=== PATIENT | male | born 1965 | race Caucasian/White ===

== ENCOUNTER 2016-04-12 14:59 | Inpatient (IN) ==
[2016-04-12 15:58] LABS: Basophils % 0.6 %; Eosinophils % 0.6 %; Hematocrit 24.3 % (37.5-50.1); Hemoglobin 7.8 g/dL (12.9-16.9); Immature Granulocytes % 0.4 % (0-4); Lymphocytes # 0.7 K/mcL (0.6-4.6); Mean Corpuscular HGB Conc 32.1 g/dL (31.6-35.5); Mean Corpuscular Hemoglobin 28.7 pg (28.0-33.3); Mean Corpuscular Volume 89.3 fL (83.0-100.0); Mean Platelet Volume 10.4 fL (9.4-12.4); Monocytes # 0.3 K/mcL (0.0-1.3); Monocytes % 4.9 %; Neutrophils # 5.7 K/mcL (1.6-8.9); Platelet Count 205 K/mcL (140-400); Red Blood Count 2.72 M/mcL (4.19-5.50); Red Cell Distribution Width 14.6 % (11.5-14.5); Segmented Neutrophils % 83.5 %
[2016-04-12 16:06] LABS: INR 1.1; Prothrombin Time 12.1 Seconds (9.4-12.1)
[2016-04-12 16:09] LABS: Activated Partial Thrombo Time 31.1 Seconds (26.0-36.0)
[2016-04-12 16:13] LABS: Albumin 3.3 g/dL (3.5-5.0); Bilirubin,Total 0.5 mg/dL (0.2-1.2); Calcium 8.2 mg/dL (8.6-10.8); Globulin 3.2 g/dL (2.4-3.5); Potassium 4.2 mEq/L (3.5-4.5); Total Protein 6.5 g/dL (6.0-8.3)
--- NOTE | 2016-04-12 16:21 | Emergency Department Note ---
Disposition Clinical Impression: Renal failure, Elevated troponin Disposition: Admitted As Inpatient Condition: Fair General Adult HPI - General Chief complaint: ED Recheck/Abnormal Lab/Rx Stated complaint: "kidney trouble" Time Seen by Provider: 04/12/16 15:26 Source: patient Limitations: no limitations Nursing Notes Reviewed: Yes Vital Signs Reviewed: Yes - History of Present Illness HPI Narrative: Patient presents with complaint of shortness of breath for 1 month. Per report patient stated he said increased swelling to the past month he is unable to take Lasix for his congestive heart failure due to his kidney function. Patient recently moved from [facility] and saw his primary care physician for the first time yesterday. Blood work was performed and the patient was contacted with advice to present for evaluation. Note that the patient's kidney function had significantly decreased. Patient state he thought his baseline treadmill was about 3. Patient denies chest pain denies fevers and chills. Patient is complains of shortness of breath the past month. Patient denies nausea or vomiting. Pain Scale: 0 - Related Data Home Medications Medication Instructions Recorded Confirmed Amlodipine Besylate 10 mg PO DAILY 04/12/16 04/12/16 Carvedilol 12.5 mg PO BID 04/12/16 04/12/16 CloNIDine HCl [Clonidine HCl] 0.2 mg PO TID 04/12/16 04/12/16 Furosemide [Lasix] 40 mg PO DAILY PRN 04/12/16 04/12/16 HydrALAZINE 25 mg PO TID 04/12/16 04/12/16 Allergies Allergy/AdvReac Type Severity Reaction Status Date / Time No Known Allergies Allergy Verified 04/12/16 15:10 All systems ED: reviewed and negative except as stated. Past Medical History - Past Medical History Source: patient Medical history: Reports: CHF, hypertension, myocardial infarction - Social History Smoking Status: Current every day smoker Smokeless Tobacco Status: No Alcohol use: Reports: none Drug use: Reports: none Physical Exam - General Limitations: no limitations General appearance: alert, in no apparent distress - Head Head exam: atraumatic, normocephalic, normal inspection - Eye Eye exam: Present: normal appearance, PERRL, EOMI - ENT ENT exam: normal exam, normal oropharynx, mucous membranes moist - Neck Neck exam: Present: normal inspection, full ROM, trachea midline - Chest Chest inspection: Present: normal inspection, symmetric chest wall rise - Respiratory Respiratory exam: Present: wheezes (Diffuse wheezing) - Cardiovascular Cardiovascular exam: Present: regular rate, normal rhythm, normal heart sounds - Abdominal Exam Abdominal exam: Present: soft, Non-Tender. Absent: tenderness, distention, guarding, rebound, rigidity - Extremities Exam Extremities exam: Present: normal inspection, full ROM, pedal edema (3+). Absent: tenderness Course Vital Signs Temperature 97.3 F L 04/12/16 15:10 Pulse Rate 82 04/12/16 15:10 Respiratory Rate 18 04/12/16 15:10 Blood Pressure 187/91 04/12/16 15:10 O2 Sat by Pulse Oximetry 96 04/12/16 15:10 Temperature 97.3 F L 04/12/16 15:10 Pulse Rate 81 04/12/16 16:28 Respiratory Rate 20 04/12/16 16:28 Blood Pressure 196/110 04/12/16 16:28 O2 Sat by Pulse Oximetry 99 04/12/16 16:28 Oxygen Delivery Oxygen Delivery Nasal Cannula Medical Decision Making - Differential Diagnosis Kidney failure, anemia, pneumonia, congestive heart failure, pulmonary embo - Lab Data Lab results reviewed: Yes I reviewed the patient's lab results. Result diagrams: 04/12/16 15:40 04/12/16 15:40 Lab Results 04/12/16 04/12/16 04/12/16 Range/Units 15:40 15:40 15:40 WBC 6.9 (4.3-11.1) K/mcL RBC 2.72 L (4.19-5.50) M/mcL Hgb 7.8 L (12.9-16.9) g/dL Hct 24.3 L (37.5-50.1) % MCV 89.3 (83.0-100.0) fL MCH 28.7 (28.0-33.3) pg MCHC 32.1 (31.6-35.5) g/dL RDW 14.6 H (11.5-14.5) % Plt Count 205 (140-400) K/mcL MPV 10.4 (9.4-12.4) fL Immature Gran % 0.4 (0-4) % Seg Neutrophils % 83.5 % Lymphocytes % 10.0 % Monocytes % 4.9 % Eosinophils % 0.6 % Basophils % 0.6 % Neutrophils # 5.7 (1.6-8.9) K/mcL Lymphocytes # 0.7 (0.6-4.6) K/mcL Monocytes # 0.3 (0.0-1.3) K/mcL Eosinophils # 0.0 (0.0-0.6) K/mcL Basophils # 0.0 (0.0-0.2) K/mcL PT 12.1 (9.4-12.1) Seconds INR 1.1 APTT 31.1 (26.0-36.0) Seconds Sodium 139 (136-145) mEq/L Potassium 4.2 (3.5-4.5) mEq/L Chloride 111 H (98-109) mEq/L Carbon Dioxide 17 L (19-29) mEq/L BUN 55 H (8-26) mg/dL Creatinine 8.43 H (0.72-1.25) mg/dL Est GFR ( Amer) 8 L (> 60) Est GFR (Non-Af Amer) 7 L (> 60) BUN/Creatinine Ratio 7 (6-26) Glucose 100 H (70-99) mg/dL Calculated Osmolality 303 H (280-300) Lactic Acid (0.5-2.2) mmol/L Calcium 8.2 L (8.6-10.8) mg/dL Total Bilirubin 0.5 (0.2-1.2) mg/dL AST 12 (5-34) Units/L ALT 17 (0-55) Units/L Alkaline Phosphatase 93 (38-126) Units/L Troponin I (0-0.03) ng/mL B-Natriuretic Peptide (0-100) pg/mL Serum Total Protein 6.5 (6.0-8.3) g/dL Albumin 3.3 L (3.5-5.0) g/dL Globulin 3.2 (2.4-3.5) g/dL Albumin/Globulin Ratio 1.0 L (1.1-2.2) 04/12/16 04/12/16 04/12/16 Range/Units 15:40 15:40 16:05 WBC (4.3-11.1) K/mcL RBC (4.19-5.50) M/mcL Hgb (12.9-16.9) g/dL Hct (37.5-50.1) % MCV (83.0-100.0) fL MCH (28.0-33.3) pg MCHC (31.6-35.5) g/dL RDW (11.5-14.5) % Plt Count (140-400) K/mcL MPV (9.4-12.4) fL Immature Gran % (0-4) % Seg Neutrophils % % Lymphocytes % % Monocytes % % Eosinophils % % Basophils % % Neutrophils # (1.6-8.9) K/mcL Lymphocytes # (0.6-4.6) K/mcL Monocytes # (0.0-1.3) K/mcL Eosinophils # (0.0-0.6) K/mcL Basophils # (0.0-0.2) K/mcL PT (9.4-12.1) Seconds INR APTT (26.0-36.0) Seconds Sodium (136-145) mEq/L Potassium (3.5-4.5) mEq/L Chloride (98-109) mEq/L Carbon Dioxide (19-29) mEq/L BUN (8-26) mg/dL Creatinine (0.72-1.25) mg/dL Est GFR ( Amer) (> 60) Est GFR (Non-Af Amer) (> 60) BUN/Creatinine Ratio (6-26) Glucose (70-99) mg/dL Calculated Osmolality (280-300) Lactic Acid 0.6 (0.5-2.2) mmol/L Calcium (8.6-10.8) mg/dL Total Bilirubin (0.2-1.2) mg/dL AST (5-34) Units/L ALT (0-55) Units/L Alkaline Phosphatase (38-126) Units/L Troponin I 0.07 H* (0-0.03) ng/mL B-Natriuretic Peptide 1890 H (0-100) pg/mL Serum Total Protein (6.0-8.3) g/dL Albumin (3.5-5.0) g/dL Globulin (2.4-3.5) g/dL Albumin/Globulin Ratio (1.1-2.2) - Radiology Data Radiology results reviewed: Yes I reviewed the patient's radiology results. Chest X-Ray 04/12/16 15:36 IMPRESSION: Enlarged cardiopericardial silhouette compatible with cardiomegaly and/or pericardial effusion. Comparison with prior studies would be helpful. Pulmonary vascular congestion suspected. D/ / Carmen Brown Cha, MD / Carmen Brown Cha, MD Interpreting Provider: Carmen Brown Cha, MD - EKG Data EKG #1 EKG attestation: Yes I reviewed and interpreted this EKG. EKG shows normal: sinus rhythm Rate: normal Rhythm: NSR Critical Care Time Total Critical Care Time: 45 Attestation: Critical care performed: Time is exclusive of separately billable procedures. Time includes: direct patient care, patient reassessment, coordination of patient care, interpretation of data (laboratory data, radiology data, and respiratory data), review of patient's medical records, medical consultation and documentation of patient care. Procedures included in critical care time: Procedures excluded from critical care time:
[2016-04-12 16:44] LABS: Bilirubin,Urine Negative (Negative); Blood,Urine Trace (Negative); Clarity,Urine Clear (Clear); Color,Urine Yellow (Yellow); Glucose,Urine (UA) Normal (Normal); Ketones,Urine Negative (Negative); Leukocyte Esterase,Urine Negative (Negative); Nitrite,Urine Negative (Negative); Protein,Urine >=300 mg/dL (Neg-Trace); Specific Gravity,Urine 1.012 (1.010-1.025); Urobilinogen,Urine Normal (Normal)
[2016-04-12 16:45] LABS: Bacteria,Urine None Seen per hpf (None-Few); Hyaline Casts,Urine None Seen per lpf (None-Few); RBC,Urine 0-3 per hpf (0-3); Squamous Epithelial Cell,Urine Many per lpf (None-Few); WBC,Urine 0-3 per hpf (0-3)
[2016-04-12] MEDS ORDERED: Naloxone 0.4 MG/ML INJ IVP PRN (17:45)
[2016-04-12] MEDS ORDERED: Acetaminophen 325 MG TABLET PO PRN (17:45)
[2016-04-12] MEDS ORDERED: Ondansetron 4 MG/2 ML VIAL IVP PRN (17:45)
[2016-04-12] MEDS ORDERED: *HR* HYDROcodone/Acet 5/325 mg TABLET PO PRN (17:45)
--- NOTE | 2016-04-12 17:54 | Internal Med History&Physical ---
Date of Encounter: 04/12/16 Time of Encounter: 18:00 Assessment and Plan (1) Acute respiratory failure with hypoxia Current visit: Yes Status: Acute Secondary to acute heart failure exacerbation and fluid overload from progression of CKD. Patient could also have a component of COPD since he is a smoker. CXR showed cardiomegaly and pulmonary edema. continue 3L of oxygen via nasal cannula. Start IV Lasix drip. Trinidad catheter. Strict in and out's. Nephrology has been consulted. Fluid restriction. Albuterol Atrovent nebulizations every 4 hours. (2) Fluid overload Current visit: Yes Status: Acute secondary to CKd and heart failure. plan as above Qualifiers: Hypervolemia type: other Qualified Code(s): E87.79 - Other fluid overload (3) Acute decompensated heart failure Current visit: Yes Status: Acute unknown type of HF. EKG showed SR, HR 83, LVH. Echocardiogram ordered. fluid restriction. IV lasix drip. coreg low dose. (4) Acute kidney injury superimposed on CKD Current visit: Yes Status: Acute baseline creatinine 3 about 4 months ago. I spoke with Dr Ramirez, he agrees with lasix drip and no need for emergent dialysis at this time. Check renal us. Cr/pr ratio. (5) HTN (hypertension) Current visit: Yes Status: Acute uncontrolled HTNn secondary to fluid overload. lasix drip. IV hydralazine. Qualifiers: Hypertension type: essential hypertension Qualified Code(s): I10 - Essential (primary) hypertension (6) Elevated troponin Current visit: Yes Status: Acute troponin elevated at 0.7. could be from CKD, acute HF. serial troponins. EKG showed no acute changes. echocardiogram ordered. (7) Tobacco use Current visit: Yes Status: Acute counseled to quit. nicotine patch. Internal Medicine - H&P: HPI Chief complaint: Progressive shortness of breath for the past month Admitted From: Home Plans for Post Hospital Care: Home History of present illness: Mr. Vargas is a 50 year old male with past medical history of CKD IV ( creatinine of 3 about 4 months ago), HTN, and heart failure who had all his care in [place], [place] until he moved here 4 months ago. He just saw his PCP last week and had blood test yesterday, the office contacted the patient to come to the ED due to abnormal labs. Patient reports progressive shortness of breath for the few past months as well as progressive lower extremity edema. Positive orthopnea. He reports no change in amount of urine for the past few months. No chest pain. Headache. No syncope. No abdominal pain. No diarrhea. No urinary complaints. No bleeding. No palpitations. Patient denies any recent use of NSAIDs or other OTC medication. He was taken off diuretics almost 5 months ago by his kidney specialist in [place]. Past Med Surg Social Fam HX - Past Medical History Medical history: CHF, hypertension, myocardial infarction - Social History Smoking Status: Current every day smoker Smokeless Tobacco Status: No Alcohol use: none Drug use: none - Family History Mother Hx Family Cardiac Disorders: Yes (HTN) Internal Medicine - H&P: Meds Amlodipine Besylate 10 mg PO DAILY 04/12/16 [History] Carvedilol 12.5 mg PO BID 04/12/16 [History] CloNIDine HCl [Clonidine HCl] 0.2 mg PO TID 04/12/16 [History] Furosemide [Lasix] 40 mg PO DAILY PRN 04/12/16 [History] HydrALAZINE 25 mg PO TID 04/12/16 [History] Allergies No Known Allergies Allergy (Verified 04/12/16 15:10) All Systems PM: A 10-system review of systems was performed and is negative for pertinent findings except as documented above in the HPI. - Constitutional Vitals: Temp Pulse Resp BP Pulse Ox 97.3 F L 81 22 189/106 99 04/12/16 15:10 04/12/16 16:28 04/12/16 17:26 04/12/16 17:26 04/12/16 16:28 General appearance: Present: cooperative, mild distress (Respiratory distress.) , A&O X 3, pleasant, answers questions appropriately - Eye Eye exam: Present: PERRL, sclera anicteric - Neck Neck exam general surgery: Present: supple, trachea midline. Absent: lymphadenopathy - Respiratory Respiratory exam: Present: decreased breath sounds, wheezes - Cardiovascular Cardiovascular exam: Present: RRR - GI/Abdominal GI/Abdominal exam: Present: normal bowel sounds, soft. Absent: distended, tenderness - Extremities Exam Extremities exam: Present: pedal edema (Last lower extremity edema up to the thighs) - Back Exam Back exam: Absent: CVA tenderness (L), CVA tenderness (R) - Neurological Exam Neurological exam: Present: alert, oriented X3, no focal deficits, strengths equal and symetr throughout. Absent: facial droop, speech deficit - Skin Skin exam: Present: dry, pallor. Absent: rash Internal Med - H&P Results - Labs CBC & Chem 7: 04/12/16 15:40 04/12/16 15:40
[2016-04-12] MEDS: Ipratropium/Albuterol Neb 3 ML IH SCH ×3 (19:56→23:00)
[2016-04-12] MEDS: Furosemide 240 MG in D5% in Water 96 ML IVC SCH (21:05)
[2016-04-13] MEDS ORDERED: *HR* Morphine 2 MG/ML SYRINGE IVP PRN (00:37)
[2016-04-13] MEDS: Nitroglycerin 1 INCH/GM PACKET TP SCH ×3 (01:02→11:05)
[2016-04-13] MEDS: Ipratropium/Albuterol Neb 3 ML IH SCH ×5 (03:53→20:07)
[2016-04-13 06:33] LABS: Basophils % 0.5 %; Eosinophils % 0.3 %; Hemoglobin 7.3 g/dL (12.9-16.9); Immature Granulocytes % 0.5 % (0-4); Lymphocytes # 0.7 K/mcL (0.6-4.6); Lymphocytes % 12.3 %; Mean Corpuscular HGB Conc 31.7 g/dL (31.6-35.5); Mean Corpuscular Hemoglobin 28.3 pg (28.0-33.3); Mean Corpuscular Volume 89.1 fL (83.0-100.0); Mean Platelet Volume 10.4 fL (9.4-12.4); Monocytes # 0.3 K/mcL (0.0-1.3); Monocytes % 4.8 %; Neutrophils # 4.8 K/mcL (1.6-8.9); Platelet Count 191 K/mcL (140-400); Red Blood Count 2.58 M/mcL (4.19-5.50); Red Cell Distribution Width 14.6 % (11.5-14.5); Segmented Neutrophils % 81.6 %
[2016-04-13 06:38] LABS: INR 1.2; Prothrombin Time 12.5 Seconds (9.4-12.1)
[2016-04-13 06:50] LABS: Albumin 3.2 g/dL (3.5-5.0); Bilirubin,Total 0.6 mg/dL (0.2-1.2); Calcium 7.9 mg/dL (8.6-10.8); Globulin 3.1 g/dL (2.4-3.5); Magnesium 1.8 mg/dL (1.6-2.6); Phosphorous 4.4 mg/dL (2.3-4.7); Potassium 3.8 mEq/L (3.5-4.5); Total Protein 6.3 g/dL (6.0-8.3)
[2016-04-13 07:10] LABS: Thyroid Stimulating Hormone 2.065 mcIU/mL (0.350-4.840)
[2016-04-13 07:25] LABS: Folate 5.3 ng/mL (7.0-31.4)
[2016-04-13] MEDS: Nicotine 7 MG PATCH.TD24 TD SCH ×2 (09:49→22:06)
[2016-04-13 10:31] LABS: Protein/Creatinine Ratio,Urine 2.24 mg/mg (0-0.20)
[2016-04-13 10:51] LABS: Hepatitis B Surface Antigen Nonreactive (Nonreactive)
--- NOTE | 2016-04-13 10:53 | Internal Med Progress Note ---
Date of Encounter: 04/13/16 Time of Encounter: 10:50 - Assessment and plan (1) Acute respiratory failure with hypoxia Current Visit: Yes Status: Acute Assessment and plan: Acute hypoxic respiratory failure secondary to acute pulmonary edema from acute CHF systolic versus diastolic/volume overload related to renal failure Continue Lasix drip Fluid restriction, Lasix drip, strict I's and nose and daily weight Echocardiogram ordered (2) Acute decompensated heart failure Current Visit: Yes Status: Acute (3) Acute kidney injury superimposed on CKD Current Visit: Yes Status: Acute Assessment and plan: Acute on chronic renal failure stage 5, unclear etiology Follow-up with Dr. Ramirez. consider renal biopsy, may require hemodialyses (4) Elevated troponin Current Visit: Yes Status: Acute Assessment and plan: Likely secondary to demand ischemia and renal disease (5) Fluid overload Current Visit: Yes Status: Acute Qualifiers: Hypervolemia type: other Qualified Code(s): E87.79 - Other fluid overload (6) HTN (hypertension) Current Visit: Yes Status: Acute Assessment and plan: Stable, order hydralazine as needed Qualifiers: Hypertension type: essential hypertension Qualified Code(s): I10 - Essential (primary) hypertension (7) Tobacco use Current Visit: Yes Status: Acute Assessment and plan: smoking cessation counseling given for 5 min . nicotine patch - Time Spent With Patient Greater than 35 minutes - Subjective Interval history: Feeling less short of breath, denies any chest pain, no palpitations, no abdominal pain, no cough or fevers, no dysuria or diarrhea. - Constitutional Vitals: Temp Pulse Resp BP Pulse Ox 98.8 F 91 16 190/101 98 04/13/16 07:46 04/13/16 07:46 04/13/16 08:03 04/13/16 07:46 04/13/16 08:03 General appearance: Present: cooperative, mild distress (Respiratory distress.) , A&O X 3, pleasant, answers questions appropriately - Head Head exam: Present: atraumatic, normocephalic - Eye Eye exam: Present: PERRL, conjuntiva pink, sclera anicteric Pupils: Present: PERRL - Neck Neck exam general surgery: Present: supple, trachea midline. Absent: lymphadenopathy - Respiratory Respiratory exam: Present: decreased breath sounds (Diffuse fine crackles), CTAB. Absent: accessory muscle use, rales, rhonchi, wheezes - Cardiovascular Cardiovascular exam: Present: RRR, +S1, +S2. Absent: diastolic murmur, gallop, rubs, systolic murmur - GI/Abdominal GI/Abdominal exam: Present: normal bowel sounds, soft, no peritoneal signs. Absent: distended, tenderness - Extremities Exam Extremities exam: Present: pedal edema (+2 pitting edema in both lower extremities), warm, radial pulses palpable and symetrical. Absent: calf tenderness, cyanotic - Neurological Exam Neurological exam: Present: CN II-XII intact, oriented X3, no focal deficits. Absent: pronater drift, facial droop, speech deficit - Skin Skin exam: Present: dry, intact Internal Medicine: Result - Labs CBC & Chem 7: 04/13/16 06:20 04/13/16 06:20 Labs: Short CBC 04/13/16 Range/Units 06:20 WBC 5.9 (4.3-11.1) K/mcL Hgb 7.3 L (12.9-16.9) g/dL Hct 23.0 L (37.5-50.1) % Plt Count 191 (140-400) K/mcL Neutrophils # 4.8 (1.6-8.9) K/mcL BMP 04/13/16 06:20 Sodium 137 Potassium 3.8 Chloride 111 H Carbon Dioxide 14 L BUN 56 H Creatinine 8.51 H Glucose 103 H Calcium 7.9 L Cardiac Enzymes 04/12/16 04/13/16 04/13/16 Range/Units 21:29 06:20 09:59 Troponin I 0.08 H* 0.09 H* 0.08 H* (0-0.03) ng/mL Liver Function 04/13/16 Range/Units 06:20 Total Bilirubin 0.6 (0.2-1.2) mg/dL AST 13 (5-34) Units/L ALT 16 (0-55) Units/L Alkaline Phosphatase 86 (38-126) Units/L Albumin 3.2 L (3.5-5.0) g/dL - ABG Interpretation ABG results: PT/INR, D-dimer PT 12.5 Seconds (9.4-12.1) H 04/13/16 06:20 - Impressions Impressions Retroperitoneum Ultrasound 02/03/17 18:52 IMPRESSION: 1. No obstructive uropathy. 2. Increased bilateral renal echogenicity compatible with medical renal disease. 3. Bilateral pleural effusions. D/ / Westley Rudolph MD / Westley Rudolph MD Interpreting Provider: Westley Rudolph MD - VTE Documentation of Mechanical Device: Venous foot pump, device Consult Discharge Plan - Plan Referrals: Callie Abreu DO [Primary Care Provider] -
--- NOTE | 2016-04-13 11:43 | ECHO - Doppler Report ---
Echocardiogram Name: Corey Vargas Date of Study: 04/13/2016 Date: 1965 Ht: 71.0 in Medical Record#: [id number] Age: 50 Wt: 224.0 lb Gender: Male BSA: 2.21 Order #: [id number] Location: [facility] Room #: [id number] Reading Physician: Westley Alvarenga DO, FACC, NARAYAN, BHAVNA Auto Garage Mechanic: Deya Bernard, RVT, RD Ordering Physician: Verito Peace MD Primary Physician: None Indications: Cardiomegaly, Shortness of breath Impressions: LVEF 55-60%. Severely dilated left ventricle. Moderate concentric left ventricular hypertrophy. Indeterminate diastolic function. Grossly, normal appearing right ventricular function. Severely dilated left atrium. Moderate to severely dilated right atrium. Mildly calcified aortic valve leaflets. The number of leaflets cannot be determined. Mild-moderate aortic stenosis. Mean gradient 20 mmHg. Peak velocity 3.02 m/s. Mild aortic regurgitation. Severe pulmonary hypertension. Estimated RVSP is 59 mmHg. Left Ventricular Wall Motion: Rest Echo Findings All wall segments showed normal motion. Findings: Study Quality * Technically adequate exam. ECG Findings * Normal sinus rhythm. Left Ventricle * LVEF 55-60%. * Severely dilated left ventricle. * Moderate concentric left ventricular hypertrophy. * Indeterminate diastolic function. Right Ventricle * Right ventricle was not well evaluated. Grossly, it demonstrates normal function. Left Atrium * Severely dilated left atrium. Right Atrium * Moderate to severely dilated right atrium. Interatrial Septum * Interatrial septum not well evaluated. Aortic Valve * Aortic valve not well visualized. * Mildly calcified aortic valve leaflets. The number of leaflets cannot be determined. * Mild aortic regurgitation. * Mild-moderate aortic stenosis. Mean gradient 20 mmHg. Peak velocity 3.02 m/s. Mitral Valve * Mildly thickened mitral valve leaflets. * Trace mitral regurgitation. * No mitral stenosis. Tricuspid Valve * Normal tricuspid valve structure and function. * Trace tricuspid regurgitation. * Severe pulmonary hypertension. * Estimated RVSP is 59 mmHg. * Estimated RA pressure is 5 mmHg. Pulmonic Valve * Pulmonic valve is not well visualized. Aorta * Normally sized aortic root. Pericardium * The pericardium appears normal. IVC * Normal IVC dimensions and inspiratory collapse. Pulmonary Artery * Normal visualized portions of the main pulmonary artery. History Hypertension Hypercholesteremia History of Smoking Years 14 Packs 0.5 Family History of CAD History of CAD/PTCA Myocardial Infarction Measurements: BP: 186/ 93 2D Normal Values IVSd: 1.50 cm 0.6 - 1.0 cm LVIDd: 7.10 cm 3.7 - 5.6 cm LVPWd: 1.50 cm 0.6 - 1.1 cm LVIDs: 5.00 cm 1.5 - 3.6 cm AO: 4.10 cm < 4.0 cm LA: 5.00 cm 2.0 - 4.0cm %FS: 29.60 cm >25 % LVOT Diam: 2.60 cm LA volume: 175 Mitral Valve Peak E:1.17 m/sec Peak A:.93 m/sec E/A Ratio:1.3 LVOT Peak Randall:1.10 m/sec Mean Randall:.74 m/sec Peak Grad:5.00 mmHg Mean Grad:3.00 mmHg Aortic Valve Peak Randall:3.02 m/sec Mean Randall:2.13 m/sec Peak Grad:36.00 mmHg Mean Grad:20.00 mmHg Valve Area:2.22 cm2 AI pressure Half-time: 692.00 msec Tricuspid Valve TV Regurg Peak Grad: 54.00mmHg TV Regurg Peak Randall: 3.68m/sec Updated by Westley Alvarenga DO, FACLatisha, BHAVNA BUSCH on 04/13/2016 11:35:56 AM electronically signed on 04/13/2016 11:38:35 AM with status of Final Wall Motion Ang: 1=Normal, 2=Hypokinesis, 3=Akinesis, 4=Dyskinesis, 5=Aneurysmal, 6=Hyperkinetic, X=Not Visualized (Blank)=Missing
[2016-04-13] MEDS: hydrALAZINE 25 MG TABLET PO SCH ×2 (12:27→18:04)
--- NOTE | 2016-04-13 13:51 | Nephrology Consult Note ---
Date of Encounter: 04/13/16 Time of Encounter: 09:00 Assessment and Plan (1) Acute kidney injury superimposed on CKD Current Visit: Yes Status: Acute Elevated Creatinine. I suspect he has progression of CKD to renal failure, but this could also be ADAM on CKD stage III. To help determine, I recommend obtaining medical records and labs from his prior wool hat finisher Dr. Mckee from [place]. He has proteinuria: check serologies and 24hr urine to screen for a GN, and since his renal function has rapidly worsened, this could be an RPGN. I had a long conversation with the pt and his family that he may need a renal biopsy. He denied taking ASA or other blood thinners. I also discussed with the pt that he may need dialysis in the coming days. Fortunately he is not hyperkalemic today, and does not have uremic confusion. So I will hold on starting HD. Given his hx of CHF (pending echo), I recommend continuing the lasix gtt, which would help correct his volume status and if this is Cardiorenal syndrome, then his SCr may even improve. Renal US: algometric kidneys Rt 9.8 and Lt 11.7. Will check a renal doppler to screen for TANYA. Renal cysts were noted but were described as "simple" which tend to be less likely to be RCC. CKD-BMD: check iPTH, 25-OH vit D. His Phos was WNL, which is reassuring. Will screen uric acid and CK. Ca corrects for hypoalbuminemia Anemia, checking iron studies but he may have anemia of CKD. Will screen SPEP and K/L FLC and LDH. Transfusion parameters as per primary. May need IV iron and NYASIA, but will trend his H/H. Before a renal biopsy, he would need a Hgb of greater than/equal to 9. HTN/edema: very elevated. No DULCE or ARBD d/t his elevated SCr. Okay for prn Hydralazine 10mg IV prn q6hr. This would have to be corrected before a renal biopsy. As his volume status improves, so should his BP. Low sodium diet. Metabolic acidosis: likely from his advanced CKD. Now that he is on a lasix gtt , I would expect his serum CO2 to rise, but if this trends worse, check a lactic acid. Follow a renal protective strategy: dose renally cleared Rx by GFR, avoid nephrotoxins such as NSAIDs, Bactrim, Contrast and etc. Renal dietary restrictions. Strict I/Os, and daily weights. Thank you for consulting the [facility]. Will follow with you. (2) Fluid overload Current Visit: Yes Status: Acute Lasix gtt Qualifiers: Hypervolemia type: other Qualified Code(s): E87.79 - Other fluid overload (3) Proteinuria Current Visit: Yes Status: Acute See above Qualifiers: Proteinuria type: persistent Qualified Code(s): R80.1 - Persistent proteinuria, unspecified (4) Acquired asymmetrical kidneys Current Visit: Yes Status: Acute (5) Renal cyst Current Visit: Yes Status: Acute (6) Anemia Current Visit: Yes Status: Acute Qualifiers: Anemia type: unspecified type Qualified Code(s): D64.9 - Anemia, unspecified (7) Metabolic acidosis Current Visit: Yes Status: Acute (8) Hypoalbuminemia Current Visit: Yes Status: Acute (9) Acute decompensated heart failure Current Visit: Yes Status: Acute Lasix gtt. As per primary (10) HTN (hypertension) Current Visit: Yes Status: Acute Qualifiers: Hypertension type: essential hypertension Qualified Code(s): I10 - Essential (primary) hypertension History of Present Illness - Reason for Consult Consult date: 04/12/16 Acute Kidney Injury, Chronic Kidney Disease Requesting physician: Charli Rhoades - Chief Complaint Worsening renal function - History of Present Illness Corey Vargas is a very pleasant 50 y/o gentleman with a pmh of CAD, CHF, CKD and et al who presented yesterday. He had just moved to the area and established care this week with his new PCP, who noted that renal labs were severe; the pt was sent to the ER. He said that his prior wool hat finisher in [place] is Dr. Mckee. The pt said he's never had a renal biopsy and that his last SCr to his knowledge was near "3" that was check about either 3 or 6 months ago, his said. His knew most of his medical details, as the pt could not recall much. He affirmed having a diminished appetite that has slowly been worsening over weeks. He denied taking OTC NSAIDs, hx of diabetes or recent LHC or CTs with contrast. He did not affirm diarrhea, vomiting or chest pain. FHx: he said that no relatives required HD. Past Med Surg Social Fam HX - Past Medical History Medical history: CHF, hypertension, myocardial infarction - Past Surgical History Surgical History: appendectomy - Social History Smoking Status: Current every day smoker Smokeless Tobacco Status: No Alcohol use: none Drug use: none - Family History Mother Hx Family Cardiac Disorders: Yes (HTN) Medications and Allergies Amlodipine Besylate 10 mg PO DAILY 04/12/16 [History] Carvedilol 12.5 mg PO BID 04/12/16 [History] CloNIDine HCl [Clonidine HCl] 0.2 mg PO TID 04/12/16 [History] Furosemide [Lasix] 40 mg PO DAILY PRN 04/12/16 [History] HydrALAZINE 25 mg PO TID 04/12/16 [History] Allergies No Known Allergies Allergy (Verified 04/12/16 15:10) Review of Systems All Systems: reviewed and no additional remarkable complaints except as stated Exam - Vital Signs Vital signs: Initial Vital Signs Temp Pulse Resp BP Pulse Ox 97.3 F L 82 18 187/91 96 04/12/16 15:10 04/12/16 15:10 04/12/16 15:10 04/12/16 15:10 04/12/16 15:10 Vital Signs - Last 8 Hours Temp Pulse Resp BP Pulse Ox 04/13/16 12:13 98.4 F 80 16 192/99 96 04/13/16 08:03 16 98 04/13/16 07:46 98.8 F 91 18 190/101 92 L Intake and Output 04/12/16 04/13/16 04/13/16 23:59 07:59 15:59 Intake Total 240 / 240 0 / 0 Output Total 825 / 825 600 / 600 Balance -585 / -585 -600 / -600 Intake: Oral 240 / 240 0 / 0 Output: Urine 825 / 825 600 / 600 Other: Meal Lunch Percent of Meal Consumed 25% Weight 101.695 kg Patient Weight 04/13/16 23:59 Weight 101.695 kg - General Appearance General appearance: well-developed, well-nourished EENT: ATNC Neck: supple Respiratory: clear Cardiology: edema (trace to 1+ lower extremity edema b/l), regular rate, regular rhythm, normal S1, normal S2 Gastrointestinal: normoactive bowel sounds, no tenderness, no guarding Integumentary: no rash, warm and dry Neurologic: no focal deficit, no asterixis Musculoskeletal: no deformities, no erythema, no clubbing Psychiatric: mood/affect appropriate, cooperative Results - Lab Results 04/13/16 06:20 04/13/16 06:20 Most recent lab results Calcium 7.9 mg/dL (8.6-10.8) L 04/13/16 06:20 Phosphorus 4.4 mg/dL (2.3-4.7) 04/13/16 06:20 Magnesium 1.8 mg/dL (1.6-2.6) 04/13/16 06:20 Urine Creatinine 75 mg/dL 04/12/16 16:30 Urine Total Protein 168 mg/dL (1-14) H 04/12/16 16:30 I reviewed all the above auto-generated data, including labs, meds, vitals, other progress notes (but pending outside med records frm his PCP), and imaging. Consult Discharge Plan - Plan Referrals: Callie Abreu DO [Primary Care Provider] -
[2016-04-13] MEDS: cloNIDine HCl 0.1 MG TABLET PO SCH ×2 (15:20→22:08)
[2016-04-13] MEDS: amLODIPine 5 MG TABLET PO SCH (18:04)
[2016-04-14] MEDS: hydrALAZINE 25 MG TABLET PO SCH ×5 (01:06→23:32)
[2016-04-14] MEDS: Ipratropium/Albuterol Neb 3 ML IH SCH ×7 (01:21→23:53)
[2016-04-14] MEDS: D5% in Water 500 ML IVC SCH ×2 (01:40→23:28)
[2016-04-14] MEDS: Nitroglycerin 1 INCH/GM PACKET TP SCH ×2 (05:52→14:00)
[2016-04-14 06:35] LABS: Hematocrit 22.5 % (37.5-50.1); Hemoglobin 7.3 g/dL (12.9-16.9); Mean Corpuscular HGB Conc 32.4 g/dL (31.6-35.5); Mean Corpuscular Volume 89.3 fL (83.0-100.0); Mean Platelet Volume 10.4 fL (9.4-12.4); Platelet Count 187 K/mcL (140-400); Red Blood Count 2.52 M/mcL (4.19-5.50); Red Cell Distribution Width 14.6 % (11.5-14.5)
[2016-04-14 06:51] LABS: Potassium 3.8 mEq/L (3.5-4.5)
[2016-04-14 06:53] LABS: Magnesium 1.7 mg/dL (1.6-2.6); Phosphorous 5.3 mg/dL (2.3-4.7); Uric Acid 6.6 mg/dL (3.5-7.2)
[2016-04-14] MEDS: amLODIPine 5 MG TABLET PO SCH (10:18)
[2016-04-14] MEDS: cloNIDine HCl 0.1 MG TABLET PO SCH ×3 (10:19→20:50)
--- NOTE | 2016-04-14 12:30 | Nephrology Progress Note ---
Date of Encounter: 04/14/16 Time of Encounter: 09:45 - Assessment and Plan (1) Acute kidney injury superimposed on CKD Current Visit: Yes Status: Acute Progressively worsening renal failure. Hgb is too low for renal biopsy today. I reviewed the Echo (no pericardial effusion but LVH and ), plus he is not hyperkalemia nor overtly uremic, so I will plan to initiate HD tomorrow (Friday) . Since I suspect he may be on dialysis nursing home, I will request a Permacath: NPO at AL and I will place a consult order to IR. Proteinuria: I suspect an RPGN vs FSGS vs other GN until proven otherwise, so I do recommend a renal biopsy, when stable, perhaps on or Friday: Hgb must be >9 and BPs <160 systolic. Hold anticoagulants such as ASA and Plavix for at least 5 days. I counseled him and his on a renal diet HTN/edema: improving and recommend continuing the lasix gtt. He is nonoliguric. Consider adding Imdur at some point, since he cannot receive an DULCE or ARB at this time (d/t the renal dysfunction). (2) Fluid overload Current Visit: Yes Status: Acute Qualifiers: Hypervolemia type: other Qualified Code(s): E87.79 - Other fluid overload (3) Proteinuria Current Visit: Yes Status: Acute Qualifiers: Proteinuria type: persistent Qualified Code(s): R80.1 - Persistent proteinuria, unspecified (4) Acquired asymmetrical kidneys Current Visit: Yes Status: Acute Pending renal doppler. (5) Renal cyst Current Visit: Yes Status: Acute Will monitor. (6) Anemia Current Visit: Yes Status: Acute Discussed with the hospitalist who said he is preparing to give PRBCs. Qualifiers: Anemia type: unspecified type Qualified Code(s): D64.9 - Anemia, unspecified (7) Metabolic acidosis Current Visit: Yes Status: Acute Improving while on lasix gtt (8) Hypoalbuminemia Current Visit: Yes Status: Acute (9) Acute decompensated heart failure Current Visit: Yes Status: Acute He is diuresising (10) HTN (hypertension) Current Visit: Yes Status: Acute Improving. See above. Qualifiers: Hypertension type: essential hypertension Qualified Code(s): I10 - Essential (primary) hypertension Subjective Principal diagnosis: Renal Failure, HTN, Proteinuria Interval history: Pt was seen/examined. His was at bedside. The putty mixer and applier was present as well. He did not affirm N/V/D but did report having a diminished renal appetite. Objective - Vital Signs Vital signs: Vital Signs Temp Pulse Resp BP Pulse Ox 04/14/16 11:49 16 92 L 04/14/16 11:00 97.3 F L 94 18 183/80 91 L 04/14/16 07:33 97.3 F L 84 16 165/81 100 04/14/16 07:32 16 95 04/14/16 04:22 98.4 F 90 17 168/82 94 L 04/14/16 03:54 18 90 L 04/14/16 01:36 97.5 F L 90 17 181/99 90 L 04/13/16 20:23 98.3 F 84 22 175/94 94 L 04/13/16 20:07 20 91 L 04/13/16 18:09 97.8 F 82 18 159/87 92 L 04/13/16 16:37 16 88 L 04/13/16 15:42 97.9 F 91 16 181/96 93 L Intake and Output 04/13/16 04/14/16 04/14/16 23:59 07:59 15:59 Intake Total 720 / 720 360 / 360 Output Total 900 / 900 0 / 0 Balance 720 / 720 -900 / -900 360 / 360 Intake: Oral 720 / 720 360 / 360 Output: Urine 900 / 900 0 / 0 Other: Meal Dinner Breakfast Percent of Meal Consumed 90% 100% Weight 99.79 kg Patient Weight 04/14/16 23:59 Weight 99.79 kg - General Appearance Exam: General appearance: well-developed, well-nourished EENT: ATNC Neck: supple Respiratory: clear Cardiology: edema (trace to 1+ lower extremity edema b/l), regular rate, regular rhythm, normal S1, normal S2 Gastrointestinal: normoactive bowel sounds, no tenderness, no guarding Integumentary: no rash, warm and dry Neurologic: no focal deficit, no asterixis Musculoskeletal: no deformities, no erythema, no clubbing Psychiatric: mood/affect appropriate, cooperative - Lab 04/14/16 05:48 04/14/16 05:48 Most recent lab results Calcium 8.0 mg/dL (8.6-10.8) L 04/14/16 05:48 Phosphorus 5.3 mg/dL (2.3-4.7) H 04/14/16 05:48 Magnesium 1.7 mg/dL (1.6-2.6) 04/14/16 05:48 Urine Creatinine 75 mg/dL 04/12/16 16:30 Urine Total Protein 168 mg/dL (1-14) H 04/12/16 16:30 - VTE Documentation of Mechanical Device: Intermittent pneumatic compression device Consult Discharge Plan - Plan Referrals: Callie Abreu DO [Primary Care Provider] -
--- NOTE | 2016-04-14 12:59 | Arterial Study Report ---
Renal Duplex Patient Name:Corey Vargas Order Number:[id number] Procedure Date:04/14/2016 Date:1965Age:50 yrs Gender:Male Location:[facility] Room #: 2A36 Box Toe Maker:Deya Bernard RVT, RDCS Referring MD:Roosevelt Ramirez DO account installation specialist:None Reading MD:Nick Andrade MD Primary Indications:ASYMMETRICAL KIDNEYS Secondary Indications: ADAM, HYPERTENSION Risk Factors Yes/No Hypertension Yes Smoking Current Yes Hypercholesterolemia Yes Hx of CAD/PTCA Yes Impressions: Findings: bilateral renal artery is hemodynamically well maintained. Proximal right renal poorly visualized Findings Renal Anatomy: The right kidney size measures 8.5 x 4.3 x 4.6 cm. Very difficult imaging right kidney and right renal fossa/right renal artery. The left kidney size measures 11.3 x 5.6 x 4.4 cm. Renal Duplex: Right: The right proximal renal artery, right mid renal artery and right distal renal artery were not well visualized. Prior Study: No prior study available for comparison. Renal Duplex Right RAR:.3 Left RAR:1.0 Side Vessel PSV EDV RI PI Accel Aorta 153.00 28.00 0.82 Left Mid Renal Artery 149.00 48.00 0.68 Left Distal Renal Artery 116.00 33.00 0.72 Left Proximal Renal Artery 130.00 46.00 0.65 Right Distal Renal Artery 43.00 16.00 0.63 Updated by Nick Andrade MD on 04/14/2016 12:54:09 PM electronically signed on 04/14/2016 12:54:34 PM with status of Final
--- NOTE | 2016-04-14 13:19 | Internal Med Progress Note ---
Date of Encounter: 04/14/16 Time of Encounter: 13:17 - Assessment and plan (1) Acute respiratory failure with hypoxia Current Visit: Yes Status: Acute Assessment and plan: Acute hypoxic respiratory failure secondary to acute pulmonary edema from acute CHF systolic versus diastolic/volume overload related to renal failure Continue Lasix drip Fluid restriction 1500 mL, Lasix drip, strict I's and nose and daily weight Echocardiogram showed an ejection fraction of 55-60%, severely dilated left ventricle with moderate concentric left ventricular hypertrophy, indeterminate diastolic function, severely dilated left atrium severe pulmonary hypertension with an RVSP of 59 mmHg (2) Acute decompensated heart failure Current Visit: Yes Status: Acute (3) Acute kidney injury superimposed on CKD Current Visit: Yes Status: Acute Assessment and plan: Acute on chronic renal failure stage 5, unclear etiology Possible RPGN vs FSGS vs other GN are being considered by nephrology Permanent dialysis catheter to be scheduled for tomorrow and possible biopsy for Friday Follow-up with Dr. Ramirez. consider renal biopsy, may require hemodialyses (4) Elevated troponin Current Visit: Yes Status: Acute Assessment and plan: Likely secondary to demand ischemia and renal disease (5) Fluid overload Current Visit: Yes Status: Acute Qualifiers: Hypervolemia type: other Qualified Code(s): E87.79 - Other fluid overload (6) HTN (hypertension) Current Visit: Yes Status: Acute Assessment and plan: Improved on amlodipine, carvedilol, clonidine and hydralazine Coma also hydralazine IV as needed Qualifiers: Hypertension type: essential hypertension Qualified Code(s): I10 - Essential (primary) hypertension (7) Tobacco use Current Visit: Yes Status: Acute Assessment and plan: smoking cessation counseling given for 5 min . nicotine patch (8) Anemia Current Visit: Yes Status: Acute Assessment and plan: Likely related to renal disease Ordered 1 unit of blood and recheck in the morning Iron supplement Qualifiers: Anemia type: unspecified type Qualified Code(s): D64.9 - Anemia, unspecified - Time Spent With Patient Greater than 35 minutes - Subjective Interval history: Feeling better and less short of breath, denies any chest pain, no palpitations , no abdominal pain, no cough or fevers, no dysuria or diarrhea. Legs are still very swollen - Constitutional Vitals: Temp Pulse Resp BP Pulse Ox 97.3 F L 94 16 183/80 92 L 04/14/16 11:00 04/14/16 11:00 04/14/16 11:49 04/14/16 11:00 04/14/16 11:49 General appearance: Present: cooperative, mild distress (Respiratory distress.) , A&O X 3, pleasant, answers questions appropriately - Head Head exam: Present: atraumatic, normocephalic - Eye Eye exam: Present: PERRL, conjuntiva pink, sclera anicteric Pupils: Present: PERRL - Neck Neck exam general surgery: Present: supple, trachea midline. Absent: lymphadenopathy - Respiratory Respiratory exam: Present: CTAB, rales (Fine bibasilar crackles). Absent: accessory muscle use, rhonchi, wheezes - Cardiovascular Cardiovascular exam: Present: RRR, +S1, +S2. Absent: diastolic murmur, gallop, rubs, systolic murmur - GI/Abdominal GI/Abdominal exam: Present: normal bowel sounds, soft, no peritoneal signs. Absent: distended, tenderness - Extremities Exam Extremities exam: Present: pedal edema (Severe +3 pitting edema in both lower extremities, improving), warm, radial pulses palpable and symetrical. Absent: calf tenderness, cyanotic - Neurological Exam Neurological exam: Present: CN II-XII intact, oriented X3, no focal deficits. Absent: pronater drift, facial droop, speech deficit - Skin Skin exam: Present: dry, intact Internal Medicine: Result - Labs CBC & Chem 7: 04/14/16 05:48 04/14/16 05:48 Labs: Short CBC 04/14/16 Range/Units 05:48 WBC 7.0 (4.3-11.1) K/mcL Hgb 7.3 L (12.9-16.9) g/dL Hct 22.5 L (37.5-50.1) % Plt Count 187 (140-400) K/mcL BMP 04/14/16 05:48 Sodium 140 Potassium 3.8 Chloride 110 H Carbon Dioxide 17 L BUN 53 H Creatinine 8.43 H Glucose 102 H Calcium 8.0 L - ABG Interpretation ABG results: PT/INR, D-dimer PT 12.5 Seconds (9.4-12.1) H 04/13/16 06:20 - VTE Documentation of Mechanical Device: Intermittent pneumatic compression device Consult Discharge Plan - Plan Referrals: Callie Abreu DO [Primary Care Provider] -
[2016-04-14] MEDS: Furosemide 240 MG in D5% in Water 96 ML IVC SCH (15:45)
[2016-04-14] MEDS ORDERED: 0.9 % Sodium Chloride 250 ML ONE (16:43)
[2016-04-14] MEDS: Nicotine 7 MG PATCH.TD24 TD SCH (18:20)
[2016-04-15] MEDS: Ipratropium/Albuterol Neb 3 ML IH SCH ×6 (03:39→23:16)
[2016-04-15 05:01] LABS: Basophils % 0.5 %; Eosinophils # 0.2 K/mcL (0.0-0.6); Eosinophils % 3.1 %; Hematocrit 23.2 % (37.5-50.1); Hemoglobin 7.5 g/dL (12.9-16.9); Immature Granulocytes % 0.2 % (0-4); Lymphocytes # 0.9 K/mcL (0.6-4.6); Lymphocytes % 15.2 %; Mean Corpuscular HGB Conc 32.3 g/dL (31.6-35.5); Mean Corpuscular Hemoglobin 28.3 pg (28.0-33.3); Mean Corpuscular Volume 87.5 fL (83.0-100.0); Mean Platelet Volume 9.7 fL (9.4-12.4); Monocytes # 0.5 K/mcL (0.0-1.3); Monocytes % 7.3 %; Neutrophils # 4.5 K/mcL (1.6-8.9); Platelet Count 156 K/mcL (140-400); Red Blood Count 2.65 M/mcL (4.19-5.50); Red Cell Distribution Width 14.9 % (11.5-14.5); Segmented Neutrophils % 73.7 %
[2016-04-15 05:07] LABS: INR 1.1; Prothrombin Time 11.5 Seconds (9.4-12.1)
[2016-04-15] MEDS: Nitroglycerin 1 INCH/GM PACKET TP SCH ×2 (05:09→12:07)
[2016-04-15 05:20] LABS: Calcium 7.7 mg/dL (8.6-10.8); Potassium 3.8 mEq/L (3.5-4.5)
[2016-04-15] MEDS: hydrALAZINE 25 MG TABLET PO SCH ×4 (07:45→22:51)
[2016-04-15] MEDS ORDERED: 0.9 % Sodium Chloride 250 ML IV PRN (08:08)
[2016-04-15] MEDS: cloNIDine HCl 0.1 MG TABLET PO SCH ×3 (08:54→21:18)
[2016-04-15] MEDS: amLODIPine 5 MG TABLET PO SCH (08:54)
[2016-04-15] MEDS ORDERED: 0.9 % Sodium Chloride 2,000 ML ONE (09:11)
[2016-04-15] MEDS ORDERED: Heparin 1,000 UNITS/500 mL NS 500 ML ONE (11:10)
[2016-04-15] MEDS ORDERED: *HR* Midazolam HCl 2 MG/2 ML VIAL IV PRN (11:28)
[2016-04-15] MEDS ORDERED: *HR* FentaNYL (PF) 100 MCG/2 ML VIAL IV PRN (11:28)
--- NOTE | 2016-04-15 11:29 | Pre-Sedation Evaluation ---
Pre-sedation evaluation - Pre-sedation checklist Date of procedure: 04/15/16 Procedure: permacath Recent Vitals: Last Vital Signs Temp 98.1 F 04/15/16 06:41 Pulse 78 04/15/16 06:41 Resp 26 04/15/16 10:47 BP 167/81 04/15/16 06:41 Pulse Ox 98 04/15/16 06:41 H&P (including ROS) documented in medical record: Yes Previous reaction to sedatives/anesthetics: No Dietary Status: NPO after Midnight Airway Assessment: Patient can open mouth completely, TMJ function normal, Micrognathia (under-bite, receding chin) absent, Neck with adequate range of motion Possible difficult airway: No ASA Classification *see protocol: CLASS II-Mild systemic disease Plan of Care: Pt appropriate candidate for procedure/moderate/conscious sedation , Risks/benefits of procedure/sedation discussed w/ patient/family
[2016-04-15] MEDS ORDERED: 0.9 % Sodium Chloride 500 ML ONE (11:32)
--- NOTE | 2016-04-15 11:35 | Nephrology Progress Note ---
Date of Encounter: 04/15/16 Time of Encounter: 09:30 - Assessment and Plan (1) Acute kidney injury superimposed on CKD Current Visit: Yes Status: Acute Progressively worsening renal failure. Since I suspect he may be on dialysis long-term, and have requested/consulted IR for evaluation to place a Permacath. Consult the SW for a dialysis chair. I asked which city they want to use for dialysis, and he/his both said [place]. HD: 2hr, 3K, 2.5Ca, 138Na, 35HCO2 and slow start for Qb and Qd. Likely to need three gentle HD treatments in a row, with slowly increasing Qb and Qd to lessen the risks for dialysis dysequalibrium. I counseled him and his today and over the last few days about the R/B/I of dialysis catheters and dialysis. Proteinuria: I suspect an RPGN vs FSGS vs other GN until proven otherwise, so I do recommend a renal biopsy, when stable, perhaps on or Friday: Hgb must be >9 and BPs <160 systolic. Hold anticoagulants such as ASA and Plavix for at least 5 days. Anemia: not clear why his H/H did not climb a full gram. He denied seeing blood in his last few BMs but has had several nose bleeds of the last several weeks. Will add ANCA and Anti-GBM. I counseled him and his on a renal diet and provided a handout today. HTN/edema: improving and recommend continuing the lasix gtt. He is nonoliguric. Consider adding Imdur at some point, since he cannot receive an DULCE or ARB at this time (d/t the renal dysfunction). (2) Fluid overload Current Visit: Yes Status: Acute On lasix gtt Qualifiers: Hypervolemia type: other Qualified Code(s): E87.79 - Other fluid overload (3) Proteinuria Current Visit: Yes Status: Acute See above Qualifiers: Proteinuria type: persistent Qualified Code(s): R80.1 - Persistent proteinuria, unspecified (4) Acquired asymmetrical kidneys Current Visit: Yes Status: Acute The renal doppler did not reveal TANYA, but did confirm a smaller right kidney. (5) Renal cyst Current Visit: Yes Status: Acute Will monitor. (6) Anemia Current Visit: Yes Status: Acute Discussed with the hospitalist who said he is preparing to give PRBCs again. See above Qualifiers: Anemia type: unspecified type Qualified Code(s): D64.9 - Anemia, unspecified (7) Metabolic acidosis Current Visit: Yes Status: Acute Improving while on lasix gtt (8) Hypoalbuminemia Current Visit: Yes Status: Acute (9) HTN (hypertension) Current Visit: Yes Status: Acute Improving. See above. Qualifiers: Hypertension type: essential hypertension Qualified Code(s): I10 - Essential (primary) hypertension Subjective Principal diagnosis: Renal Failure, HTN, Proteinuria Interval history: Pt was seen/examined. His was at bedside. Objective - Vital Signs Vital signs: Vital Signs Temp Pulse Resp BP Pulse Ox 04/15/16 10:47 26 04/15/16 06:41 98.1 F 78 16 167/81 98 04/15/16 04:53 97.9 F 75 16 172/85 97 04/14/16 17:26 98.3 F 82 16 172/85 97 04/14/16 17:12 97.9 F 81 16 168/84 93 L 04/14/16 15:55 16 97 04/14/16 15:12 98.4 F 78 18 168/88 98 04/14/16 11:49 16 92 L Intake and Output 04/14/16 04/15/16 04/15/16 23:59 07:59 15:59 Intake Total 850 / 850 0 / 0 Output Total 700 / 700 700 / 700 0 / 0 Balance 150 / 150 -700 / -700 0 / 0 Intake: IV Fluids 500 / 500 Dextrose 5% 500 ML @ 25 500 / 500 mls/hr IVC .Q20H [facility] Rx#: [id number] Oral 0 / 0 Blood Product 350 / 350 Rbcs Leuko Poor As-1 350 / 350 Unit [id number] Output: Urine 700 / 700 700 / 700 0 / 0 Other: Weight 98.656 kg Patient Weight 04/15/16 23:59 Weight 98.656 kg - Lab 04/15/16 04:48 04/15/16 04:48 Most recent lab results Calcium 7.7 mg/dL (8.6-10.8) L 04/15/16 04:48 Phosphorus 5.3 mg/dL (2.3-4.7) H 04/14/16 05:48 Magnesium 1.7 mg/dL (1.6-2.6) 04/14/16 05:48 Urine Creatinine 75 mg/dL 04/12/16 16:30 Urine Total Protein 168 mg/dL (1-14) H 04/12/16 16:30 - VTE Documentation of Mechanical Device: Intermittent pneumatic compression device Consult Discharge Plan - Plan Referrals: Callie Abreu DO [Primary Care Provider] - (call and left a message 04/15/16 Please call for a hospital follow up appointment...)
[2016-04-15] MEDS: ceFAZolin 1,000 MG in D5% in Water (Mini-Bag+) 100 ML IVPB SCH ×2 (11:51→11:58)
[2016-04-15] MEDS ORDERED: *HR* Heparin 5,000 UNIT/ML VIAL ONE ×2 (11:57→15:23)
[2016-04-15] MEDS ORDERED: Acetaminophen 325 MG TABLET PO PRN (12:47)
[2016-04-15] MEDS ORDERED: *HR* HYDROcodone/Acet 5/325 mg TABLET PO PRN (12:48)
--- NOTE | 2016-04-15 12:49 | IR Procedure Note ---
Date of procedure: 04/15/16 Consent Obtained: Written consent Timeout: Correct patient and procedure verified, Correct site verified, Time out performed, Skin prep completed Indications: renal failure Procedure Performed: permacath Site/Technique: rt IJ Results/Findings: RA tip Estimated blood loss (cc): 2 Complications: None; Tolerated procedure well Post Procedure Treatment Plan: can dialyze
--- NOTE | 2016-04-15 12:56 | Internal Med Progress Note ---
Date of Encounter: 04/15/16 Time of Encounter: 12:53 - Assessment and plan (1) Acute respiratory failure with hypoxia Current Visit: Yes Status: Acute Assessment and plan: Acute hypoxic respiratory failure secondary to acute pulmonary edema from acute CHF systolic versus diastolic/volume overload related to renal failure Continue Lasix drip Fluid restriction 1500 mL, Lasix drip, strict I's and nose and daily weight Echocardiogram showed an ejection fraction of 55-60%, severely dilated left ventricle with moderate concentric left ventricular hypertrophy, indeterminate diastolic function, severely dilated left atrium severe pulmonary hypertension with an RVSP of 59 mmHg (2) Acute kidney injury superimposed on CKD Current Visit: Yes Status: Acute Assessment and plan: Acute on chronic renal failure stage 5, unclear etiology Possible RPGN vs FSGS vs other GN are being considered by nephrology Permanent dialysis catheter placed on 04/15/16 and possible biopsy for Friday or Fri Followed by Dr. Ramirez. (3) Acute decompensated heart failure Current Visit: Yes Status: Acute (4) Elevated troponin Current Visit: Yes Status: Acute Assessment and plan: Likely secondary to demand ischemia and renal disease (5) Fluid overload Current Visit: Yes Status: Acute Qualifiers: Hypervolemia type: other Qualified Code(s): E87.79 - Other fluid overload (6) HTN (hypertension) Current Visit: Yes Status: Acute Assessment and plan: Improved on amlodipine, carvedilol, clonidine and hydralazine Coma also hydralazine IV as needed Qualifiers: Hypertension type: essential hypertension Qualified Code(s): I10 - Essential (primary) hypertension (7) Tobacco use Current Visit: Yes Status: Acute Assessment and plan: smoking cessation counseling given for 5 min . nicotine patch (8) Anemia Current Visit: Yes Status: Acute Assessment and plan: Likely related to renal disease, no signs of bleeding Ordered 1 unit of blood on 04/14/16 , order another unit of RBCs recheck in the morning Iron supplement Qualifiers: Anemia type: unspecified type Qualified Code(s): D64.9 - Anemia, unspecified - Time Spent With Patient Greater than 35 minutes - Subjective Interval history: Had his perm dialysis cath placed today (right subclavian). Feeling better and less short of breath, denies any chest pain, no palpitations, no abdominal pain , no cough or fevers, no dysuria or diarrhea. Legs are still very swollen - Constitutional Vitals: Temp Pulse Resp BP Pulse Ox 97.5 F L 80 18 156/80 90 L 04/15/16 12:30 04/15/16 12:15 04/15/16 12:30 04/15/16 12:30 04/15/16 11:55 General appearance: Present: cooperative, mild distress (Respiratory distress.) , A&O X 3, pleasant, answers questions appropriately - Head Head exam: Present: atraumatic, normocephalic - Eye Eye exam: Present: PERRL, conjuntiva pink, sclera anicteric Pupils: Present: PERRL - Neck Neck exam general surgery: Present: supple, trachea midline. Absent: lymphadenopathy - Respiratory Respiratory exam: Present: decreased breath sounds, CTAB. Absent: accessory muscle use, rales, rhonchi, wheezes Additional comments: right subclavian perm dialysis cath - Cardiovascular Cardiovascular exam: Present: RRR, +S1, +S2. Absent: diastolic murmur, gallop, rubs, systolic murmur - GI/Abdominal GI/Abdominal exam: Present: normal bowel sounds, soft, no peritoneal signs. Absent: distended, tenderness - Extremities Exam Extremities exam: Present: pedal edema (+1 pitting edema in both lower extremities), warm, radial pulses palpable and symetrical. Absent: calf tenderness, cyanotic - Neurological Exam Neurological exam: Present: CN II-XII intact, oriented X3, no focal deficits. Absent: pronater drift, facial droop, speech deficit - Skin Skin exam: Present: dry, intact Internal Medicine: Result - Labs CBC & Chem 7: 04/15/16 04:48 04/15/16 04:48 Labs: Short CBC 04/15/16 Range/Units 04:48 WBC 6.1 (4.3-11.1) K/mcL Hgb 7.5 L (12.9-16.9) g/dL Hct 23.2 L (37.5-50.1) % Plt Count 156 (140-400) K/mcL Neutrophils # 4.5 (1.6-8.9) K/mcL BMP 04/15/16 04:48 Sodium 139 Potassium 3.8 Chloride 111 H Carbon Dioxide 18 L BUN 50 H Creatinine 8.47 H Glucose 94 Calcium 7.7 L - ABG Interpretation ABG results: PT/INR, D-dimer PT 11.5 Seconds (9.4-12.1) 04/15/16 04:48 - Impressions Impressions Guidance Needle Placement Ultrasound 04/15/16 00:00 IMPRESSION: Successful ultrasound and fluoroscopy guided tunneled PermCath placement . D/ / Kathleen Blood MD / Kathleen Blood MD Interpreting Provider: Kathleen Blood MD Insertion Tunneled Catheter 04/15/16 00:00 IMPRESSION: Successful ultrasound and fluoroscopy guided tunneled PermCath placement . D/ / Kathleen Blood MD / Kathleen Blood MD Interpreting Provider: Kathleen Blood MD - VTE Documentation of Mechanical Device: Intermittent pneumatic compression device Consult Discharge Plan - Plan Referrals: Callie Abreu DO [Primary Care Provider] - (call and left a message 04/15/16 Please call for a hospital follow up appointment...)
--- NOTE | 2016-04-15 13:08 | Electrocardiograph Report ---
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
[2016-04-15] MEDS ORDERED: D5% in Water 500 ML IVC SCH (18:30)
[2016-04-15] MEDS: Furosemide 240 MG in D5% in Water 96 ML IVC SCH ×2 (18:37→18:38)
[2016-04-15] MEDS: Nicotine 7 MG PATCH.TD24 TD SCH (21:33)
[2016-04-16] MEDS: Ipratropium/Albuterol Neb 3 ML IH SCH ×5 (03:20→20:06)
[2016-04-16 04:31] LABS: Basophils % 0.5 %; Eosinophils # 0.2 K/mcL (0.0-0.6); Eosinophils % 3.3 %; Hematocrit 25.2 % (37.5-50.1); Immature Granulocytes % 0.3 % (0-4); Lymphocytes # 0.8 K/mcL (0.6-4.6); Lymphocytes % 13.9 %; Mean Corpuscular HGB Conc 31.7 g/dL (31.6-35.5); Mean Corpuscular Hemoglobin 27.3 pg (28.0-33.3); Mean Platelet Volume 10.5 fL (9.4-12.4); Monocytes # 0.5 K/mcL (0.0-1.3); Monocytes % 8.6 %; Neutrophils # 4.3 K/mcL (1.6-8.9); Platelet Count 170 K/mcL (140-400); Red Blood Count 2.93 M/mcL (4.19-5.50); Red Cell Distribution Width 15.4 % (11.5-14.5); Segmented Neutrophils % 73.4 %
[2016-04-16 04:50] LABS: Calcium 7.6 mg/dL (8.6-10.8); Phosphorous 4.3 mg/dL (2.3-4.7); Potassium 3.5 mEq/L (3.5-4.5)
[2016-04-16] MEDS ORDERED: *HR* Heparin 10,000 UNIT/10 ML VIAL IV PRN (07:14)
[2016-04-16] MEDS ORDERED: 0.9 % Sodium Chloride 250 ML IV PRN (07:14)
[2016-04-16] MEDS ORDERED: 0.9 % Sodium Chloride 1,000 ML PRIME SCH (07:15)
[2016-04-16] MEDS ORDERED: 0.9 % Sodium Chloride 2,000 ML ONE (08:43)
--- NOTE | 2016-04-16 10:39 | Nephrology Progress Note ---
Date of Encounter: 04/16/16 Time of Encounter: 10:00 - Assessment and Plan (1) Acute kidney injury superimposed on CKD Current Visit: Yes Status: Acute Progressively worsening renal failure, and I suspect he may be on dialysis retirement basis. S/p Permacath yesterday and I've consulted the SW to help arrange a dialysis chair. 2nd HD today and may need a third of three HD treatments tomorrow. Proteinuria: I suspect an RPGN vs FSGS vs other GN until proven otherwise, so I do recommend a renal biopsy, when stable, but his Hgb must be >9 and BPs <160 systolic. Will start Aranesp today 60mcg sQ weekly (will transition him to EPO at the dialysis unit), but because he persistently remains anemic, I will have to postpone the renal biopsy a few weeks and will arrange it as an outpt. I counseled him and his on a renal diet and provided a handout today. HTN/edema: recommend stopping the lasix gtt and transitioning to PO lasix today. He cannot receive an DULCE or ARB at this time (d/t the renal dysfunction) but may add at some point when more stable Discussed with the hospitalist. (2) Fluid overload Current Visit: Yes Status: Acute Improving. Transition to PO lasix. Qualifiers: Hypervolemia type: other Qualified Code(s): E87.79 - Other fluid overload (3) Proteinuria Current Visit: Yes Status: Acute See above Qualifiers: Proteinuria type: persistent Qualified Code(s): R80.1 - Persistent proteinuria, unspecified (4) Acquired asymmetrical kidneys Current Visit: Yes Status: Acute The renal doppler did not reveal TANYA, but did confirm a smaller right kidney. (5) Renal cyst Current Visit: Yes Status: Acute Will monitor in about 6 months with a repeat renal U/S. (6) Anemia Current Visit: Yes Status: Acute See above Qualifiers: Anemia type: unspecified type Qualified Code(s): D64.9 - Anemia, unspecified (7) Metabolic acidosis Current Visit: Yes Status: Acute Improving. The dialysate will also help correct, so will not star sodium bicarb supplements. (8) Hypoalbuminemia Current Visit: Yes Status: Acute (9) HTN (hypertension) Current Visit: Yes Status: Acute Improving. See above. Qualifiers: Hypertension type: essential hypertension Qualified Code(s): I10 - Essential (primary) hypertension Subjective Principal diagnosis: Renal Failure, HTN, Proteinuria Interval history: Pt was seen/examined while on HD. He did not affirm any new complaints today. Objective - Vital Signs Vital signs: Vital Signs Temp Pulse Resp BP Pulse Ox 04/16/16 10:00 154/104 04/16/16 09:45 155/98 04/16/16 09:30 167/94 04/16/16 09:15 173/97 04/16/16 09:00 168/98 04/16/16 08:45 181/106 04/16/16 08:30 98 F 22 183/111 04/16/16 07:56 18 94 L 04/16/16 07:38 97.7 F 62 18 165/84 98 04/16/16 05:19 98.4 F 67 18 154/77 96 04/16/16 00:16 97.9 F 68 20 132/68 97 04/15/16 20:27 18 93 L 04/15/16 17:15 20 168/90 04/15/16 16:45 172/87 04/15/16 16:15 160/85 04/15/16 15:45 155/90 04/15/16 15:40 97.9 F 76 20 157/68 95 04/15/16 15:25 97.9 F 76 20 157/68 95 04/15/16 15:15 98.2 F 20 157/68 04/15/16 13:39 97.4 F L 90 20 157/68 95 04/15/16 12:30 97.5 F L 18 156/80 04/15/16 12:15 97.2 F L 80 20 162/82 04/15/16 11:55 81 33 175/102 90 L 04/15/16 10:47 26 Intake and Output 04/15/16 04/16/16 04/16/16 23:59 07:59 15:59 Intake Total 570 / 570 600 / 600 Output Total 4950 / 4950 900 / 900 Balance -4380 / -4380 -900 / -900 600 / 600 Intake: IV Fluids 220 / 220 Lasix 240 MG In Dextrose 120 / 120 5% 96 ML @ 5 MG/HR 2.5 mls/hr IVC .Q24H [facility] Rx#: [id number] Ancef 1,000 MG In 100 / 100 Dextrose 5% (Minibag+) 100 ML 100 ML @ 200 mls/ hr IVPB Q10MIN [facility] Rx#: [id number] Oral 0 / 0 0 / 0 Blood Product 350 / 350 Rbcs Leuko Poor As-1 350 / 350 Unit [id number] Intake, Rinseback and 600 / 600 Flushes Output: Urine 2000 / 2000 900 / 900 Total Dialysis Output 2950 / 2950 Other: # Voids 3 Weight 94.438 kg 94.438 kg Hemodialysis Net Fluid 2950 1872 Removed (mL) Patient Weight 04/16/16 23:59 Weight 94.438 kg - General Appearance General appearance: Present: well-developed, well-nourished, appears started age EENT: Present: ATNC, PERRL Neck: Present: supple Respiratory: Present: clear Cardiology: Present: edema (1+ pretibial pitting edema b/l but slightly improved ), normal S1, normal S2 Dialysis Vascular Access: Venous Catheter (RIJ Tunneled dialysis catheter with dressing that is C/D/I) Gastrointestinal: Present: normoactive bowel sounds, no tenderness, no guarding Integumentary: Present: no rash, warm and dry Neurologic: Present: no focal deficit, no asterixis, alert and oriented x3 Musculoskeletal: Present: no deformities, no erythema Psychiatric: Present: mood/affect appropriate, cooperative - Lab 04/16/16 03:54 04/16/16 03:54 Most recent lab results Calcium 7.6 mg/dL (8.6-10.8) L 04/16/16 03:54 Phosphorus 4.3 mg/dL (2.3-4.7) 04/16/16 03:54 Magnesium 1.7 mg/dL (1.6-2.6) 04/14/16 05:48 Urine Creatinine 75 mg/dL 04/12/16 16:30 Urine Total Protein 168 mg/dL (1-14) H 04/12/16 16:30 - VTE Documentation of Mechanical Device: Intermittent pneumatic compression device Consult Discharge Plan - Plan Referrals: Callie Abreu DO [Primary Care Provider] - (call and left a message 04/15/16 Please call for a hospital follow up appointment...)
[2016-04-16] MEDS: hydrALAZINE 25 MG TABLET PO SCH ×2 (12:19→15:49)
[2016-04-16] MEDS: cloNIDine HCl 0.1 MG TABLET PO SCH ×3 (12:19→21:00)
[2016-04-16] MEDS: amLODIPine 5 MG TABLET PO SCH (12:19)
--- NOTE | 2016-04-16 14:54 | Internal Med Progress Note ---
Date of Encounter: 04/16/16 Time of Encounter: 14:52 - Assessment and plan (1) Acute kidney injury superimposed on CKD Current Visit: Yes Status: Acute Assessment and plan: Acute on chronic renal failure stage 5, unclear etiology Possible RPGN vs FSGS vs other GN are being considered by nephrology Permanent dialysis catheter placed on 04/15/16 and planned for renal biopsy as OP given persistent anemia. Followed by Dr. Ramirez. (2) Acute respiratory failure with hypoxia Current Visit: Yes Status: Acute Assessment and plan: Acute hypoxic respiratory failure secondary to acute pulmonary edema from acute CHF systolic versus diastolic/volume overload related to renal failure lasix drip stopped today and changed to oral. Fluid restriction 1500 mL, , strict I's and O's and daily weight Echocardiogram showed an ejection fraction of 55-60%, severely dilated left ventricle with moderate concentric left ventricular hypertrophy, indeterminate diastolic function, severely dilated left atrium severe pulmonary hypertension with an RVSP of 59 mmHg (3) Anemia Current Visit: Yes Status: Acute Assessment and plan: Likely related to renal disease, no signs of bleeding received 2 units of BT, started aranesp. recheck in the morning Iron supplement Qualifiers: Anemia type: unspecified type Qualified Code(s): D64.9 - Anemia, unspecified (4) Elevated troponin Current Visit: Yes Status: Acute Assessment and plan: Likely secondary to demand ischemia and renal disease (5) Fluid overload Current Visit: Yes Status: Acute Qualifiers: Hypervolemia type: other Qualified Code(s): E87.79 - Other fluid overload (6) HTN (hypertension) Current Visit: Yes Status: Acute Assessment and plan: Improved on amlodipine, carvedilol, clonidine and hydralazine Coma also hydralazine IV as needed Qualifiers: Hypertension type: essential hypertension Qualified Code(s): I10 - Essential (primary) hypertension - Subjective Interval history: Feeling better and less short of breath, denies any chest pain, no palpitations , no abdominal pain, no cough or fevers, no dysuria or diarrhea. being followed by renal, plan is to get renal biopsy as OP, arrange for HD chair. - Constitutional Vitals: Temp Pulse Resp BP Pulse Ox 98.4 F 68 16 132/68 98 04/16/16 14:50 04/16/16 14:50 04/16/16 14:50 04/16/16 14:50 04/16/16 14:50 General appearance: Present: cooperative, A&O X 3, pleasant, answers questions appropriately Exam: General appearance: Present: cooperative, A&O X 3, pleasant, answers questions appropriately - Head Head exam: Present: atraumatic, normocephalic - Eye Eye exam: Present: PERRL, conjuntiva pink, sclera anicteric Pupils: Present: PERRL - Neck Neck exam general surgery: Present: supple, trachea midline. Absent: lymphadenopathy - Respiratory Respiratory exam: Present: CTAB. Absent: accessory muscle use, rales, rhonchi , wheezes Additional comments: right subclavian perm dialysis cath - Cardiovascular Cardiovascular exam: Present: RRR, +S1, +S2. Absent: diastolic murmur, gallop, rubs, systolic murmur - GI/Abdominal GI/Abdominal exam: Present: normal bowel sounds, soft, no peritoneal signs. Absent: distended, tenderness - Extremities Exam Extremities exam: Present: pedal edema (+1 pitting edema in both lower extremities), warm, radial pulses palpable and symetrical. Absent: calf tenderness, cyanotic - Neurological Exam Neurological exam: Present: CN II-XII intact, oriented X3, no focal deficits. Absent: pronater drift, facial droop, speech deficit - Skin Skin exam: Present: dry, intact Internal Medicine: Result - Labs CBC & Chem 7: 04/16/16 03:54 04/16/16 03:54 Labs: Short CBC 04/16/16 Range/Units 03:54 WBC 5.8 (4.3-11.1) K/mcL Hgb 8.0 L (12.9-16.9) g/dL Hct 25.2 L (37.5-50.1) % Plt Count 170 (140-400) K/mcL Neutrophils # 4.3 (1.6-8.9) K/mcL BMP 04/16/16 03:54 Sodium 140 Potassium 3.5 Chloride 107 Carbon Dioxide 23 BUN 39 H D Creatinine 6.93 H Glucose 87 Calcium 7.6 L - ABG Interpretation ABG results: PT/INR, D-dimer PT 11.5 Seconds (9.4-12.1) 04/15/16 04:48 - VTE Documentation of Mechanical Device: Intermittent pneumatic compression device Consult Discharge Plan - Plan Referrals: Callie Abreu DO [Primary Care Provider] - (call and left a message 04/15/16 Please call for a hospital follow up appointment...)
[2016-04-16 17:00] LABS: HIV-1 Ab Supplemental NEGATIVE (Negative); HIV-2 Ab Supplemental NEGATIVE (Negative)
[2016-04-16] MEDS: Nicotine 7 MG PATCH.TD24 TD SCH (21:00)
[2016-04-17] MEDS: Ipratropium/Albuterol Neb 3 ML IH SCH ×5 (00:35→16:27)
[2016-04-17] MEDS: hydrALAZINE 25 MG TABLET PO SCH ×3 (01:12→15:53)
[2016-04-17 05:33] LABS: Basophils % 0.6 %; Eosinophils # 0.2 K/mcL (0.0-0.6); Eosinophils % 3.2 %; Hematocrit 25.7 % (37.5-50.1); Hemoglobin 8.1 g/dL (12.9-16.9); Immature Granulocytes % 0.5 % (0-4); Lymphocytes # 1.1 K/mcL (0.6-4.6); Lymphocytes % 16.7 %; Mean Corpuscular HGB Conc 31.5 g/dL (31.6-35.5); Mean Corpuscular Hemoglobin 27.3 pg (28.0-33.3); Mean Corpuscular Volume 86.5 fL (83.0-100.0); Mean Platelet Volume 10.1 fL (9.4-12.4); Monocytes # 0.7 K/mcL (0.0-1.3); Neutrophils # 4.5 K/mcL (1.6-8.9); Platelet Count 193 K/mcL (140-400); Red Blood Count 2.97 M/mcL (4.19-5.50); Red Cell Distribution Width 15.5 % (11.5-14.5)
[2016-04-17 05:47] LABS: Calcium 7.7 mg/dL (8.6-10.8); Potassium 3.5 mEq/L (3.5-4.5)
[2016-04-17] MEDS ORDERED: 0.9 % Sodium Chloride 250 ML IV PRN (08:36)
[2016-04-17] MEDS ORDERED: Furosemide 40 MG TABLET PO SCH (09:00)
[2016-04-17] MEDS ORDERED: *HR* Heparin 5,000 UNIT/ML VIAL ONE (10:15)
[2016-04-17] MEDS ORDERED: 0.9 % Sodium Chloride 2,000 ML ONE (10:16)
[2016-04-17 10:41] LABS: Lambda Qnt Free Light Chains 8.01 mg/dL (0.57-2.63)
[2016-04-17 11:25] LABS: Complement Component 3 113 mg/dL (88-201); Complement Component 4 32 mg/dL (10-40); Myeloperoxidase Ab 0 AU/mL (0-19); Serine Protease-3 Antibody 0 AU/mL (0-19)
[2016-04-17 11:33] LABS: ANA IgG by ELISA NONE DETECTED (None Detected)
--- NOTE | 2016-04-17 12:33 | Nephrology Progress Note ---
Date of Encounter: 04/17/16 Time of Encounter: 09:35 - Assessment and Plan (1) ESRD (end stage renal disease) on dialysis Status: Acute Transition to ESRD with HD planned for today and every M//. Still to anemic for a renal biopsy, but I suspect he has a GN such as FSGS. Will plan for an outpatient renal biopsy once his Hgb is >9 and BPs are on avg < 160 mmHg systolic to help lower the risks. I called [facility] to provide HD orders for this Friday Okay to d/c now that he has a dialysis chair. HTN/edema: cont PO lasix. He cannot receive an DULCE or ARB at this time (d/t the renal dysfunction) but may add at some point when more stable Thank you. (2) Fluid overload Status: Acute Improving. Transitioned to PO lasix on Friday Qualifiers: Hypervolemia type: other Qualified Code(s): E87.79 - Other fluid overload (3) Proteinuria Status: Acute See above. Outpt renal biopsy Qualifiers: Proteinuria type: persistent Qualified Code(s): R80.1 - Persistent proteinuria, unspecified (4) Acquired asymmetrical kidneys Status: Acute The renal doppler did not reveal TANYA, but did confirm a smaller right kidney. (5) Renal cyst Status: Acute Will monitor in about 6 months with a repeat renal U/S. (6) Anemia Status: Acute See above Qualifiers: Anemia type: unspecified type Qualified Code(s): D64.9 - Anemia, unspecified (7) Metabolic acidosis Status: Acute Improving. The dialysate will also help correct, so will not star sodium bicarb supplements. (8) Hypoalbuminemia Status: Acute Protein shakes for a goal serum albumin of 4. (9) HTN (hypertension) Status: Acute Improving. See above. Qualifiers: Hypertension type: essential hypertension Qualified Code(s): I10 - Essential (primary) hypertension Subjective Principal diagnosis: Renal Failure, HTN, Proteinuria Interval history: Pt was seen/examined while on HD. He did not affirm any new complaints today. I updated his who I saw in the romo. He did not affirm N/V/D but did have cramping after HD yesterday. Objective - Vital Signs Vital signs: Vital Signs Temp Pulse Resp BP Pulse Ox 02/08/17 12:15 151/80 04/17/16 12:00 159/87 04/17/16 11:45 167/85 04/17/16 11:30 180/100 04/17/16 11:15 176/103 04/17/16 11:00 181/90 04/17/16 10:45 187/97 04/17/16 10:30 183/87 04/17/16 10:15 161/97 04/17/16 10:00 168/86 04/17/16 09:45 162/92 04/17/16 09:30 98.8 F 16 173/86 04/17/16 07:26 16 97 04/17/16 07:00 98.8 F 87 16 159/84 98 04/17/16 04:10 16 97 04/17/16 03:51 98.3 F 79 18 164/84 97 04/17/16 00:41 97.7 F 69 18 166/89 100 04/17/16 00:35 16 97 04/16/16 20:37 16 97 04/16/16 20:14 97.8 F 70 18 152/77 100 04/16/16 16:00 18 98 04/16/16 14:50 98.4 F 68 16 132/68 98 Intake and Output 04/16/16 04/17/16 04/17/16 23:59 07:59 15:59 Intake Total 240 / 240 840 / 840 Output Total 325 / 325 Balance -85 / -85 840 / 840 Intake: Oral 240 / 240 240 / 240 Intake, Rinseback and 600 / 600 Flushes Output: Urine 325 / 325 Other: Meal Breakfast Percent of Meal Consumed 100% 100% Weight 96.797 kg Hemodialysis Net Fluid 1924 Removed (mL) Patient Weight 04/17/16 23:59 Weight 96.797 kg - General Appearance General appearance: Present: well-developed, well-nourished, appears started age EENT: Present: ATNC, PERRL, mucous membranes moist Neck: Present: supple Respiratory: Present: clear Cardiology: Present: edema (but improved to trace to 1+ pretibial b/l ), regular rate, regular rhythm, normal S1, normal S2 Dialysis Vascular Access: Venous Catheter (Rt IJ TDC) Gastrointestinal: Present: normoactive bowel sounds, no tenderness, no guarding Integumentary: Present: no rash, warm and dry Neurologic: Present: no focal deficit, no asterixis, alert and oriented x3 Musculoskeletal: Present: no deformities, no erythema, no cyanosis, no clubbing Psychiatric: Present: mood/affect appropriate, cooperative - Lab 04/17/16 04:54 04/17/16 04:54 Most recent lab results Calcium 7.7 mg/dL (8.6-10.8) L 04/17/16 04:54 Phosphorus 4.3 mg/dL (2.3-4.7) 04/16/16 03:54 Magnesium 1.7 mg/dL (1.6-2.6) 04/14/16 05:48 Urine Creatinine 75 mg/dL 04/12/16 16:30 Urine Total Protein 168 mg/dL (1-14) H 04/12/16 16:30 - VTE Documentation of Mechanical Device: Intermittent pneumatic compression device Consult Discharge Plan - Plan Instructions: Acute Respiratory Distress Syndrome (DC), Chronic Kidney Disease (GEN), Anemia (GEN) Referrals: [facility] [Outside] - 04/24/16 1:00 pm (Please follow up with Dr. Jessica Abreu as scheduled) Prescriptions: HydrALAZINE 50 mg PO Q8HR #120 tablet
[2016-04-17 12:46] VITALS: BP 171/61
[2016-04-17] MEDS: amLODIPine 5 MG TABLET PO SCH (13:23)
[2016-04-17] MEDS: cloNIDine HCl 0.1 MG TABLET PO SCH ×4 (13:23→13:29)
--- NOTE | 2016-04-17 14:57 | Discharge Summary ---
Date of Encounter: 04/17/16 Time of Encounter: 14:54 - Discharge Diagnosis (1) Acute kidney injury superimposed on CKD Priority: Primary Status: Acute (2) Acute respiratory failure with hypoxia Priority: Primary Status: Acute (3) Anemia Priority: Primary Status: Acute Qualifiers: Anemia type: unspecified type Qualified Code(s): D64.9 - Anemia, unspecified (4) Elevated troponin Priority: Secondary Status: Acute (5) Fluid overload Priority: Primary Status: Acute Qualifiers: Hypervolemia type: other Qualified Code(s): E87.79 - Other fluid overload (6) HTN (hypertension) Priority: Secondary Status: Acute Qualifiers: Hypertension type: essential hypertension Qualified Code(s): I10 - Essential (primary) hypertension - Discharge Medications Prescriptions: HydrALAZINE 50 mg PO Q8HR #120 tablet Home Medications: Amlodipine Besylate 10 mg PO DAILY 04/12/16 [History] Carvedilol 12.5 mg PO BID 04/12/16 [History] CloNIDine HCl [Clonidine HCl] 0.2 mg PO TID 04/12/16 [History] Furosemide [Lasix] 40 mg PO DAILY PRN 04/12/16 [History] HydrALAZINE 50 mg PO Q8HR #120 tablet 04/17/16 [Rx] Allergies/Adverse Reactions: Allergies No Known Allergies Allergy (Verified 04/12/16 15:10) Procedures/tests Complete & Pending: Procedures Performed prior 72 hours Category Date Time Status IR cvc insrt tunnel wo prt/anthropology professor [IR] Routine IR 04/15/16 Completed IR us guide needle place [IR] Routine IR 04/15/16 Completed EV renal artery image Routine Y 04/14/16 14:19 Completed Date of admission: 04/12/16 17:45 Primary care physician: PCP NO Consults: 04/12/16 18:40 Consult to Nutrition [CONS] Routine Comment: Recent weight loss, loss of appetite Consulting Provider: NUTRITION Reason for Dietary Consult: MST Score Other 04/12/16 18:41 Consult to Nephrology [CONS] Routine Consulting Provider: Kidney Bita/ABIMAEL/ELIGIO/DARCIE Reason for Consult: worsening CKD Call Completed: Yes 04/15/16 04:00 Consult to Interventional Radiology [CONS] Routine Consulting Provider: Radiology Interventional Cols Reason for Consult: Please evaluate for placement of a Permacath for intiation of HD. Call Completed: No 04/15/16 08:15 Consult to Dialysis [CONS] ONCE 04/15/16 10:09 Consult to Bowling Floor Manager [CONS] Routine Reason for SW Consult: Patient will need dialysis chair in outpatient 04/16/16 07:15 Consult to Dialysis [CONS] ONCE 04/17/16 07:15 Consult to Dialysis [CONS] ONCE 04/17/16 08:45 Consult to Dialysis [CONS] ONCE Discharging clinician: Bhaskar Owens Anticipated date of discharge: 04/17/16 - Patient Status Disposition: Home, Self-Care Condition: Fair Functional capacity at discharge: independent ambulation Overall status at discharge: patient is back to baseline - Discharge Instructions Instructions: Acute Respiratory Distress Syndrome (DC), Chronic Kidney Disease (GEN), Anemia (GEN) Follow Up With: [facility] [Outside] - 04/24/16 1:00 pm (Please follow up with Dr. Jessica Abreu as scheduled) - Diet and Activity Activity: resume usual activities as tolerated Diet: other (renal diet) Interval History: Mr. Vargas is a 50 year old male with past medical history of CKD IV ( creatinine of 3 about 4 months ago), HTN, and heart failure who had all his care in [place], [place] until he moved here 4 months ago. He just saw his PCP last week and had blood test yesterday, the office contacted the patient to come to the ED due to abnormal labs. Patient reports progressive shortness of breath for the few past months as well as progressive lower extremity edema. Positive orthopnea. He reports no change in amount of urine for the past few months. No chest pain. Headache. No syncope. No abdominal pain. No diarrhea. No urinary complaints. No bleeding. No palpitations. Patient denies any recent use of NSAIDs or other OTC medication. He was taken off diuretics almost 5 months ago by his kidney specialist in [place]. Hospital course: Mr. Vargsa is a 50 year old male he has progression of CKD to renal failure, renal was consulted, Hgb is too low for renal biopsy during this admission. 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 Proteinuria: possible RPGN vs FSGS vs other GN until proven otherwise as per renal so a renal biopsy is planned for sometime this week , Hold anticoagulants such as ASA and Plavix for at least 5 days. he was conseled on a renal diet HTN/edema has improved with lasiix drip which was later chnaged to oral lasix. HE has a HD chair arranged and will f/u with renal and HD as OP , planned for an outpatient renal biopsy once his Hgb is >9 and BPs are on avg <160 mmHg systolic to help lower the risks. he is being dc in stable condition today. Time spent discussing smoking cessation with patient: more than 10 minutes - Time Spent with Patient Total time spent providing and/or coordinating discharge services: Greater than 30 minutes - Constitutional Vitals: Temp Pulse Resp BP Pulse Ox 98.8 F 87 16 171/61 97 04/17/16 12:40 04/17/16 07:00 04/17/16 12:40 04/17/16 12:40 04/17/16 07:26 General appearance: Present: cooperative, A&O X 3, pleasant, answers questions appropriately Exam: General appearance: Present: well-developed, well-nourished, appears started age EENT: Present: ATNC, PERRL, mucous membranes moist Neck: Present: supple Respiratory: Present: clear Cardiology: Present: edema (but improved to trace to 1+ pretibial b/l ), regular rate, regular rhythm, normal S1, normal S2 Dialysis Vascular Access: Venous Catheter (Rt IJ TDC) Gastrointestinal: Present: normoactive bowel sounds, no tenderness, no guarding Integumentary: Present: no rash, warm and dry Neurologic: Present: no focal deficit, no asterixis, alert and oriented x3 Musculoskeletal: Present: no deformities, no erythema, no cyanosis, no clubbing Psychiatric: Present: mood/affect appropriate, cooperative - VTE Documentation of Mechanical Device: Intermittent pneumatic compression device
[2016-04-17 17:41] LABS: APTT (LE Anticoag) 47 sec (32-48); Diluted Russell Viper Venom 50 sec (33-44); LE Dil. Russell Viper Mix 1:1 46 sec (33-44); LE Hexagonal Phospholipid Neut POSITIVE (Negative); PT (LE-Anticoag) 14.1 sec (12.0-15.5)
[2016-04-17 20:10] LABS: CK-BB (CK isoenzymes) 0 % (0-0); CK-MB (CK isoenzymes) 0 % (0-4); CK-MM (CK-isoenzymes) 100 % (96-100)
[2016-04-18 07:54] LABS: CK Total (Ck Isoenzymes) 103 U/L (20-200)
[2016-04-19 08:08] LABS: Alpha 2 Globulin (PEP) 0.7 g/dL (0.5-1.1); Beta Globulin (PEP) 0.8 g/dL (0.5-1.1)
== END 2016-04-17 16:26 | disposition home or self-care (01) | DRG 194 ==
LOC: 2ANU 14:59 → EMEROO 14:59 → 2ANU 17:35 → SUATTDRO 17:45
PROVIDERS: ADMIT Internal Medicine; ATTEND Internal Medicine Endocrinology, Diabetes & Metabolism
PROC: IRPERMA (2016-04-15 11:00)

== ENCOUNTER 2016-07-30 08:19 | Inpatient (IN) ==
[2016-07-30] MEDS ORDERED: 0.9 % Sodium Chloride 1,000 ML IVC ONE (09:21)
[2016-07-30] MEDS ORDERED: Furosemide 40 MG TABLET PO ONE (09:23)
[2016-07-30] MEDS ORDERED: cloNIDine HCl 0.1 MG TABLET PO ONE (09:23)
[2016-07-30] MEDS ORDERED: hydrALAZINE 25 MG TABLET PO ONE (09:23)
[2016-07-30] MEDS ORDERED: amLODIPine 5 MG TABLET PO STA (09:23)
[2016-07-30 09:34] LABS: Bilirubin,Urine Negative (Negative); Blood,Urine Moderate (Negative); Clarity,Urine Turbid (Clear); Color,Urine Yellow (Yellow); Glucose,Urine (UA) Normal (Normal); Ketones,Urine Negative (Negative); Leukocyte Esterase,Urine Large (Negative); Nitrite,Urine Negative (Negative); PH,Urine 7.5 pH Units (5.0-8.0); Protein,Urine >=300 mg/dL (Neg-Trace); Specific Gravity,Urine 1.017 (1.010-1.025); Urobilinogen,Urine Normal (Normal)
[2016-07-30 09:37] LABS: Bacteria,Urine Few per hpf (None-Few); Hyaline Casts,Urine Few per lpf (None-Few); Squamous Epithelial Cell,Urine Many per lpf (None-Few); WBC,Urine TNTC per hpf (0-3)
[2016-07-30 09:47] LABS: RBC,Urine 15-30 per hpf (0-3)
[2016-07-30 10:12] LABS: Basophils % 0.2 %; Hemoglobin 11.3 g/dL (12.9-16.9); Immature Granulocytes % 0.6 % (0-4); Lymphocytes # 0.9 K/mcL (0.6-4.6); Lymphocytes % 6.8 %; Mean Corpuscular HGB Conc 34.2 g/dL (31.6-35.5); Mean Corpuscular Hemoglobin 30.4 pg (28.0-33.3); Mean Corpuscular Volume 88.7 fL (83.0-100.0); Mean Platelet Volume 9.3 fL (9.4-12.4); Monocytes # 1.5 K/mcL (0.0-1.3); Monocytes % 11.4 %; Neutrophils # 10.9 K/mcL (1.6-8.9); Platelet Count 237 K/mcL (140-400); Red Blood Count 3.72 M/mcL (4.19-5.50); Red Cell Distribution Width 16.9 % (11.5-14.5)
[2016-07-30] MEDS ORDERED: *HR* HYDROmorphone (PF) 1 MG/ML SYRINGE IVP ONE ×3 (10:13→21:09)
--- NOTE | 2016-07-30 10:14 | Emergency Department Note ---
Disposition Clinical Impression: Renal failure, Fever of unknown origin, Elevated troponin Disposition: Still a Patient Condition: Fair Referrals: Callie Abreu DO [Primary Care Provider] - Forms: ED Satisfaction Letter Time of Disposition: 11:19 General Adult HPI - General Chief complaint: ED Fever Stated complaint: Fever ,Poss uti Time Seen by Provider: 07/30/16 08:49 Source: patient Mode of arrival: ambulatory Limitations: no limitations Nursing Notes Reviewed: Yes Vital Signs Reviewed: Yes - History of Present Illness HPI Narrative: Patient presents to the ED with complaints of back pain, fever and general malaise. He is a dialysis patient and he had dialysis yesterday. He states the fever at home was 101 as the highest. He reports no coughing, some nausea , but no emesis. He does have a dialysis port in the right upper chest, and fistula in the left arm that has not matured. He was suppose to go and have the fistula evaluated today. Onset (ago): day(s) (1) Location: back (pain, mid to lower back and dysuria) Pain Severity: moderate, severe Pain Scale: 8 Quality: aching, sharp, constant Consistency: constant, Worsening Improves with: nothing Worsens with: nothing Associated symptoms: Reports: fever/chills, loss of appetite, nausea/vomiting. Denies: confusion, chest pain, cough, diaphoresis, headaches, seizure, shortness of breath, syncope, weakness Treatments Prior to Arrival: none - Related Data Home Medications Medication Instructions Recorded Confirmed Amlodipine Besylate 10 mg PO DAILY 04/12/16 07/30/16 Carvedilol 12.5 mg PO BID 04/12/16 07/30/16 Furosemide [Lasix] 40 mg PO DAILY PRN 04/12/16 07/30/16 cloNIDine HCl [Clonidine HCl] 0.2 mg PO TID 04/12/16 07/30/16 Acetaminophen [Tylenol] 1,000 mg PO Q6HR PRN 07/30/16 07/30/16 Previous Rx's Medication Instructions Recorded hydrALAZINE [HydrALAZINE] 50 mg PO Q8HR #120 tablet 04/17/16 Allergies Allergy/AdvReac Type Severity Reaction Status Date / Time No Known Allergies Allergy Verified 07/30/16 08:23 All systems ED: reviewed and negative except as stated. Constitutional: Reports: fever, chills, weakness Eyes: Denies: eye pain, eye discharge, vision change ENT ED: Denies: ear pain, throat pain, dental pain, hearing loss, epistaxis, congestion, dysphagia Cardiovascular: Denies: chest pain, palpitations, dyspnea on exertion, edema, syncope Respiratory: Denies: cough, dyspnea, wheezes, hemoptysis, stridor Gastrointestinal: Reports: nausea Genitourinary: Reports: dysuria Musculoskeletal: Reports: back pain Integumentary: Denies: rash, abrasion, lesions Neurological: Denies: headache, weakness, numbness, paresthesias, confusion, abnormal gait, vertigo Psychiatric: Denies: anxiety, depression, suicidal thoughts, homicidal thoughts , auditory hallucinations, visual hallucinations Endocrine: Denies: fatigue Hematological/Lymphatic: Denies: easy bleeding, easy bruising Past Medical History - Past Medical History Attestation: Yes The following information was validated with the patient. Source: patient, nursing notes reviewed Medical history: Reports: CHF, hypertension, myocardial infarction, renal disease Surgical history: Reports: appendectomy Psychiatric history: Reports: no psych history - Social History Smoking Status: Former smoker Smokeless Tobacco Status: No Alcohol use: Reports: none Drug use: Reports: none Physical Exam - General Limitations: no limitations General appearance: alert, in no apparent distress - Head Head exam: atraumatic, normocephalic, normal inspection - Eye Eye exam: Present: normal appearance, PERRL, EOMI - ENT ENT exam: normal exam, normal oropharynx, mucous membranes moist - Neck Neck exam: Present: normal inspection, full ROM, trachea midline - Chest Chest inspection: Present: normal inspection, symmetric chest wall rise - Respiratory Respiratory exam: Present: normal lung sounds bilaterally - Abdominal Exam Abdominal exam: Present: distention, diminished bowel sounds, ascites. Absent: guarding, rebound Abdominal tenderness: Present: diffuse - Extremities Exam Extremities exam: Present: normal inspection, full ROM, pedal edema (1-2+). Absent: tenderness - Back Exam Back exam: Present: normal inspection, full ROM. Absent: tenderness, muscle spasm - Neurological Exam Neurological exam: Present: alert, oriented X3, CN II-XII intact - Psychiatric Psychiatric exam: Present: normal affect, normal mood - Skin Skin exam: Present: warm, dry, intact, normal color Course Vital Signs Temperature 99.4 F 07/30/16 08:24 Pulse Rate 91 07/30/16 08:24 Respiratory Rate 18 07/30/16 08:24 Blood Pressure 156/89 07/30/16 08:24 O2 Sat by Pulse Oximetry 98 07/30/16 08:24 Temperature 98.8 F 07/30/16 10:20 Pulse Rate 84 07/30/16 10:20 Respiratory Rate 16 07/30/16 10:20 Blood Pressure 160/101 07/30/16 10:20 O2 Sat by Pulse Oximetry 100 07/30/16 10:20 Oxygen Delivery Oxygen Delivery Room Air Medical Decision Making - Lab Data Result diagrams: 07/30/16 10:00 Lab Results 07/30/16 07/30/16 07/30/16 Range/Units 08:35 10:00 10:00 WBC 13.4 H (4.3-11.1) K/mcL RBC 3.72 L (4.19-5.50) M/mcL Hgb 11.3 L (12.9-16.9) g/dL Hct 33.0 L (37.5-50.1) % MCV 88.7 (83.0-100.0) fL MCH 30.4 (28.0-33.3) pg MCHC 34.2 (31.6-35.5) g/dL RDW 16.9 H (11.5-14.5) % Plt Count 237 (140-400) K/mcL MPV 9.3 L (9.4-12.4) fL Immature Gran % 0.6 (0-4) % Seg Neutrophils % 81.0 % Lymphocytes % 6.8 % Monocytes % 11.4 % Eosinophils % 0.0 % Basophils % 0.2 % Neutrophils # 10.9 H (1.6-8.9) K/mcL Lymphocytes # 0.9 (0.6-4.6) K/mcL Monocytes # 1.5 H (0.0-1.3) K/mcL Eosinophils # 0.0 (0.0-0.6) K/mcL Basophils # 0.0 (0.0-0.2) K/mcL Lactic Acid 1.2 (0.5-2.2) mmol/L Troponin I (0-0.03) ng/mL Urine Color Yellow (Yellow) Urine Clarity Turbid A (Clear) Urine pH 7.5 (5.0-8.0) pH Units Ur Specific Dumont 1.017 (1.010-1.025) Urine Protein >=300 H (Neg-Trace) mg/dL Urine Glucose (UA) Normal (Normal) mg/dL Urine Ketones Negative (Negative) mg/dL Urine Blood Moderate H (Negative) Urine Nitrite Negative (Negative) Urine Bilirubin Negative (Negative) Urine Urobilinogen Normal (Normal) mg/dL Ur Leukocyte Esterase Large H (Negative) Urine Microscopic RBC 15-30 H (0-3) per hpf Urine Microscopic WBC TNTC H (0-3) per hpf Ur Squamous Epith Cells Many H (None-Few) per lpf Urine Bacteria Few (None-Few) per hpf Hyaline Casts Few (None-Few) per lpf Ur Culture Indicated? YES A (NO) 07/30/16 Range/Units 10:00 WBC (4.3-11.1) K/mcL RBC (4.19-5.50) M/mcL Hgb (12.9-16.9) g/dL Hct (37.5-50.1) % MCV (83.0-100.0) fL MCH (28.0-33.3) pg MCHC (31.6-35.5) g/dL RDW (11.5-14.5) % Plt Count (140-400) K/mcL MPV (9.4-12.4) fL Immature Gran % (0-4) % Seg Neutrophils % % Lymphocytes % % Monocytes % % Eosinophils % % Basophils % % Neutrophils # (1.6-8.9) K/mcL Lymphocytes # (0.6-4.6) K/mcL Monocytes # (0.0-1.3) K/mcL Eosinophils # (0.0-0.6) K/mcL Basophils # (0.0-0.2) K/mcL Lactic Acid (0.5-2.2) mmol/L Troponin I 0.05 H* (0-0.03) ng/mL Urine Color (Yellow) Urine Clarity (Clear) Urine pH (5.0-8.0) pH Units Ur Specific Dumont (1.010-1.025) Urine Protein (Neg-Trace) mg/dL Urine Glucose (UA) (Normal) mg/dL Urine Ketones (Negative) mg/dL Urine Blood (Negative) Urine Nitrite (Negative) Urine Bilirubin (Negative) Urine Urobilinogen (Normal) mg/dL Ur Leukocyte Esterase (Negative) Urine Microscopic RBC (0-3) per hpf Urine Microscopic WBC (0-3) per hpf Ur Squamous Epith Cells (None-Few) per lpf Urine Bacteria (None-Few) per hpf Hyaline Casts (None-Few) per lpf Ur Culture Indicated? (NO) S.B.[email or web address] - Jethro.Pelon Situation: Demographics Background: Presenting Complaint, Relevant PMH, Meds, & Allergies Assessment: Vital Signs, Course and respsone to treatment, Exam Concerns, Patient/Family Expectation, Pertinant Lab Results, Outstanding Labs Recommendation: Recommendation based on pending studies, treatments, or consults S.[email or web address].RChel Report Given to: Jason Youssef Repor Time: 11:19 Heart Score - Score History: Highly Suspicious EKG: Non Specific repolarisation Disturbance Age: 45-65 Risk Factors: Equal/Greater than 3 risk factor or history of atherosclerotic disease Troponin: 1-3x normal limit HEART Score Total: 7
--- NOTE | 2016-07-30 11:33 | Emergency Department Note ---
START Narrative - START START: IThe patient was checked out to me, I agree with the APCs note. I spent direct [id number] time with the patient. The patient states he has urinary frequency, he states he has had a UTI before and feels like he may have a UTI. The patient is on dialysis and had dialysis treatment yesterday. He denies any chest pain. There is no history of shortness of breath. He patient is alert and talkative in the emergency department. He has an elevated troponin. Aspirin was ordered. Urinalysis is abnormal, the patient's white count is elevated, he meets sepsis criteria. Based on the patient's age, multiple comorbidities including renal failure, symptomatic UTI, and elevated troponin with abnormal EKG, and meeting sepsis criteria, I thought it would be appropriate to admit the patient to the hospital. The patient is currently stable. Lactic acid negative, CRP notably elevated. Judicious fluid therapy was given, the patient has known renal failure, antibiotics were given IV, aspirin was ordered. I discussed the case with the hospitalist on-call who is accepted the patient to their care. Impression: Sepsis UTI Renal failure Anemia Elevated troponin History of CHF History of DE History of of hypertension Abnormal EKG Hyperkalemia
[2016-07-30] MEDS ORDERED: Aspirin 325 MG TABLET PO ONE (11:34)
[2016-07-30 12:39] LABS: Albumin 3.7 g/dL (3.5-5.0); Albumin/Globulin Ratio 0.8 (1.1-2.2); Bilirubin,Direct 0.4 mg/dL (0.0-0.5); Bilirubin,Indirect 0.6 mg/dL (0.0-1.2); Globulin 4.4 g/dL (2.4-3.5); Total Protein 8.1 g/dL (6.0-8.3)
[2016-07-30] MEDS ORDERED: Acetaminophen 325 MG TABLET PO PRN (14:17)
[2016-07-30] MEDS ORDERED: Naloxone 0.4 MG/ML INJ IVP PRN (14:17)
--- NOTE | 2016-07-30 14:57 | Internal Med History&Physical ---
<Kyaw Gore - Last Filed: 07/30/16 18:49> Date of Encounter: 07/30/16 Time of Encounter: 14:00 Assessment and Plan (1) UTI (urinary tract infection) Current visit: Yes Status: Acute Assess: Patient presents with complaint of urinary frequency and urgency. Patient has history of UTI from less than one month ago. Patient is currently in end-stage renal disease and on dialysis (GFR = 6). Patient reports he is not experiencing fever and chills over the past 48 hours. Patient's WBCs are currently 13.4. She received 1 g Rocephin in the ED with judicious IV fluids. Patient reports his last renal dialysis was yesterday (07/29/16). Patient also reports the presence of blood in his urine. Plan: Blood cultures ordered Urinalysis ordered Rocephin 1000 mg IV daily ordered infection coverage Consults nephrology ordered and confirmed Sepsis protocol be followed Follow-up labs ordered and will be reviewed when available Monitor patient and patient's vital signs Qualifiers: Urinary tract infection type: site unspecified Qualified Code(s): N39.0 - Urinary tract infection, site not specified (2) Sepsis Current visit: Yes Status: Acute Assess: Patient presents with complaint of urinary frequency and urgency related to possible UTI of unknown pathogen. Patient reports he is not experiencing fever and chills over the past 48 hours. Patient's WBCs are currently 13.4. She received 1 g Rocephin in the ED with judicious IV fluids. Patient reports his last renal dialysis was yesterday (07/29/16). Patient also reports the presence of blood in his urine. Lactic acid normal on initial lab draw. Plan: Blood cultures ordered Urinalysis ordered Rocephin 1000 mg IV daily ordered infection coverage Consults nephrology ordered and confirmed Sepsis protocol be followed Follow-up labs ordered and will be reviewed when available Monitor patient and patient's vital signs Qualifiers: Sepsis type: sepsis due to unspecified organism Qualified Code(s): A41.9 - Sepsis, unspecified organism (3) Elevated troponin Current visit: Yes Status: Acute Assess: Patient presents with history of NE, hypertension, abnormal EKG, and CHF. Patient's initial troponin level was 0.05. Patient reports he also has a history of 3 MIs, with the last one taking place in March 2015. Dylan reports having a heart catheterization in 2008 with no stent placement. He also reports he currently has an aortic aneurysm of size 3. Plan: Trend troponins x2 Continuous cardiac telemetry ordered IV fluids 0.9 NS @ 60 ml/hr ordered Continue Norvasc Continue carvedilol Obtain old older adult social work specialist patient and patient's vital signs (4) Hyperkalemia, diminished renal excretion Current visit: Yes Status: Acute Assess: Patient presents with hyperkalemia (Potassium = 5.0). Plan: Lasix 40 mg given in ED Continue Lasix 40 mg daily Monitor potassium level and follow-up labs Continuous cardiac telemetry ordered Monitor patient and patient's vital signs (5) ESRD (end stage renal disease) on dialysis Current visit: No Status: Chronic Assess: Patient presents with history of chronic end-stage renal disease (Stage 5). Plan: Tissues IV fluids = 0.9 NS @ 60 ml/hr Renal diet ordered Measure daily weight Monitor I&O daily (6) HTN (hypertension) Current visit: Yes Status: Chronic Assess: Patient presents with history of chronic hypertension. Plan: Continue Norvasc Continue Carvedilol Continue Clonidine Monitor patient's vital signs Qualifiers: Hypertension type: essential hypertension Qualified Code(s): I10 - Essential (primary) hypertension (7) History of CHF (congestive heart failure) Current visit: Yes Status: Chronic Assess: Presents with history of chronic congestive heart failure. Plan: Continue carvedilol Continue Clonidine O2 at 2L ordered with titration if SpO2 <92% Continuous monitoring of patient's SpO2 Judicious use of IV fluids 0.9 NS at 60 mL/HR Measure I&O Measure daily weight Monitor patient's vital signs (8) History of NE (myocardial infarction) Current visit: Yes Status: Chronic Assess: Patient presents with history of chronic myocardial infarctions she reports having 3 MIs, latest being March 2015 also reports a heart catheterization in 2008 with no stent placement. She also reports size 3 aortic aneurysm currently. Plan: Continuous cardiac telemetry ordered Continue Norvasc Continue Carvedilol Continue Clonidine Obtain old EKG Repeat older adult social work specialist patient and patient's vital signs (9) DVT prophylaxis Current visit: Yes Status: Acute Assess: Patient placed on DVT prophylaxis due to history of MIs, CHF, HTN, and inpatient status. Plan: Heparin 5,000 units SQ Q8 Internal Medicine - H&P: HPI Chief complaint: Urinary Frequency/UTI Symptoms Admitted From: Emergency Dept Plans for Post Hospital Care: Home History of present illness: Mr. Vargas is a 51 year old male who presents from the ED with chief complaint of urinary frequency that is similar to UTI he was diagnosed with within the past month. Patient is currently on dialysis with his last dialysis treatment being done yesterday (07/29/16). Patient was first diagnosed with chronic kidney disease and end-stage renal failure on 04/13/2016. Mr. Vargas has a history of congestive heart failure, hypertension, and 3 myocardial infarctions, with his last heart attack being in March 2015. Patient had a heart catheterization in 2008 with no stent placements. Patient also currently has an aortic aneurysm measuring 3 currently. Patient reports that he is a former smoker of one pack per day and quit in April 2016. Based on initial lab results taken today, the patient's WBCs are 13.4 and his urinalysis is abnormal which qualifies him for sepsis criteria. Also based on inital lab results taken today, the patient's initial troponin level is 0.05 and his potassium level is 5.0. Mr. Vargas received 1 gram of Rocephin in the ED along with 40 mg of Lasix to address his hyperkalemia. The patient will be admitted as inpatient status with continuous cardiac telemetry and continuous SPO2 monitoring. Troponins to be trended x2. ABGs ordered as well. Patient will continue to receive 1 gram of Rocephin daily for infection coverage and microbiology results to be followed closely when available. Patient and his vital signs are to be monitored closely while inpatient for continued signs of SOB, fever/chills/ongoing signs of infection, sepsis, and cardiac symptomatology. Past Med Surg Social Fam HX - Past Medical History Source: patient Medical history: CHF, hypertension, myocardial infarction, renal disease Psychiatric history: no psych history - Past Surgical History Surgical History: appendectomy - Social History Smoking Status: Former smoker Packs per day: 1 PPD Smokeless Tobacco Status: No Alcohol use: none Drug use: none Occupational status: unemployed Current living situation: Home - Independent Activity Level: Independent ambulation Recent Out of Country Travel Within the Last 8 Weeks: No Exposure or Possible Exposure to Illness During Travel: No - Family History Mother Race: Family Member Ethnicity: Non- Living Status: Age at : 52 Cause of : NE Hx Family Cardiac Disorders: Yes (HTN, NE) Hx Family Endocrine Disorder: Yes (DM) Father Race: Family Member Ethnicity: Non- Living Status: Hx Family Cardiac Disorders: Yes (HD, Triple Bypass) Brother Race: Family Member Ethnicity: Non- Living Status: Age at : 52 Cause of : Cancer Hx Family Cancer: Yes Sister Hx Family Medical Disorders: No Internal Medicine - H&P: Meds Amlodipine Besylate 10 mg PO DAILY 04/12/16 [History] Carvedilol 12.5 mg PO BID 04/12/16 [History] Furosemide [Lasix] 40 mg PO DAILY PRN 04/12/16 [History] cloNIDine HCl [Clonidine HCl] 0.2 mg PO TID 04/12/16 [History] hydrALAZINE [HydrALAZINE] 50 mg PO Q8HR #120 tablet 04/17/16 [Rx] Acetaminophen [Tylenol] 1,000 mg PO Q6HR PRN 07/30/16 [History] Allergies No Known Allergies Allergy (Verified 07/30/16 08:23) All Systems PM: A 10-system review of systems was performed and is negative for pertinent findings except as documented above in the HPI. - Constitutional Constitutional: as per HPI, chills, excessive sweating, fever(s), weakness - EENT Eyes: no change in vision, no discharge, no pain, no photophobia Ears: no ear discharge, no ear pain, no tinnitus Nose, mouth and throat: no dysphagia, no nasal discharge, no neck pain, no sore throat - Breasts Breasts: as per HPI - Cardiovascular Cardiovascular ROS IM: as per HPI, diaphoresis, dyspnea, dyspnea on exertion - Respiratory Respiratory: as per HPI, dyspnea, no cough, no wheezing, no excessive phlegm production - Gastrointestinal Gastrointestinal: no abdominal pain, no diarrhea, no hematemesis, no hematochezia, no melena, no nausea, no vomiting - Genitourinary Genitourinary ROS male: as per HPI, urinary frequency, urinary urgency - Musculoskeletal Musculoskeletal ROS IM: no numbness, no tingling - Integumentary Integumentary IM: no rash, no unusual bruising - Neurological Neurological ROS: no confusion, no convulsions, no focal weakness, no numbness, no tingling, no tremor(s) - Psychiatric Psychiatric: as per HPI - Endocrine Endocrine IM: as per HPI - Hematologic/Lymphatic Hematologic/Lymphatic: no easy bruising - Allergic/Immunologic Allergic/Immunologic: as per HPI - Constitutional Vitals: Temp Pulse Resp BP Pulse Ox 98.8 F 78 20 120/65 97 07/30/16 10:20 07/30/16 13:46 07/30/16 13:46 07/30/16 13:46 07/30/16 13:46 General appearance: Present: cooperative, mild distress, A&O X 3, obese, answers questions appropriately - Head Head exam: Present: atraumatic, normocephalic - Eye Eye exam: Present: PERRL, conjuntiva pink, sclera anicteric Pupils: Present: PERRL - ENT ENT exam: Present: normal exam, normal external ear exam - Neck Neck exam general surgery: Present: supple, trachea midline. Absent: lymphadenopathy - Respiratory Respiratory exam: Present: respiratory distress (Pleural rub present bilaterally on examination) - Cardiovascular Cardiovascular exam: Present: RRR, +S1, +S2. Absent: diastolic murmur, gallop, rubs, systolic murmur - GI/Abdominal GI/Abdominal exam: Present: normal bowel sounds, soft, no peritoneal signs. Absent: distended, tenderness - Rectal Rectal exam: Present: deferred - Additional comments: exam deferred. - Extremities Exam Extremities exam: Present: warm, radial pulses palpable and symetrical. Absent : calf tenderness, cyanotic, pedal edema - Back Exam Back exam: Present: normal inspection - Neurological Exam Neurological exam: Present: CN II-XII intact, oriented X3, no focal deficits. Absent: pronater drift, facial droop, speech deficit - Psychiatric Psychiatric exam: Present: anxious - Skin Skin exam: Present: dry, intact Internal Med - H&P Results - Labs CBC & Chem 7: 07/30/16 10:00 07/30/16 10:00 Labs: Short CBC 07/30/16 Range/Units 10:00 WBC 13.4 H (4.3-11.1) K/mcL Hgb 11.3 L (12.9-16.9) g/dL Hct 33.0 L (37.5-50.1) % Plt Count 237 (140-400) K/mcL Neutrophils # 10.9 H (1.6-8.9) K/mcL BMP 07/30/16 10:00 Sodium 132 L Potassium 5.0 H Chloride 95 L Carbon Dioxide 22 BUN 39 H Creatinine 9.23 H Glucose 100 H Calcium 8.0 L Cardiac Enzymes 07/30/16 Range/Units 10:00 Troponin I 0.05 H* (0-0.03) ng/mL Liver Function 07/30/16 Range/Units 10:00 Total Bilirubin 1.0 (0.2-1.2) mg/dL Direct Bilirubin 0.4 (0.0-0.5) mg/dL AST 19 (5-34) Units/L ALT 16 (0-55) Units/L Alkaline Phosphatase 107 (38-126) Units/L Albumin 3.7 (3.5-5.0) g/dL Urine 07/30/16 Range/Units 08:35 Urine Color Yellow (Yellow) Urine Clarity Turbid A (Clear) Urine pH 7.5 (5.0-8.0) pH Units Ur Specific [place] 1.017 (1.010-1.025) Urine Protein >=300 H (Neg-Trace) mg/dL Urine Glucose (UA) Normal (Normal) mg/dL - Impressions ITS Impressions Chest X-Ray 07/30/16 11:33 IMPRESSION: Stable exam without evidence for acute cardiopulmonary process. Stable cardiomegaly. D/ / 07/30/2016 11:54:28 Vel Velasco MD / earnold Interpreting Provider: Vel Velasco MD - Diagnostic Studies Chest x-ray Additional comments: 2-View CXR of the chest dated 07/30/16 shows: Right IJ central venous catheter remains in place. No focal consolidations. No pleural pleural effusions or pulmonary edema. Cardiac and mediastinal silhouettes are stable with stable cardiomegaly. No acute bony abnormalities. Overall impression: Stable exam without evidence for acute cardiopulmonary process. Stable cardiomegaly. <Charli Rhoades H - Last Filed: 07/30/16 18:53> Date of Encounter: 07/30/16 Internal Medicine - H&P: HPI History of present illness: Mr. Vargas is a 51 year old male All Systems PM: A 10-system review of systems was performed and is negative for pertinent findings except as documented above in the HPI. - Constitutional Vitals: Temp Pulse Resp BP Pulse Ox 99 F 70 16 119/77 95 07/30/16 15:50 07/30/16 15:50 07/30/16 15:50 07/30/16 15:50 07/30/16 15:50 Internal Med - H&P Results - Labs CBC & Chem 7: 07/30/16 10:00 07/30/16 10:00 Labs: Cardiac Enzymes 07/30/16 Range/Units 15:10 Troponin I 0.05 H* (0-0.03) ng/mL - ABG Interpretation ABG results: 07/30/16 16:17 ABG pH 7.44 ABG pCO2 38 ABG pO2 93 ABG HCO3 25.8 ABG Total CO2 27.0 H ABG O2 Saturation 98 ABG Base Excess 1.6 - Attending Attestation 1. Sepsis secondary to urinary tract infection, clinically concerning for possible pyelonephritis due to acute back pain Consider imaging Continue Rocephin, order blood cultures 2. End-stage renal disease on hemodialysis, consult Dr. Ramirez to continue dialyses 3. Hyperkalemia likely related to dehydration and end-stage renal disease Order 1 L of fluids at 60 mL per hour 4. Dehydration likely secondary to sepsis 5. Hypertension continue clonidine and amlodipine and other home medications Hold Lasix for now Admitted as inpatient. Full code. Time spent on this admission 40 minutes. I examined this patient and my medical decision-making was reviewed with the MANAGEMENT PLANNER/PA/Advanced Practice Nurse/Resident Physician. I agree with the documented findings, disposition and treatment plan as described except to the extent set forth below.
--- NOTE | 2016-07-30 15:18 | Event Note ---
Date of Encounter: 07/30/16 Time of Encounter: 15:15 1. Sepsis secondary to urinary tract infection, clinically concerning for possible pyelonephritis due to acute back pain Consider imaging Continue Rocephin, order blood cultures 2. End-stage renal disease on hemodialysis, consult Dr. Ramirez to continue dialyses 3. Hyperkalemia likely related to dehydration and end-stage renal disease Order 1 L of fluids at 60 mL per hour 4. Dehydration likely secondary to sepsis 5. Hypertension continue clonidine and amlodipine and other home medications Hold Lasix for now Admitted as inpatient. Full code. Time spent on this admission 40 minutes.
[2016-07-30 15:24] LABS: INR 1.2; Prothrombin Time 12.9 Seconds (9.4-12.1)
[2016-07-30 15:26] LABS: Activated Partial Thrombo Time 30.4 Seconds (26.0-36.0)
[2016-07-30] MEDS ORDERED: 0.9 % Sodium Chloride 1,000 ML IVC SCH (15:30)
[2016-07-30 16:30] LABS: ABG Base Excess 1.6 mEq/L (-2.0 to 3.0); ABG HCO3 25.8 mEQ/L (21-27); ABG Oxygen Saturation 98 % (95-98); ABG PCO2 38 mmHg (35-45); ABG PH 7.44 pH Units (7.32-7.45); ABG PO2 93 mmHg (85-104)
[2016-07-30 16:32] LABS: Blood Gas FiO2 21 %
--- NOTE | 2016-07-30 17:35 | Electrocardiograph Report ---
[place] [id number] Test Date: 2016-07-30 Pat Name: Corey Vargas Department: 104 Room: 2A Gender: M Fleecer: : 1965 Requested By: Anitha Hong Order Number: [id number] Reading MD: Shayla Moulton Measurements Intervals [place] Rate: 85 P: 22 AK: 174 QRS: 15 QRSD: 115 T: 15 QT: 369 QTc: 411 Interpretive Statements SINUS RHYTHM MODERATE INTRAVENTRICULAR CONDUCTION DELAY VOLTAGE CRITERIA FOR LVH Electronically Signed On 07-30-2016 17:33:57 EDT by Shayla Moulton
[2016-07-30] MEDS: cloNIDine HCl 0.1 MG TABLET PO SCH ×2 (18:23→21:31)
[2016-07-30] MEDS: hydrALAZINE 25 MG TABLET PO SCH (18:24)
[2016-07-30] MEDS: *HR* HYDROmorphone (PF) 1 MG/ML SYRINGE IVP PRN (18:36)
[2016-07-30] MEDS: *HR* Heparin 5,000 UNIT/ML VIAL SQ SCH (21:31)
[2016-07-30 23:32] LABS: Acinetobacter baumannii by PCR Not Detected (Not Detect); Enterococcus by PCR Not Detected (Not Detect); Escherichia coli by PCR ***DETECTED*** (Not Detect); Staphylococcus aureus by PCR Not Detected (Not Detect); Streptococcus agalactiae(B)PCR Not Detected (Not Detect); Streptococcus by PCR Not Detected (Not Detect); Streptococcus pneumoniae PCR Not Detected (Not Detect); Streptococcus pyogenes (A) PCR Not Detected (Not Detect); blaKPC Carbapenem-Resist Gene Not Detected (Not Detect); mecA Methicillin-Resist Gene Not Detected (Not Detect); vanA/B Vancomycin-Resist Genes Not Detected (Not Detect)
[2016-07-30 23:33] LABS: Candida albicans by PCR Not Detected (Not Detect); Candida glabrata by PCR Not Detected (Not Detect); Candida krusei by PCR Not Detected (Not Detect); Candida parapsilosis by PCR Not Detected (Not Detect); Candida tropicalis by PCR Not Detected (Not Detect); Klebsiella oxytoca by PCR Not Detected (Not Detect); Klebsiella pneumoniae by PCR Not Detected (Not Detect); Pseudomonas aeruginosa by PCR Not Detected (Not Detect); Serratia marcescens by PCR Not Detected (Not Detect)
[2016-07-31] MEDS: hydrALAZINE 25 MG TABLET PO SCH ×3 (01:03→23:54)
[2016-07-31 05:24] LABS: Basophils # 0.1 K/mcL (0.0-0.2); Basophils % 0.3 %; Eosinophils % 0.1 %; Immature Granulocytes % 0.8 % (0-4); Lymphocytes # 1.6 K/mcL (0.6-4.6); Lymphocytes % 8.9 %; Mean Corpuscular HGB Conc 33.3 g/dL (31.6-35.5); Mean Corpuscular Hemoglobin 30.4 pg (28.0-33.3); Mean Corpuscular Volume 91.2 fL (83.0-100.0); Mean Platelet Volume 9.8 fL (9.4-12.4); Monocytes % 10.9 %; Neutrophils # 14.5 K/mcL (1.6-8.9); Platelet Count 207 K/mcL (140-400); Red Blood Count 3.29 M/mcL (4.19-5.50); Red Cell Distribution Width 16.9 % (11.5-14.5)
[2016-07-31 05:39] LABS: Albumin 3.1 g/dL (3.5-5.0); Albumin/Globulin Ratio 0.8 (1.1-2.2); Bilirubin,Total 0.6 mg/dL (0.2-1.2); Calcium 7.7 mg/dL (8.6-10.8); Globulin 4.1 g/dL (2.4-3.5); Magnesium 1.4 mg/dL (1.6-2.6); Potassium 4.7 mEq/L (3.5-4.5); Total Protein 7.2 g/dL (6.0-8.3)
[2016-07-31] MEDS: *HR* Heparin 5,000 UNIT/ML VIAL SQ SCH ×3 (06:06→20:15)
[2016-07-31] MEDS ORDERED: Furosemide 40 MG TABLET PO PRN (07:35)
[2016-07-31] MEDS ORDERED: Magnesium Sulfate 1 GM in D5% in Water 100 ML IVPB ONE (07:35)
[2016-07-31] MEDS: Piperacillin/Tazobactam 3.375 GM in D5% in Water (Mini-Bag+) 100 ML IVPB SCH ×2 (08:01→20:00)
[2016-07-31] MEDS: *HR* HYDROmorphone (PF) 1 MG/ML SYRINGE IVP PRN (08:23)
[2016-07-31] MEDS ORDERED: amLODIPine 5 MG TABLET PO SCH (09:00)
[2016-07-31 09:15] LABS: Hepatitis B Surface Antibody 3.63 mIU/mL; Hepatitis B Surface Antigen Nonreactive (Nonreactive)
--- NOTE | 2016-07-31 09:42 | Internal Med Progress Note ---
Date of Encounter: 07/31/16 Time of Encounter: 09:40 - Assessment and plan (1) Pyelonephritis Current Visit: Yes Status: Acute Assessment and plan: Given persistent symptoms and worsening leukocytosis, will broaden abx coverage and start Zosyn F/u CT abd/pelvis Urine culture preliminary positive for gram negative rods, will f/u official results (2) Bacteremia Current Visit: Yes Status: Acute Assessment and plan: Blood cultures positive for gram negative rods will continue Zosyn at this time and alter therapy as per culture results continue to closely monitor f/u repeat blood cultures (3) CHF (congestive heart failure) Current Visit: Yes Status: Chronic Assessment and plan: Not in acute exacerbation continue home medications monitor I/Os fluid restriction diet Qualifiers: Congestive heart failure type: diastolic Congestive heart failure chronicity: chronic Qualified Code(s): I50.32 - Chronic diastolic (congestive ) heart failure (4) HTN (hypertension) Current Visit: Yes Status: Chronic Assessment and plan: BP within acceptable range while off antihypertensives Will continue to hold antihypertensives for SBP<120 continue to closely monitor Qualifiers: Hypertension type: essential hypertension Qualified Code(s): I10 - Essential (primary) hypertension (5) Anemia Current Visit: No Status: Chronic Assessment and plan: Likely secondary to renal disease H&H low but acceptable continue to monitor will transfuse as needed no acute bleeding reported at this time. Qualifiers: Anemia type: unspecified type Qualified Code(s): D64.9 - Anemia, unspecified (6) DVT prophylaxis Current Visit: Yes Status: Acute Assessment and plan: Heparin SQ (7) Elevated troponin Current Visit: No Status: Chronic Assessment and plan: Pt has chronically elevated TNI given renal disease no chest pain reported at this time, no EKG changes will continue to monitor (8) ESRD (end stage renal disease) on dialysis Current Visit: No Status: Chronic Assessment and plan: Nephrology consultation requested to continue HD sessions on MWF (9) COPD (chronic obstructive pulmonary disease) Current Visit: Yes Status: Chronic Assessment and plan: Pt may have underlying undiagnosed COPD given smoking history will start bronchodilator support as needed pt will benefit from PFTs as outpatient Qualifiers: COPD type: unspecified COPD Qualified Code(s): J44.9 - Chronic obstructive pulmonary disease, unspecified - Subjective Interval history: Pt seen and examined with family present at bedside. Reports of feeling slightly better since admission with improvement in his urinary frequency. Reports of severe left CVA pain. Reports of having recurrent UTIs in the last month. Denies any n/v, fever, or chills at this time. Pt reports of having extensive smoking history, quitting a few months ago. - Constitutional Vitals: Temp Pulse Resp BP Pulse Ox 99.2 F 71 18 108/61 94 07/31/16 06:45 07/31/16 06:45 07/31/16 06:45 07/31/16 06:45 07/31/16 06:45 General appearance: Present: cooperative, A&O X 3, no acute distress, obese, answers questions appropriately - Head Head exam: Present: atraumatic, normocephalic - Eye Eye exam: Present: normal appearance, conjuntiva pink, sclera anicteric - Respiratory Respiratory exam: Present: wheezes (diffuse wheezing ). Absent: respiratory distress - Cardiovascular Cardiovascular exam: Present: RRR, +S1, +S2. Absent: diastolic murmur, gallop, rubs, systolic murmur - GI/Abdominal GI/Abdominal exam: Present: normal bowel sounds, soft, no peritoneal signs. Absent: distended, tenderness - Extremities Exam Extremities exam: Present: warm, radial pulses palpable and symetrical. Absent : pedal edema Additional comments: LUE distal arm AV fistula - Back Exam Back exam: Present: CVA tenderness (L) - Neurological Exam Neurological exam: Present: alert, oriented X3 - Psychiatric Psychiatric exam: Present: normal affect, normal mood Internal Medicine: Result - Labs CBC & Chem 7: 07/31/16 04:22 07/31/16 04:22 Labs: Short CBC 07/31/16 Range/Units 04:22 WBC 18.3 H (4.3-11.1) K/mcL Hgb 10.0 L (12.9-16.9) g/dL Hct 30.0 L (37.5-50.1) % Plt Count 207 (140-400) K/mcL Neutrophils # 14.5 H (1.6-8.9) K/mcL BMP 07/31/16 04:22 Sodium 131 L Potassium 4.7 H Chloride 96 L Carbon Dioxide 20 BUN 57 H D Creatinine 10.87 H Glucose 93 Calcium 7.7 L Cardiac Enzymes 07/30/16 07/30/16 Range/Units 15:10 20:17 Troponin I 0.05 H* 0.04 H* (0-0.03) ng/mL Liver Function 07/31/16 Range/Units 04:22 Total Bilirubin 0.6 (0.2-1.2) mg/dL AST 13 (5-34) Units/L ALT 11 (0-55) Units/L Alkaline Phosphatase 92 (38-126) Units/L Albumin 3.1 L (3.5-5.0) g/dL - ABG Interpretation ABG results: ABG ABG pH 7.44 pH Units (7.32-7.45) 07/30/16 16:17 ABG pCO2 38 mmHg (35-45) 07/30/16 16:17 ABG pO2 93 mmHg (85-104) 07/30/16 16:17 ABG O2 Saturation 98 % (95-98) 07/30/16 16:17 PT/INR, D-dimer PT 12.9 Seconds (9.4-12.1) H 07/30/16 15:10 Consult Discharge Plan - Plan Referrals: Callie Abreu DO [Primary Care Provider] -
[2016-07-31] MEDS ORDERED: *HR* Heparin 10,000 UNIT/10 ML VIAL IV PRN (11:15)
[2016-07-31] MEDS ORDERED: 0.9 % Sodium Chloride 250 ML IVC PRN (11:15)
[2016-07-31] MEDS ORDERED: 0.9 % Sodium Chloride 1,000 ML PRIME SCH (11:15)
[2016-07-31] MEDS: cloNIDine HCl 0.1 MG TABLET PO SCH ×3 (11:18→20:15)
[2016-07-31] MEDS ORDERED: 0.9 % Sodium Chloride 2,000 ML ONE (11:38)
--- NOTE | 2016-07-31 12:04 | Nephrology Consult Note ---
Date of Encounter: 07/31/16 Time of Encounter: 12:03 Assessment and Plan (1) Sepsis Current Visit: Yes Status: Acute Secondary to urinary tract infection/pyelonephritis. Blood cultures are positive for gram negative rods. Antibiotics per the primary team. Patient feels better, but leukocytosis is worse. Qualifiers: Sepsis type: sepsis due to unspecified organism Qualified Code(s): A41.9 - Sepsis, unspecified organism (2) UTI (urinary tract infection) Current Visit: Yes Status: Acute Urine culture is positive for gram-negative rods antibiotics per the primary team. If he is not clinically improving by tomorrow then consider infectious disease consult. Qualifiers: Urinary tract infection type: site unspecified Qualified Code(s): N39.0 - Urinary tract infection, site not specified (3) Anemia Current Visit: No Status: Chronic Hemoglobin stable. Monitor for bleeding. Transfuse as needed. Qualifiers: Anemia type: unspecified type Qualified Code(s): D64.9 - Anemia, unspecified (4) ESRD (end stage renal disease) on dialysis Current Visit: No Status: Chronic Hemodialysis Friday. Renal dose medications. Renal diet. 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 Consider urology consultation especially if his sepsis does not improve. History of Present Illness - Reason for Consult Consult date: 07/31/16 end stage renal disease - Chief Complaint UTI ESRD - History of Present Illness Mr. Vargas is a 51 yo man with a history of ESRD followed by Dr. Ramirez who presented to the ER and was found to have a UTI and sepsis. At the time my evaluation he was started to feel better after antibiotics. He denies chest pain or shortness of breath Past Med Surg Social Fam HX - Past Medical History Medical history: CHF, hypertension, myocardial infarction, renal disease Psychiatric history: no psych history - Past Surgical History Surgical History: appendectomy - Social History Smoking Status: Former smoker Packs per day: 1 PPD Smokeless Tobacco Status: No Alcohol use: none Drug use: none - Family History Mother Race: Family Member Ethnicity: Non- Living Status: Age at : 52 Cause of : MT Hx Family Cardiac Disorders: Yes (HTN, MT) Hx Family Endocrine Disorder: Yes (DM) Father Race: Family Member Ethnicity: Non- Living Status: Hx Family Cardiac Disorders: Yes (HD, Triple Bypass) Brother Race: Family Member Ethnicity: Non- Living Status: Age at : 52 Cause of : Cancer Hx Family Cancer: Yes Sister Hx Family Medical Disorders: No Medications and Allergies Amlodipine Besylate 10 mg PO DAILY 04/12/16 [History] Carvedilol 12.5 mg PO BID 04/12/16 [History] Furosemide [Lasix] 40 mg PO DAILY PRN 04/12/16 [History] cloNIDine HCl [Clonidine HCl] 0.2 mg PO TID 04/12/16 [History] hydrALAZINE [HydrALAZINE] 50 mg PO Q8HR #120 tablet 04/17/16 [Rx] Acetaminophen [Tylenol] 1,000 mg PO Q6HR PRN 07/30/16 [History] Allergies No Known Allergies Allergy (Verified 07/30/16 08:23) Review of Systems All Systems: reviewed and no additional remarkable complaints except as stated ( As documented in the history of present illness.) Exam - Vital Signs Vital signs: Initial Vital Signs Temp Pulse Resp BP Pulse Ox 99.4 F 91 18 156/89 98 07/30/16 08:24 07/30/16 08:24 07/30/16 08:24 07/30/16 08:24 07/30/16 08:24 Vital Signs - Last 8 Hours Temp Pulse Resp BP Pulse Ox 07/31/16 11:24 99.3 F 82 18 120/67 91 07/31/16 06:45 99.2 F 71 18 108/61 94 07/31/16 04:05 98.6 F 74 18 105/50 95 Intake and Output 07/30/16 07/31/16 07/31/16 23:59 07:59 15:59 Intake Total 240 / 240 492 / 492 Output Total 0 / 0 Balance 240 / 240 492 / 492 Intake: IV Fluids 202 / 202 Magnesium Sulfate 1 GM In 102 / 102 Dextrose 5% 100 ML @ 100 mls/hr IVPB ONCE ONE Rx# :[id number] Zosyn 3.375 GM In 100 / 100 Dextrose 5% (Minibag+) 100 ML 100 ML @ 25 mls/hr IVPB Q12H [facility] Rx#: [id number] Oral 240 / 240 290 / 290 Output: Urine 0 / 0 Other: Meal Dinner Breakfast Percent of Meal Consumed 100% 100% Weight 117.208 kg Patient Weight 07/31/16 23:59 Weight 117.208 kg - General Appearance General appearance: well-developed, well-nourished EENT: ATNC Neck: supple Respiratory: clear Cardiology: edema, regular rate, regular rhythm Gastrointestinal: normoactive bowel sounds, no tenderness Integumentary: warm and dry Neurologic: alert and oriented x3 Musculoskeletal: no cyanosis Psychiatric: mood/affect appropriate Results - Lab Results 07/31/16 04:22 07/31/16 04:22 Most recent lab results ABG pH 7.44 pH Units (7.32-7.45) 07/30/16 16:17 ABG pCO2 38 mmHg (35-45) 07/30/16 16:17 ABG pO2 93 mmHg (85-104) 07/30/16 16:17 ABG HCO3 25.8 mEQ/L (21-27) 07/30/16 16:17 ABG O2 Saturation 98 % (95-98) 07/30/16 16:17 Calcium 7.7 mg/dL (8.6-10.8) L 07/31/16 04:22 Magnesium 1.4 mg/dL (1.6-2.6) L 07/31/16 04:22 Consult Discharge Plan - Plan Referrals: Callie Abreu DO [Primary Care Provider] - 08/19/16 10:20 am (first appointment open. Office will call if they have an opening sooner)
[2016-07-31] MEDS ORDERED: *HR* OxyCODONE/APAP 5/325 TABLET PO PRN (12:13)
[2016-07-31] MEDS ORDERED: *HR* OxyCODONE/APAP 10/325 TABLET PO PRN (12:13)
[2016-07-31] MEDS ORDERED: Ipratropium/Albuterol Neb 3 ML IH PRN (12:32)
[2016-07-31] MEDS: amLODIPine 5 MG TABLET PO SCH (16:17)
[2016-08-01 05:08] LABS: Basophils % 0.3 %; Eosinophils % 0.2 %; Hematocrit 28.5 % (37.5-50.1); Hemoglobin 9.6 g/dL (12.9-16.9); Immature Granulocytes % 0.6 % (0-4); Lymphocytes # 1.2 K/mcL (0.6-4.6); Lymphocytes % 10.7 %; Mean Corpuscular HGB Conc 33.7 g/dL (31.6-35.5); Mean Corpuscular Hemoglobin 30.4 pg (28.0-33.3); Mean Corpuscular Volume 90.2 fL (83.0-100.0); Mean Platelet Volume 9.4 fL (9.4-12.4); Monocytes # 1.5 K/mcL (0.0-1.3); Monocytes % 13.5 %; Neutrophils # 8.1 K/mcL (1.6-8.9); Platelet Count 194 K/mcL (140-400); Red Blood Count 3.16 M/mcL (4.19-5.50); Red Cell Distribution Width 16.5 % (11.5-14.5); Segmented Neutrophils % 74.7 %
[2016-08-01 05:22] LABS: Magnesium 1.6 mg/dL (1.6-2.6); Phosphorous 6.2 mg/dL (2.3-4.7); Potassium 4.3 mEq/L (3.5-4.5)
[2016-08-01] MEDS: *HR* Heparin 5,000 UNIT/ML VIAL SQ SCH ×3 (06:02→19:52)
[2016-08-01] MEDS: hydrALAZINE 25 MG TABLET PO SCH ×2 (07:35→15:28)
[2016-08-01] MEDS: amLODIPine 5 MG TABLET PO SCH (07:36)
[2016-08-01] MEDS: cloNIDine HCl 0.1 MG TABLET PO SCH ×3 (07:36→20:15)
[2016-08-01] MEDS: Piperacillin/Tazobactam 3.375 GM in D5% in Water (Mini-Bag+) 100 ML IVPB SCH ×2 (08:10→19:52)
--- NOTE | 2016-08-01 09:40 | Nephrology Progress Note ---
Date of Encounter: 08/01/16 Time of Encounter: 09:36 - Assessment and Plan (1) ESRD (end stage renal disease) on dialysis Current Visit: No Status: Chronic Plan for HD tomorrow Patient has access in left lower arm; states he was suppose to go Friday for his follow up but didn't make it due to illness/hospitalization Continue renal diet (2) Hyperphosphatemia Current Visit: Yes Status: Acute Patient takes Phoslo binders; brought in his own meds. States he is taking as directed. (3) Sepsis Current Visit: Yes Status: Acute UTI/positive blood cultures-gram negative rods. Antibiotics per primary team WBCs down to 10.9 from 18.3 yesterday Qualifiers: Sepsis type: sepsis due to unspecified organism Qualified Code(s): A41.9 - Sepsis, unspecified organism Subjective Principal diagnosis: sepsis, ESRD on dialysis Interval history: Patient seen and examined. States he is feeling much better than when he was admitted. Objective - Vital Signs Vital signs: Vital Signs Temp Pulse Resp BP Pulse Ox 08/01/16 09:07 98.8 F 78 18 116/55 97 08/01/16 05:01 99.7 F H 74 16 112/51 95 07/31/16 23:38 100.7 F H 86 16 108/55 92 07/31/16 20:20 98 07/31/16 19:38 98.1 F 72 16 94/52 94 07/31/16 15:42 98.4 F 100 18 126/78 95 07/31/16 15:05 99.3 F 18 124/74 07/31/16 15:00 134/82 07/31/16 14:45 133/82 07/31/16 14:30 130/83 07/31/16 14:15 134/82 07/31/16 14:00 139/86 07/31/16 13:45 146/93 07/31/16 13:30 155/89 07/31/16 13:15 162/92 07/31/16 13:00 152/88 07/31/16 12:45 149/82 07/31/16 12:30 143/80 07/31/16 12:15 137/72 07/31/16 12:00 99.3 F 18 131/71 07/31/16 11:24 99.3 F 82 18 120/67 91 Intake and Output 07/31/16 08/01/16 08/01/16 23:59 07:59 15:59 Intake Total 120 / 120 100 / 100 Output Total 0 / 0 325 / 325 Balance 120 / 120 -325 / -325 100 / 100 Intake: IV Fluids 100 / 100 Zosyn 3.375 GM In 100 / 100 Dextrose 5% (Minibag+) 100 ML 100 ML @ 25 mls/hr IVPB Q12H [facility] Rx#: [id number] Oral 120 / 120 Output: Urine 0 / 0 325 / 325 Other: Weight 114.124 kg Patient Weight 08/01/16 23:59 Weight 114.124 kg - General Appearance General appearance: Present: well-developed, well-nourished EENT: Present: ATNC, mucous membranes moist, hearing intact, vision intact Neck: Present: supple Respiratory: Present: clear Cardiology: Present: edema, normal S1, normal S2 Dialysis Vascular Access: Venous Catheter Gastrointestinal: Present: no tenderness, no guarding Integumentary: Present: warm and dry Neurologic: Present: alert and oriented x3 Psychiatric: Present: mood/affect appropriate, cooperative - Lab 08/01/16 04:47 08/01/16 04:47 Most recent lab results ABG pH 7.44 pH Units (7.32-7.45) 07/30/16 16:17 ABG pCO2 38 mmHg (35-45) 07/30/16 16:17 ABG pO2 93 mmHg (85-104) 07/30/16 16:17 ABG HCO3 25.8 mEQ/L (21-27) 07/30/16 16:17 ABG O2 Saturation 98 % (95-98) 07/30/16 16:17 Calcium 8.0 mg/dL (8.6-10.8) L 08/01/16 04:47 Phosphorus 6.2 mg/dL (2.3-4.7) H 08/01/16 04:47 Magnesium 1.6 mg/dL (1.6-2.6) 08/01/16 04:47 Consult Discharge Plan - Plan Referrals: Callie Abreu DO [Primary Care Provider] - 08/19/16 10:20 am (first appointment open. Office will call if they have an opening sooner)
--- NOTE | 2016-08-01 10:21 | Internal Med Progress Note ---
Date of Encounter: 08/01/16 Time of Encounter: 10:19 (') - Assessment and plan (1) Pyelonephritis Current Visit: Yes Status: Acute Assessment and plan: clinically improving Will continue Zosyn at this time Urine culture preliminary positive for gram negative rods, will f/u official results (2) Bacteremia Current Visit: Yes Status: Acute Assessment and plan: Preliminary report Blood cultures positive for gram negative rods will continue Zosyn at this time and alter therapy as per culture results continue to closely monitor f/u repeat blood cultures and official culture report (3) CHF (congestive heart failure) Current Visit: Yes Status: Chronic Assessment and plan: Not in acute exacerbation continue home medications monitor I/Os fluid restriction diet Qualifiers: Congestive heart failure type: diastolic Congestive heart failure chronicity: chronic Qualified Code(s): I50.32 - Chronic diastolic (congestive ) heart failure (4) HTN (hypertension) Current Visit: Yes Status: Chronic Assessment and plan: BP within acceptable range while off antihypertensives Will continue to hold antihypertensives for SBP<120 continue to closely monitor Qualifiers: Hypertension type: essential hypertension Qualified Code(s): I10 - Essential (primary) hypertension (5) Anemia Current Visit: No Status: Chronic Assessment and plan: Likely secondary to renal disease H&H low but acceptable continue to monitor will transfuse as needed no acute bleeding reported at this time. Qualifiers: Anemia type: unspecified type Qualified Code(s): D64.9 - Anemia, unspecified (6) DVT prophylaxis Current Visit: Yes Status: Acute Assessment and plan: Heparin SQ (7) Elevated troponin Current Visit: No Status: Chronic Assessment and plan: Pt has chronically elevated TNI given renal disease no chest pain reported at this time, no EKG changes will continue to monitor (8) ESRD (end stage renal disease) on dialysis Current Visit: No Status: Chronic Assessment and plan: Nephrology consultation appreciated and patient to continue HD sessions on MWF (9) COPD (chronic obstructive pulmonary disease) Current Visit: Yes Status: Chronic Assessment and plan: Pt may have underlying undiagnosed COPD given smoking history continue bronchodilator support as needed pt will benefit from PFTs as outpatient Qualifiers: COPD type: unspecified COPD Qualified Code(s): J44.9 - Chronic obstructive pulmonary disease, unspecified - Subjective Interval history: Pt seen and examined with family present at bedside. Reports of feeling better today. Pain and urinary symptoms improved. No overnight issues reported. Pt reports of having extensive smoking history, quitting a few months ago. - Constitutional Vitals: Temp Pulse Resp BP Pulse Ox 98.8 F 78 18 116/55 97 08/01/16 09:07 08/01/16 09:07 08/01/16 09:07 08/01/16 09:07 08/01/16 09:07 General appearance: Present: cooperative, A&O X 3, morbidly obese, no acute distress, answers questions appropriately - Head Head exam: Present: atraumatic, normocephalic - Eye Eye exam: Present: normal appearance, conjuntiva pink, sclera anicteric - Respiratory Respiratory exam: Present: CTAB. Absent: accessory muscle use, rales, rhonchi, wheezes - Cardiovascular Cardiovascular exam: Present: RRR, +S1, +S2. Absent: diastolic murmur, gallop, rubs, systolic murmur Additional comments: left tunneled HD cath - GI/Abdominal GI/Abdominal exam: Present: normal bowel sounds, soft, no peritoneal signs. Absent: distended, tenderness - Extremities Exam Extremities exam: Present: warm, radial pulses palpable and symetrical. Absent : calf tenderness, cyanotic, pedal edema - Neurological Exam Neurological exam: Present: alert, oriented X3 - Psychiatric Psychiatric exam: Present: normal affect, normal mood Internal Medicine: Result - Labs CBC & Chem 7: 08/01/16 04:47 08/01/16 04:47 Labs: Short CBC 08/01/16 Range/Units 04:47 WBC 10.9 (4.3-11.1) K/mcL Hgb 9.6 L (12.9-16.9) g/dL Hct 28.5 L (37.5-50.1) % Plt Count 194 (140-400) K/mcL Neutrophils # 8.1 (1.6-8.9) K/mcL BMP 08/01/16 04:47 Sodium 131 L Potassium 4.3 Chloride 92 L Carbon Dioxide 25 BUN 45 H D Creatinine 9.61 H Glucose 103 H Calcium 8.0 L - ABG Interpretation ABG results: ABG ABG pH 7.44 pH Units (7.32-7.45) 07/30/16 16:17 ABG pCO2 38 mmHg (35-45) 07/30/16 16:17 ABG pO2 93 mmHg (85-104) 07/30/16 16:17 ABG O2 Saturation 98 % (95-98) 07/30/16 16:17 PT/INR, D-dimer PT 12.9 Seconds (9.4-12.1) H 07/30/16 15:10 - Impressions Impressions Abdomen/Pelvis CT 07/31/16 08:52 IMPRESSION: 1. New since the pre biopsy images 05/28/2016 there is asymmetric diffuse retroperitoneal induration with no focal retroperitoneal hematoma or urinoma. There is increased prominence along the left kidney lateral margin at the mid aspect which may represent a post biopsy subcapsular urinoma. 2. The bilateral kidneys demonstrate no hydronephrosis or urolithiasis. 3. Nonspecific mild bladder wall thickening. D/ / 07/31/2016 09:55:09 Kai Miner MD / ghazal Interpreting Provider: Kai Miner MD Consult Discharge Plan - Plan Referrals: Callie Abreu DO [Primary Care Provider] - 08/19/16 10:20 am (first appointment open. Office will call if they have an opening sooner)
[2016-08-02] MEDS: hydrALAZINE 25 MG TABLET PO SCH ×4 (01:05→23:42)
[2016-08-02 04:31] LABS: Hemoglobin 9.5 g/dL (12.9-16.9); Mean Corpuscular HGB Conc 32.8 g/dL (31.6-35.5); Mean Corpuscular Hemoglobin 29.7 pg (28.0-33.3); Mean Corpuscular Volume 90.6 fL (83.0-100.0); Mean Platelet Volume 9.4 fL (9.4-12.4); Platelet Count 187 K/mcL (140-400); Red Cell Distribution Width 15.9 % (11.5-14.5)
[2016-08-02 04:32] LABS: Basophils % 0.4 %; Eosinophils # 0.1 K/mcL (0.0-0.6); Immature Granulocytes % 0.6 % (0-4); Lymphocytes % 15.6 %; Monocytes % 15.4 %; Neutrophils # 4.5 K/mcL (1.6-8.9)
[2016-08-02 04:42] LABS: Calcium 7.9 mg/dL (8.6-10.8); Phosphorous 7.7 mg/dL (2.3-4.7); Potassium 4.3 mEq/L (3.5-4.5)
[2016-08-02] MEDS: *HR* Heparin 5,000 UNIT/ML VIAL SQ SCH ×3 (05:00→21:43)
[2016-08-02] MEDS ORDERED: 0.9 % Sodium Chloride 250 ML IVC PRN (07:50)
--- NOTE | 2016-08-02 08:37 | Internal Med Progress Note ---
Date of Encounter: 08/02/16 Time of Encounter: 08:35 - Assessment and plan (1) Pyelonephritis Current Visit: Yes Status: Acute Assessment and plan: clinically improving Will continue Zosyn at this time Urine culture positive for E.coli (2) Bacteremia Current Visit: Yes Status: Acute Assessment and plan: Blood culture report positive for E.coli will continue Zosyn at this time and alter therapy as per culture results continue to closely monitor f/u repeat blood cultures pt will need 14 days of abx from the first negative blood culture report (3) CHF (congestive heart failure) Current Visit: Yes Status: Chronic Assessment and plan: Not in acute exacerbation continue home medications monitor I/Os fluid restriction diet Qualifiers: Congestive heart failure type: diastolic Congestive heart failure chronicity: chronic Qualified Code(s): I50.32 - Chronic diastolic (congestive ) heart failure (4) HTN (hypertension) Current Visit: Yes Status: Chronic Assessment and plan: BP within acceptable range while off antihypertensives Will continue to hold antihypertensives for SBP<120 continue to closely monitor Qualifiers: Hypertension type: essential hypertension Qualified Code(s): I10 - Essential (primary) hypertension (5) Anemia Current Visit: No Status: Chronic Assessment and plan: Likely secondary to renal disease H&H low but acceptable continue to monitor will transfuse as needed no acute bleeding reported at this time. Qualifiers: Anemia type: unspecified type Qualified Code(s): D64.9 - Anemia, unspecified (6) DVT prophylaxis Current Visit: Yes Status: Acute Assessment and plan: Heparin SQ (7) Elevated troponin Current Visit: No Status: Chronic Assessment and plan: Pt has chronically elevated TNI given renal disease no chest pain reported at this time, no EKG changes will continue to monitor (8) ESRD (end stage renal disease) on dialysis Current Visit: No Status: Chronic Assessment and plan: Nephrology consultation appreciated and patient to continue HD sessions on MWF (9) COPD (chronic obstructive pulmonary disease) Current Visit: Yes Status: Chronic Assessment and plan: Pt may have underlying undiagnosed COPD given smoking history continue bronchodilator support as needed pt will benefit from PFTs as outpatient Qualifiers: COPD type: unspecified COPD Qualified Code(s): J44.9 - Chronic obstructive pulmonary disease, unspecified - Subjective Interval history: Pt seen and examined at bedside. Resting comfortably, reports of feeling significantly better since admission. No discomfort reported at this time. Pt to receive HD today (08/02/16). - Constitutional Vitals: Temp Pulse Resp BP Pulse Ox 98.4 F 64 16 132/79 97 08/02/16 06:49 08/02/16 06:49 08/02/16 06:49 08/02/16 06:49 08/02/16 06:49 General appearance: Present: cooperative, A&O X 3, morbidly obese, no acute distress, answers questions appropriately - Head Head exam: Present: atraumatic, normocephalic - Eye Eye exam: Present: normal appearance, conjuntiva pink, sclera anicteric - Respiratory Respiratory exam: Present: CTAB. Absent: accessory muscle use, rales, rhonchi, wheezes - Cardiovascular Cardiovascular exam: Present: RRR, +S1, +S2. Absent: diastolic murmur, gallop, rubs, systolic murmur Additional comments: right chest wall HD cath in place - GI/Abdominal GI/Abdominal exam: Present: normal bowel sounds, soft, no peritoneal signs. Absent: distended, tenderness - Extremities Exam Extremities exam: Present: warm, radial pulses palpable and symetrical. Absent : calf tenderness, cyanotic, pedal edema Additional comments: Left radial AV fistula - Neurological Exam Neurological exam: Present: alert, oriented X3 - Psychiatric Psychiatric exam: Present: normal affect, normal mood Internal Medicine: Result - Labs CBC & Chem 7: 08/02/16 04:14 08/02/16 04:14 Labs: Short CBC 08/02/16 Range/Units 04:14 WBC 6.7 (4.3-11.1) K/mcL Hgb 9.5 L (12.9-16.9) g/dL Hct 29.0 L (37.5-50.1) % Plt Count 187 (140-400) K/mcL Neutrophils # 4.5 (1.6-8.9) K/mcL BMP 08/02/16 04:14 Sodium 134 L Potassium 4.3 Chloride 94 L Carbon Dioxide 23 BUN 60 H D Creatinine 11.97 H Glucose 100 H Calcium 7.9 L - ABG Interpretation ABG results: ABG ABG pH 7.44 pH Units (7.32-7.45) 07/30/16 16:17 ABG pCO2 38 mmHg (35-45) 07/30/16 16:17 ABG pO2 93 mmHg (85-104) 07/30/16 16:17 ABG O2 Saturation 98 % (95-98) 07/30/16 16:17 PT/INR, D-dimer PT 12.9 Seconds (9.4-12.1) H 07/30/16 15:10 Consult Discharge Plan - Plan Referrals: Callie Abreu DO [Primary Care Provider] - 08/19/16 10:20 am (first appointment open. Office will call if they have an opening sooner)
--- NOTE | 2016-08-02 09:45 | Nephrology Progress Note ---
<Familia Tyson - Last Filed: 08/02/16 09:56> Date of Encounter: 08/02/16 Time of Encounter: 09:43 - Assessment and Plan (1) ESRD (end stage renal disease) on dialysis Current Visit: No Status: Chronic Hemodialysis MWF On hemodialysis when examined. Continue with HD. Continue monitoring labs. (2) Bacteremia Current Visit: Yes Status: Acute Bacteremia due to Gram negative anil likely from UTI vs pyelonephritis Blood cultures grew E. coli. Continue per hospitalist plan, Antibiotic Zosyn. WBC decreased from 10.9 to 6.7 today. (3) UTI (urinary tract infection) Current Visit: Yes Status: Acute Urine culture grew E.coli. Continue with antibiotics per hospitalist plan. Zosyn Qualifiers: Urinary tract infection type: site unspecified Hematuria presence: with hematuria Qualified Code(s): N39.0 - Urinary tract infection, site not specified; R31.9 - Hematuria, unspecified (4) Hyperphosphatemia Current Visit: Yes Status: Acute Phosphorus at 7.7 this morning, patient on phos-lo Continue with phos-lo, continue monitoring levels. (5) Anemia in chronic kidney disease (CKD) Current Visit: Yes Status: Acute Hb 9.5 this morning, stable Continue monitoring. Goal Hb 10-11. Subjective Principal diagnosis: sepsis, ESRD on dialysis Interval history: Patient reports doing well overnight, no new complaints. Denies fevers, chills , sweats, nausea, vomiting, chest pain, shortness of breath, abdominal pain, changes in bowels or bladder, dyuria, hematuria, weakness, or loss of sensation. Objective - Vital Signs Vital signs: Vital Signs Temp Pulse Resp BP Pulse Ox 08/02/16 06:49 98.4 F 64 16 132/79 97 08/02/16 04:21 97.8 F 61 17 136/75 97 08/02/16 00:56 97.6 F 63 16 123/65 95 08/01/16 19:12 100.1 F H 76 16 128/64 96 08/01/16 11:53 99.2 F 77 20 111/58 95 Intake and Output 08/01/16 08/02/16 08/02/16 23:59 07:59 15:59 Intake Total 480 / 480 100 / 100 Output Total 400 / 400 225 / 225 Balance 80 / 80 -125 / -125 Intake: IV Fluids 100 / 100 Zosyn 3.375 GM In 100 / 100 Dextrose 5% (Minibag+) 100 ML 100 ML @ 25 mls/hr IVPB Q12H [facility] Rx#: [id number] Oral 480 / 480 Output: Urine 400 / 400 225 / 225 Other: Meal Dinner Percent of Meal Consumed 80% Weight 113.5 kg Patient Weight 08/02/16 23:59 Weight 113.5 kg - General Appearance General appearance: Present: well-developed, well-nourished, appears started age EENT: Present: PERRL, mucous membranes moist, hearing intact, vision intact Neck: Present: no JVD, no carotid bruit, supple Respiratory: Present: clear Cardiology: Present: no murmurs, no edema, regular rate, regular rhythm, normal S1, normal S2 Dialysis Vascular Access: Venous Catheter thrill: Yes bruit: Yes Additional Comments: also noted left forearm av fistula with thrill and bruit. Gastrointestinal: Present: normoactive bowel sounds, no tenderness, no guarding Integumentary: Present: no rash, warm and dry Neurologic: Present: no focal deficit, alert and oriented x3 Musculoskeletal: Present: no deformities, no erythema, no cyanosis, no clubbing Psychiatric: Present: mood/affect appropriate, cooperative - Lab 08/02/16 04:14 08/02/16 04:14 Most recent lab results ABG pH 7.44 pH Units (7.32-7.45) 07/30/16 16:17 ABG pCO2 38 mmHg (35-45) 07/30/16 16:17 ABG pO2 93 mmHg (85-104) 07/30/16 16:17 ABG HCO3 25.8 mEQ/L (21-27) 07/30/16 16:17 ABG O2 Saturation 98 % (95-98) 07/30/16 16:17 Calcium 7.9 mg/dL (8.6-10.8) L 08/02/16 04:14 Phosphorus 7.7 mg/dL (2.3-4.7) H 08/02/16 04:14 Magnesium 2.0 mg/dL (1.6-2.6) 08/02/16 04:14 Consult Discharge Plan - Plan Referrals: Abreu,Callie Yuly, DO [Primary Care Provider] - 08/19/16 10:20 am (first appointment open. Office will call if they have an opening sooner) <Mary Ann Marcelino Mile - Last Filed: 08/02/16 14:27> Date of Encounter: 08/02/16 Objective - Vital Signs Vital signs: Vital Signs Temp Pulse Resp BP Pulse Ox 08/02/16 12:30 98.1 F 19 177/90 08/02/16 12:25 177/90 08/02/16 12:10 160/92 08/02/16 11:55 163/89 08/02/16 11:40 160/93 08/02/16 11:25 181/91 08/02/16 11:10 178/91 08/02/16 10:55 179/93 08/02/16 10:40 180/95 08/02/16 10:25 166/90 08/02/16 10:10 166/88 08/02/16 09:55 156/87 08/02/16 09:40 166/89 08/02/16 09:25 173/92 08/02/16 09:10 151/87 08/02/16 08:55 97.5 F L 18 156/84 08/02/16 06:49 98.4 F 64 16 132/79 97 08/02/16 04:21 97.8 F 61 17 136/75 97 08/02/16 00:56 97.6 F 63 16 123/65 95 08/01/16 19:12 100.1 F H 76 16 128/64 96 Intake and Output 08/01/16 08/02/16 08/02/16 23:59 07:59 15:59 Intake Total 480 / 480 100 / 100 840 / 840 Output Total 400 / 400 225 / 225 3600 / 3600 Balance 80 / 80 -125 / -125 -2760 / -2760 Intake: IV Fluids 100 / 100 Zosyn 3.375 GM In 100 / 100 Dextrose 5% (Minibag+) 100 ML 100 ML @ 25 mls/hr IVPB Q12H [facility] Rx#: [id number] Oral 480 / 480 240 / 240 Intake, Rinseback and 600 / 600 Flushes Output: Urine 400 / 400 225 / 225 0 / 0 Total Dialysis Output 3600 / 3600 Other: Meal Dinner Percent of Meal Consumed 80% 0% Weight 113.5 kg Hemodialysis Net Fluid 3000 Removed (mL) Patient Weight 08/02/16 23:59 Weight 113.5 kg - Lab 08/02/16 04:14 08/02/16 04:14 Most recent lab results ABG pH 7.44 pH Units (7.32-7.45) 07/30/16 16:17 ABG pCO2 38 mmHg (35-45) 07/30/16 16:17 ABG pO2 93 mmHg (85-104) 07/30/16 16:17 ABG HCO3 25.8 mEQ/L (21-27) 07/30/16 16:17 ABG O2 Saturation 98 % (95-98) 07/30/16 16:17 Calcium 7.9 mg/dL (8.6-10.8) L 08/02/16 04:14 Phosphorus 7.7 mg/dL (2.3-4.7) H 08/02/16 04:14 Magnesium 2.0 mg/dL (1.6-2.6) 08/02/16 04:14 - Attending Attestation I examined this patient and my medical decision-making was reviewed with the JOURNALISM INTERN/PA/Advanced Practice Nurse/Resident Physician. I agree with the documented findings, disposition and treatment plan as described except to the extent set forth below. Interim events noted, 51 y o male with ESRD admitted and being treated for Ecoli UTI. Pt seen and examined on HD today feeling better overall and eager to go home when deemed stable. Continue antiobiotics per primary team. Continue HD with UF as tolerated. Elevated phos noted while taking 2 tabs of phoslo (his own from home), will adjust on outpatient basis the dose.
[2016-08-02] MEDS: amLODIPine 5 MG TABLET PO SCH (13:19)
[2016-08-02] MEDS: cloNIDine HCl 0.1 MG TABLET PO SCH ×3 (13:19→21:49)
[2016-08-02] MEDS: Piperacillin/Tazobactam 3.375 GM in D5% in Water (Mini-Bag+) 100 ML IVPB SCH (13:20)
[2016-08-02] MEDS ORDERED: 0.9 % Sodium Chloride 2,000 ML ONE (16:28)
[2016-08-02] MEDS ORDERED: Piperacillin/Tazobactam 3.375 GM in D5% in Water (Mini-Bag+) 100 ML IVPB ONE (23:00)
[2016-08-03 05:00] LABS: Basophils % 0.5 %; Eosinophils # 0.1 K/mcL (0.0-0.6); Eosinophils % 1.2 %; Hematocrit 29.3 % (37.5-50.1); Hemoglobin 9.6 g/dL (12.9-16.9); Immature Granulocytes % 0.5 % (0-4); Lymphocytes # 1.2 K/mcL (0.6-4.6); Lymphocytes % 20.1 %; Mean Corpuscular HGB Conc 32.8 g/dL (31.6-35.5); Mean Corpuscular Hemoglobin 29.5 pg (28.0-33.3); Mean Corpuscular Volume 90.2 fL (83.0-100.0); Mean Platelet Volume 9.2 fL (9.4-12.4); Monocytes # 1.1 K/mcL (0.0-1.3); Monocytes % 19.3 %; Neutrophils # 3.4 K/mcL (1.6-8.9); Platelet Count 215 K/mcL (140-400); Red Blood Count 3.25 M/mcL (4.19-5.50); Red Cell Distribution Width 15.8 % (11.5-14.5); Segmented Neutrophils % 58.4 %
[2016-08-03 05:17] LABS: Calcium 8.2 mg/dL (8.6-10.8); Magnesium 2.2 mg/dL (1.6-2.6); Phosphorous 6.2 mg/dL (2.3-4.7); Potassium 3.9 mEq/L (3.5-4.5)
[2016-08-03 05:36] LABS: Anisocytosis 1+ (Not Present); Macrocytosis Present (Not Present); Microcytosis Present (Not Present); Platelet Estimate Normal (Normal)
[2016-08-03] MEDS ORDERED: Piperacillin/Tazobactam 3.375 GM in D5% in Water (Mini-Bag+) 100 ML IVPB SCH (06:00)
[2016-08-03] MEDS: *HR* Heparin 5,000 UNIT/ML VIAL SQ SCH (06:23)
[2016-08-03 06:47] VITALS: BP 143/73
[2016-08-03] MEDS: hydrALAZINE 25 MG TABLET PO SCH (08:04)
[2016-08-03] MEDS: amLODIPine 5 MG TABLET PO SCH (08:04)
[2016-08-03] MEDS: cloNIDine HCl 0.1 MG TABLET PO SCH (08:04)
--- NOTE | 2016-08-03 10:29 | Discharge Summary ---
Date of Encounter: 08/03/16 Time of Encounter: 10:10 - Discharge Diagnosis (1) Pyelonephritis Priority: Primary Status: Acute (2) Bacteremia Priority: Secondary Status: Acute (3) CHF (congestive heart failure) Priority: Secondary Status: Chronic Qualifiers: Congestive heart failure type: diastolic Congestive heart failure chronicity: chronic Qualified Code(s): I50.32 - Chronic diastolic (congestive ) heart failure (4) HTN (hypertension) Priority: Secondary Status: Chronic Qualifiers: Hypertension type: essential hypertension Qualified Code(s): I10 - Essential (primary) hypertension (5) Anemia Priority: Secondary Status: Chronic Qualifiers: Anemia type: unspecified type Qualified Code(s): D64.9 - Anemia, unspecified (6) DVT prophylaxis Priority: Secondary Status: Acute (7) Elevated troponin Priority: Secondary Status: Chronic (8) ESRD (end stage renal disease) on dialysis Priority: Secondary Status: Chronic (9) COPD (chronic obstructive pulmonary disease) Priority: Secondary Status: Chronic Qualifiers: COPD type: unspecified COPD Qualified Code(s): J44.9 - Chronic obstructive pulmonary disease, unspecified - Discharge Medications Prescriptions: Amoxicillin/Clavulanate [Augmentin] 500 mg PO DAILY #12 tablet levoFLOXacin [Levofloxacin] 500 mg PO Q48H #5 tablet levoFLOXacin [Levofloxacin] 750 mg PO ONCE #1 tablet Home Medications: Amlodipine Besylate 10 mg PO DAILY 04/12/16 [History] Carvedilol 12.5 mg PO BID 04/12/16 [History] Furosemide [Lasix] 40 mg PO DAILY PRN 04/12/16 [History] cloNIDine HCl [Clonidine HCl] 0.2 mg PO TID 04/12/16 [History] hydrALAZINE [HydrALAZINE] 50 mg PO Q8HR #120 tablet 04/17/16 [Rx] Acetaminophen [Tylenol] 1,000 mg PO Q6HR PRN 07/30/16 [History] Amoxicillin/Clavulanate [Augmentin] 500 mg PO DAILY #12 tablet 08/03/16 [Rx] levoFLOXacin [Levofloxacin] 500 mg PO Q48H #5 tablet 08/03/16 [Rx] levoFLOXacin [Levofloxacin] 750 mg PO ONCE #1 tablet 08/03/16 [Rx] Allergies/Adverse Reactions: Allergies No Known Allergies Allergy (Verified 07/30/16 08:23) Date of admission: 07/30/16 14:42 Primary care physician: Callie Abreu DO Consults: 07/30/16 15:32 Consult to Nephrology [CONS] Routine Consulting Provider: Ministerio Sunshine/ABIMAEL/ELIGIO/DARCIE Reason for Consult: Patient followed by Dr. Ramirez is currently admitted with suspected UTI and will need continued dialysis Call Completed: Yes 07/31/16 11:15 Consult to Dialysis [CONS] ONCE 08/01/16 11:15 Consult to Dialysis [CONS] ONCE 08/02/16 08:00 Consult to Dialysis [CONS] ONCE Discharging clinician: Amy Schaefer Anticipated date of discharge: 08/03/16 - Patient Status Disposition: Home, Self-Care Condition: Good Functional capacity at discharge: independent ambulation Overall status at discharge: patient is back to baseline - Discharge Instructions Follow Up With: Callie Abreu DO [Primary Care Provider] - 08/19/16 10:20 am (first appointment open. Office will call if they have an opening sooner) Additional Instructions: Please follow up with your primary care physician within one week after your discharge from the hospital. 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 Please continue oral antibiotics as prescribed. Please resume your home medications as prescribed by her primary care physician. Closely monitor blood pressure at home. - Diet and Activity Activity: resume usual activities as tolerated Diet: low salt diet Hospital course: Mr. Vargas is a 51 year old male with PMH of ESRD on HD, HTN,CHF who was admitted for management of sepsis secondary to acute pyelonephritis. He was started on empiric IV abx to which he responded appropriately. He was found to have positive blood cultures with Escherichia coli and was continued on IV antibiotics. He responded appropriately to antibiotics and therapy will be de- escalated as per culture reports. Patient is to continue oral antibiotics for a total of 14 days since the negative blood culture report. Patient was also followed by nephrology and was continued on his hemodialysis sessions. At this time patient is hemodynamically stable with complete resolution of his presenting symptoms. He will be discharged to home with follow-up with his primary care physician and will continue his hemodialysis sessions as per nephrology. Patient demonstrates understanding of his diagnosis and agrees with the discharge care and plan. - Time Spent with Patient Total time spent providing and/or coordinating discharge services: Less than 30 minutes - Constitutional Vitals: Temp Pulse Resp BP Pulse Ox 98.3 F 60 16 143/73 95 08/03/16 06:47 08/03/16 06:47 08/03/16 06:47 08/03/16 06:47 08/03/16 08:09 General appearance: Present: cooperative, A&O X 3, morbidly obese, no acute distress, answers questions appropriately - Head Head exam: Present: atraumatic, normocephalic - Eye Eye exam: Present: normal appearance, conjuntiva pink, sclera anicteric - Respiratory Respiratory exam: Present: CTAB. Absent: respiratory distress, wheezes - Cardiovascular Cardiovascular exam: Present: RRR, +S1, +S2. Absent: diastolic murmur, gallop, rubs, systolic murmur Additional comments: left chest wall HD cath in place - GI/Abdominal GI/Abdominal exam: Present: distended (obese), normal bowel sounds, soft, no peritoneal signs. Absent: tenderness - Extremities Exam Extremities exam: Present: warm, radial pulses palpable and symetrical. Absent : calf tenderness, cyanotic, pedal edema - Neurological Exam Neurological exam: Present: alert, oriented X3 - Psychiatric Psychiatric exam: Present: normal affect, normal mood
== END 2016-08-03 12:29 | disposition home or self-care (01) | DRG 720 ==
LOC: 2ANU 08:19 → EMEROO 08:19 → 2ANU 15:12
PROVIDERS: ADMIT Internal Medicine; ATTEND Internal Medicine

== ENCOUNTER 2017-08-18 20:39 | Inpatient (IN) ==
--- NOTE | 2017-08-18 21:48 | Emergency Department Note ---
Disposition Clinical Impression: ESRD (end stage renal disease) Anemia Qualifiers: Anemia type: unspecified type Qualified Code(s): D64.9 - Anemia, unspecified Chest pain Qualifiers: Chest pain type: unspecified Qualified Code(s): R07.9 - Chest pain, unspecified Disposition: Admitted As Inpatient Condition: Fair Time of Disposition: 23:32 General Adult HPI - General Chief complaint: ED Recheck/Abnormal Lab/Rx Stated complaint: needs 2 units of blood Time Seen by Provider: 08/18/17 21:09 Source: patient Mode of arrival: ambulatory Limitations: no limitations Nursing Notes Reviewed: Yes Vital Signs Reviewed: Yes - History of Present Illness HPI Narrative: 52-year-old male with a history of ESRD follows with Dr. Rolon, CHF, status post heart valve from a month ago at [place] presents for evaluation of anemia. Patient states that he was getting his dialysis routine labs and was noted be anemic and was told to come to the ER for blood transfusion. Patient states she has been feeling generally weak and has had increasing sleepiness. Patient's also noted chest pain. Patient denies any blood in the stool or dark tarry stools. Patient denies any colonoscopy in the past. No history of GI bleed. States that he did have a heart valve replaced at [place] is on Coumadin and aspirin. Patient denies any abdominal pain. Does note lower leg edema and swelling. Pain Scale: 5 - Related Data Home Medications Medication Instructions Recorded Confirmed Amlodipine Besylate 10 mg PO DAILY 04/12/16 08/18/17 cloNIDine HCl [Clonidine HCl] 0.2 mg PO DAILY PRN 04/12/16 08/18/17 Acetaminophen [Tylenol] 1,000 mg PO Q6HR PRN 07/30/16 08/18/17 Albuterol Sulfate [Ventolin Hfa] 2 puff IH Q4H PRN 08/18/17 08/18/17 Amiodarone [Cordarone] 200 mg PO DAILY 08/18/17 08/18/17 Aspirin Enteric Coated [Aspirin EC] 162 mg PO DAILY 08/18/17 08/18/17 Atorvastatin [Lipitor] 40 mg PO HS 08/18/17 08/18/17 Calcium Acetate [Calcium Acetate] 1,334 mg PO TIDWM 08/18/17 08/18/17 Carvedilol [Coreg] 6.25 mg PO BID 08/18/17 08/18/17 Losartan [Cozaar] 25 mg PO DAILY 08/18/17 08/18/17 Multivitamin [One Daily 1 tab PO DAILY 08/18/17 08/18/17 Multivitamin] Oxycodone HCl [Oxycodone HCl] 5 mg PO DAILY PRN 08/18/17 08/18/17 Warfarin Sodium [Warfarin Sodium] 5 mg PO DAILY 08/18/17 08/18/17 Allergies Allergy/AdvReac Type Severity Reaction Status Date / Time No Known Allergies Allergy Verified 08/18/17 21:56 All systems ED: reviewed and negative except as stated. Constitutional: Denies: fever Cardiovascular: Reports: chest pain Respiratory: Denies: cough, dyspnea Gastrointestinal: Denies: abdominal pain, nausea, vomiting Past Medical History - Past Medical History Source: patient Medical history: Reports: CHF, hyperlipidemia, hypertension, myocardial infarction, renal disease Surgical history: Reports: appendectomy, orthopedic, other Psychiatric history: Reports: no psych history - Social History Smoking Status: Former smoker Smokeless Tobacco Status: No Alcohol use: Reports: none Drug use: Reports: none Physical Exam - General Limitations: no limitations General appearance: alert, in no apparent distress - Head Head exam: atraumatic, normocephalic, normal inspection - Eye Eye exam: Present: normal appearance, PERRL, EOMI - ENT ENT exam: normal exam, normal oropharynx, mucous membranes moist - Neck Neck exam: Present: normal inspection - Chest Chest inspection: Present: normal inspection, symmetric chest wall rise - Respiratory Respiratory exam: Present: normal lung sounds bilaterally. Absent: respiratory distress - Cardiovascular Cardiovascular exam: Present: regular rate, normal rhythm - Abdominal Exam Abdominal exam: Present: soft, Non-Tender. Absent: guarding, rebound - Extremities Exam Extremities exam: Present: normal inspection - Expanded Upper Extremity Exam Forearm/Wrist exam: Present: other (Left upper extremity fistula) Vascular exam: Normal: capillary refill - Back Exam Back exam: Present: normal inspection - Neurological Exam Neurological exam: Present: alert, oriented X3, CN II-XII intact - Skin Skin exam: Present: warm, dry, intact, normal color Course Vital Signs Temperature 98.9 F 08/18/17 21:01 Pulse Rate 68 08/18/17 21:01 Respiratory Rate 18 08/18/17 21:01 Blood Pressure 164/105 08/18/17 21:01 O2 Sat by Pulse Oximetry 92 08/18/17 21:01 Temperature 98.5 F 08/19/17 04:54 Pulse Rate 67 08/19/17 04:54 Respiratory Rate 14 08/19/17 04:54 Blood Pressure 127/65 08/19/17 04:54 O2 Sat by Pulse Oximetry 94 08/19/17 04:54 Oxygen Delivery Oxygen Delivery Room Air Medical Decision Making - MDM Narrative Medical decision making narrative: Patient presents with complaints of fatigue and weakness. Patient states that he was getting routine labs given his renal function and noted be anemic. Patient's been trending down with his anemia. Patient also complained of chest pain earlier today. Patient's EKG shows no acute abnormalities. Patient occult blood was negative. Patient's anemia is likely multifactorial in the setting of chronic kidney disease. Patient received 1 unit of PRBCs given his heart failure. Patient will be admitted for further observation and monitoring. Patient is agreeable with this plan of care. - Medical Records Medical records reviewed: Yes I reviewed the patient's medical records. - Lab Data Lab results reviewed: Yes I reviewed the patient's lab results. Result diagrams: 08/18/17 21:58 08/18/17 21:58 Lab Results 08/18/17 08/18/17 08/18/17 Range/Units 21:44 21:58 21:58 WBC 7.9 (4.3-11.1) K/mcL RBC 2.08 L (4.19-5.50) M/mcL Hgb 6.8 L (12.9-16.9) g/dL Hct 21.0 L (37.5-50.1) % MCV 101.0 H (83.0-100.0) fL MCH 32.7 (28.0-33.3) pg MCHC 32.4 (31.6-35.5) g/dL RDW 13.8 (11.5-14.5) % Plt Count 250 (140-400) K/mcL MPV 9.6 (9.4-12.4) fL Immature Gran % 0.6 (0-4) % Seg Neutrophils % 69.5 % Lymphocytes % 16.8 % Monocytes % 11.7 % Eosinophils % 1.0 % Basophils % 0.4 % Neutrophils # 5.5 (1.6-8.9) K/mcL Lymphocytes # 1.3 (0.6-4.6) K/mcL Monocytes # 0.9 (0.0-1.3) K/mcL Eosinophils # 0.1 (0.0-0.6) K/mcL Basophils # 0.0 (0.0-0.2) K/mcL PT (9.4-12.1) Seconds INR Sodium (136-145) mEq/L Potassium (3.5-5.1) mEq/L Chloride (98-107) mEq/L Carbon Dioxide (23-29) mEq/L BUN (6-20) mg/dL Creatinine (0.70-1.30) mg/dL Est GFR ( Amer) (> 60) Est GFR (Non-Af Amer) (> 60) BUN/Creatinine Ratio (6-26) Glucose (70-105) mg/dL Calculated Osmolality (280-300) Calcium (8.6-10.3) mg/dL Total Bilirubin (0.3-1.0) mg/dL AST (13-39) Units/L ALT (7-52) Units/L Alkaline Phosphatase (34-104) Units/L Troponin I (< 0.04) ng/mL B-Natriuretic Peptide (Less than 100) pg/mL Serum Total Protein (6.4-8.9) g/dL Albumin (3.5-5.7) g/dL Globulin (2.4-3.5) g/dL Albumin/Globulin Ratio (1.1-2.2) Stool Occult Blood Negative (Negative) Blood Type O NEGATIVE Antibody Screen NEGATIVE Crossmatch See Detail 08/18/17 08/18/17 08/18/17 Range/Units 21:58 21:58 21:58 WBC (4.3-11.1) K/mcL RBC (4.19-5.50) M/mcL Hgb (12.9-16.9) g/dL Hct (37.5-50.1) % MCV (83.0-100.0) fL MCH (28.0-33.3) pg MCHC (31.6-35.5) g/dL RDW (11.5-14.5) % Plt Count (140-400) K/mcL MPV (9.4-12.4) fL Immature Gran % (0-4) % Seg Neutrophils % % Lymphocytes % % Monocytes % % Eosinophils % % Basophils % % Neutrophils # (1.6-8.9) K/mcL Lymphocytes # (0.6-4.6) K/mcL Monocytes # (0.0-1.3) K/mcL Eosinophils # (0.0-0.6) K/mcL Basophils # (0.0-0.2) K/mcL PT 26.1 H (9.4-12.1) Seconds INR 2.4 Sodium 134 L (136-145) mEq/L Potassium 4.4 (3.5-5.1) mEq/L Chloride 97 L (98-107) mEq/L Carbon Dioxide 29 (23-29) mEq/L BUN 29 H (6-20) mg/dL Creatinine 7.12 H (0.70-1.30) mg/dL Est GFR ( Amer) 10 L (> 60) Est GFR (Non-Af Amer) 8 L (> 60) BUN/Creatinine Ratio 4 L (6-26) Glucose 97 (70-105) mg/dL Calculated Osmolality 284 (280-300) Calcium 7.8 L (8.6-10.3) mg/dL Total Bilirubin 0.3 (0.3-1.0) mg/dL AST 13 (13-39) Units/L ALT 11 (7-52) Units/L Alkaline Phosphatase 96 (34-104) Units/L Troponin I 0.04 H* (< 0.04) ng/mL B-Natriuretic Peptide (Less than 100) pg/mL Serum Total Protein 6.3 L (6.4-8.9) g/dL Albumin 3.5 (3.5-5.7) g/dL Globulin 2.8 (2.4-3.5) g/dL Albumin/Globulin Ratio 1.3 (1.1-2.2) Stool Occult Blood (Negative) Blood Type Antibody Screen Crossmatch 08/18/17 Range/Units 21:58 WBC (4.3-11.1) K/mcL RBC (4.19-5.50) M/mcL Hgb (12.9-16.9) g/dL Hct (37.5-50.1) % MCV (83.0-100.0) fL MCH (28.0-33.3) pg MCHC (31.6-35.5) g/dL RDW (11.5-14.5) % Plt Count (140-400) K/mcL MPV (9.4-12.4) fL Immature Gran % (0-4) % Seg Neutrophils % % Lymphocytes % % Monocytes % % Eosinophils % % Basophils % % Neutrophils # (1.6-8.9) K/mcL Lymphocytes # (0.6-4.6) K/mcL Monocytes # (0.0-1.3) K/mcL Eosinophils # (0.0-0.6) K/mcL Basophils # (0.0-0.2) K/mcL PT (9.4-12.1) Seconds INR Sodium (136-145) mEq/L Potassium (3.5-5.1) mEq/L Chloride (98-107) mEq/L Carbon Dioxide (23-29) mEq/L BUN (6-20) mg/dL Creatinine (0.70-1.30) mg/dL Est GFR ( Amer) (> 60) Est GFR (Non-Af Amer) (> 60) BUN/Creatinine Ratio (6-26) Glucose (70-105) mg/dL Calculated Osmolality (280-300) Calcium (8.6-10.3) mg/dL Total Bilirubin (0.3-1.0) mg/dL AST (13-39) Units/L ALT (7-52) Units/L Alkaline Phosphatase (34-104) Units/L Troponin I (< 0.04) ng/mL B-Natriuretic Peptide 2853 H (Less than 100) pg/mL Serum Total Protein (6.4-8.9) g/dL Albumin (3.5-5.7) g/dL Globulin (2.4-3.5) g/dL Albumin/Globulin Ratio (1.1-2.2) Stool Occult Blood (Negative) Blood Type Antibody Screen Crossmatch - Radiology Data Radiology results reviewed: Yes I reviewed the patient's radiology results. Chest X-Ray 08/18/17 21:36 IMPRESSION: Pulmonary vascular congestion. No acute focal infiltrate is identified. Cardial-pericardial silhouette enlargement, which may be increased when compared to the previous exam. D/ / Steven Perez MD / Steven Perez MD Interpreting Provider: Steven Perez MD - EKG Data EKG #1 EKG attestation: Yes I reviewed and interpreted this EKG. EKG shows normal: sinus rhythm Rate: normal Rhythm: NSR [place]/QRS: normal Q waves: aVR T wave inversions noted in: v1, v2 Interpretation: no acute changes, nonspecific ST-T wave changes S.B.A.R. - S.B.A.R. Situation: Demographics Background: Presenting Complaint Assessment: Vital Signs, Course and respsone to treatment, Patient/Family Expectation Recommendation: Barrier(s) to disposition, Recommendation based on pending studies, treatments, or consults S.B.A.R. Report Given to: Dr. Farhan Villanueva Repor Time: 23:31 Attestation Statement - Attestation Attestation: I examined this patient and my medical decision-making was reviewed with the Resident Physician. I agree with the documented findings, disposition and treatment plan as described except to the extent set forth below. Findings consistent with anemia. Patient received packed red blood cell transfusion. Will be admitted for further management. Stool occult blood is negative. Patient will need admission for evaluation of acute kidney injury in the setting of anemia.
[2017-08-18 22:16] LABS: Basophils % 0.4 %; Eosinophils # 0.1 K/mcL (0.0-0.6); Hemoglobin 6.8 g/dL (12.9-16.9); Immature Granulocytes % 0.6 % (0-4); Lymphocytes # 1.3 K/mcL (0.6-4.6); Lymphocytes % 16.8 %; Mean Corpuscular HGB Conc 32.4 g/dL (31.6-35.5); Mean Corpuscular Hemoglobin 32.7 pg (28.0-33.3); Mean Platelet Volume 9.6 fL (9.4-12.4); Monocytes # 0.9 K/mcL (0.0-1.3); Monocytes % 11.7 %; Neutrophils # 5.5 K/mcL (1.6-8.9); Platelet Count 250 K/mcL (140-400); Red Blood Count 2.08 M/mcL (4.19-5.50); Red Cell Distribution Width 13.8 % (11.5-14.5); Segmented Neutrophils % 69.5 %
[2017-08-18 22:25] LABS: INR 2.4; Prothrombin Time 26.1 Seconds (9.4-12.1)
[2017-08-18 22:35] LABS: Albumin 3.5 g/dL (3.5-5.7); Albumin/Globulin Ratio 1.3 (1.1-2.2); Bilirubin,Total 0.3 mg/dL (0.3-1.0); Calcium 7.8 mg/dL (8.6-10.3); Globulin 2.8 g/dL (2.4-3.5); Potassium 4.4 mEq/L (3.5-5.1); Total Protein 6.3 g/dL (6.4-8.9)
[2017-08-19] MEDS ORDERED: cloNIDine HCl 0.1 MG TABLET PO PRN
[2017-08-19] MEDS ORDERED: Naloxone 0.4 MG/ML INJ IVP PRN (00:02)
[2017-08-19] MEDS ORDERED: Acetaminophen 325 MG TABLET PO PRN (00:02)
--- NOTE | 2017-08-19 00:10 | Internal Med History&Physical ---
Date of Encounter: 08/19/17 Time of Encounter: 00:04 Internal Medicine - H&P: HPI Chief complaint: Anemia Admitted From: Emergency Dept Plans for Post Hospital Care: Home History of present illness: Mr. Vargas is a 52 year old male with history of end-stage renal disease, diastolic heart failure, chronic anemia, hypertension, A. fib on anticoagulation , recent bioprosthetic aortic valve replacement who presented to the ED as she was given routine labs and was noted to be anemic with a hemoglobin of 6.9. She was advised to come to the ED for transfusions. She has been generally very lethargic and reports increased sleepiness lately. Denies any GI bleed. She does take Coumadin. She has not had a colonoscopy in the past. In the ED the patient was noted to be hypertensive with a blood pressure of 174/112. Laboratory workup showed a hemoglobin of 6.8 here. Rest of labs showed creatinine of 7.1 200 be on 0.9. Troponins were 0.04 and a BNP of 2853. The patient did report chest pain with no radiation to the ED. We will evaluated the patient he tells me that it is chest discomfort at the incision site from his recent open heart surgery for the valve replacement. There is no change in his chest discomfort recently. To the fact that she had elevated troponins and some chest discomfort only ended up admitting the patient. Denies any fever, chills, nausea, vomiting, abdominal pain, diarrhea, constipation, melena, hematochezia, urinary symptoms, or neurological symptoms. Chest x-ray in the ED showed pulmonary vascular congestion. EKG with no acute ST or T-wave changes. Past Med Surg Social Fam HX - Past Medical History Medical history: CHF, hyperlipidemia, hypertension, myocardial infarction, renal disease Additional medical history: ESRD. [id number] Psychiatric history: no psych history - Past Surgical History Surgical History: appendectomy, orthopedic, other - Social History Smoking Status: Former smoker Smokeless Tobacco Status: No Alcohol use: none Drug use: none - Family History Mother Family Member Ethnicity: Non- Living Status: Hx Family Cardiac Disorders: Yes (HTN, NC) Hx Family Endocrine Disorder: Yes (DM) Father Family Member Ethnicity: Non- Living Status: Hx Family Cardiac Disorders: Yes (HD, Triple Bypass) Brother Family Member Ethnicity: Non- Living Status: Hx Family Cancer: Yes Internal Medicine - H&P: Meds Amlodipine Besylate 10 mg PO DAILY 04/12/16 [History] cloNIDine HCl [Clonidine HCl] 0.2 mg PO DAILY PRN 04/12/16 [History] Acetaminophen [Tylenol] 1,000 mg PO Q6HR PRN 07/30/16 [History] Albuterol Sulfate [Ventolin Hfa] 2 puff IH Q4H PRN 08/18/17 [History] Amiodarone [Cordarone] 200 mg PO DAILY 08/18/17 [History] Aspirin Enteric Coated [Aspirin EC] 162 mg PO DAILY 08/18/17 [History] Atorvastatin [Lipitor] 40 mg PO HS 08/18/17 [History] Calcium Acetate [Calcium Acetate] 1,334 mg PO TIDWM 08/18/17 [History] Carvedilol [Coreg] 6.25 mg PO BID 08/18/17 [History] Losartan [Cozaar] 25 mg PO DAILY 08/18/17 [History] Multivitamin [One Daily Multivitamin] 1 tab PO DAILY 08/18/17 [History] Oxycodone HCl [Oxycodone HCl] 5 mg PO DAILY PRN 08/18/17 [History] Warfarin Sodium [Warfarin Sodium] 5 mg PO DAILY 08/18/17 [History] 3 Allergy/AdvReac Type Severity Reaction Status Date / Time No Known Allergies Allergy Verified 08/18/17 21:56 All Systems PM: A 10-system review of systems was performed and is negative for pertinent findings except as documented above in the HPI. Review of systems: All systems reviewed are negative except for as mentioned above - Constitutional Vitals: Temp Pulse Resp BP Pulse Ox 96.7 F L 67 16 173/113 96 08/18/17 23:52 08/18/17 23:52 08/18/17 23:52 08/18/17 23:52 08/18/17 23:52 Exam: GEN: NAD HEENT: AT, NC, No cyanosis, oral mucosa is moist, No JVD Lymphatics: No lymphadenoapthy Eyes: Extrocular muscles intact, anicteric CVS:RRR. S1, S2, No m/r/g RESP: CTAB ABD: Soft, NT, ND, +BS EXT: No edema, No rashes, 2+ DP NEURO: Nonfocal, CN II-XII intact, No focal motor or sensory deficits Psych: Cooperative, Not anxious or depressed Internal Med - H&P Results - Labs CBC & Chem 7: 08/18/17 21:58 08/18/17 21:58 Labs: Short CBC 08/18/17 Range/Units 21:58 WBC 7.9 (4.3-11.1) K/mcL Hgb 6.8 L (12.9-16.9) g/dL Hct 21.0 L (37.5-50.1) % Plt Count 250 (140-400) K/mcL Neutrophils # 5.5 (1.6-8.9) K/mcL BMP 08/18/17 21:58 Sodium 134 L Potassium 4.4 Chloride 97 L Carbon Dioxide 29 BUN 29 H Creatinine 7.12 H Glucose 97 Calcium 7.8 L Cardiac Enzymes 08/18/17 Range/Units 21:58 Troponin I 0.04 H* (< 0.04) ng/mL Liver Function 08/18/17 Range/Units 21:58 Total Bilirubin 0.3 (0.3-1.0) mg/dL AST 13 (13-39) Units/L ALT 11 (7-52) Units/L Alkaline Phosphatase 96 (34-104) Units/L Albumin 3.5 (3.5-5.7) g/dL - Impressions ITS Impressions Chest X-Ray 08/18/17 21:36 IMPRESSION: Pulmonary vascular congestion. No acute focal infiltrate is identified. Cardial-pericardial silhouette enlargement, which may be increased when compared to the previous exam. D/ / Steven Perez MD / Steven Perez MD Interpreting Provider: Steven Perez MD - Assessment and plan (1) Anemia Current Visit: Yes Status: Chronic Assessment and plan: Likely anemia of chronic disease. The patient was started on pneumonia PRBCs transfusion in the ED. We will check labs in the morning. No signs of bleeding. Check iron studies. Qualifiers: Anemia type: unspecified type Qualified Code(s): D64.9 - Anemia, unspecified (2) Chest pain Current Visit: Yes Status: Acute Assessment and plan: Unlikely cardiac. Troponins are chronically elevated. We will keep the patient on telemetry and trend his cardiac enzymes. We will continue to monitor for any recurrence of chest pain. Continue aspirin, statin, beta max. Qualifiers: Chest pain type: unspecified Qualified Code(s): R07.9 - Chest pain, unspecified (3) Elevated troponin Current Visit: No Status: Chronic Assessment and plan: Likely demand ischemia from end-stage renal disease and anemia. We will trend for now. Keep on telemetry. (4) Heart valve replaced Current Visit: Yes Status: Acute Assessment and plan: Continue with Coumadin. (5) HTN (hypertension) Current Visit: No Status: Chronic Assessment and plan: Continue with home antihypertensives. We will add IV hydralazine when necessary. This is likely to improve with dialysis. Qualifiers: Hypertension type: essential hypertension Qualified Code(s): I10 - Essential (primary) hypertension (6) ESRD (end stage renal disease) on dialysis Current Visit: No Status: Chronic Assessment and plan: Consult nephrology for resumption of dialysis. (7) CHF (congestive heart failure) Current Visit: Yes Status: Acute Assessment and plan: Patient does have signs of volume overload. This likely multifactorial with history of diastolic heart failure and end-stage renal disease. Should improve with dialysis. We will resume heart failure meds. Qualifiers: Heart failure type: diastolic Heart failure chronicity: chronic Qualified Code(s): I50.32 - Chronic diastolic (congestive) heart failure (8) DVT prophylaxis Current Visit: No Status: Acute Assessment and plan: Patient is on Coumadin - Time Spent With Patient Total time spent is greater than 50% in coordination of care (as documented) at patient's floor/unit and/or counseling patient:
[2017-08-19 05:32] LABS: Basophils # 0.1 K/mcL (0.0-0.2); Basophils % 0.8 %; Eosinophils # 0.1 K/mcL (0.0-0.6); Eosinophils % 1.5 %; Hematocrit 24.5 % (37.5-50.1); Hemoglobin 7.8 g/dL (12.9-16.9); Immature Granulocytes % 0.4 % (0-4); Lymphocytes # 1.2 K/mcL (0.6-4.6); Lymphocytes % 14.5 %; Mean Corpuscular HGB Conc 31.8 g/dL (31.6-35.5); Mean Corpuscular Hemoglobin 31.6 pg (28.0-33.3); Mean Corpuscular Volume 99.2 fL (83.0-100.0); Mean Platelet Volume 9.7 fL (9.4-12.4); Monocytes # 0.9 K/mcL (0.0-1.3); Monocytes % 11.2 %; Neutrophils # 5.7 K/mcL (1.6-8.9); Platelet Count 265 K/mcL (140-400); Red Blood Count 2.47 M/mcL (4.19-5.50); Segmented Neutrophils % 71.6 %
[2017-08-19 05:49] LABS: % Iron Saturation 17 % (20-55); Iron 39 mcg/dL (65-175); Transferrin 168 mg/dL (203-362)
[2017-08-19 05:50] LABS: Calcium 7.9 mg/dL (8.6-10.3); Magnesium 1.9 mg/dL (1.6-2.6); Potassium 4.3 mEq/L (3.5-5.1)
[2017-08-19 05:57] LABS: Troponin I 0.05 ng/mL (< 0.04)
[2017-08-19 06:07] LABS: Ferritin 828 ng/mL (20-250)
[2017-08-19 06:13] LABS: Folate 10.6 ng/mL (3.0-16.0)
[2017-08-19] MEDS: *HR* Amiodarone 200 MG TABLET PO SCH (08:56)
[2017-08-19] MEDS: Multivit/Ca/Min/Fe/FA 1 TAB TABLET PO SCH (08:56)
[2017-08-19] MEDS: Calcium Acetate 667 MG CAPSULE PO SCH ×4 (08:56→17:50)
[2017-08-19] MEDS: amLODIPine 5 MG TABLET PO SCH (08:56)
[2017-08-19] MEDS: Aspirin Enteric Coated 81 MG Tablet PO SCH (08:57)
[2017-08-19 12:01] LABS: Hepatitis B Surface Antigen Nonreactive (Nonreactive)
--- NOTE | 2017-08-19 12:28 | Event Note ---
Date of Encounter: 08/19/17 Time of Encounter: 08:50 Patient complains of mild chest pain at site of surgical incision that worsens with deep breaths. Denies any palpitations. No shortness of breath. Feels better after he received blood transfusion yesterday. Denies any blood in his stools or melena. Discussed his plan of care with nephrology. He will be dialyzed tomorrow. We will monitor his blood counts. If they remain stable, plan on discharge tomorrow after dialysis. Nephrology will arrange outpatient transfusion as needed.
--- NOTE | 2017-08-19 17:13 | Nephrology Consult Note ---
Date of Encounter: 08/19/17 Time of Encounter: 17:05 Assessment and Plan (1) ESRD (end stage renal disease) Current Visit: Yes Status: Chronic Last HD was on Friday. Next HD planned for tomorrow. (2) Anemia Current Visit: Yes Status: Acute Acute on chronic anemia, that failed outpt management of very high EPO dosing and was too symptomatic to await 2-3 days for the outpt PRBC transfusion. See HPI regarding the medically necessary indications for admission for this complex and high risk patient. Qualifiers: Anemia type: unspecified type Qualified Code(s): D64.9 - Anemia, unspecified History of Present Illness - Reason for Consult Consult date: 08/18/17 end stage renal disease (and failed outpatient treatment for symptomatic anemia) Requesting physician: Samir Champagne - Chief Complaint failed outpatient treatment for symptomatic anemia - History of Present Illness Corey Vargas is a very pleasant 52 y/o gentleman with a pmh of ESRD on HD M/W/F, CAD s/p CABG and AvR who presented with worsening symptomatic anemia. He has been receiving routine HD of late s/p open heart surgery, and his last HD was on Friday. I am his primary railway signal electrician and dialyzes at the [facility] in [place], [place]. He has progressively required higher and higher dosing of EPO, but his his Hgb has progressively declined. He denied any visible blood loss. He was arranged for an outpt PRBC transfusion, but the next available outpatient transfusion at [facility] would not be until Friday. Since the pt was so symptomatic (he reported moderately severe generalized fatigue), it was medically necessary to send him to the hospital. He did affirm some chest pains before the transfusion as well last night in the ER. Last night, after he completed HD, I called the [facility] ER and personally spoke with the ER attending about him coming into the hospital. He reported feeling already better s/p 1 unit of PRBC and was eating dinner during my interview and exam. Past Med Surg Social Fam HX - Past Medical History Medical history: CHF, hyperlipidemia, hypertension, myocardial infarction, renal disease Additional medical history: ESRD. [id number] Psychiatric history: no psych history - Past Surgical History Surgical History: appendectomy, orthopedic, other Additional surgical history: cardioversion for afib - Social History Smoking Status: Former smoker Smokeless Tobacco Status: No Alcohol use: none Drug use: none - Family History Mother Family Member Ethnicity: Non- Living Status: Hx Family Cardiac Disorders: Yes Hx Family Endocrine Disorder: Yes (diabetes) Father Family Member Ethnicity: Non- Living Status: Still Living Hx Family Cardiac Disorders: Yes Brother Family Member Ethnicity: Non- Living Status: Hx Family Cardiac Disorders: Yes Hx Family Cancer: Yes Hx Family Endocrine Disorder: Yes (diabetes) Medications and Allergies Amlodipine Besylate 10 mg PO DAILY 04/12/16 [History] cloNIDine HCl [Clonidine HCl] 0.2 mg PO DAILY PRN 04/12/16 [History] Acetaminophen [Tylenol] 1,000 mg PO Q6HR PRN 07/30/16 [History] Albuterol Sulfate [Ventolin Hfa] 2 puff IH Q4H PRN 08/18/17 [History] Amiodarone [Cordarone] 200 mg PO DAILY 08/18/17 [History] Aspirin Enteric Coated [Aspirin EC] 162 mg PO DAILY 08/18/17 [History] Atorvastatin [Lipitor] 40 mg PO HS 08/18/17 [History] Calcium Acetate [Calcium Acetate] 1,334 mg PO TIDWM 08/18/17 [History] Carvedilol [Coreg] 6.25 mg PO BID 08/18/17 [History] Losartan [Cozaar] 25 mg PO DAILY 08/18/17 [History] Multivitamin [One Daily Multivitamin] 1 tab PO DAILY 08/18/17 [History] Oxycodone HCl [Oxycodone HCl] 5 mg PO DAILY PRN 08/18/17 [History] Warfarin Sodium [Warfarin Sodium] 5 mg PO DAILY 08/18/17 [History] 3 Allergy/AdvReac Type Severity Reaction Status Date / Time No Known Allergies Allergy Verified 08/18/17 21:56 Review of Systems All Systems: reviewed and no additional remarkable complaints except as stated Exam - Vital Signs Vital signs: Initial Vital Signs Temp Pulse Resp BP Pulse Ox 98.9 F 68 18 164/105 92 08/18/17 21:01 08/18/17 21:01 08/18/17 21:01 08/18/17 21:01 08/18/17 21:01 Vital Signs - Last 8 Hours Temp Pulse Resp BP Pulse Ox 08/19/17 15:54 98.4 F 64 18 153/90 96 08/19/17 11:21 98.1 F 60 17 156/92 95 Intake and Output 08/19/17 08/19/17 08/19/17 07:59 15:59 23:59 Intake Total 252 / 252 700 / 700 Balance 252 / 252 700 / 700 Intake: Oral 700 / 700 Blood Product 252 / 252 Rbcs Leuko Poor As-1 Unit 252 / 252 [id number] - General Appearance General appearance: well-developed, well-nourished, appears started age Exam: Pallor of the face EENT: ATNC, PERRL, mucous membranes moist Neck: supple Respiratory: clear Cardiology: holosystolic murmur, edema (trace ankel edema), regular rate, regular rhythm, normal S1, normal S2 - Dialysis Access Dialysis Vascular Access: Arteriovenous Fistula (Left forearm AVF) thrill: Yes bruit: Yes Gastrointestinal: normoactive bowel sounds, no tenderness, no guarding Integumentary: warm and dry Additional Comments: Sternal incision jimenez appeared to be healing without exudates Neurologic: no focal deficit, no asterixis, alert and oriented x3 Musculoskeletal: no deformities, no erythema, no cyanosis Psychiatric: mood/affect appropriate, cooperative Results - Lab Results 08/19/17 05:09 08/19/17 05:09 Most recent lab results Calcium 7.9 mg/dL (8.6-10.3) L 08/19/17 05:09 Magnesium 1.9 mg/dL (1.6-2.6) 08/19/17 05:09 I reviewed the [facility] records and inpatient labs, meds, vitals and progress notes and imaging. Consult Discharge Plan - Plan Referrals: NONE,PCP [Primary Care Provider] -
[2017-08-19] MEDS ORDERED: Warfarin perPT PO PRN (18:00)
[2017-08-19] MEDS ORDERED: *HR* Warfarin 5 MG TABLET PO ONE (18:00)
--- NOTE | 2017-08-19 18:38 | Electrocardiograph Report ---
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
[2017-08-20 03:57] LABS: Prothrombin Time 22.1 Seconds (9.4-12.1)
[2017-08-20 04:03] LABS: Basophils % 0.5 %; Eosinophils # 0.2 K/mcL (0.0-0.6); Eosinophils % 2.5 %; Hematocrit 22.5 % (37.5-50.1); Hemoglobin 7.3 g/dL (12.9-16.9); Immature Granulocytes % 0.4 % (0-4); Lymphocytes # 1.3 K/mcL (0.6-4.6); Lymphocytes % 16.8 %; Mean Corpuscular HGB Conc 32.4 g/dL (31.6-35.5); Mean Corpuscular Volume 98.7 fL (83.0-100.0); Mean Platelet Volume 9.8 fL (9.4-12.4); Monocytes # 0.8 K/mcL (0.0-1.3); Monocytes % 10.4 %; Neutrophils # 5.3 K/mcL (1.6-8.9); Platelet Count 238 K/mcL (140-400); Red Blood Count 2.28 M/mcL (4.19-5.50); Red Cell Distribution Width 14.6 % (11.5-14.5); Segmented Neutrophils % 69.4 %
[2017-08-20 04:05] LABS: Potassium 4.5 mEq/L (3.5-5.1)
[2017-08-20] MEDS ORDERED: 0.9 % Sodium Chloride 2,000 ML ONE (06:22)
[2017-08-20] MEDS ORDERED: 0.9 % Sodium Chloride 250 ML IVC PRN (06:26)
[2017-08-20] MEDS ORDERED: Ferumoxytol 510 MG in 0.9 % Sodium Chloride 100 ML IVPB ONE (06:28)
[2017-08-20] MEDS: amLODIPine 5 MG TABLET PO SCH ×2 (08:10→14:19)
[2017-08-20] MEDS: Calcium Acetate 667 MG CAPSULE PO SCH ×2 (08:11→14:17)
[2017-08-20] MEDS: *HR* Amiodarone 200 MG TABLET PO SCH ×2 (08:11→14:19)
[2017-08-20] MEDS: Aspirin Enteric Coated 81 MG Tablet PO SCH (08:11)
[2017-08-20] MEDS: Multivit/Ca/Min/Fe/FA 1 TAB TABLET PO SCH (08:12)
[2017-08-20] MEDS ORDERED: EPOETIN ALFA 20,000 UNIT/ML VIAL SQ SCH (09:00)
--- NOTE | 2017-08-20 10:04 | Nephrology Progress Note ---
Date of Encounter: 08/20/17 Time of Encounter: 09:28 - Assessment and Plan (1) ESRD (end stage renal disease) Status: Chronic HD planned for today (2) Anemia Status: Acute Hgb dropped slightly to near 7; arranged another 1 unit PRBC, plus IV iron plus inc'd EPO dosing. He feels better already which is reassuring. The Stool for FOBT was negative so this is not likely a GIB. He vitals and exam and appearance (no jaundice) is not consistent with a PRBC destructive process, so I be process of elimination, he has an anemia of chronic disease that has been EPO resistant s/p large surgery a few weeks ago. He may need scheduled PRBCs as an outpt. Qualifiers: Anemia type: due to chronic kidney disease Chronic kidney disease stage: on chronic dialysis Qualified Code(s): N18.6 - End stage renal disease; D63.1 - Anemia in chronic kidney disease; Z99.2 - Dependence on renal dialysis Subjective Principal diagnosis: ESRD Interval history: He was s/e while on HD. He did not affirm N/V/D or CP. Objective - Vital Signs Vital signs: Vital Signs Temp Pulse Resp BP Pulse Ox 08/20/17 06:58 98.7 F 62 16 154/87 96 08/20/17 03:38 98.4 F 63 15 159/92 94 08/19/17 23:56 98.6 F 67 15 170/79 97 08/19/17 19:17 98.6 F 68 18 174/103 97 08/19/17 15:54 98.4 F 64 18 153/90 96 08/19/17 11:21 98.1 F 60 17 156/92 95 Intake and Output 08/19/17 08/20/17 08/20/17 23:59 07:59 15:59 Other: # Voids 2 Weight 114 kg - General Appearance Exam: General appearance: well-developed, well-nourished, appears started age Exam: Pallor of the face EENT: ATNC, PERRL, mucous membranes moist Neck: supple Respiratory: clear Cardiology: holosystolic murmur, edema (trace ankel edema), regular rate, regular rhythm, normal S1, normal S2 - Dialysis Access Dialysis Vascular Access: Arteriovenous Fistula (Left forearm AVF) thrill: Yes bruit: Yes Gastrointestinal: normoactive bowel sounds, no tenderness, no guarding Integumentary: warm and dry Additional Comments: Sternal incision jimenez appeared to be healing without exudates Neurologic: no focal deficit, no asterixis, alert and oriented x3 Musculoskeletal: no deformities, no erythema, no cyanosis Psychiatric: mood/affect appropriate, cooperative - Lab 08/20/17 03:29 08/20/17 03:29 Most recent lab results Calcium 8.0 mg/dL (8.6-10.3) L 08/20/17 03:29 Magnesium 1.9 mg/dL (1.6-2.6) 08/19/17 05:09 Consult Discharge Plan - Plan Instructions: Heart Failure (DC), Chest Pain (DC), Anemia (GEN) Referrals: Roosevelt Ramirez DO [Partnered Physician] - (in 1 week) NONE,PCP [Primary Care Provider] - (in 1-2 weeks with PCP) Maxx Mao MD [Partnered Physician] - (in 1-2 weeks for EGD and colonoscopy)
--- NOTE | 2017-08-20 12:48 | Discharge Summary ---
- NOTES TO OUTPATIENT PROVIDER Notes to Outpatient Provider: Patient hospitalized here with anemia requiring blood transfusion. He received 2 units of PRBC transfusion here. He follows with nephrology. Most likely his anemia related to chronic disease and so far his been resistant to EPO. Nephrology recommends possibly arranging for blood transfusions as needed as an outpatient basis. Stool for occult blood was negative. Nevertheless he would need workup with upper GI endoscopy and colonoscopy as outpatient. He will be referred to GI for this. Orders not resulted at time of discharge: Pending orders 08/21/17 04:00 INR/PT [Prothrombin Time INR] [COAG] AM 0400 08/22/17 04:00 INR/PT [Prothrombin Time INR] [COAG] AM 0400 08/23/17 04:00 INR/PT [Prothrombin Time INR] [COAG] AM 0400 08/24/17 04:00 INR/PT [Prothrombin Time INR] [COAG] AM 0400 Date of Encounter: 08/20/17 Time of Encounter: 12:46 - Discharge Diagnosis (1) Anemia Priority: Primary Status: Acute Qualifiers: Anemia type: due to chronic kidney disease Chronic kidney disease stage: on chronic dialysis Qualified Code(s): N18.6 - End stage renal disease; D63.1 - Anemia in chronic kidney disease; Z99.2 - Dependence on renal dialysis (2) Elevated troponin Priority: Secondary Status: Chronic (3) HTN (hypertension) Priority: Secondary Status: Chronic Qualifiers: Hypertension type: essential hypertension Qualified Code(s): I10 - Essential (primary) hypertension (4) ESRD (end stage renal disease) on dialysis Priority: Secondary Status: Chronic (5) DVT prophylaxis Priority: Secondary Status: Acute (6) Chest pain Priority: Secondary Status: Acute Qualifiers: Chest pain type: unspecified Qualified Code(s): R07.9 - Chest pain, unspecified (7) Heart valve replaced Priority: Secondary Status: Acute (8) CHF (congestive heart failure) Priority: Secondary Status: Acute Qualifiers: Heart failure type: diastolic Heart failure chronicity: chronic Qualified Code(s): I50.32 - Chronic diastolic (congestive) heart failure Hospital course: Mr. Vargas is a 52 year old male patient with history of end-stage renal disease, hypertension, hyperlipidemia, diastolic heart failure and chronic anemia, recent bioprosthetic aortic valve replacement who was hospitalized here with anemia. His hemoglobin level was 6.8. His boarder hand had sent him to the ER for possible blood transfusion. Patient was evaluated here. His stool was negative for occult blood. He did not have any hematemesis or melena. That has been EPO resistant. He did receive 2 units of packed red blood cell transfusion here. He is feeling much better and is clinically stable to be discharged. Although his stool has been negative for occult blood, he does require upper GI endoscopy and colonoscopy as part of workup for anemia. As such he will be referred to GI as outpatient to get these procedures done. He will follow up with his primary care provider and boarder hand for further management. Patient is on anti-coagulation with Coumadin and his INR is therapeutic. Discharge discussed with: patient, aviation consultant - Time Spent with Patient Total time spent providing and/or coordinating discharge services: Greater than 30 minutes (35 min) - Discharge Medications Home Medications: Amlodipine Besylate 10 mg PO DAILY 04/12/16 [History] cloNIDine HCl [Clonidine HCl] 0.2 mg PO DAILY PRN 04/12/16 [History] Acetaminophen [Tylenol] 1,000 mg PO Q6HR PRN 07/30/16 [History] Albuterol Sulfate [Ventolin Hfa] 2 puff IH Q4H PRN 08/18/17 [History] Amiodarone [Cordarone] 200 mg PO DAILY 08/18/17 [History] Aspirin Enteric Coated [Aspirin EC] 162 mg PO DAILY 08/18/17 [History] Atorvastatin [Lipitor] 40 mg PO HS 08/18/17 [History] Calcium Acetate 1,334 mg PO TIDWM 08/18/17 [History] Carvedilol [Coreg] 6.25 mg PO BID 08/18/17 [History] Losartan [Cozaar] 25 mg PO DAILY 08/18/17 [History] Multivitamin [One Daily Multivitamin] 1 tab PO DAILY 08/18/17 [History] Oxycodone HCl [Oxycodone HCl] 5 mg PO DAILY PRN 08/18/17 [History] Warfarin Sodium 5 mg PO DAILY 08/18/17 [History] Allergies/Adverse Reactions: 3 Allergy/AdvReac Type Severity Reaction Status Date / Time No Known Allergies Allergy Verified 08/18/17 21:56 Date of admission: 08/19/17 00:04 Primary care physician: PCP NONE Consults: 08/20/17 06:30 Consult to Dialysis [CONS] ONCE Discharging clinician: Samir Champagne Anticipated date of discharge: 08/20/17 - Constitutional Vitals: Temp Pulse Resp BP Pulse Ox 97.1 F L 62 17 161/90 96 08/20/17 12:06 08/20/17 12:06 08/20/17 12:06 08/20/17 12:06 08/20/17 06:58 General appearance: Present: cooperative, A&O X 3, answers questions appropriately - Respiratory Respiratory exam: Present: CTAB. Absent: accessory muscle use, rales, rhonchi, wheezes - Cardiovascular Cardiovascular exam: Present: RRR, +S1, +S2. Absent: diastolic murmur, gallop, rubs, systolic murmur - GI/Abdominal GI/Abdominal exam: Present: normal bowel sounds, soft, no peritoneal signs. Absent: distended, tenderness - Extremities Exam Extremities exam: Present: warm, radial pulses palpable and symmetrical. Absent : calf tenderness, cyanotic, pedal edema - Neurological Exam Neurological exam: Present: CN II-XII intact, oriented X3, no focal deficits. Absent: facial droop, speech deficit - Skin Skin exam: Present: dry, intact - Patient Status Disposition: Home, Self-Care Condition: Good Functional capacity at discharge: independent ambulation Overall status at discharge: patient is progressing back to baseline - Discharge Instructions Instructions: Heart Failure (DC), Chest Pain (DC), Anemia (GEN) Follow Up With: Roosevelt Ramirez DO [Partnered Physician] - (in 1 week) NONE,PCP [Primary Care Provider] - (in 1-2 weeks with PCP) Maxx aMo MD [Partnered Physician] - (in 1-2 weeks for EGD and colonoscopy) - Diet and Activity Activity: increase activity as tolerated Diet: low fat, low cholesterol, low salt diet
[2017-08-20 16:06] VITALS: BP 156/91
[2017-08-20] MEDS ORDERED: *HR* Warfarin 5 MG TABLET PO ONE (18:00)
== END 2017-08-20 16:50 | disposition home or self-care (01) | DRG 291 ==
LOC: EMEROO 20:39 → 3NENU 20:39 → SUATTDRO 08-19 00:04 → 3NENU 08-19 00:32
PROVIDERS: ADMIT Internal Medicine; ATTEND Internal Medicine

== ENCOUNTER 2017-08-31 00:45 | Inpatient (IN) ==
--- NOTE | 2017-08-31 01:04 | Emergency Department Note ---
Disposition Clinical Impression: HCAP (healthcare-associated pneumonia), ESRD (end stage renal disease) on dialysis, Hyponatremia, Supratherapeutic INR Sepsis Qualifiers: Sepsis type: sepsis due to unspecified organism Qualified Code(s): A41.9 - Sepsis, unspecified organism Anemia Qualifiers: Anemia type: due to chronic kidney disease Chronic kidney disease stage: on chronic dialysis Qualified Code(s): N18.6 - Disposition: Admitted As Inpatient Condition: Fair Referrals: NONE,PCP [Primary Care Provider] - Forms: ED Satisfaction Letter Time of Disposition: 02:53 Fever HPI - General Chief Complaint: ED Fever Stated Complaint: Fever, Open Heart 07/22 Time Seen by Provider: 08/31/17 00:51 Source: patient, family Limitations: no limitations Nursing Notes Reviewed: Yes Vital Signs Reviewed: Yes - History of Present Illness HPI Narrative: Patient is a 52-year-old male who presents to [facility] ED with a chief complaint of fever. States has had a fever for the last couple of days. Denies any chest pain, shortness of breath, abdominal pain, problems with urination or bowel movements. States he did vomit once before coming in. States he has intermittently had some diarrhea as well. He has not been on any antibiotics. He had open heart surgery on July 22 at [facility] for a valvular replacement and aortic aneurysm. Patient is also ESRD on dialysis. States he makes some urine still and it always hurts when he urinates. Pt Subjective Complaint: fever Onset (ago): day(s) Maximum Temperature Reported: 101.5 F Associated symptoms: Reports: nausea, vomiting, diarrhea, dysuria. Denies: headache, cough, chest pain, dyspnea, abdominal pain, rash Improves with: nothing Worsens with: nothing Treatments prior to arrival fever: none - Related Data Home Medications Medication Instructions Recorded Confirmed Amlodipine Besylate 10 mg PO DAILY 04/12/16 08/18/17 cloNIDine HCl [Clonidine HCl] 0.2 mg PO DAILY PRN 04/12/16 08/18/17 Acetaminophen [Tylenol] 1,000 mg PO Q6HR PRN 07/30/16 08/18/17 Albuterol Sulfate [Ventolin Hfa] 2 puff IH Q4H PRN 08/18/17 08/18/17 Amiodarone [Cordarone] 200 mg PO DAILY 08/18/17 08/18/17 Aspirin Enteric Coated [Aspirin EC] 162 mg PO DAILY 08/18/17 08/18/17 Atorvastatin [Lipitor] 40 mg PO HS 08/18/17 08/18/17 Calcium Acetate 1,334 mg PO TIDWM 08/18/17 08/18/17 Carvedilol [Coreg] 6.25 mg PO BID 08/18/17 08/18/17 Losartan [Cozaar] 25 mg PO DAILY 08/18/17 08/18/17 Multivitamin [One Daily 1 tab PO DAILY 08/18/17 08/18/17 Multivitamin] Oxycodone HCl [Oxycodone HCl] 5 mg PO DAILY PRN 08/18/17 08/18/17 Warfarin Sodium 5 mg PO DAILY 08/18/17 08/18/17 Allergies Allergy/AdvReac Type Severity Reaction Status Date / Time No Known Allergies Allergy Verified 08/18/17 21:56 All systems ED: reviewed and negative except as stated. Fever PMH - Past Medical History Medical history: Reports: CHF, dialysis, hyperlipidemia, hypertension, myocardial infarction, renal disease Surgical history: Reports: appendectomy, orthopedic, other Psychiatric history: Reports: no psych history - Social History Smoking Status: Former smoker Alcohol use: Reports: none Drug use: Reports: none Physical Exam - General Limitations: no limitations General appearance: alert, in no apparent distress - Head Head exam: atraumatic, normocephalic, normal inspection - Eye Eye exam: Present: normal appearance, PERRL, EOMI - ENT ENT exam: normal exam, normal oropharynx, mucous membranes moist - Neck Neck exam: Present: normal inspection, full ROM, trachea midline - Chest Chest inspection: Present: normal inspection, symmetric chest wall rise, other ( Surgical incision site over the sternal region intact without any erythema) - Respiratory Respiratory exam: Present: other (RLL crackles) - Cardiovascular Cardiovascular exam: Present: regular rate, normal rhythm, normal heart sounds - Abdominal Exam Abdominal exam: Present: soft, Non-Tender. Absent: tenderness, distention, guarding, rebound, rigidity - Extremities Exam Extremities exam: Present: normal inspection, full ROM. Absent: tenderness, pedal edema - Back Exam Back exam: Present: normal inspection, full ROM. Absent: tenderness - Neurological Exam Neurological exam: Present: alert, oriented X3 - Psychiatric Psychiatric exam: Present: normal affect, normal mood - Skin Skin exam: Present: warm, dry, intact, normal color. Absent: erythema Course Course Narrative: Patient seen and examined. Reported fever at home after open heart surgery last month. Surgical incision is intact without any overlying erythema. I do not suspect any cellulitis. No overlying crepitus. Patient does have some crackles on his lung exam. Suspect he may have a pneumonia. We will check basic lab work, chest x-ray, EKG, urine analysis. We will check a lactic acid and blood cultures as well. Patient does take Coumadin daily so we will check a PTT/INR. - Reevaluation(s) Reevaluation #1: Chest x-ray shows signs of a right mid and lower pneumonia. Vancomycin and Zosyn given to cover for healthcare associated pneumonia. His INR came back supratherapeutic. His Coumadin will need to be held. We will admit for treatment of pneumonia as well as possible sepsis. I discussed with the hospitalist who has accepted patient for admission. Time: 03:36 Vital Signs Temperature 99.1 F 08/31/17 00:46 Pulse Rate 95 08/31/17 00:46 Respiratory Rate 22 08/31/17 00:46 Blood Pressure 186/107 08/31/17 00:46 O2 Sat by Pulse Oximetry 99 08/31/17 00:46 Temperature 99.1 F 08/31/17 00:46 Pulse Rate 92 08/31/17 02:44 Respiratory Rate 24 08/31/17 02:44 Blood Pressure 173/128 08/31/17 02:44 O2 Sat by Pulse Oximetry 95 08/31/17 02:44 Oxygen Delivery Oxygen Delivery Nasal Cannula Fever - Medical Records Medical records reviewed: Yes I reviewed the patient's medical records. - Lab Data Lab results reviewed: Yes I reviewed the patient's lab results. Result diagrams: 08/31/17 01:17 08/31/17 01:17 Lab Results 08/31/17 08/31/17 08/31/17 Range/Units 01:17 01:17 01:17 WBC 12.7 H (4.3-11.1) K/mcL RBC 2.51 L (4.19-5.50) M/mcL Hgb 8.1 L (12.9-16.9) g/dL Hct 24.2 L (37.5-50.1) % MCV 96.4 (83.0-100.0) fL MCH 32.3 (28.0-33.3) pg MCHC 33.5 (31.6-35.5) g/dL RDW 15.3 H (11.5-14.5) % Plt Count 203 (140-400) K/mcL MPV 10.8 (9.4-12.4) fL Immature Gran % 0.5 (0-4) % Seg Neutrophils % 88.7 % Lymphocytes % 4.8 % Monocytes % 5.7 % Eosinophils % 0.1 % Basophils % 0.2 % Neutrophils # 11.3 H (1.6-8.9) K/mcL Lymphocytes # 0.6 (0.6-4.6) K/mcL Monocytes # 0.7 (0.0-1.3) K/mcL Eosinophils # 0.0 (0.0-0.6) K/mcL Basophils # 0.0 (0.0-0.2) K/mcL PT (9.4-12.1) Seconds INR Sodium 130 L (136-145) mEq/L Potassium 4.2 (3.5-5.1) mEq/L Chloride 93 L (98-107) mEq/L Carbon Dioxide 22 L (23-29) mEq/L BUN 38 H (6-20) mg/dL Creatinine 9.32 H (0.70-1.30) mg/dL Est GFR ( Amer) 7 L (> 60) Est GFR (Non-Af Amer) 6 L (> 60) BUN/Creatinine Ratio 4 L (6-26) Glucose 122 H (70-105) mg/dL Calculated Osmolality 280 (280-300) Lactic Acid 1.4 (0.5-2.2) mmol/L Calcium 8.3 L (8.6-10.3) mg/dL Urine Color (Yellow) Urine Clarity (Clear) Urine pH (5.0-8.0) pH Units Ur Specific [place] (1.010-1.025) Urine Protein (Neg-Trace) mg/dL Urine Glucose (UA) (Normal) mg/dL Urine Ketones (Negative) mg/dL Urine Blood (Negative) Urine Nitrite (Negative) Urine Bilirubin (Negative) Urine Urobilinogen (Normal) mg/dL Ur Leukocyte Esterase (Negative) Urine Microscopic RBC (0-3) per hpf Urine Microscopic WBC (0-3) per hpf Ur Squamous Epith Cells (None-Few) per lpf Urine Bacteria (None-Few) per hpf Hyaline Casts (None-Few) per lpf Ur Culture Indicated? (NO) 08/31/17 08/31/17 Range/Units 01:17 02:25 WBC (4.3-11.1) K/mcL RBC (4.19-5.50) M/mcL Hgb (12.9-16.9) g/dL Hct (37.5-50.1) % MCV (83.0-100.0) fL MCH (28.0-33.3) pg MCHC (31.6-35.5) g/dL RDW (11.5-14.5) % Plt Count (140-400) K/mcL MPV (9.4-12.4) fL Immature Gran % (0-4) % Seg Neutrophils % % Lymphocytes % % Monocytes % % Eosinophils % % Basophils % % Neutrophils # (1.6-8.9) K/mcL Lymphocytes # (0.6-4.6) K/mcL Monocytes # (0.0-1.3) K/mcL Eosinophils # (0.0-0.6) K/mcL Basophils # (0.0-0.2) K/mcL PT 76.1 H* (9.4-12.1) Seconds INR 6.8 H* Sodium (136-145) mEq/L Potassium (3.5-5.1) mEq/L Chloride (98-107) mEq/L Carbon Dioxide (23-29) mEq/L BUN (6-20) mg/dL Creatinine (0.70-1.30) mg/dL Est GFR ( Amer) (> 60) Est GFR (Non-Af Amer) (> 60) BUN/Creatinine Ratio (6-26) Glucose (70-105) mg/dL Calculated Osmolality (280-300) Lactic Acid (0.5-2.2) mmol/L Calcium (8.6-10.3) mg/dL Urine Color Yellow (Yellow) Urine Clarity Clear (Clear) Urine pH 8.5 H (5.0-8.0) pH Units Ur Specific [place] 1.013 (1.010-1.025) Urine Protein >=300 H (Neg-Trace) mg/dL Urine Glucose (UA) 100 H (Normal) mg/dL Urine Ketones Negative (Negative) mg/dL Urine Blood Small H (Negative) Urine Nitrite Negative (Negative) Urine Bilirubin Negative (Negative) Urine Urobilinogen Normal (Normal) mg/dL Ur Leukocyte Esterase Negative (Negative) Urine Microscopic RBC 3-5 H (0-3) per hpf Urine Microscopic WBC 0-3 (0-3) per hpf Ur Squamous Epith Cells Moderate H (None-Few) per lpf Urine Bacteria None Seen (None-Few) per hpf Hyaline Casts None Seen (None-Few) per lpf Ur Culture Indicated? NO (NO) - Radiology Data Radiology results reviewed: Yes I reviewed the patient's radiology results. Chest X-Ray 08/31/17 01:00 IMPRESSION: Development of right middle and lower lobe masslike consolidation likely representing pneumonia. Stable cardiomegaly. D/ / Donato Bobby / Donato Bobby Interpreting Provider: Donato Bobby - EKG Data EKG attestation: Yes I reviewed and interpreted this EKG. EKG results narrative: EKG done at 104 shows normal sinus rhythm with a rate of [address] elevation. There is some mild ST depression in leads V4 through V6. Normal axis.
[2017-08-31 01:30] LABS: Basophils % 0.2 %; Eosinophils % 0.1 %; Hematocrit 24.2 % (37.5-50.1); Hemoglobin 8.1 g/dL (12.9-16.9); Immature Granulocytes % 0.5 % (0-4); Lymphocytes # 0.6 K/mcL (0.6-4.6); Lymphocytes % 4.8 %; Mean Corpuscular HGB Conc 33.5 g/dL (31.6-35.5); Mean Corpuscular Hemoglobin 32.3 pg (28.0-33.3); Mean Corpuscular Volume 96.4 fL (83.0-100.0); Mean Platelet Volume 10.8 fL (9.4-12.4); Monocytes # 0.7 K/mcL (0.0-1.3); Monocytes % 5.7 %; Neutrophils # 11.3 K/mcL (1.6-8.9); Platelet Count 203 K/mcL (140-400); Red Blood Count 2.51 M/mcL (4.19-5.50); Red Cell Distribution Width 15.3 % (11.5-14.5); Segmented Neutrophils % 88.7 %
[2017-08-31 01:44] LABS: INR 6.8; Prothrombin Time 76.1 Seconds (9.4-12.1)
[2017-08-31 01:49] LABS: Calcium 8.3 mg/dL (8.6-10.3); Potassium 4.2 mEq/L (3.5-5.1)
[2017-08-31] MEDS ORDERED: Piperacillin/Tazobactam 3.375 GM in 0.9 % Sodium Chloride Mini Bag 100 ML IVPB ONE (02:02)
[2017-08-31 02:31] LABS: Bilirubin,Urine Negative (Negative); Blood,Urine Small (Negative); Clarity,Urine Clear (Clear); Color,Urine Yellow (Yellow); Glucose,Urine (UA) 100 mg/dL (Normal); Ketones,Urine Negative (Negative); Leukocyte Esterase,Urine Negative (Negative); Nitrite,Urine Negative (Negative); PH,Urine 8.5 pH Units (5.0-8.0); Protein,Urine >=300 mg/dL (Neg-Trace); Specific Gravity,Urine 1.013 (1.010-1.025); Urobilinogen,Urine Normal (Normal)
[2017-08-31 02:34] LABS: Bacteria,Urine None Seen per hpf (None-Few); Hyaline Casts,Urine None Seen per lpf (None-Few); Squamous Epithelial Cell,Urine Moderate per lpf (None-Few); WBC,Urine 0-3 per hpf (0-3)
--- NOTE | 2017-08-31 03:05 | Internal Med History&Physical ---
Date of Encounter: 08/30/17 Time of Encounter: 03:05 Internal Medicine - H&P: HPI Chief complaint: fever History of present illness: Mr. Vargas is a 52 year old male with ESRD status post heart surgery in July for a valvular replacement and aortic aneurysm. who presents to [facility] ED with a chief complaint of fever associated one episode of vomiting over the last couple of days. Denies any chest pain, shortness of breath, abdominal pain, problems with urination or bowel movements. States he did vomit once before coming in. The patient was evaluated by the ER and he was diagnosed with pneumonia, was admitted for further evaluation and management. Past Med Surg Social Fam HX - Past Medical History Medical history: CHF, dialysis, hyperlipidemia, hypertension, myocardial infarction, renal disease Additional medical history: ESRD. [id number] Psychiatric history: no psych history - Past Surgical History Surgical History: appendectomy, orthopedic, other Additional surgical history: cardioversion for afib - Social History Smoking Status: Former smoker Smokeless Tobacco Status: No Alcohol use: none Drug use: none - Family History Mother Family Member Ethnicity: Non- Living Status: Hx Family Cardiac Disorders: Yes Hx Family Endocrine Disorder: Yes (diabetes) Father Family Member Ethnicity: Non- Living Status: Still Living Hx Family Cardiac Disorders: Yes Brother Family Member Ethnicity: Non- Living Status: Hx Family Cardiac Disorders: Yes Hx Family Cancer: Yes Hx Family Endocrine Disorder: Yes (diabetes) Internal Medicine - H&P: Meds Amlodipine Besylate 10 mg PO DAILY 04/12/16 [History] cloNIDine HCl [Clonidine HCl] 0.2 mg PO DAILY PRN 04/12/16 [History] Acetaminophen [Tylenol] 1,000 mg PO Q6HR PRN 07/30/16 [History] Albuterol Sulfate [Ventolin Hfa] 2 puff IH Q4H PRN 08/18/17 [History] Amiodarone [Cordarone] 200 mg PO DAILY 08/18/17 [History] Aspirin Enteric Coated [Aspirin EC] 162 mg PO DAILY 08/18/17 [History] Atorvastatin [Lipitor] 40 mg PO HS 08/18/17 [History] Calcium Acetate 1,334 mg PO TIDWM 08/18/17 [History] Carvedilol [Coreg] 6.25 mg PO BID 08/18/17 [History] Losartan [Cozaar] 25 mg PO DAILY 08/18/17 [History] Multivitamin [One Daily Multivitamin] 1 tab PO DAILY 08/18/17 [History] Oxycodone HCl 5 mg PO DAILY PRN 08/18/17 [History] Warfarin Sodium 5 mg PO DAILY 08/18/17 [History] Amoxicillin/Clavulanate [Augmentin] 875 mg PO BIDWM #10 tablet 09/03/17 [Rx] Benzonatate [Tessalon] 100 mg PO TID PRN capsule 09/03/17 [Rx] levoFLOXacin [Levaquin] 500 mg PO Q48H #4 tablet 09/03/17 [Rx] 3 Allergy/AdvReac Type Severity Reaction Status Date / Time No Known Allergies Allergy Verified 08/18/17 21:56 All Systems PM: A 10-system review of systems was performed and is negative for pertinent findings except as documented above in the HPI. - Constitutional Constitutional: fever(s), no chills, no night sweats - Cardiovascular Cardiovascular ROS IM: no chest pain, no diaphoresis, no dyspnea, no lightheadedness, no palpitations, no syncope - Respiratory Respiratory: no cough, no dyspnea, no wheezing, no excessive phlegm production - Gastrointestinal Gastrointestinal: no abdominal pain, no diarrhea, no hematemesis, no hematochezia, no melena, no nausea, no vomiting - Integumentary Integumentary IM: no rash, no unusual bruising - Neurological Neurological ROS: no confusion, no convulsions, no focal weakness, no numbness, no tingling, no tremor(s) - Constitutional Vitals: Temp Pulse Resp BP Pulse Ox 99.1 F 92 24 173/128 95 08/31/17 00:46 08/31/17 02:44 08/31/17 02:44 08/31/17 02:44 08/31/17 02:44 General appearance: Present: A&O X 3 - Head Head exam: Present: atraumatic, normocephalic - Neck Neck exam general surgery: Present: supple, trachea midline. Absent: lymphadenopathy - Respiratory Respiratory exam: Present: CTAB. Absent: accessory muscle use, rales, rhonchi, wheezes - Cardiovascular Cardiovascular exam: Present: RRR, +S1, +S2. Absent: diastolic murmur, gallop, rubs, systolic murmur - GI/Abdominal GI/Abdominal exam: Present: normal bowel sounds, soft, no peritoneal signs. Absent: distended, tenderness - Extremities Exam Extremities exam: Present: warm, radial pulses palpable and symmetrical. Absent : calf tenderness, cyanotic, pedal edema Internal Med - H&P Results - Labs CBC & Chem 7: 09/03/17 05:03 09/03/17 05:03 Labs: Short CBC 08/31/17 Range/Units 01:17 WBC 12.7 H (4.3-11.1) K/mcL Hgb 8.1 L (12.9-16.9) g/dL Hct 24.2 L (37.5-50.1) % Plt Count 203 (140-400) K/mcL Neutrophils # 11.3 H (1.6-8.9) K/mcL BMP 08/31/17 01:17 Sodium 130 L Potassium 4.2 Chloride 93 L Carbon Dioxide 22 L BUN 38 H Creatinine 9.32 H Glucose 122 H Calcium 8.3 L Urine 08/31/17 Range/Units 02:25 Urine Color Yellow (Yellow) Urine Clarity Clear (Clear) Urine pH 8.5 H (5.0-8.0) pH Units Ur Specific [place] 1.013 (1.010-1.025) Urine Protein >=300 H (Neg-Trace) mg/dL Urine Glucose (UA) 100 H (Normal) mg/dL - Impressions ITS Impressions Chest X-Ray 08/31/17 01:00 IMPRESSION: Development of right middle and lower lobe masslike consolidation likely representing pneumonia. Stable cardiomegaly. D/ / Donato Bobby / Donato Bobby Interpreting Provider: Donato Bobby - Assessment and plan (1) HCAP (healthcare-associated pneumonia) Status: Acute Assessment and plan: - Fever due to *Pneumonia - Blood Cx - Urine Legionella antigen - Antibiotics - CBCD, CMP in AM - Tylenol 650 mg PO q 4-6 hr PRN pain or fever - Home meds - check the list and restart accordingly (2) ESRD (end stage renal disease) Status: Chronic Assessment and plan: We will consult nephrology to provide hemodialysis needs while inpatient (3) HTN (hypertension) Status: Chronic Assessment and plan: We will continue home medication, we will continue to monitor her blood pressure while inpatient Qualifiers: Hypertension type: essential hypertension Qualified Code(s): I10 - Essential (primary) hypertension (4) Elevated troponin Status: Acute Assessment and plan: There is no evidence of EKG changes, we will trend troponin and obtain repeat EKG. (5) Anemia in chronic kidney disease Status: Chronic Assessment and plan: We will defer to nephrology for further evaluation and management Qualifiers: Qualified Code(s): N18.9 - Chronic kidney disease, unspecified; D63.1 - Anemia in chronic kidney disease (6) Supratherapeutic INR Status: Resolved Assessment and plan: We will hold warfarin for now, consult pharmacy for further dosing and education (7) History of CHF (congestive heart failure) Status: Chronic (8) DVT prophylaxis Status: Acute Assessment and plan: The patient is on warfarin for chronic anticoagulation and his INR is high - Time Spent With Patient Total time spent is greater than 50% in coordination of care (as documented) at patient's floor/unit and/or counseling patient:
[2017-08-31] MEDS ORDERED: Naloxone 0.4 MG/ML INJ IVP PRN (03:08)
[2017-08-31 03:49] LABS: Activated Partial Thrombo Time 46.5 Seconds (26.0-36.0)
[2017-08-31 04:00] LABS: Albumin 3.4 g/dL (3.5-5.7); Albumin/Globulin Ratio 1.2 (1.1-2.2); Bilirubin,Total 0.5 mg/dL (0.3-1.0); Chol/HDL Ratio 2.2 (0-4.9); Globulin 2.9 g/dL (2.4-3.5); Magnesium 1.6 mg/dL (1.6-2.6); Phosphorous 2.6 mg/dL (2.7-4.5); Total Protein 6.3 g/dL (6.4-8.9)
--- NOTE | 2017-08-31 04:03 | Emergency Department Note ---
Disposition Clinical Impression: HCAP (healthcare-associated pneumonia), ESRD (end stage renal disease) on dialysis, Hyponatremia, Supratherapeutic INR Sepsis Qualifiers: Sepsis type: sepsis due to unspecified organism Qualified Code(s): A41.9 - Sepsis, unspecified organism Anemia Qualifiers: Anemia type: due to chronic kidney disease Chronic kidney disease stage: on chronic dialysis Qualified Code(s): N18.6 - Disposition: Admitted As Inpatient Condition: Fair General Adult HPI - General Chief complaint: ED Fever Stated complaint: Fever, Open Heart 07/22 Time Seen by Provider: 08/31/17 00:51 Source: patient, family Limitations: no limitations Nursing Notes Reviewed: Yes Vital Signs Reviewed: Yes - History of Present Illness Pain Scale: 5 - Related Data Home Medications Medication Instructions Recorded Confirmed Amlodipine Besylate 10 mg PO DAILY 04/12/16 08/18/17 cloNIDine HCl [Clonidine HCl] 0.2 mg PO DAILY PRN 04/12/16 08/18/17 Acetaminophen [Tylenol] 1,000 mg PO Q6HR PRN 07/30/16 08/18/17 Albuterol Sulfate [Ventolin Hfa] 2 puff IH Q4H PRN 08/18/17 08/18/17 Amiodarone [Cordarone] 200 mg PO DAILY 08/18/17 08/18/17 Aspirin Enteric Coated [Aspirin EC] 162 mg PO DAILY 08/18/17 08/18/17 Atorvastatin [Lipitor] 40 mg PO HS 08/18/17 08/18/17 Calcium Acetate 1,334 mg PO TIDWM 08/18/17 08/18/17 Carvedilol [Coreg] 6.25 mg PO BID 08/18/17 08/18/17 Losartan [Cozaar] 25 mg PO DAILY 08/18/17 08/18/17 Multivitamin [One Daily 1 tab PO DAILY 08/18/17 08/18/17 Multivitamin] Oxycodone HCl [Oxycodone HCl] 5 mg PO DAILY PRN 08/18/17 08/18/17 Warfarin Sodium 5 mg PO DAILY 08/18/17 08/18/17 Allergies Allergy/AdvReac Type Severity Reaction Status Date / Time No Known Allergies Allergy Verified 08/18/17 21:56 Past Medical History - Past Medical History Medical history: Reports: CHF, dialysis, hyperlipidemia, hypertension, myocardial infarction, renal disease Surgical history: Reports: appendectomy, orthopedic, other Psychiatric history: Reports: no psych history - Social History Smoking Status: Former smoker Smokeless Tobacco Status: No Alcohol use: Reports: none Drug use: Reports: none Physical Exam - General Limitations: no limitations General appearance: alert, in no apparent distress Course Vital Signs Temperature 99.1 F 08/31/17 00:46 Pulse Rate 95 08/31/17 00:46 Respiratory Rate 22 08/31/17 00:46 Blood Pressure 186/107 08/31/17 00:46 O2 Sat by Pulse Oximetry 99 08/31/17 00:46 Temperature 99.1 F 08/31/17 00:46 Pulse Rate 92 08/31/17 02:44 Respiratory Rate 24 08/31/17 02:44 Blood Pressure 173/128 08/31/17 02:44 O2 Sat by Pulse Oximetry 95 08/31/17 02:44 Oxygen Delivery Oxygen Delivery Nasal Cannula Medical Decision Making - Lab Data Result diagrams: 08/31/17 01:17 08/31/17 01:17 Lab Results 08/31/17 08/31/17 08/31/17 Range/Units 01:17 01:17 01:17 WBC 12.7 H (4.3-11.1) K/mcL RBC 2.51 L (4.19-5.50) M/mcL Hgb 8.1 L (12.9-16.9) g/dL Hct 24.2 L (37.5-50.1) % MCV 96.4 (83.0-100.0) fL MCH 32.3 (28.0-33.3) pg MCHC 33.5 (31.6-35.5) g/dL RDW 15.3 H (11.5-14.5) % Plt Count 203 (140-400) K/mcL MPV 10.8 (9.4-12.4) fL Immature Gran % 0.5 (0-4) % Seg Neutrophils % 88.7 % Lymphocytes % 4.8 % Monocytes % 5.7 % Eosinophils % 0.1 % Basophils % 0.2 % Neutrophils # 11.3 H (1.6-8.9) K/mcL Lymphocytes # 0.6 (0.6-4.6) K/mcL Monocytes # 0.7 (0.0-1.3) K/mcL Eosinophils # 0.0 (0.0-0.6) K/mcL Basophils # 0.0 (0.0-0.2) K/mcL PT (9.4-12.1) Seconds INR APTT (26.0-36.0) Seconds Sodium 130 L (136-145) mEq/L Potassium 4.2 (3.5-5.1) mEq/L Chloride 93 L (98-107) mEq/L Carbon Dioxide 22 L (23-29) mEq/L BUN 38 H (6-20) mg/dL Creatinine 9.32 H (0.70-1.30) mg/dL Est GFR ( Amer) 7 L (> 60) Est GFR (Non-Af Amer) 6 L (> 60) BUN/Creatinine Ratio 4 L (6-26) Glucose 122 H (70-105) mg/dL Calculated Osmolality 280 (280-300) Lactic Acid 1.4 (0.5-2.2) mmol/L Calcium 8.3 L (8.6-10.3) mg/dL Urine Color (Yellow) Urine Clarity (Clear) Urine pH (5.0-8.0) pH Units Ur Specific [place] (1.010-1.025) Urine Protein (Neg-Trace) mg/dL Urine Glucose (UA) (Normal) mg/dL Urine Ketones (Negative) mg/dL Urine Blood (Negative) Urine Nitrite (Negative) Urine Bilirubin (Negative) Urine Urobilinogen (Normal) mg/dL Ur Leukocyte Esterase (Negative) Urine Microscopic RBC (0-3) per hpf Urine Microscopic WBC (0-3) per hpf Ur Squamous Epith Cells (None-Few) per lpf Urine Bacteria (None-Few) per hpf Hyaline Casts (None-Few) per lpf Ur Culture Indicated? (NO) 08/31/17 08/31/17 Range/Units 01:17 02:25 WBC (4.3-11.1) K/mcL RBC (4.19-5.50) M/mcL Hgb (12.9-16.9) g/dL Hct (37.5-50.1) % MCV (83.0-100.0) fL MCH (28.0-33.3) pg MCHC (31.6-35.5) g/dL RDW (11.5-14.5) % Plt Count (140-400) K/mcL MPV (9.4-12.4) fL Immature Gran % (0-4) % Seg Neutrophils % % Lymphocytes % % Monocytes % % Eosinophils % % Basophils % % Neutrophils # (1.6-8.9) K/mcL Lymphocytes # (0.6-4.6) K/mcL Monocytes # (0.0-1.3) K/mcL Eosinophils # (0.0-0.6) K/mcL Basophils # (0.0-0.2) K/mcL PT 76.1 H* (9.4-12.1) Seconds INR 6.8 H* APTT 46.5 H (26.0-36.0) Seconds Sodium (136-145) mEq/L Potassium (3.5-5.1) mEq/L Chloride (98-107) mEq/L Carbon Dioxide (23-29) mEq/L BUN (6-20) mg/dL Creatinine (0.70-1.30) mg/dL Est GFR ( Amer) (> 60) Est GFR (Non-Af Amer) (> 60) BUN/Creatinine Ratio (6-26) Glucose (70-105) mg/dL Calculated Osmolality (280-300) Lactic Acid (0.5-2.2) mmol/L Calcium (8.6-10.3) mg/dL Urine Color Yellow (Yellow) Urine Clarity Clear (Clear) Urine pH 8.5 H (5.0-8.0) pH Units Ur Specific [place] 1.013 (1.010-1.025) Urine Protein >=300 H (Neg-Trace) mg/dL Urine Glucose (UA) 100 H (Normal) mg/dL Urine Ketones Negative (Negative) mg/dL Urine Blood Small H (Negative) Urine Nitrite Negative (Negative) Urine Bilirubin Negative (Negative) Urine Urobilinogen Normal (Normal) mg/dL Ur Leukocyte Esterase Negative (Negative) Urine Microscopic RBC 3-5 H (0-3) per hpf Urine Microscopic WBC 0-3 (0-3) per hpf Ur Squamous Epith Cells Moderate H (None-Few) per lpf Urine Bacteria None Seen (None-Few) per hpf Hyaline Casts None Seen (None-Few) per lpf Ur Culture Indicated? NO (NO) Attestation Statement - Attestation Attestation: I, Miguel Duke MD, personally evaluated this patient and discussed their management with the resident physician. I reviewed the resident's note and agree with the documented findings, medical decision making, and plan of care. 52-year-old male presents to the emergency department with a complaint of fever which started about 4 days prior to arrival. He also complains of some increased shortness of breath and increased cough of the same duration. No sputum production. He no chest pain other than when he does cough it hurts in his chest. Patient just had open heart surgery for valve replacement approximately 6 weeks ago. This has been healing well and he has had no complications. Patient is on hemodialysis Friday was seen Friday. He did have his dialysis Friday. On examination patient is a well-developed well-nourished male in no acute distress. He is alert and oriented 3. There is no cyanosis or diaphoresis. Chest is nontender to palpation. Breath sounds are equal bilaterally with some rales over the right anterior chest. Heart regular rate and rhythm. Abdomen soft and nontender with normal bowel sounds. Labs reviewed. Chest x-ray shows right middle lobe pneumonia. The hospitalist, Dr. Tran, was consulted and accepted admission of the patient.
[2017-08-31 04:07] LABS: Troponin I 0.08 ng/mL (< 0.04)
[2017-08-31] MEDS ORDERED: *HR* OxyCODONE Immed Rel 5 MG TABLET PO PRN (04:16)
[2017-08-31] MEDS ORDERED: cloNIDine HCl 0.1 MG TABLET PO PRN (04:16)
[2017-08-31] MEDS: Acetaminophen 325 MG TABLET PO PRN ×2 (04:52→16:27)
[2017-08-31] MEDS ORDERED: Warfarin perPT PO PRN (05:36)
[2017-08-31] MEDS: amLODIPine 5 MG TABLET PO SCH (07:43)
[2017-08-31] MEDS: Calcium Acetate 667 MG CAPSULE PO SCH ×3 (07:43→16:27)
[2017-08-31] MEDS: Multivit/Ca/Min/Fe/FA 1 TAB TABLET PO SCH (07:44)
[2017-08-31] MEDS: *HR* Amiodarone 200 MG TABLET PO SCH (07:44)
[2017-08-31] MEDS: Aspirin Enteric Coated 81 MG Tablet PO SCH (07:44)
[2017-08-31 09:05] LABS: Basophils % 0.1 %; Eosinophils % 0.1 %; Hematocrit 24.2 % (37.5-50.1); Hemoglobin 7.8 g/dL (12.9-16.9); Immature Granulocytes % 0.5 % (0-4); Lymphocytes # 0.6 K/mcL (0.6-4.6); Lymphocytes % 4.6 %; Mean Corpuscular HGB Conc 32.2 g/dL (31.6-35.5); Mean Corpuscular Hemoglobin 30.7 pg (28.0-33.3); Mean Corpuscular Volume 95.3 fL (83.0-100.0); Mean Platelet Volume 11.2 fL (9.4-12.4); Monocytes # 0.6 K/mcL (0.0-1.3); Monocytes % 4.1 %; Neutrophils # 12.3 K/mcL (1.6-8.9); Platelet Count 186 K/mcL (140-400); Red Blood Count 2.54 M/mcL (4.19-5.50); Red Cell Distribution Width 15.4 % (11.5-14.5); Segmented Neutrophils % 90.6 %
[2017-08-31 09:26] LABS: Troponin I 0.09 ng/mL (< 0.04)
--- NOTE | 2017-08-31 10:53 | Event Note ---
Date of Encounter: 08/31/17 Time of Encounter: 10:53 Patient was examined. Family at bedside. Complaint of dry cough most of the time. Feeling slight better and shortness of breath. Denies any active chest pain. Review the lab with trending up troponin therefore consulted custom designer. reviewed echo done in August 2017 with EF 50-55%. Patient has recent aortic valve replacement and aortic aneurysm repair at [facility]. Initial INR was high therefore pharmacy on board. Continue broad spectrum antibiotic vancomycin and Zosyn for pneumonia. Range [employer] consulted and plan for dialysis. Patient gets routine dialysis Friday.
[2017-08-31] MEDS ORDERED: Levalbuterol Neb 0.63 MG/3 ML IH ONE (11:17)
[2017-08-31] MEDS ORDERED: Ondansetron 4 MG/2 ML VIAL IVP PRN (11:54)
[2017-08-31] MEDS: Benzonatate 100 MG CAPSULE PO PRN (12:12)
--- NOTE | 2017-08-31 12:24 | Nephrology Consult Note ---
Date of Encounter: 08/31/17 Time of Encounter: 12:21 Assessment and Plan (1) ESRD (end stage renal disease) Current Visit: Yes Status: Acute HD MWF. Renal vitamins. Renal dose medications. Renal diet. Additional dialysis and ultrafiltration as needed. (2) Anemia in chronic kidney disease Current Visit: Yes Status: Acute Monitor hemoglobin and transfuse as needed. Qualifiers: Qualified Code(s): N18.9 - Chronic kidney disease, unspecified; D63.1 - Anemia in chronic kidney disease (3) HCAP (healthcare-associated pneumonia) Current Visit: Yes Status: Acute Antibiotic per the primary team. He reports that he is feeling better. (4) Supratherapeutic INR Current Visit: Yes Status: Acute No active bleeding at the time my evaluation. We will defer management to the primary care team. History of Present Illness - Reason for Consult Consult date: 08/31/17 end stage renal disease - Chief Complaint ESRD fever - History of Present Illness Mr. Vargas is a 52-year-old gentleman with a history of end-stage renal disease he receives hemodialysis Friday via a left forearm fistula at the [facility] dialysis clinic in [facility] under the direction of [place] [facility] Specialist's Dr. Ramirez. His last dialysis was Friday. Since his last dialysis he developed fevers and presented to [facility] emergency Department and was found to have pneumonia and admitted to the hospitalist service for further management. At the time my evaluation he reports that he is feeling better and has no new complaints. He denies chest pain, he denies shortness of breath. Past Med Surg Social Fam HX - Past Medical History Medical history: CHF, dialysis, hyperlipidemia, hypertension, myocardial infarction, renal disease Additional medical history: ESRD. [id number] Psychiatric history: no psych history - Past Surgical History Surgical History: appendectomy, coronary bypass (CABG), orthopedic, other Additional surgical history: cardioversion for afib - Social History Smoking Status: Former smoker Smokeless Tobacco Status: No Alcohol use: none Drug use: none - Family History Mother Family Member Ethnicity: Non- Living Status: Hx Family Cardiac Disorders: Yes Hx Family Endocrine Disorder: Yes Father Family Member Ethnicity: Non- Living Status: Still Living Hx Family Cardiac Disorders: Yes Hx Family Endocrine Disorder: Yes Brother Family Member Ethnicity: Non- Living Status: Hx Family Cardiac Disorders: Yes Hx Family Cancer: Yes Hx Family Endocrine Disorder: Yes (diabetes) Medications and Allergies Amlodipine Besylate 10 mg PO DAILY 04/12/16 [History] cloNIDine HCl [Clonidine HCl] 0.2 mg PO DAILY PRN 04/12/16 [History] Acetaminophen [Tylenol] 1,000 mg PO Q6HR PRN 07/30/16 [History] Albuterol Sulfate [Ventolin Hfa] 2 puff IH Q4H PRN 08/18/17 [History] Amiodarone [Cordarone] 200 mg PO DAILY 08/18/17 [History] Aspirin Enteric Coated [Aspirin EC] 162 mg PO DAILY 08/18/17 [History] Atorvastatin [Lipitor] 40 mg PO HS 08/18/17 [History] Calcium Acetate 1,334 mg PO TIDWM 08/18/17 [History] Carvedilol [Coreg] 6.25 mg PO BID 08/18/17 [History] Losartan [Cozaar] 25 mg PO DAILY 08/18/17 [History] Multivitamin [One Daily Multivitamin] 1 tab PO DAILY 08/18/17 [History] Oxycodone HCl [Oxycodone HCl] 5 mg PO DAILY PRN 08/18/17 [History] Warfarin Sodium 5 mg PO DAILY 08/18/17 [History] 3 Allergy/AdvReac Type Severity Reaction Status Date / Time No Known Allergies Allergy Verified 08/18/17 21:56 Review of Systems All Systems: reviewed and no additional remarkable complaints except as stated ( Per the history of present illness.) Exam - Vital Signs Vital signs: Initial Vital Signs Temp Pulse Resp BP Pulse Ox 99.1 F 95 22 186/107 99 08/31/17 00:46 08/31/17 00:46 08/31/17 00:46 08/31/17 00:46 08/31/17 00:46 Vital Signs - Last 8 Hours Temp Pulse Resp BP Pulse Ox 08/31/17 11:50 99.3 F 92 22 179/110 91 08/31/17 07:39 99.5 F 91 26 181/109 94 08/31/17 06:58 28 99 08/31/17 06:28 102.6 F H 97 24 176/106 91 08/31/17 04:46 103.5 F H 104 20 160/91 89 Intake and Output 08/30/17 08/31/17 08/31/17 23:59 07:59 15:59 Intake Total 500 / 500 120 / 120 Balance 500 / 500 120 / 120 Intake: IV Fluids 500 / 500 Vancocin 1,750 MG In 0.9 % 500 / 500 Sodium Chloride 500 ML @ 333.3 mls/hr IVPB ONCE ONE Rx#: [id number] Oral 0 / 0 120 / 120 Other: Meal Breakfast Percent of Meal Consumed 20% # Voids 1 - General Appearance General appearance: well-developed, well-nourished EENT: ATNC Neck: supple Respiratory: course breath sounds Cardiology: no edema, regular rate, regular rhythm - Dialysis Access Dialysis Vascular Access: Arteriovenous Fistula thrill: Yes bruit: Yes Gastrointestinal: no tenderness Integumentary: warm and dry Neurologic: alert and oriented x3 Musculoskeletal: no cyanosis Psychiatric: mood/affect appropriate Results - Lab Results 08/31/17 08:14 08/31/17 01:17 Most recent lab results Calcium 8.3 mg/dL (8.6-10.3) L 08/31/17 01:17 Phosphorus 2.6 mg/dL (2.7-4.5) L 08/31/17 01:17 Magnesium 1.6 mg/dL (1.6-2.6) 08/31/17 01:17 Consult Discharge Plan - Plan Referrals: NONE,PCP [Primary Care Provider] -
[2017-08-31 15:13] LABS: INR 7.7; Prothrombin Time 86.8 Seconds (9.4-12.1)
[2017-08-31] MEDS: Piperacillin/Tazobactam 3.375 GM in 0.9 % Sodium Chloride Mini Bag 100 ML IVPB SCH (16:27)
[2017-08-31] MEDS: *HR* HYDROcodone/Acet 5/325 mg TABLET PO PRN (16:27)
[2017-09-01] MEDS: *HR* HYDROcodone/Acet 5/325 mg TABLET PO PRN ×4 (00:30→23:59)
[2017-09-01] MEDS: Piperacillin/Tazobactam 3.375 GM in 0.9 % Sodium Chloride Mini Bag 100 ML IVPB SCH ×2 (02:38→14:01)
[2017-09-01 04:55] LABS: Prothrombin Time 83.4 Seconds (9.4-12.1)
[2017-09-01 04:56] LABS: INR 7.4
--- NOTE | 2017-09-01 07:11 | Electrocardiograph Report ---
[address] [address] Test Date: 2017-08-31 Pat Name: Corey Vargas Department: 103 Room: 2A Gender: M Driver Guard: MARSHALL : 1965 Requested By: Stefanie Gutierrez Order Number: [id number] Reading MD: Sudeep Bradshaw Measurements Intervals [place] Rate: 80 P: 40 TN: 208 QRS: 55 QRSD: 125 T: 115 QT: 420 QTc: 456 Interpretive Statements SINUS RHYTHM BASELINE ARTIFACT LEFT ATRIAL ENLARGEMENT LEFT VENTRICULAR HYPERTROPHY AND ST-T CHANGE Electronically Signed On 09-01-2017 7:09:24 EDT by Sudeep Bradshaw
[2017-09-01] MEDS ORDERED: 0.9 % Sodium Chloride 250 ML IVC PRN (07:53)
[2017-09-01] MEDS: *HR* Amiodarone 200 MG TABLET PO SCH (07:58)
[2017-09-01] MEDS: Aspirin Enteric Coated 81 MG Tablet PO SCH (07:58)
[2017-09-01] MEDS: Calcium Acetate 667 MG CAPSULE PO SCH ×3 (07:58→16:53)
[2017-09-01] MEDS: Multivit/Ca/Min/Fe/FA 1 TAB TABLET PO SCH (07:58)
[2017-09-01] MEDS ORDERED: 0.9 % Sodium Chloride 1,000 ML ONE (07:59)
[2017-09-01] MEDS ORDERED: 0.9 % Sodium Chloride 1,000 ML PRIME SCH (08:00)
[2017-09-01 08:27] LABS: Basophils % 0.1 %; Eosinophils # 0.1 K/mcL (0.0-0.6); Eosinophils % 0.3 %; Hematocrit 25.9 % (37.5-50.1); Hemoglobin 8.4 g/dL (12.9-16.9); Immature Granulocytes % 0.6 % (0-4); Lymphocytes # 0.7 K/mcL (0.6-4.6); Lymphocytes % 4.3 %; Mean Corpuscular HGB Conc 32.4 g/dL (31.6-35.5); Mean Corpuscular Hemoglobin 31.8 pg (28.0-33.3); Mean Corpuscular Volume 98.1 fL (83.0-100.0); Mean Platelet Volume 11.5 fL (9.4-12.4); Monocytes # 0.6 K/mcL (0.0-1.3); Monocytes % 3.9 %; Neutrophils # 14.4 K/mcL (1.6-8.9); Platelet Count 219 K/mcL (140-400); Red Blood Count 2.64 M/mcL (4.19-5.50); Red Cell Distribution Width 15.7 % (11.5-14.5); Segmented Neutrophils % 90.8 %
--- NOTE | 2017-09-01 10:04 | Internal Med Progress Note ---
Date of Encounter: 09/01/17 Time of Encounter: 10:01 - Assessment and plan (1) HCAP (healthcare-associated pneumonia) Current Visit: Yes Status: Acute Assessment and plan: Patient presented as fever and found to have right middle and lower lobe consolidation. A started on broader spectrum antibiotic vancomycin and Zosyn. Blood culture with no growth had. Continue Xopenex as breathing treatment. Patient also has short of breath today that could be part of being dialysis patient and he is due for the dialysis now. His cough is better. Will repeat chest x-ray after dialysis if there is worsening then will consider CT chest and consult fence repairman. (2) Elevated troponin Current Visit: No Status: Chronic Assessment and plan: Trending up but denied chest pain. History of recent valvular replacement and aortic aneurysm repair 3-4 weeks ago at [facility]. Echo done in August 2017 with EF 50-55%. Cardiology consulted and waiting for his opinion and further recommendation. There is no evidence of EKG changes (3) HTN (hypertension) Current Visit: No Status: Chronic Assessment and plan: We will continue home medication. Close monitor of blood pressure Qualifiers: Hypertension type: essential hypertension Qualified Code(s): I10 - Essential (primary) hypertension (4) History of CHF (congestive heart failure) Current Visit: No Status: Chronic (5) Supratherapeutic INR Current Visit: Yes Status: Acute Assessment and plan: On hold hold warfarin for now. Consulted pharmacy for further dosing and education. INR monitoring. No active bleeding and is stable hemoglobin at this time therefore continue to monitor. (6) ESRD (end stage renal disease) Current Visit: Yes Status: Acute Assessment and plan: On board nephrology and plan to take for hemodialysis now. Continue routine hemodialysis on as per nephrology recommendation (7) Anemia in chronic kidney disease Current Visit: Yes Status: Acute Assessment and plan: We will defer to nephrology for further evaluation and management Qualifiers: Qualified Code(s): N18.9 - Chronic kidney disease, unspecified; D63.1 - Anemia in chronic kidney disease (8) DVT prophylaxis Current Visit: No Status: Acute Assessment and plan: The patient is on warfarin for chronic anticoagulation and his INR is high - Time Spent With Patient Total time spent is greater than 50% in coordination of care (as documented) at patient's floor/unit and/or counseling patient: 25 - 35 minutes - Subjective Interval history: Patient has spiked temperature yesterday but very low grade fever overnight. Cough is better after starting Tessalon Perles and Xopenex. complain of shortness of breath that he get generally before hemodialysis. Patient is due to go hemodialysis now. Review of the lab with trending up white count. Patient denies fever chills vomiting headache diarrhea but complained of tired and nauseated - Constitutional Vitals: Temp Pulse Resp BP Pulse Ox 99.3 F 77 19 134/87 97 09/01/17 07:11 09/01/17 07:11 09/01/17 07:11 09/01/17 07:11 09/01/17 07:11 General appearance: Present: A&O X 3, obese Exam: General appearance: Mild distress due to shortness of breath but get better after putting the oxygen, A&O X 3 Head exam: Atraumatic Eye exam: EOMI, PERRLA ENT exam: Moist oral mucosa Neck nontender, supple Respiratory exam: Rales bilaterally with slight diminished sound due to body habitus Cardiovascular exam: Regular rate and rhythm, no systolic murmur Abdominal exam: Soft, nontender, nondistended, positive bowel sounds Extremities exam: No calf tenderness, no pedal edema Present: Skin- warm, dry, intact Neurological exam: Alert, awake, oriented 3, CN II-XII intact, no focal deficits. No facial droop. Normal speech. Normal gait. Internal Medicine: Result - Labs CBC & Chem 7: 09/01/17 07:47 08/31/17 01:17 Labs: Short CBC 09/01/17 Range/Units 07:47 WBC 15.8 H (4.3-11.1) K/mcL Hgb 8.4 L (12.9-16.9) g/dL Hct 25.9 L (37.5-50.1) % Plt Count 219 (140-400) K/mcL Neutrophils # 14.4 H (1.6-8.9) K/mcL Cardiac Enzymes 08/31/17 08/31/17 Range/Units 14:17 19:51 Troponin I 0.12 H* 0.12 H* (< 0.04) ng/mL - ABG Interpretation ABG results: PT/INR, D-dimer PT 83.4 Seconds (9.4-12.1) H* 09/01/17 04:10 Consult Discharge Plan - Plan Referrals: NONE,PCP [Primary Care Provider] -
--- NOTE | 2017-09-01 10:38 | Cardiology Consult Note ---
Date of Encounter: 09/01/17 Time of Encounter: 10:33 Assessment and Plan (1) Elevated troponin Current Visit: Yes Status: Chronic - Elevated troponin of 0.08/0.09/0.12/0.12 - Baseline troponin of 0.04-0.08 per chart review - In the setting of ESRD, anemia, acute respiratory failure secondary to suspected PNA - EKG reviewed and show LVH without ischemia. - Complaint of chest pain today likely related to PNA. Doubt ACS pain. Plan - Likely secondary to increased demand with ESRD - Heparin gtt discontinued as this is doubtful ACS as well as INR of 7.4 - No further planned cardiac testing at this time due to recent testing - Recommend continuing BB, ASA, ARB, coumadin, statin (2) Renal failure Current Visit: Yes Status: Chronic - Per nephro and primary team Qualifiers: Renal failure chronicity: chronic Chronic kidney disease stage: on chronic dialysis Qualified Code(s): N18.6 - End stage renal disease; Z99.2 - Dependence on renal dialysis (3) Acute respiratory failure with hypoxia Current Visit: Yes Status: Acute - secondary to PNA. Further management per primary team (4) Anemia in chronic kidney disease (CKD) Current Visit: Yes Status: Chronic - H/H of 8.4/25.9 - Baseline levels - Possibly contributing to troponin Qualifiers: Chronic kidney disease stage: on chronic dialysis Qualified Code(s): N18.6 - End stage renal disease; D63.1 - Anemia in chronic kidney disease; Z99.2 - Dependence on renal dialysis (5) Heart valve replaced Current Visit: Yes Status: Chronic - Continue coumadin (6) Supratherapeutic INR Current Visit: Yes Status: Chronic No signs of bleed. - INR 7.4 Discussion w patient/family: The assessment and plan as outlined above was discussed with the patient and/or family members who expressed understanding and agreement. All questions were answered. Thank you for involving us in the care of your patient. Please call with any questions. History of Present Illness Consult date: 09/01/17 Requesting physician: Grace Landrum Consult reason: Elevated troponin Chief complaint: fever History of present illness: Mr. Vargas is a 52 year old male with a PMHx of HFpEF, ESRD on MWF HD, HTN, CAD presented to ED with a complaint of fever. Cardiology was consulted for elevated troponin in the setting of recent aortic valve replacement and aortic aneurysm repair in July 2017. At time of admission, patient denied any complaints of chest pain, SOB but did have nausea with one episode of vomiting. CXR shows consolidation in right middle and lower lobes with suspicion for PNA. Reports productive cough which is improving. Previous cardiac workup includes a Echo on 08/19/17 showing EF 5-55%, moderate dilated LV, Moderate diastolic dysfunction, with moderate pericardial effusion. EKG on this admission shows NSR with rate [address] depression in V4-V6 which is consistent with LVH pattern observed. Further cardiac workup performed at [place] after AVR above. During interview this morning, patient states that he is still not SOB, but has pleuritic chest pain on the right lower rib cage. He was resting comfortably in dialysis. Past Med Surg Social Fam HX - Past Medical History Medical history: CHF, dialysis, hyperlipidemia, hypertension, myocardial infarction, renal disease Additional medical history: ESRD. [id number] Psychiatric history: no psych history - Past Surgical History Surgical History: appendectomy, coronary bypass (CABG), orthopedic, other Additional surgical history: cardioversion for afib - Social History Smoking Status: Former smoker Smokeless Tobacco Status: No Alcohol use: none Drug use: none - Family History Mother Family Member Ethnicity: Non- Living Status: Hx Family Cardiac Disorders: Yes Hx Family Endocrine Disorder: Yes Father Family Member Ethnicity: Non- Living Status: Still Living Hx Family Cardiac Disorders: Yes Hx Family Endocrine Disorder: Yes Brother Family Member Ethnicity: Non- Living Status: Hx Family Cardiac Disorders: Yes Hx Family Cancer: Yes Hx Family Endocrine Disorder: Yes (diabetes) Medications and Allergies Amlodipine Besylate 10 mg PO DAILY 04/12/16 [History] cloNIDine HCl [Clonidine HCl] 0.2 mg PO DAILY PRN 04/12/16 [History] Acetaminophen [Tylenol] 1,000 mg PO Q6HR PRN 07/30/16 [History] Albuterol Sulfate [Ventolin Hfa] 2 puff IH Q4H PRN 08/18/17 [History] Amiodarone [Cordarone] 200 mg PO DAILY 08/18/17 [History] Aspirin Enteric Coated [Aspirin EC] 162 mg PO DAILY 08/18/17 [History] Atorvastatin [Lipitor] 40 mg PO HS 08/18/17 [History] Calcium Acetate 1,334 mg PO TIDWM 08/18/17 [History] Carvedilol [Coreg] 6.25 mg PO BID 08/18/17 [History] Losartan [Cozaar] 25 mg PO DAILY 08/18/17 [History] Multivitamin [One Daily Multivitamin] 1 tab PO DAILY 08/18/17 [History] Oxycodone HCl [Oxycodone HCl] 5 mg PO DAILY PRN 08/18/17 [History] Warfarin Sodium 5 mg PO DAILY 08/18/17 [History] 3 Allergy/AdvReac Type Severity Reaction Status Date / Time No Known Allergies Allergy Verified 08/18/17 21:56 All Systems Review: The remainder of the systems were reviewed and are negative - Constitutional Constitutional: fever(s), no chills, no lethargy - Cardiovascular Cardiovascular: chest pain at rest (pleuritic), no chest pain with exertion, no diaphoresis, no dyspnea at rest, no dyspnea on exertion, no palpitations - Respiratory Respiratory: cough, no dyspnea, no hemoptysis - Gastrointestinal Gastrointestinal: nausea, no abdominal pain Physical Examination Vital Signs, Last 4 Hours Temp Pulse Resp BP Pulse Ox 09/01/17 07:11 99.3 F 77 19 134/87 97 General: Conversant, No Apparent Distress HEENT: Atraumatic, Normocephaly, Mucus Membranes Moist Neck: No JVD, Normal carotid pulses Cardiac: Reg Rate and Rhythm, Normal S1 and S2, No Murmur Lungs: Other (rales at bases. ) Neuro: Alert and responsive, No focal deficits noted Abdomen: Soft, Non-Tender Skin: No rashes noted on visualized skin Musculoskeletal: No Chest Wall Tenderness Extremities: No Clubbing, No Cyanosis, No Edema, Normal Pulses Results 09/01/17 07:47 08/31/17 01:17 Lab Results 08/31/17 08/31/17 08/31/17 14:17 14:17 19:51 WBC Hgb Hct Plt Count INR 7.7 H* Troponin I 0.12 H* 0.12 H* 09/01/17 09/01/17 04:10 07:47 WBC 15.8 H Hgb 8.4 L Hct 25.9 L Plt Count 219 INR 7.4 H* Troponin I Consult Discharge Plan - Plan Referrals: NONE,PCP [Primary Care Provider] -
[2017-09-01] MEDS: amLODIPine 5 MG TABLET PO SCH (13:55)
[2017-09-01] MEDS: Benzonatate 100 MG CAPSULE PO PRN (14:05)
--- NOTE | 2017-09-01 16:03 | Nephrology Progress Note ---
Date of Encounter: 09/01/17 Time of Encounter: 16:01 - Assessment and Plan (1) ESRD (end stage renal disease) Current Visit: Yes Status: Acute HD MWF. Renal vitamins. Renal dose medications. Renal diet. Additional dialysis and ultrafiltration as needed. Patient was seen on dialysis today. (2) Anemia in chronic kidney disease Current Visit: Yes Status: Acute transfuse as needed. Qualifiers: Qualified Code(s): N18.9 - Chronic kidney disease, unspecified; D63.1 - Anemia in chronic kidney disease (3) HCAP (healthcare-associated pneumonia) Current Visit: Yes Status: Acute Per primary team. Patient is on supplemental oxygen. He states he feels better , but his CBC worsened overnight. (4) Supratherapeutic INR Current Visit: Yes Status: Chronic Primary care team. I would advise discontinuing the Coumadin. Subjective Principal diagnosis: esrd Interval history: The patient was seen and evaluated while he was on dialysis. He states he feels slightly better, but is still short of breath. Objective - Vital Signs Vital signs: Vital Signs Temp Pulse Resp BP Pulse Ox 09/01/17 15:22 98.8 F 80 17 101/66 96 09/01/17 14:08 97.7 F 18 169/109 09/01/17 13:25 178/104 09/01/17 13:10 169/102 09/01/17 12:55 164/100 09/01/17 12:40 165/91 09/01/17 12:25 154/99 09/01/17 12:10 146/96 09/01/17 11:55 153/97 09/01/17 11:40 152/100 09/01/17 11:25 151/97 09/01/17 11:10 178/104 09/01/17 10:55 166/108 09/01/17 10:40 142/95 09/01/17 10:25 141/99 09/01/17 10:10 143/92 09/01/17 09:45 98.8 F 18 149/96 09/01/17 07:11 99.3 F 77 19 134/87 97 09/01/17 03:20 99.9 F H 75 18 136/86 96 08/31/17 23:44 101.4 F H 74 19 141/94 97 08/31/17 19:35 99.9 F H 84 19 129/82 92 08/31/17 17:15 100.4 F H 96 16 158/96 94 08/31/17 16:22 102.4 F H 103 18 163/104 93 Intake and Output 09/01/17 09/01/17 09/01/17 07:59 15:59 23:59 Intake Total 100 / 100 840 / 840 Output Total 340 / 340 3600 / 3600 Balance -240 / -240 -2760 / -2760 Intake: IV Fluids 100 / 100 Zosyn 3.375 GM In 0.9 % Sodium 100 / 100 Chloride (Mini-Bag +) 100 ML @ 25 mls/hr IVPB Q12H JAN Rx#: [id number] Oral 0 / 0 240 / 240 Intake, Rinseback and Flushes 600 / 600 Output: Urine 340 / 340 0 / 0 Total Dialysis (HD) Output 3600 / 3600 Other: Meal Breakfast Percent of Meal Consumed 50% # Voids 1 Hemodialysis Net Fluid Removed 3000 (mL) - General Appearance General appearance: Present: well-developed, well-nourished EENT: Present: ATNC Neck: Present: supple Respiratory: Present: rhonchi Cardiology: Present: no edema, regular rate Gastrointestinal: Present: no tenderness Integumentary: Present: warm and dry Neurologic: Present: alert and oriented x3 Musculoskeletal: Present: no cyanosis Psychiatric: Present: mood/affect appropriate - Lab 09/01/17 07:47 08/31/17 01:17 Most recent lab results Calcium 8.3 mg/dL (8.6-10.3) L 08/31/17 01:17 Phosphorus 2.6 mg/dL (2.7-4.5) L 08/31/17 01:17 Magnesium 1.6 mg/dL (1.6-2.6) 08/31/17 01:17 Consult Discharge Plan - Plan Referrals: NONE,PCP [Primary Care Provider] -
[2017-09-01 16:53] LABS: Influenza A PCR Negative (Negative); Influenza B PCR Negative (Negative)
[2017-09-02] MEDS: Piperacillin/Tazobactam 3.375 GM in 0.9 % Sodium Chloride Mini Bag 100 ML IVPB SCH ×2 (03:42→14:49)
[2017-09-02] MEDS ORDERED: *HR* HYDROcodone/Acet 5/325 mg TABLET PO ONE (03:53)
[2017-09-02 07:39] LABS: INR 3.3; Prothrombin Time 36.4 Seconds (9.4-12.1)
[2017-09-02 08:02] LABS: Basophils % 0.2 %; Eosinophils # 0.3 K/mcL (0.0-0.6); Eosinophils % 3.4 %; Hematocrit 24.2 % (37.5-50.1); Immature Granulocytes % 0.5 % (0-4); Lymphocytes # 1.2 K/mcL (0.6-4.6); Lymphocytes % 12.5 %; Mean Corpuscular HGB Conc 33.1 g/dL (31.6-35.5); Mean Corpuscular Volume 96.8 fL (83.0-100.0); Mean Platelet Volume 11.3 fL (9.4-12.4); Monocytes # 0.6 K/mcL (0.0-1.3); Monocytes % 6.5 %; Neutrophils # 7.3 K/mcL (1.6-8.9); Platelet Count 218 K/mcL (140-400); Red Cell Distribution Width 15.6 % (11.5-14.5); Segmented Neutrophils % 76.9 %
[2017-09-02 08:11] LABS: Potassium 3.7 mEq/L (3.5-5.1)
[2017-09-02] MEDS: amLODIPine 5 MG TABLET PO SCH (08:51)
[2017-09-02] MEDS: Calcium Acetate 667 MG CAPSULE PO SCH ×3 (08:53→17:21)
[2017-09-02] MEDS: Aspirin Enteric Coated 81 MG Tablet PO SCH (08:53)
[2017-09-02] MEDS: *HR* Amiodarone 200 MG TABLET PO SCH (08:54)
[2017-09-02] MEDS: Multivit/Ca/Min/Fe/FA 1 TAB TABLET PO SCH (08:54)
--- NOTE | 2017-09-02 10:54 | Cardiology Progress Note ---
Date of Encounter: 09/02/17 Time of Encounter: 09:20 Assessment and Plan (1) Elevated troponin Current Visit: Yes Status: Chronic - Elevated troponin of 0.08/0.09/0.12/0.12 - Baseline troponin of 0.04-0.08 per chart review - In the setting of ESRD, anemia, acute respiratory failure secondary to suspected PNA - EKG reviewed and show LVH without ischemia. - Echocardiogram performed on 09/01/17 showed an ejection fraction 40% with global LV dysfunction and moderate to severe LVH. This is decreased from echocardiogram on 08/19/17 which showed ejection fraction of 5055% with moderate diastolic dysfunction - Complaint of chest pain today likely related to PNA. Doubt ACS pain. Plan - We will recommend left heart catheterization for further evaluation. Will discuss with patient. - Heparin gtt discontinued as INR was supratherapeutic at 7.4, most recently 3.3 - NPO diet. - Recommend continuing BB, ASA, ARB, coumadin, statin (2) Renal failure Current Visit: Yes Status: Chronic - Per nephro and primary team Qualifiers: Renal failure chronicity: chronic Chronic kidney disease stage: on chronic dialysis Qualified Code(s): N18.6 - End stage renal disease; Z99.2 - Dependence on renal dialysis (3) Acute respiratory failure with hypoxia Current Visit: Yes Status: Acute - secondary to PNA. Further management per primary team (4) Anemia in chronic kidney disease (CKD) Current Visit: Yes Status: Chronic - H/H of 8.0/24.2, stable. - Baseline levels - Possibly contributing to troponin Qualifiers: Chronic kidney disease stage: on chronic dialysis Qualified Code(s): N18.6 - End stage renal disease; D63.1 - Anemia in chronic kidney disease; Z99.2 - Dependence on renal dialysis (5) Heart valve replaced Current Visit: Yes Status: Chronic - Continue coumadin INR 3.3 (goal 2.5-3.5) (6) Supratherapeutic INR Current Visit: Yes Status: Resolved No signs of bleed. Resolved to goal levels - INR 3.3 Discussion w patient/family: The assessment and plan as outlined above was discussed with the patient and/or family members who expressed understanding and agreement. All questions were answered. Thank you for involving us in the care of your patient. Please call with any questions. Subjective Principal diagnosis: esrd Interval history: Patient seen and examined at bedside this morning. Overall, he states that he is feeling well with no complaints of chest pain, nausea, vomiting, diaphoresis. He states that his cough and shortness of breath have improved since admission. He states that overall he is feeling near baseline. Objective Vital Signs, Last 4 Hours Temp Pulse Resp BP Pulse Ox 09/02/17 07:06 99.0 F 68 18 131/82 96 General: Conversant, No Apparent Distress HEENT: Atraumatic, Normocephaly, Mucus Membranes Moist Neck: No JVD, Normal carotid pulses Cardiac: Reg Rate and Rhythm, Normal S1 and S2, Other (Systolic murmur present) Lungs: Normal Breath Sounds, No Wheeze, Rales, Rhonchi Neuro: Alert and responsive, No focal deficits noted Abdomen: Soft, Non-Tender Skin: No rashes noted on visualized skin Musculoskeletal: No Chest Wall Tenderness Extremities: No Clubbing, No Cyanosis, No Edema, Normal Pulses Results 09/02/17 07:41 09/02/17 07:41 Lab Results 09/02/17 09/02/17 09/02/17 06:20 07:41 07:41 WBC 9.5 Hgb 8.0 L Hct 24.2 L Plt Count 218 INR 3.3 D Sodium 131 L Potassium 3.7 Chloride 92 L Carbon Dioxide 29 BUN 50 H Creatinine 8.29 H Glucose 140 H Calcium 8.0 L Consult Discharge Plan - Plan Referrals: NONE,PCP [Primary Care Provider] -
--- NOTE | 2017-09-02 13:41 | Internal Med Progress Note ---
Date of Encounter: 09/02/17 Time of Encounter: 13:38 - Assessment and plan (1) Pneumonia Current Visit: Yes Status: Acute Assessment and plan: Improving. Patient presented as fever and found to have right middle and lower lobe consolidation. started on broader spectrum antibiotic vancomycin and Zosyn. Blood culture with no growth yet. Will try to de-escalate antibiotic in next 24 hours when patient continued to improve and no further growth in culture report. Continue Xopenex as breathing treatment. repeat chest x-ray after dialysis -stable. Qualifiers: Pneumonia type: due to unspecified organism Laterality: right Lung location: middle lobe of lung Qualified Code(s): J18.1 - Lobar pneumonia, unspecified organism (2) Renal failure Current Visit: Yes Status: Chronic Assessment and plan: ESRD. Ongoing nephrology. Had dialysis yesterday and is scheduled for tomorrow. Patient get dialysis Friday and Friday. Qualifiers: Renal failure chronicity: chronic Chronic kidney disease stage: on chronic dialysis Qualified Code(s): N18.6 - End stage renal disease; Z99.2 - Dependence on renal dialysis (3) Elevated troponin Current Visit: Yes Status: Chronic Assessment and plan: Trending up but denied chest pain. Plan for heart catheter by cardiology today. History of recent valvular replacement and aortic aneurysm repair 3-4 weeks ago at [facility]. Echo done in August 2017 with EF 50-55%. (4) Anemia in chronic kidney disease (CKD) Current Visit: Yes Status: Chronic Assessment and plan: Chronic is stable. Continue monitor Qualifiers: Chronic kidney disease stage: on chronic dialysis Qualified Code(s): N18.6 - End stage renal disease; D63.1 - Anemia in chronic kidney disease; Z99.2 - Dependence on renal dialysis (5) Heart valve replaced Current Visit: Yes Status: Chronic Assessment and plan: Recently aortic valve replacement. Supratherapeutic INR. Coumadin on hold now with close monitoring of INR. Pharmacy on board for further management of Coumadin and INR (6) Supratherapeutic INR Current Visit: Yes Status: Resolved Assessment and plan: On hold hold warfarin for now. Consulted pharmacy for further dosing and education. INR monitoring. No active bleeding and is stable hemoglobin at this time therefore continue to monitor. (7) DVT prophylaxis Current Visit: No Status: Acute Assessment and plan: The patient is on warfarin for chronic anticoagulation and his INR is high - Time Spent With Patient Total time spent is greater than 50% in coordination of care (as documented) at patient's floor/unit and/or counseling patient: 25 - 35 minutes - Subjective Interval history: Patient is feeling better and cough shortness of breath. No fever overnight. Had dialysis yesterday. Review the lab with trending down white count. Review of the sediment remediation consultant notes. Patient denies fever chills vomiting headache diarrhea but complained of tired - Constitutional Vitals: Temp Pulse Resp BP Pulse Ox 98.7 F 73 18 137/84 96 09/02/17 11:23 09/02/17 11:23 09/02/17 11:23 09/02/17 11:23 09/02/17 11:23 General appearance: Present: A&O X 3, obese Exam: General appearance: No acute distress, sleeping comfortably but arousable easily. A&O X 3 Head exam: Atraumatic Eye exam: EOMI, PERRLA ENT exam: Moist oral mucosa Neck nontender, supple Respiratory exam: Rales bilaterally with slight diminished sound due to body habitus-better sounds Cardiovascular exam: Regular rate and rhythm, no systolic murmur Abdominal exam: Soft, nontender, nondistended, positive bowel sounds Extremities exam: No calf tenderness, no pedal edema Present: Skin- warm, dry, intact Neurological exam: Alert, awake, oriented 3, CN II-XII intact, no focal deficits. No facial droop. Normal speech. Internal Medicine: Result - Labs CBC & Chem 7: 09/02/17 07:41 09/02/17 07:41 Labs: Short CBC 09/02/17 Range/Units 07:41 WBC 9.5 (4.3-11.1) K/mcL Hgb 8.0 L (12.9-16.9) g/dL Hct 24.2 L (37.5-50.1) % Plt Count 218 (140-400) K/mcL Neutrophils # 7.3 (1.6-8.9) K/mcL BMP 09/02/17 07:41 Sodium 131 L Potassium 3.7 Chloride 92 L Carbon Dioxide 29 BUN 50 H Creatinine 8.29 H Glucose 140 H Calcium 8.0 L - ABG Interpretation ABG results: PT/INR, D-dimer PT 36.4 Seconds (9.4-12.1) H D 09/02/17 06:20 - Impressions Impressions Chest X-Ray 09/01/17 14:00 IMPRESSION: Stable right basilar airspace disease. D/ / Dk Wolf MD / Dk Wolf MD Interpreting Provider: Dk Wolf MD Echocardiogram Limited Views 09/01/17 19:56 Impressions: LVEF 40%. Global LV systolic dysfunction. Moderate to severe concentric left ventricular hypertrophy. Moderately dilated left ventricle. Left Ventricular Wall Motion: Rest Echo Findings The apex, apical inferior, mid inferior, basal inferior, apical anterior, mid anterior, basal anterior, apical septal, mid inferior septal, basal inferior septal, apical lateral, mid anterior lateral, basal anterior lateral, mid anterior septal, mid inferior lateral, basal anterior septal and basal inferior lateral grimaldo were hypokinetic. Findings: Study Quality * Technically adequate exam. ECG Findings * Normal sinus rhythm. Left Ventricle * LVEF 40%. * Moderate to severe concentric left ventricular hypertrophy. * Moderately dilated left ventricle. Aorta * Normally sized aortic root. Consult Discharge Plan - Plan Referrals: NONE,PCP [Primary Care Provider] -
[2017-09-02] MEDS ORDERED: *HR* Warfarin 2.5 MG TABLET PO ONE (18:00)
--- NOTE | 2017-09-02 22:34 | Nephrology Progress Note ---
Date of Encounter: 09/02/17 Time of Encounter: 10:15 - Assessment and Plan (1) ESRD (end stage renal disease) Current Visit: Yes Status: Acute HD MWF. Renal vitamins. Renal dose medications. Renal diet. Additional dialysis and ultrafiltration as needed. . (2) Anemia in chronic kidney disease Current Visit: Yes Status: Acute transfuse as needed. Qualifiers: Qualified Code(s): N18.9 - Chronic kidney disease, unspecified; D63.1 - Anemia in chronic kidney disease (3) HCAP (healthcare-associated pneumonia) Current Visit: Yes Status: Acute Per primary team. Patient is on supplemental oxygen. (4) Supratherapeutic INR Current Visit: Yes Status: Resolved Primary care team. . Subjective Principal diagnosis: esrd Interval history: The patient was seen and evaluated He states he feels slightly better, but is still short of breath. Objective - Vital Signs Vital signs: Vital Signs Temp Pulse Resp BP Pulse Ox 09/02/17 20:09 97.7 F 71 18 145/83 91 09/02/17 16:21 98.5 F 66 20 153/92 92 09/02/17 11:23 98.7 F 73 18 137/84 96 09/02/17 07:06 99.0 F 68 18 131/82 96 09/02/17 04:11 98.6 F 78 16 141/74 92 09/02/17 00:04 98.8 F 82 16 140/88 92 Intake and Output 09/02/17 09/02/17 09/02/17 07:59 15:59 23:59 Intake Total 740 / 740 580 / 580 Balance 740 / 740 580 / 580 Intake: IV Fluids 100 / 100 100 / 100 Zosyn 3.375 GM In 0.9 % Sodium 100 / 100 100 / 100 Chloride (Mini-Bag +) 100 ML @ 25 mls/hr IVPB Q12H [facility] Rx#: [id number] Oral 640 / 640 480 / 480 Other: Meal Dinner Percent of Meal Consumed 90% Weight 104.553 kg Patient Weight 09/02/17 23:59 Weight 104.553 kg - General Appearance General appearance: Present: well-developed, well-nourished Cardiology: Present: regular rate Integumentary: Present: warm and dry Neurologic: Present: alert and oriented x3 - Lab 09/02/17 07:41 06/26/18 07:41 Most recent lab results Calcium 8.0 mg/dL (8.6-10.3) L 09/02/17 07:41 Phosphorus 2.6 mg/dL (2.7-4.5) L 08/31/17 01:17 Magnesium 1.6 mg/dL (1.6-2.6) 08/31/17 01:17 Consult Discharge Plan - Plan Referrals: NONE,PCP [Primary Care Provider] -
[2017-09-03] MEDS: Piperacillin/Tazobactam 3.375 GM in 0.9 % Sodium Chloride Mini Bag 100 ML IVPB SCH (03:16)
[2017-09-03 05:28] LABS: INR 2.2; Prothrombin Time 24.2 Seconds (9.4-12.1)
[2017-09-03 07:00] LABS: Hematocrit 24.2 % (37.5-50.1); Mean Corpuscular HGB Conc 33.1 g/dL (31.6-35.5); Mean Corpuscular Hemoglobin 31.7 pg (28.0-33.3); Mean Platelet Volume 10.9 fL (9.4-12.4); Platelet Count 221 K/mcL (140-400); Red Blood Count 2.52 M/mcL (4.19-5.50); Red Cell Distribution Width 15.5 % (11.5-14.5)
[2017-09-03] MEDS ORDERED: 0.9 % Sodium Chloride 250 ML IVC PRN (07:20)
[2017-09-03] MEDS ORDERED: 0.9 % Sodium Chloride 1,000 ML PRIME SCH (07:30)
[2017-09-03] MEDS: Calcium Acetate 667 MG CAPSULE PO SCH ×2 (07:42→13:54)
[2017-09-03] MEDS: amLODIPine 5 MG TABLET PO SCH (07:42)
[2017-09-03 08:01] LABS: Calcium 7.6 mg/dL (8.6-10.3); Potassium 3.9 mEq/L (3.5-5.1)
[2017-09-03] MEDS ORDERED: 0.9 % Sodium Chloride 1,000 ML ONE (08:02)
[2017-09-03] MEDS: Multivit/Ca/Min/Fe/FA 1 TAB TABLET PO SCH (08:59)
--- NOTE | 2017-09-03 09:45 | Cardiology Progress Note ---
Date of Encounter: 09/03/17 Time of Encounter: 09:41 Assessment and Plan (1) Elevated troponin Current Visit: Yes Status: Chronic - Elevated troponin of 0.08/0.09/0.12/0.12 - Baseline troponin of 0.04-0.08 per chart review - In the setting of ESRD, anemia, acute respiratory failure secondary to suspected PNA - EKG reviewed and show LVH without ischemia. - Echocardiogram performed on 09/01/17 showed an ejection fraction 40% with global LV dysfunction and moderate to severe LVH. This is decreased from echocardiogram on 08/19/17 which showed ejection fraction of 50-55% with moderate diastolic dysfunction - Records from [facility] reviewed following Aortic valve replacement and C Plan - We will recommend left heart catheterization however he is stable to follow for outpatient for LHC. Patient is agreeable to this. - Important to continue ASA. - Recommend continuing BB, ASA, ARB, coumadin, statin - INR remains elevated at 2.2. Continue as outpatient for mechanical valve. - Stable for discharge with close follow up from cardiology standpoint. (2) Renal failure Current Visit: Yes Status: Chronic - Per nephro and primary team Qualifiers: Renal failure chronicity: chronic Chronic kidney disease stage: on chronic dialysis Qualified Code(s): N18.6 - End stage renal disease; Z99.2 - Dependence on renal dialysis (3) Anemia in chronic kidney disease (CKD) Current Visit: Yes Status: Chronic - H/H of 8.0/24.2, stable. - Baseline levels - Possibly contributing to troponin Qualifiers: Chronic kidney disease stage: on chronic dialysis Qualified Code(s): N18.6 - End stage renal disease; D63.1 - Anemia in chronic kidney disease; Z99.2 - Dependence on renal dialysis (4) Heart valve replaced Current Visit: Yes Status: Chronic - Continue coumadin INR 2.2 (goal 2.5-3.5) (5) Supratherapeutic INR Current Visit: Yes Status: Resolved No signs of bleed. - INR 2.2 Discussion w patient/family: The assessment and plan as outlined above was discussed with the patient and/or family members who expressed understanding and agreement. All questions were answered. Thank you for involving us in the care of your patient. Please call with any questions. Subjective Principal diagnosis: esrd Interval history: Patient seen and examined at bedside this morning. Overall, he states that he is feeling well with no complaints of chest pain, nausea, vomiting, diaphoresis. He states that his cough and shortness of breath have improved since admission. He states that overall he is feeling near baseline. Objective Vital Signs, Last 4 Hours Temp Pulse Resp BP Pulse Ox 09/03/17 07:10 98 F 72 18 189/119 94 General: Conversant, No Apparent Distress HEENT: Atraumatic, Normocephaly, Mucus Membranes Moist Neck: No JVD, Normal carotid pulses Cardiac: Reg Rate and Rhythm, Normal S1 and S2, Other (systolic murmur) Lungs: Normal Breath Sounds, No Wheeze, Rales, Rhonchi Neuro: Alert and responsive, No focal deficits noted Abdomen: Soft, Non-Tender Skin: No rashes noted on visualized skin Musculoskeletal: No Chest Wall Tenderness Extremities: No Clubbing, No Cyanosis, No Edema, Normal Pulses Results 09/03/17 05:03 09/03/17 05:03 Lab Results 09/03/17 09/03/17 09/03/17 05:03 05:03 05:03 WBC 6.5 Hgb 8.0 L Hct 24.2 L Plt Count 221 INR 2.2 Sodium 132 L Potassium 3.9 Chloride 93 L Carbon Dioxide 24 BUN 62 H Creatinine 9.48 H Glucose 98 Calcium 7.6 L Consult Discharge Plan - Plan Referrals: NONE,PCP [Primary Care Provider] -
--- NOTE | 2017-09-03 10:06 | Nephrology Progress Note ---
Date of Encounter: 09/05/17 Time of Encounter: 10:06 - Assessment and Plan (1) ESRD (end stage renal disease) Status: Chronic HD MWF. Renal vitamins. Renal dose medications. Renal diet. Additional dialysis and ultrafiltration as needed. .Patient was seen on dialysis. (2) Anemia in chronic kidney disease Status: Chronic transfuse as needed. (3) HCAP (healthcare-associated pneumonia) Status: Acute Per primary team. Subjective Principal diagnosis: esrd Interval history: The patient was seen and evaluated on dialysis. He denies dyspnea. Objective - Vital Signs Vital signs: Vital Signs Temp Pulse Resp BP Pulse Ox 09/03/17 07:10 98 F 72 18 189/119 94 09/03/17 03:10 98.0 F 72 18 166/95 93 09/02/17 23:11 97.7 F 67 18 169/91 91 09/02/17 20:09 97.7 F 71 18 145/83 91 09/02/17 16:21 98.5 F 66 20 153/92 92 09/02/17 11:23 98.7 F 73 18 137/84 96 Intake and Output 09/02/17 09/03/17 09/03/17 23:59 07:59 15:59 Intake Total 580 / 580 0 / 0 Balance 580 / 580 0 / 0 Intake: IV Fluids 100 / 100 Zosyn 3.375 GM In 0.9 % Sodium 100 / 100 Chloride (Mini-Bag +) 100 ML @ 25 mls/hr IVPB Q12H [facility] Rx#: [id number] Oral 480 / 480 0 / 0 Other: Meal Dinner npo Percent of Meal Consumed 90% 0% Weight 105.46 kg - General Appearance General appearance: Present: well-developed, well-nourished EENT: Present: ATNC Cardiology: Present: regular rate Integumentary: Present: warm and dry Neurologic: Present: alert and oriented x3 Psychiatric: Present: mood/affect appropriate - Lab 09/03/17 05:03 09/03/17 05:03 Most recent lab results Calcium 7.6 mg/dL (8.6-10.3) L 09/03/17 05:03 Phosphorus 2.6 mg/dL (2.7-4.5) L 08/31/17 01:17 Magnesium 1.6 mg/dL (1.6-2.6) 08/31/17 01:17 Consult Discharge Plan - Plan Instructions: Amoxicillin (By mouth), Levofloxacin (By mouth) Referrals: NONE,PCP [Primary Care Provider] - 09/09/17 10:00 am (Please follow up as schedule with Dr. Messina [facility]) Prescriptions: Amoxicillin/Clavulanate [Augmentin] 875 mg PO BIDWM #10 tablet levoFLOXacin [Levaquin] 500 mg PO Q48H #4 tablet
--- NOTE | 2017-09-03 13:27 | Discharge Summary ---
- NOTES TO OUTPATIENT PROVIDER Notes to Outpatient Provider: Patient was admitted for healthcare associated pneumonia and supratherapeutic. He also had elevated troponins which was evaluated by cardiology, who recommended repeat left heart catheterization as outpatient. The patient is discharged on Levaquin renally dosed as well as Augmentin for 5 more days. Follow-up with primary care physician, cardiology and cardiothoracic surgery. Orders not resulted at time of discharge: Pending orders 09/04/17 04:00 PT/INR [Prothrombin Time INR] [COAG] AM 0400 09/05/17 04:00 PT/INR [Prothrombin Time INR] [COAG] AM 0400 09/06/17 04:00 PT/INR [Prothrombin Time INR] [COAG] AM 0400 Date of Encounter: 09/03/17 Time of Encounter: 13:23 - Discharge Diagnosis (1) Elevated troponin Priority: Primary Status: Acute (2) Anemia in chronic kidney disease (CKD) Priority: Secondary Status: Chronic Qualifiers: Chronic kidney disease stage: on chronic dialysis Qualified Code(s): N18.6 - End stage renal disease; D63.1 - Anemia in chronic kidney disease; Z99.2 - Dependence on renal dialysis (3) Heart valve replaced Priority: Primary Status: Chronic (4) Supratherapeutic INR Priority: Primary Status: Resolved (5) HCAP (healthcare-associated pneumonia) Priority: Primary Status: Acute (6) Anemia in chronic kidney disease Priority: Secondary Status: Chronic Qualifiers: Qualified Code(s): N18.9 - Chronic kidney disease, unspecified; D63.1 - Anemia in chronic kidney disease (7) ESRD (end stage renal disease) Priority: Secondary Status: Chronic (8) History of CHF (congestive heart failure) Priority: Secondary Status: Chronic Hospital course: Mr. Vargas is a 52 year old male with history of end-stage renal disease on hemodialysis, chronic dizziness, hypertension, history of CHF, who presented to the hospital with fever and found to have right middle and lower lobe consolidation. He was also found to have supratherapeutic INR upon presentation with no active bleeding and stable hemoglobin. Incidental finding of trending elevated troponins, with no chest pain. Patient was started on broad-spectrum antibiotics with vancomycin and Zosyn. Blood culture with no growth, the patient was treated with DuoNeb's, and did improve with the management. Due to elevated troponins and history of recent valvular replacement and aortic aneurysm repair 3-4 weeks prior to presentation , cardiology was consulted and recommended to continue current cardiac medications and for left heart catheterization as outpatient non-emergently. There was no EKG changes of ischemia. Patient is seen and evaluated at the bedside this morning during hemodialysis, he has no new complaints, he is oxygenating on room air, is not tachypneic or dyspneic. Examination is unremarkable. He does have an appointment with thoracic surgery tomorrow and has requested to be discharged home. Patient is discharged home in stable clinical condition with antibiotics. INR is therapeutic today at 2.2, continue home dose of Coumadin. Plan of care was discussed with the patient who verbalized understanding Discharge discussed with: patient, nurse, case management, building performance consultant - Time Spent with Patient Total time spent providing and/or coordinating discharge services: Greater than 30 minutes - Discharge Medications Prescriptions: Amoxicillin/Clavulanate [Augmentin] 875 mg PO BIDWM #10 tablet levoFLOXacin [Levaquin] 500 mg PO Q48H #4 tablet Home Medications: Amlodipine Besylate 10 mg PO DAILY 04/12/16 [History] cloNIDine HCl [Clonidine HCl] 0.2 mg PO DAILY PRN 04/12/16 [History] Acetaminophen [Tylenol] 1,000 mg PO Q6HR PRN 07/30/16 [History] Albuterol Sulfate [Ventolin Hfa] 2 puff IH Q4H PRN 08/18/17 [History] Amiodarone [Cordarone] 200 mg PO DAILY 08/18/17 [History] Aspirin Enteric Coated [Aspirin EC] 162 mg PO DAILY 08/18/17 [History] Atorvastatin [Lipitor] 40 mg PO HS 08/18/17 [History] Calcium Acetate 1,334 mg PO TIDWM 08/18/17 [History] Carvedilol [Coreg] 6.25 mg PO BID 08/18/17 [History] Losartan [Cozaar] 25 mg PO DAILY 08/18/17 [History] Multivitamin [One Daily Multivitamin] 1 tab PO DAILY 08/18/17 [History] Oxycodone HCl 5 mg PO DAILY PRN 08/18/17 [History] Warfarin Sodium 5 mg PO DAILY 08/18/17 [History] Amoxicillin/Clavulanate [Augmentin] 875 mg PO BIDWM #10 tablet 09/03/17 [Rx] Benzonatate [Tessalon] 100 mg PO TID PRN capsule 09/03/17 [Rx] levoFLOXacin [Levaquin] 500 mg PO Q48H #4 tablet 09/03/17 [Rx] Allergies/Adverse Reactions: 3 Allergy/AdvReac Type Severity Reaction Status Date / Time No Known Allergies Allergy Verified 08/18/17 21:56 Date of admission: 08/31/17 03:33 Primary care physician: PCP NONE Consults: 08/31/17 04:47 Consult for Pharmacy Education [CONS] Routine Reason for Consult: warferin dosing Time Notified: 04:47 Call Completed: No 08/31/17 07:01 Consult to Nephrology [CONS] Routine Consulting Provider: Kid[facility] Bita/ABIMAEL/ELIGIO/DARCIE Reason for Consult: Dialysis Call Completed: No 08/31/17 10:48 Consult to Cardiology [CONS] Stat Comment: Consulting Provider: Cardiology Bita Reason for Consult: Trending up troponin Call Completed: Yes 09/01/17 08:00 Consult to Dialysis [CONS] ONCE 09/03/17 07:30 Consult to Dialysis [CONS] ONCE Discharging clinician: Ryder Johnson Anticipated date of discharge: 09/03/17 - Constitutional Vitals: Temp Pulse Resp BP Pulse Ox 97.2 F L 72 17 155/119 94 09/03/17 09:45 09/03/17 07:10 09/03/17 09:45 09/03/17 13:00 09/03/17 07:10 General appearance: NAD, A&O X 3 Head exam: Atraumatic Eye exam: EOMI, PERRLA ENT exam: Moist oral mucosa Neck nontender, supple Respiratory exam: CTAB Cardiovascular exam: Regular rate and rhythm, no systolic murmur Abdominal exam: Soft, nontender, nondistended, positive bowel sounds Extremities exam: No calf tenderness, no pedal edema Present: Skin- warm, dry, intact Neurological exam: Alert, awake, oriented 3, CN II-XII intact, no focal deficits. No facial droop. Normal speech. Normal gait. General appearance: Present: A&O X 3, obese - Patient Status Disposition: Home, Self-Care Condition: Good Functional capacity at discharge: independent ambulation Overall status at discharge: patient is progressing back to baseline - Discharge Instructions Follow Up With: NONE,PCP [Primary Care Provider] - - Diet and Activity Activity: resume usual activities as tolerated Diet: low fat, low cholesterol, low salt diet
[2017-09-03] MEDS: Aspirin Enteric Coated 81 MG Tablet PO SCH (13:59)
[2017-09-03] MEDS: *HR* Amiodarone 200 MG TABLET PO SCH (13:59)
[2017-09-03] MEDS ORDERED: Vancomycin 500 MG in 0.9 % Sodium Chloride Mini Bag 100 ML IVPB ONE (14:00)
[2017-09-03 14:27] VITALS: BP 166/88
[2017-09-03] MEDS ORDERED: Aminoglycoside Consult 1 EACH MC ONE (15:09)
[2017-09-03] MEDS ORDERED: *HR* Warfarin 5 MG TABLET PO ONE (18:00)
== END 2017-09-03 15:10 | disposition home or self-care (01) | DRG 193 ==
LOC: EMEROO 00:45 → 2ANU 00:45 → SUATTDRO 03:33 → 2ANU 04:24
PROVIDERS: ADMIT Internal Medicine Nephrology; ATTEND Internal Medicine

== ENCOUNTER 2017-10-31 07:02 | Inpatient (IN) ==
--- NOTE | 2017-10-31 07:22 | Emergency Department Note ---
Disposition Clinical Impression: Atrial fibrillation with RVR CHF exacerbation Qualifiers: Heart failure type: unspecified Qualified Code(s): I50.9 - Heart failure, unspecified Fluid overload Qualifiers: Hypervolemia type: unspecified Qualified Code(s): E87.70 - Fluid overload, unspecified Disposition: Admitted As Inpatient Condition: Fair Forms: ED Satisfaction Letter SOB HPI - General Chief Complaint: ED Shortness of Breath/Dyspnea Stated Complaint: AFIB/MARIA INES Time Seen by Provider: 10/31/17 07:05 Source: patient, EMS Limitations: no limitations Nursing Notes Reviewed: Yes Vital Signs Reviewed: Yes - History of Present Illness Patient presents today via EMS for evaluation of shortness of breath. Shortness of breath started Friday after dialysis. Patient states that he slept all day yesterday. Did not take any of his home medications. Shortness of breath worse today. Unable to go to dialysis. Denies chest pain. Heart rate in the 170s. History of A. fib on anticoagulation. Patient requiring 4 L nasal cannula. Breath sounds relatively clear. No significant peripheral edema. Rate control and further investigation ordered. Motion Study Analyst is Dr. Ramirez - Related Data Home Medications Medication Instructions Recorded Confirmed cloNIDine HCl [Clonidine HCl] 0.2 mg PO TID PRN 04/12/16 10/31/17 Acetaminophen [Tylenol] 1,000 mg PO Q6HR PRN 07/30/16 10/31/17 Albuterol Sulfate [Ventolin Hfa] 2 puff IH Q4H PRN 08/18/17 10/31/17 Aspirin Enteric Coated [Aspirin EC] 162 mg PO DAILY 08/18/17 10/31/17 Atorvastatin [Lipitor] 40 mg PO HS 08/18/17 10/31/17 Calcium Acetate 1,334 mg PO TIDWM 08/18/17 10/31/17 Carvedilol [Coreg] 6.25 mg PO BID 08/18/17 10/31/17 Losartan [Cozaar] 25 mg PO DAILY 08/18/17 10/31/17 Multivitamin [One Daily 1 tab PO DAILY 08/18/17 10/31/17 Multivitamin] Furosemide [Lasix] 40 mg PO DAILY 10/31/17 10/31/17 Allergies Allergy/AdvReac Type Severity Reaction Status Date / Time No Known Allergies Allergy Verified 10/31/17 08:50 Review of Systems: CONSTITUTIONAL: Weakness and fatigue HEENT: Eyes: No visual changes. Ears, Nose, Throat: No hearing loss, difficulty talking or unable to swallow. SKIN: No rash or itching. CARDIOVASCULAR: No chest pain, chest pressure or chest discomfort. No palpitations or edema. RESPIRATORY: shortness of breath GASTROINTESTINAL: No anorexia, nausea, vomiting or diarrhea. No abdominal pain or blood. GENITOURINARY: No burning on urination or hematuria. NEUROLOGICAL: No headache, dizziness, syncope, paralysis, ataxia, numbness or tingling in the extremities. No change in bowel or bladder control. MUSCULOSKELETAL: No muscle pain, back pain, joint pain or stiffness. Review of Systems: As Per HPI Past Medical History - Past Medical History Medical history: Reports: CHF, dialysis, hyperlipidemia, hypertension, myocardial infarction, renal disease Surgical history: Reports: appendectomy, orthopedic, other Psychiatric history: Reports: no psych history - Social History Smoking Status: Former smoker Smokeless Tobacco Status: No Alcohol use: Reports: none Drug use: Reports: none Physical Exam General: To Neck in moderate respiratory distress Head: Normocephalic Atraumatic Eyes: PERRL, EOMI ENT: Airway patent, no stridor Neck: supple, no meningismus Chest: Lungs clear to auscultation bilateral Cardiac: Irregular and tachycardic Abdomen: soft, nontender, nondistended; no guarding, rebound, or tenderness to percussion Musculoskeletal: Calves symmetric, nontender, no significant edema Extremity: Fistula left forearm. Bruit and thrill present Skin: No rash, normal skin tone Neuro: Alert and Oriented to person, place, and time; No focal deficit - General Limitations: no limitations General appearance: alert, in distress Course Course Narrative: Patient presents with mixed picture of dyspnea. Upon further laboratory investigation. Concern for CHF and elevated troponin. Patient does use inhalers at home but has not had official diagnosis of COPD. Overall treatments that improved patient included Cardizem medication and rate control. Patient did require 2 boluses of Cardizem as well as Cardizem drip. Patient' s pressure then started to spike after Cardizem was given and was placed on a nitro drip. Patient's elevated troponin in regards to previous heart attacks not involving chest pain and atypical type symptoms he has been placed on a heparin drip. Call was placed to the hospitalist who requested a discussion with ICU plaster applicator. Business Reporter evaluated at bedside and said appropriate for [address] [place] [address]. Ultimately the patient needs dialysis to help improve his overall hypoxia which will then therefore improve his A. fib RVR. Call has been placed to both cardiology and nephrology. Dialysis in the emergency department while waiting in [address] [place] [address] bed was discussed with the nephrology team. They are looking into this. Vital Signs Temperature 98.4 F 10/31/17 07:02 Pulse Rate 175 10/31/17 07:02 Respiratory Rate 30 10/31/17 07:02 Blood Pressure 136/112 10/31/17 07:02 O2 Sat by Pulse Oximetry 100 10/31/17 07:02 Temperature 98.4 F 10/31/17 07:02 Pulse Rate 131 10/31/17 10:04 Respiratory Rate 32 10/31/17 10:04 Blood Pressure 180/147 10/31/17 10:04 O2 Sat by Pulse Oximetry 100 10/31/17 10:04 Oxygen Delivery Oxygen Delivery Bipap Shortness of Breath/Dyspnea - Medical Records Medical records reviewed: Yes I reviewed the patient's medical records. - Lab Data Lab results reviewed: Yes I reviewed the patient's lab results. Result diagrams: 10/31/17 07:08 10/31/17 07:08 Lab Results 10/31/17 10/31/17 10/31/17 Range/Units 07:08 07:08 07:08 WBC 8.6 (4.3-11.1) K/mcL RBC 2.71 L (4.19-5.50) M/mcL Hgb 9.1 L (12.9-16.9) g/dL Hct 26.9 L (37.5-50.1) % MCV 99.3 (83.0-100.0) fL MCH 33.6 H (28.0-33.3) pg MCHC 33.8 (31.6-35.5) g/dL RDW 15.2 H (11.5-14.5) % Plt Count 157 (140-400) K/mcL MPV 11.0 (9.4-12.4) fL Immature Gran % 0.3 (0-4) % Seg Neutrophils % 87.8 % Lymphocytes % 6.4 % Monocytes % 4.8 % Eosinophils % 0.1 % Basophils % 0.6 % Neutrophils # 7.6 (1.6-8.9) K/mcL Lymphocytes # 0.6 (0.6-4.6) K/mcL Monocytes # 0.4 (0.0-1.3) K/mcL Eosinophils # 0.0 (0.0-0.6) K/mcL Basophils # 0.1 (0.0-0.2) K/mcL PT (9.4-12.1) Seconds INR Heparin Anti-Xa, Unfract (0.30-0.70) IU/mL VBG pH (7.32-7.42) pH Units VBG pCO2 (41-51) mmHg VBG pO2 (25-50) mmHg VBG HCO3 (21-27) mEq/L Sodium 138 (136-145) mEq/L Potassium 4.6 (3.5-5.1) mEq/L Chloride 99 (98-107) mEq/L Carbon Dioxide 20 L (23-29) mEq/L BUN 45 H (6-20) mg/dL Creatinine 9.12 H (0.70-1.30) mg/dL Est GFR ( Amer) 7 L (> 60) Est GFR (Non-Af Amer) 6 L (> 60) BUN/Creatinine Ratio 5 L (6-26) Glucose 114 H (70-105) mg/dL Calculated Osmolality 298 (280-300) Lactic Acid (0.5-2.2) mmol/L Calcium 9.2 (8.6-10.3) mg/dL Troponin I 0.11 H* (< 0.04) ng/mL B-Natriuretic Peptide > 5000 H (Less than 100) pg/mL 10/31/17 10/31/17 10/31/17 Range/Units 07:08 07:48 07:59 WBC (4.3-11.1) K/mcL RBC (4.19-5.50) M/mcL Hgb (12.9-16.9) g/dL Hct (37.5-50.1) % MCV (83.0-100.0) fL MCH (28.0-33.3) pg MCHC (31.6-35.5) g/dL RDW (11.5-14.5) % Plt Count (140-400) K/mcL MPV (9.4-12.4) fL Immature Gran % (0-4) % Seg Neutrophils % % Lymphocytes % % Monocytes % % Eosinophils % % Basophils % % Neutrophils # (1.6-8.9) K/mcL Lymphocytes # (0.6-4.6) K/mcL Monocytes # (0.0-1.3) K/mcL Eosinophils # (0.0-0.6) K/mcL Basophils # (0.0-0.2) K/mcL PT 13.1 H (9.4-12.1) Seconds INR 1.2 Heparin Anti-Xa, Unfract (0.30-0.70) IU/mL VBG pH 7.48 H (7.32-7.42) pH Units VBG pCO2 28 L (41-51) mmHg VBG pO2 77 H (25-50) mmHg VBG HCO3 21 (21-27) mEq/L Sodium (136-145) mEq/L Potassium (3.5-5.1) mEq/L Chloride (98-107) mEq/L Carbon Dioxide (23-29) mEq/L BUN (6-20) mg/dL Creatinine (0.70-1.30) mg/dL Est GFR ( Amer) (> 60) Est GFR (Non-Af Amer) (> 60) BUN/Creatinine Ratio (6-26) Glucose (70-105) mg/dL Calculated Osmolality (280-300) Lactic Acid 1.7 (0.5-2.2) mmol/L Calcium (8.6-10.3) mg/dL Troponin I (< 0.04) ng/mL B-Natriuretic Peptide (Less than 100) pg/mL 10/31/17 10/31/17 Range/Units 08:33 08:33 WBC (4.3-11.1) K/mcL RBC (4.19-5.50) M/mcL Hgb (12.9-16.9) g/dL Hct (37.5-50.1) % MCV (83.0-100.0) fL MCH (28.0-33.3) pg MCHC (31.6-35.5) g/dL RDW (11.5-14.5) % Plt Count (140-400) K/mcL MPV (9.4-12.4) fL Immature Gran % (0-4) % Seg Neutrophils % % Lymphocytes % % Monocytes % % Eosinophils % % Basophils % % Neutrophils # (1.6-8.9) K/mcL Lymphocytes # (0.6-4.6) K/mcL Monocytes # (0.0-1.3) K/mcL Eosinophils # (0.0-0.6) K/mcL Basophils # (0.0-0.2) K/mcL PT (9.4-12.1) Seconds INR Heparin Anti-Xa, Unfract 0.04 L (0.30-0.70) IU/mL VBG pH (7.32-7.42) pH Units VBG pCO2 (41-51) mmHg VBG pO2 (25-50) mmHg VBG HCO3 (21-27) mEq/L Sodium (136-145) mEq/L Potassium (3.5-5.1) mEq/L Chloride (98-107) mEq/L Carbon Dioxide (23-29) mEq/L BUN (6-20) mg/dL Creatinine (0.70-1.30) mg/dL Est GFR ( Amer) (> 60) Est GFR (Non-Af Amer) (> 60) BUN/Creatinine Ratio (6-26) Glucose (70-105) mg/dL Calculated Osmolality (280-300) Lactic Acid 1.6 (0.5-2.2) mmol/L Calcium (8.6-10.3) mg/dL Troponin I (< 0.04) ng/mL B-Natriuretic Peptide (Less than 100) pg/mL - Radiology Data Radiology results reviewed: Yes I reviewed the patient's radiology results. - EKG Data EKG attestation: Yes I reviewed and interpreted this EKG. EKG results narrative: EKG shows atrial fibrillation with a ventricular rate of 82. QRS 109. QTC 470. Patient has depressions throughout the lateral leads. Nonspecific T-wave changes throughout. No previous EKG for comparison.
[2017-10-31 07:32] LABS: INR 1.2; Prothrombin Time 13.1 Seconds (9.4-12.1)
[2017-10-31 07:33] LABS: Basophils # 0.1 K/mcL (0.0-0.2); Basophils % 0.6 %; Eosinophils % 0.1 %; Hematocrit 26.9 % (37.5-50.1); Hemoglobin 9.1 g/dL (12.9-16.9); Immature Granulocytes % 0.3 % (0-4); Lymphocytes # 0.6 K/mcL (0.6-4.6); Lymphocytes % 6.4 %; Mean Corpuscular HGB Conc 33.8 g/dL (31.6-35.5); Mean Corpuscular Hemoglobin 33.6 pg (28.0-33.3); Mean Corpuscular Volume 99.3 fL (83.0-100.0); Monocytes # 0.4 K/mcL (0.0-1.3); Monocytes % 4.8 %; Neutrophils # 7.6 K/mcL (1.6-8.9); Platelet Count 157 K/mcL (140-400); Red Blood Count 2.71 M/mcL (4.19-5.50); Red Cell Distribution Width 15.2 % (11.5-14.5); Segmented Neutrophils % 87.8 %
[2017-10-31 07:52] LABS: Calcium 9.2 mg/dL (8.6-10.3); Potassium 4.6 mEq/L (3.5-5.1)
[2017-10-31 07:54] LABS: VBG HCO3 21 mEq/L (21-27); VBG PCO2 28 mmHg (41-51); VBG PH 7.48 pH Units (7.32-7.42); VBG PO2 77 mmHg (25-50)
[2017-10-31 07:59] LABS: Troponin I 0.11 ng/mL (< 0.04)
[2017-10-31] MEDS ORDERED: Aspirin 325 MG TABLET PO ONE (08:06)
[2017-10-31] MEDS ORDERED: *HR* Heparin 5,000 UNIT/ML VIAL IVP PRN (08:06)
[2017-10-31] MEDS ORDERED: *HR* Heparin 5,000 UNIT/ML VIAL IVP ONE (08:06)
[2017-10-31] MEDS ORDERED: Ipratropium/Albuterol Neb 3 ML IH ONE ×2 (08:07→08:08)
[2017-10-31] MEDS: Nitroglycerin 0.4 MG TAB.SUBL SL PRN ×2 (08:48→08:53)
[2017-10-31] MEDS: Heparin 25,000 UNIT/500 ML D5W 25,000 UNIT/500 ML BAG IVC SCH (09:23)
[2017-10-31] MEDS: Nitroglycerin 25 MG/250 ML INFUS..BTL IVC SCH ×2 (09:36→18:15)
--- NOTE | 2017-10-31 11:23 | Nephrology Consult Note ---
Date of Encounter: 10/31/17 Time of Encounter: 11:19 Assessment and Plan (1) ESRD (end stage renal disease) on dialysis Current Visit: No Status: Chronic ESRD MWF left forearm fistula Plan for dialysis today. Renal diet Renal dose medications. (2) HTN (hypertension) Current Visit: No Status: Chronic Accelerated hypertension secondary respiratory status and he has not had his antihypertensive medications. Spoke with Dr. Champagne (hospitalist) who will give a dose of clonidine for blood pressure control. Qualifiers: Hypertension type: essential hypertension Qualified Code(s): I10 - Essential (primary) hypertension (3) Atrial fibrillation with RVR Current Visit: Yes Status: Acute Patient on cardizem for rate control. titration per primary team. (4) CHF exacerbation Current Visit: Yes Status: Acute Likely related to afib with rvr. Patient with troponin elevation that is likely demand ischemia, but agree with treating for coronary ischemia until cardiology evaluates. Qualifiers: Heart failure type: unspecified Qualified Code(s): I50.9 - Heart failure, unspecified (5) Anemia Current Visit: No Status: Acute Monitor. No active bleeding. Qualifiers: Anemia type: due to chronic kidney disease Chronic kidney disease stage: on chronic dialysis Qualified Code(s): N18.6 - End stage renal disease; D63.1 - Anemia in chronic kidney disease; Z99.2 - Dependence on renal dialysis History of Present Illness - Reason for Consult Consult date: 10/31/17 end stage renal disease - Chief Complaint ESRD - History of Present Illness Mr. Guerra is a 52 yo man with a history of ESRD who presents secondary to dyspnea. He receives dialysis MWF at [facility] via a left forearm fistula under the direction of [facility]. He presents with worsening dyspnea since Friday. He denies chest pain. A complete review of systems is limited by his dyspnea and the presence of his bipap mask. His family member is at his bedside. Nephrology was consulted urgently for dialysis to assist with his respiratory failure. Past Med Surg Social Fam HX - Past Medical History Medical history: CHF, dialysis, hyperlipidemia, hypertension, myocardial infarction, renal disease Additional medical history: ESRD. [id number] Psychiatric history: no psych history - Past Surgical History Surgical History: appendectomy, orthopedic, other Additional surgical history: cardioversion for afib - Social History Smoking Status: Former smoker Smokeless Tobacco Status: No Alcohol use: none Drug use: none - Family History Mother Family Member Ethnicity: Non- Living Status: Hx Family Cardiac Disorders: Yes Hx Family Endocrine Disorder: Yes (diabetes) Father Family Member Ethnicity: Non- Living Status: Still Living Hx Family Cardiac Disorders: Yes Hx Family Endocrine Disorder: Yes Brother Family Member Ethnicity: Non- Living Status: Hx Family Cardiac Disorders: Yes Hx Family Cancer: Yes Hx Family Endocrine Disorder: Yes (diabetes) Medications and Allergies cloNIDine HCl [Clonidine HCl] 0.2 mg PO TID PRN 04/12/16 [History] Acetaminophen [Tylenol] 1,000 mg PO Q6HR PRN 07/30/16 [History] Albuterol Sulfate [Ventolin Hfa] 2 puff IH Q4H PRN 08/18/17 [History] Aspirin Enteric Coated [Aspirin EC] 162 mg PO DAILY 08/18/17 [History] Atorvastatin [Lipitor] 40 mg PO HS 08/18/17 [History] Calcium Acetate 1,334 mg PO TIDWM 08/18/17 [History] Carvedilol [Coreg] 6.25 mg PO BID 08/18/17 [History] Losartan [Cozaar] 25 mg PO DAILY 08/18/17 [History] Multivitamin [One Daily Multivitamin] 1 tab PO DAILY 08/18/17 [History] Furosemide [Lasix] 40 mg PO DAILY 10/31/17 [History] 3 Allergy/AdvReac Type Severity Reaction Status Date / Time No Known Allergies Allergy Verified 10/31/17 08:50 Review of Systems ROS unobtainable: other All Systems: reviewed and no additional remarkable complaints except as stated ( as per HPI.) Exam - Vital Signs Vital signs: Initial Vital Signs Temp Pulse Resp BP Pulse Ox 98.4 F 175 30 136/112 100 10/31/17 07:02 10/31/17 07:02 10/31/17 07:02 10/31/17 07:02 10/31/17 07:02 Vital Signs - Last 8 Hours Resp BP 10/31/17 10:42 28 189/134 - General Appearance General appearance: well-developed, well-nourished, moderate distress Neck: supple Respiratory: course breath sounds, rhonchi Additional Comments: poor air movement. Cardiology: no edema, irregular rhythm Additional Comments: tachycardic - Dialysis Access Dialysis Vascular Access: Arteriovenous Fistula thrill: Yes bruit: Yes Gastrointestinal: normoactive bowel sounds, no tenderness Integumentary: warm and dry Neurologic: alert and oriented x3 Musculoskeletal: no cyanosis Psychiatric: agitated Results - Lab Results 10/31/17 07:08 10/31/17 07:08 Most recent lab results Calcium 9.2 mg/dL (8.6-10.3) 10/31/17 07:08 Consult Discharge Plan - Plan Referrals: NONE,PCP [Primary Care Provider] -
[2017-10-31] MEDS ORDERED: Naloxone 0.4 MG/ML INJ IVP PRN (11:43)
[2017-10-31] MEDS ORDERED: 0.9 % Sodium Chloride 250 ML IVC PRN (11:47)
[2017-10-31] MEDS ORDERED: 0.9 % Sodium Chloride 1,000 ML PRIME SCH (12:00)
--- NOTE | 2017-10-31 12:08 | Internal Med History&Physical ---
Date of Encounter: 10/31/17 Time of Encounter: 11:30 Internal Medicine - H&P: HPI Chief complaint: Shortness of breath Admitted From: Emergency Dept Plans for Post Hospital Care: Home History of present illness: Mr. Vargas is a 52 year old male patient with history of diabetes, atrial fibrillation, hypertension, end-stage renal disease on hemodialysis, CHF, hypertension who came to the ER with complaints of worsening shortness of breath. He was unable to go for dialysis today because of his symptoms. He was last dialyzed on Friday. He denies any chest pain at this time. He does have some cough. No nausea or vomiting. He does have some palpitations. In the ER, patient was found to be tachycardic and in A. fib with RVR and he was having severely elevated blood pressure. As such she was placed on Cardizem drip and nitroglycerin drip. Nephrology has been consulted and patient was also hypoxic. He has been placed on BiPAP currently. He does not use oxygen at home.. Past Med Surg Social Fam HX - Past Medical History Attestation: Yes The following information was validated with the patient. Source: old records reviewed Medical history: CHF, dialysis, hyperlipidemia, hypertension, myocardial infarction, renal disease Additional medical history: ESRD. [id number] Psychiatric history: no psych history - Past Surgical History Surgical History: appendectomy, orthopedic, other Additional surgical history: cardioversion for afib - Social History Smoking Status: Former smoker Smokeless Tobacco Status: No Alcohol use: none Drug use: none - Family History Mother Family Member Ethnicity: Non- Living Status: Hx Family Cardiac Disorders: Yes Hx Family Respiratory Disorders: No Hx Family Cancer: No Hx Family GI Disorders: No Hx Family Genitourinary Disorders: No Hx Family Endocrine Disorder: Yes (diabetes) Hx Family Musculoskeletal Disorders: No Hx Family Neuromuscular Disorders: No Hx Family Neurologic Disorders: No Hx Family HEENT Disorders: No Hx Family Autoimmune Disorders: No Hx Family Reproductive Disorders: No Hx Family Psychosocial Disorders: No Hx Family Medical Disorders: No Father Family Member Ethnicity: Non- Living Status: Still Living Hx Family Cardiac Disorders: Yes Hx Family Endocrine Disorder: Yes Hx Family Musculoskeletal Disorders: No Hx Family Neuromuscular Disorders: No Hx Family Neurologic Disorders: No Hx Family HEENT Disorders: No Hx Family Autoimmune Disorders: No Hx Family Reproductive Disorders: No Hx Family Psychosocial Disorders: No Hx Family Medical Disorders: No Brother Family Member Ethnicity: Non- Living Status: Hx Family Cardiac Disorders: Yes Hx Family Cancer: Yes Hx Family Endocrine Disorder: Yes (diabetes) Hx Family Musculoskeletal Disorders: No Hx Family Neuromuscular Disorders: No Hx Family Neurologic Disorders: No Hx Family HEENT Disorders: No Hx Family Autoimmune Disorders: No Hx Family Reproductive Disorders: No Hx Family Psychosocial Disorders: No Hx Family Medical Disorders: No Internal Medicine - H&P: Meds cloNIDine HCl [Clonidine HCl] 0.2 mg PO TID PRN 04/12/16 [History] Acetaminophen [Tylenol] 1,000 mg PO Q6HR PRN 07/30/16 [History] Albuterol Sulfate [Ventolin Hfa] 2 puff IH Q4H PRN 08/18/17 [History] Aspirin Enteric Coated [Aspirin EC] 162 mg PO DAILY 08/18/17 [History] Atorvastatin [Lipitor] 40 mg PO HS 08/18/17 [History] Calcium Acetate 1,334 mg PO TIDWM 08/18/17 [History] Carvedilol [Coreg] 6.25 mg PO BID 08/18/17 [History] Losartan [Cozaar] 25 mg PO DAILY 08/18/17 [History] Multivitamin [One Daily Multivitamin] 1 tab PO DAILY 08/18/17 [History] Furosemide [Lasix] 40 mg PO DAILY 10/31/17 [History] 3 Allergy/AdvReac Type Severity Reaction Status Date / Time No Known Allergies Allergy Verified 10/31/17 08:50 All Systems PM: A 10-system review of systems was performed and is negative for pertinent findings except as documented above in the HPI. - Constitutional Constitutional: malaise, no chills, no fever(s), no night sweats - EENT Eyes: no change in vision, no discharge, no pain, no photophobia Ears: no ear discharge, no ear pain, no tinnitus Nose, mouth and throat: no dysphagia, no nasal discharge, no neck pain, no sore throat - Cardiovascular Cardiovascular ROS IM: palpitations, no chest pain, no diaphoresis, no dyspnea, no lightheadedness, no syncope - Respiratory Respiratory: cough, dyspnea, wheezing, no excessive phlegm production - Gastrointestinal Gastrointestinal: no abdominal pain, no diarrhea, no hematemesis, no hematochezia, no melena, no nausea, no vomiting - Musculoskeletal Musculoskeletal ROS IM: no numbness, no tingling - Integumentary Integumentary IM: no rash, no unusual bruising - Neurological Neurological ROS: no confusion, no convulsions, no focal weakness, no numbness, no tingling, no tremor(s) - Hematologic/Lymphatic Hematologic/Lymphatic: no easy bruising - Constitutional Vitals: Temp Pulse Resp BP Pulse Ox 97.8 F 119 28 160/133 95 10/31/17 11:53 10/31/17 11:53 10/31/17 11:53 10/31/17 11:53 10/31/17 11:53 General appearance: Present: cooperative, A&O X 3, severe distress, answers questions appropriately Exam: Severe distress - Eye Eye exam: Present: EOMI, PERRL, conjuntiva pink, sclera anicteric - Neck Neck exam general surgery: Present: supple, trachea midline. Absent: lymphadenopathy - Respiratory Respiratory exam: Present: accessory muscle use, prolonged expiratory phase. Absent: rales, rhonchi, wheezes Additional comments: Basal crackles - Cardiovascular Cardiovascular exam: Present: irregular rhythm, +S1, +S2, tachycardia. Absent: diastolic murmur, gallop, rubs, systolic murmur - GI/Abdominal GI/Abdominal exam: Present: normal bowel sounds, soft, no peritoneal signs. Absent: distended, tenderness - Extremities Exam Extremities exam: Present: pedal edema, warm, radial pulses palpable and symmetrical. Absent: calf tenderness, cyanotic - Neurological Exam Neurological exam: Present: alert, oriented X3, no focal deficits. Absent: facial droop, speech deficit - Skin Skin exam: Present: dry, intact Internal Med - H&P Results - Labs CBC & Chem 7: 10/31/17 07:08 10/31/17 07:08 - Impressions Impressions Chest X-Ray 10/31/17 07:06 IMPRESSION: Findings are suggestive of congestive heart failure in the appropriate clinical setting. D/ / Lita Gagnon MD / Lita Gagnon MD Interpreting Provider: Lita Gagnon MD - Assessment and plan (1) Acute respiratory failure with hypoxia Current Visit: Yes Status: Acute Assessment and plan: Patient with acute respiratory failure and hypoxia related to congestive heart failure and incision is . Patient is in severe respiratory distress. He has been placed on BiPAP. High risk for complications. Will treat underlying conditions. (2) Atrial fibrillation with RVR Current Visit: Yes Status: Acute Assessment and plan: Patient is in A. fib with RVR. Started on Cardizem drip. Monitor blood pressure closely. Not on anticoagulation at home. He has been placed on IV heparin currently as his troponins are elevated. (3) CHF exacerbation Current Visit: Yes Status: Acute Assessment and plan: Patient with history of cardiomyopathy with EF of 40% with acute CHF exacerbation. Nephrology consult and for volume management. Cardiology also consulted. Patient placed on nitroglycerin drip to help control blood pressure. High risk for complications. Qualifiers: Heart failure type: combined systolic and diastolic Qualified Code(s): I50.43 - Acute on chronic combined systolic (congestive) and diastolic ( congestive) heart failure (4) Anemia Current Visit: Yes Status: Chronic Assessment and plan: Hemoglobin 9.1. At baseline. Patient will receive Epogen per nephrology recommendations with hemodialysis. Qualifiers: Anemia type: due to chronic kidney disease Chronic kidney disease stage: on chronic dialysis Qualified Code(s): N18.6 - End stage renal disease; D63.1 - Anemia in chronic kidney disease; Z99.2 - Dependence on renal dialysis (5) Elevated troponin Current Visit: Yes Status: Acute Assessment and plan: Patient has elevated troponin. Not having any chest pain at this time. Could be type II [place] with demand ischemia. We will monitor closely. Trend troponins. Patient has been started on IV heparin. We will await cardiology consultation. (6) ESRD (end stage renal disease) on dialysis Current Visit: Yes Status: Chronic Assessment and plan: Nephrology consult. Patient will be taken to hemodialysis as soon as possible. (7) HTN (hypertension) Current Visit: Yes Status: Chronic Assessment and plan: Patient with hypertensive emergency. Started on IV nitroglycerin. We will monitor blood pressure closely. Resume home medications. Qualifiers: Hypertension type: essential hypertension Qualified Code(s): I10 - Essential (primary) hypertension - Time Spent With Patient Total time spent is greater than 50% in coordination of care (as documented) at patient's floor/unit and/or counseling patient:
--- NOTE | 2017-10-31 15:39 | Cardiology Consult Note ---
<PatrickAmy J - Last Filed: 10/31/17 16:32> Date of Encounter: 10/31/17 Time of Encounter: 15:35 Assessment and Plan (1) CHF (congestive heart failure) Current Visit: No Status: Acute Per cardiology: -Admitted with worsening shortness of breath. -Chest x-ray consistent with CHF findings. -BNP >5000. -Currently being dialized. Known ESRD on HD. -Most recent TTE 09/01/17 with LVEF 40%, previously normal. Patient was recommended for outpatient LHC at that, however he did not follow with cardiology after discharge. -ON BB and ARB. -Strict i/os, fluid restriction, daily weights. -Currently being dialized, appreciate nephrology assistance with volume status. Qualifiers: Heart failure type: combined systolic and diastolic Heart failure chronicity: acute on chronic Qualified Code(s): I50.43 - Acute on chronic combined systolic (congestive) and diastolic (congestive) heart failure (2) Atrial fibrillation with RVR Current Visit: Yes Status: Acute Per cardiology: -Known history of a.fib. Had previously been on amio post valve replacement and coumadin. -Patient states he was taken off of coumadin, however he is unsure why or who told him to stop medication. -Currently a.fib RVR, started on cardizem drip per primary service. Of note, most recent LVEF 40%. -[id number] score 3 (HTN, vascular disease, CHF). Currently on heparin drip. Recommend shelter anticoagulation, however will determine pending clinical course. -On BB. -Discussed and reviewed with , with cardiomyopathy, would not continue cardizem. Will start amiodarone drip and will give 150mg amio bolus. -Will continue to monitor. (3) Elevated troponin Current Visit: Yes Status: Acute Per cardiology: -Troponin 0.11 in the setting of a.fib RVR, ESRD, CHF. -Denies chest pain. -ECG with a.fib RVR, HR 182. -Appears to have chronically elevated troponins. -Of note, during last admission was recommended for outpatient LHC due to newly reduced LVEF, however patient did not follow up outpatient. -On asa, statin, BB, heparin drip. Currently on nitro drip for HTN. -Do not suspect NSTEMI, suspect demand ischemia related to above. No cardiac rehab consult warranted at this time. -Again, was recommended for outpatient [facility] during last visit. (4) Heart valve replaced Current Visit: No Status: Chronic Per cardiology: -Known bioprosthetic AV replacement. -Per TTE 08/2017 valve function normal. Discussion w patient/family: The assessment and plan as outlined above was discussed with the patient who expressed understanding and agreement. All questions were answered. Thank you for involving us in the care of your patient. Please call with any questions. Discussed and reviewed with . History of Present Illness Consult date: 10/31/17 Requesting physician: Abhinav Carr Consult reason: a.fib RVR Chief complaint: shortness of breath History of present illness: Mr. 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 with complaints of increased shortness of breath. Patient reports dyspnea at rest and with exertion. Patient denies chest pain. Denies fatigue. Patient is on HD MWF, did not go to normal HD today due to symptoms, however is currently received HD treatment now. Patient was seen and examined in inpatient dialysis unit. Past Med Surg Social Fam HX - Past Medical History Attestation: Yes The following information was validated with the patient. Source: patient, old records reviewed Medical history: atrial fibrillation, cardiomyopathy, CHF, dialysis, hyperlipidemia, hypertension, myocardial infarction, renal disease Additional medical history: ESRD. [id number] Psychiatric history: no psych history - Past Surgical History Surgical History: appendectomy, orthopedic, other Additional surgical history: cardioversion for afib - Social History Smoking Status: Former smoker Smokeless Tobacco Status: No Alcohol use: none Drug use: none - Family History Mother Family Member Ethnicity: Non- Living Status: Hx Family Cardiac Disorders: Yes Hx Family Respiratory Disorders: No Hx Family Cancer: No Hx Family GI Disorders: No Hx Family Genitourinary Disorders: No Hx Family Endocrine Disorder: Yes (diabetes) Hx Family Musculoskeletal Disorders: No Hx Family Neuromuscular Disorders: No Hx Family Neurologic Disorders: No Hx Family HEENT Disorders: No Hx Family Autoimmune Disorders: No Hx Family Reproductive Disorders: No Hx Family Psychosocial Disorders: No Hx Family Medical Disorders: No Father Family Member Ethnicity: Non- Living Status: Still Living Hx Family Cardiac Disorders: Yes Hx Family Endocrine Disorder: Yes Hx Family Musculoskeletal Disorders: No Hx Family Neuromuscular Disorders: No Hx Family Neurologic Disorders: No Hx Family HEENT Disorders: No Hx Family Autoimmune Disorders: No Hx Family Reproductive Disorders: No Hx Family Psychosocial Disorders: No Hx Family Medical Disorders: No Brother Family Member Ethnicity: Non- Living Status: Hx Family Cardiac Disorders: Yes Hx Family Cancer: Yes Hx Family Endocrine Disorder: Yes (diabetes) Hx Family Musculoskeletal Disorders: No Hx Family Neuromuscular Disorders: No Hx Family Neurologic Disorders: No Hx Family HEENT Disorders: No Hx Family Autoimmune Disorders: No Hx Family Reproductive Disorders: No Hx Family Psychosocial Disorders: No Hx Family Medical Disorders: No Medications and Allergies cloNIDine HCl [Clonidine HCl] 0.2 mg PO TID PRN 04/12/16 [History] Acetaminophen [Tylenol] 1,000 mg PO Q6HR PRN 07/30/16 [History] Albuterol Sulfate [Ventolin Hfa] 2 puff IH Q4H PRN 08/18/17 [History] Aspirin Enteric Coated [Aspirin EC] 162 mg PO DAILY 08/18/17 [History] Atorvastatin [Lipitor] 40 mg PO HS 08/18/17 [History] Calcium Acetate 1,334 mg PO TIDWM 08/18/17 [History] Carvedilol [Coreg] 6.25 mg PO BID 08/18/17 [History] Losartan [Cozaar] 25 mg PO DAILY 08/18/17 [History] Multivitamin [One Daily Multivitamin] 1 tab PO DAILY 08/18/17 [History] Furosemide [Lasix] 40 mg PO DAILY 10/31/17 [History] 3 Allergy/AdvReac Type Severity Reaction Status Date / Time No Known Allergies Allergy Verified 10/31/17 08:50 All Systems Review: The remainder of the systems were reviewed and are negative - Cardiovascular Cardiovascular: as per HPI, dyspnea at rest, dyspnea on exertion Physical Examination Vital Signs, Last 4 Hours Temp Pulse Resp BP Pulse Ox 10/31/17 15:00 155/101 10/31/17 14:45 153/109 10/31/17 14:30 147/110 10/31/17 14:15 157/104 10/31/17 14:00 98.3 F 22 155/104 10/31/17 12:05 119 26 151/129 95 10/31/17 11:53 97.8 F 119 28 160/133 95 10/31/17 11:49 120 General: Conversant, Other (Conversational dyspnea noted. ) HEENT: Atraumatic, Normocephaly, Mucus Membranes Moist Neck: No JVD, Normal carotid pulses Cardiac: Normal S1 and S2, No Murmur, Other (Irregularly irregular ) Lungs: Other (Lung sounds coarse throughout. ) Neuro: Alert and responsive, No focal deficits noted Abdomen: Soft, Non-Tender Skin: No rashes noted on visualized skin Musculoskeletal: No Chest Wall Tenderness Extremities: No Clubbing, No Cyanosis, No Edema, Normal Pulses Results 10/31/17 07:08 10/31/17 07:08 Impressions Chest X-Ray 10/31/17 07:06 IMPRESSION: Findings are suggestive of congestive heart failure in the appropriate clinical setting. D/ / Lita Gagnon MD / Lita Gagnon MD Interpreting Provider: Lita Gagnon MD Active Medications Acetaminophen (Tylenol) 650 mg PO Q6HR PRN PRN Reason: Mild Pain/Fever Stop: 05/02/18 11:44 Albuterol Sulfate (Albuterol Inhaler) 2 puff IH Q4H PRN PRN Reason: Shortness Of Breath Stop: 05/02/18 13:57 Aspirin (Aspirin Ec) 162 mg PO DAILY JAN Stop: 05/03/18 09:01 Atorvastatin Calcium (Lipitor) 40 mg PO HS JAN Stop: 05/02/18 21:01 Calcium Acetate (Phos-Lo) 1,334 mg PO TIDWM JAN Stop: 05/02/18 17:01 Carvedilol (Coreg) 6.25 mg PO BID JAN PRN Reason: Protocol Stop: 05/02/18 21:01 Clonidine HCl (Clonidine Hcl) 0.2 mg PO TID JAN Stop: 05/02/18 15:01 Furosemide (Lasix) 40 mg PO DAILY JAN Stop: 05/03/18 09:01 Heparin Sodium (Porcine) (Heparin) 4,000 unit IVP Q6HR PRN PRN Reason: SEE COMMENTS Stop: 05/02/18 08:07 Heparin Sodium (Porcine) (Heparin) 2,000 unit IVP Q6H PRN PRN Reason: SEE COMMENTS Stop: 05/02/18 08:07 Heparin Sodium/Dextrose (Heparin 25,000 Unit/500 Ml D5w) 25,000 unit in 500 mls @ 20.865 mls/hr IVC .[id number] JAN; 10 UNIT/KG/HR PRN Reason: Protocol Stop: 05/02/18 08:16 Last Admin: 10/31/17 09:23 Dose: 10 unit/kg/hr, 20.865 mls/hr Nitroglycerin (Nitroglycerin Premix 25 Mg/250 Ml) 25 mg in 250 mls @ 9 mls/hr IVC .Q24H JAN; 15 MCG/MIN PRN Reason: Protocol Stop: 05/02/18 09:01 Last Titration: 10/31/17 12:03 Dose: 50 mcg/min, 30 mls/hr Diltiazem HCl 50 mg/ Sodium (Chloride) 50 mls @ 10 mls/hr IVC .Q5H JAN; 10 MG/ HR PRN Reason: Protocol Stop: 05/02/18 09:59 Last Admin: 10/31/17 15:25 Dose: 20 mg/hr, 20 mls/hr Sodium Chloride (0.9 % Sodium Chloride) 250 mls @ 937.5 mls/hr IVC .Q16M PRN PRN Reason: Hypotension Stop: 05/02/18 11:48 Sodium Chloride (0.9 % Sodium Chloride) 1,000 mls @ 0 mls/hr PRIME .Q0M JAN PRN Reason: As Directed Stop: 05/02/18 12:01 Losartan Potassium (Cozaar) 25 mg PO DAILY JAN PRN Reason: Protocol Stop: 05/03/18 09:01 Multivitamins/Calcium (Thera M Plus) 1 tab PO DAILY JAN Stop: 05/03/18 09:01 Naloxone HCl (Narcan) 0.4 mg IVP Q2MIN PRN PRN Reason: SEE COMMENTS Stop: 05/02/18 11:44 Nitroglycerin (Nitroglycerin) 0.4 mg SL Q5MIN PRN PRN Reason: Chest Pain Stop: 05/02/18 08:39 Last Admin: 10/31/17 08:53 Dose: 0.4 mg Laboratory Tests 04/13/16 08/31/17 08/31/17 06:20 08:14 14:17 Hgb Potassium Creatinine Troponin I 0.09 H* 0.12 H* B-Natriuretic Peptide TSH 2.065 08/31/17 10/17/17 10/31/17 19:51 09:00 07:08 Hgb 8.6 L 9.1 L Potassium Creatinine Troponin I 0.12 H* B-Natriuretic Peptide TSH 10/31/17 10/31/17 07:08 07:08 Hgb Potassium 4.6 Creatinine 9.12 H Troponin I 0.11 H* B-Natriuretic Peptide > 5000 H TSH - Imaging and Cardiology Chest Xray: report reviewed Echo: report reviewed - EKG Interpretation EKG results cardiology: personally reviewed (ECG with a.fib RVR, HR 182.), other (Telemetry reviewed with average HR previous 12 hours noted to be 121, a.fib. PVCs noted.) Consult Discharge Plan - Plan Referrals: NONE,PCP [Primary Care Provider] - <Anitha Gillis - Last Filed: 10/31/17 18:36> Date of Encounter: 10/31/17 - Attending Attestation I examined this patient and my medical decision-making was reviewed with the CAMERA TECHNICIAN. I agree with the documented findings, disposition and treatment plan as described. Mr. Vargas was admitted with worsening SOB in setting of medication noncompliance and missing dialysis. Most recent TTE demonstrated LVEEF 40%. Previously had cath in June presumed nonobstructive - had AVR and AoRoot repair without bypass. Suspect fluid overload mainly due to noncompliance and renal dysfunction. Will defer fluid management to primary team and Nephrology. In regards to atrial fibrillation, suspect RVR secondary to fluid overload. Will start amiodarone gtt as a temporary measure. Currently on heparin gtt. Previously stopped coumadin for unclear reasons. Assessment and Plan Discussion w patient/family: The assessment and plan as outlined above was discussed with the patient and/or family members who expressed understanding and agreement. All questions were answered. Thank you for involving us in the care of your patient. Please call with any questions. History of Present Illness History of present illness: Mr. Vargas is a 52 year old male All Systems Review: The remainder of the systems were reviewed and are negative Physical Examination Vital Signs, Last 4 Hours Temp Resp BP 10/31/17 17:51 97.4 F L 24 142/98 10/31/17 17:30 134/98 10/31/17 17:15 133/88 10/31/17 17:00 124/89 10/31/17 16:45 136/89 10/31/17 16:30 129/98 10/31/17 16:15 140/101 10/31/17 16:00 147/106 10/31/17 15:45 139/101 10/31/17 15:30 151/101 10/31/17 15:15 144/101 10/31/17 15:00 155/101 10/31/17 14:45 153/109 Results 10/31/17 07:08 10/31/17 07:08
[2017-10-31] MEDS: *HR* Heparin 5,000 UNIT/ML VIAL IVP PRN ×2 (15:57→22:36)
[2017-10-31] MEDS ORDERED: Amiodarone Premix 360 MG/200 ML BAG IVC ONE (16:36)
[2017-10-31] MEDS ORDERED: Amiodarone Premix 150 MG/100 ML BAG IVPB ONE (16:36)
[2017-10-31] MEDS: Calcium Acetate 667 MG CAPSULE PO SCH (18:04)
[2017-10-31] MEDS: cloNIDine HCl 0.1 MG TABLET PO SCH ×2 (18:05→23:26)
[2017-10-31] MEDS: Acetaminophen 325 MG TABLET PO PRN (18:27)
[2017-11-01] MEDS: Amiodarone Premix 360 MG/200 ML BAG IVC SCH ×3 (00:32→23:21)
[2017-11-01] MEDS: Acetaminophen 325 MG TABLET PO PRN ×3 (00:37→11:26)
[2017-11-01] MEDS ORDERED: 0.9 % Sodium Chloride 250 ML ONE (02:10)
[2017-11-01] MEDS: Nitroglycerin 25 MG/250 ML INFUS..BTL IVC SCH (02:19)
[2017-11-01 05:15] LABS: Basophils % 0.4 %; Eosinophils # 0.1 K/mcL (0.0-0.6); Eosinophils % 1.4 %; Hematocrit 23.5 % (37.5-50.1); Hemoglobin 7.7 g/dL (12.9-16.9); Immature Granulocytes % 0.3 % (0-4); Lymphocytes # 1.1 K/mcL (0.6-4.6); Lymphocytes % 15.7 %; Mean Corpuscular HGB Conc 32.8 g/dL (31.6-35.5); Mean Corpuscular Hemoglobin 33.5 pg (28.0-33.3); Mean Corpuscular Volume 102.2 fL (83.0-100.0); Mean Platelet Volume 11.6 fL (9.4-12.4); Monocytes # 0.6 K/mcL (0.0-1.3); Monocytes % 8.8 %; Neutrophils # 5.2 K/mcL (1.6-8.9); Platelet Count 145 K/mcL (140-400); Red Cell Distribution Width 15.4 % (11.5-14.5); Segmented Neutrophils % 73.4 %
[2017-11-01] MEDS: Heparin 25,000 UNIT/500 ML D5W 25,000 UNIT/500 ML BAG IVC SCH ×2 (05:26→21:24)
[2017-11-01 05:35] LABS: Calcium 8.8 mg/dL (8.6-10.3); Potassium 4.5 mEq/L (3.5-5.1)
[2017-11-01] MEDS: cloNIDine HCl 0.1 MG TABLET PO SCH ×3 (07:43→20:17)
[2017-11-01] MEDS: Aspirin Enteric Coated 81 MG Tablet PO SCH (07:43)
[2017-11-01] MEDS: Multivit/Ca/Min/Fe/FA 1 TAB TABLET PO SCH (07:44)
[2017-11-01] MEDS: Furosemide 40 MG TABLET PO SCH (07:44)
[2017-11-01] MEDS: Calcium Acetate 667 MG CAPSULE PO SCH ×3 (07:44→16:58)
--- NOTE | 2017-11-01 09:28 | Electrocardiograph Report ---
[address] [address] Test Date: 2017-10-31 Pat Name: Corey Vargas Department: EXAM3 Room: 2N04 Gender: M Junction Maker: : [id number] Requested By: [id number] Order Number: [id number] Reading MD: Westley Alvarenga Measurements Intervals [place] Rate: 182 P: 107 VT: 77 QRS: 95 QRSD: 109 T: -57 QT: 270 QTc: 470 Interpretive Statements Supraventricular tachycardia Borderline right axis deviation LVH with secondary repolarization abnormality Electronically Signed On 11-01-2017 9:26:52 EDT by Westley Alvarenga
--- NOTE | 2017-11-01 10:49 | Cardiology Progress Note ---
Date of Encounter: 11/01/17 Time of Encounter: 08:00 Assessment and Plan (1) CHF (congestive heart failure) Current Visit: No Status: Acute Per cardiology: -Admitted with worsening shortness of breath, states much improved today. -Chest x-ray consistent with CHF findings. -BNP >5000. - Known ESRD on HD. -Most recent TTE 09/01/17 with LVEF 40%, previously normal. Patient was recommended for outpatient LHC at that, however he did not follow with cardiology after discharge. -ON BB and ARB. -Strict i/os, fluid restriction, daily weights. -Currently being dialized, appreciate nephrology assistance with volume status. Qualifiers: Heart failure type: combined systolic and diastolic Heart failure chronicity: acute on chronic Qualified Code(s): I50.43 - Acute on chronic combined systolic (congestive) and diastolic (congestive) heart failure (2) Atrial fibrillation with RVR Current Visit: Yes Status: Acute Per cardiology: -Known history of a.fib. Had previously been on amio post valve replacement and coumadin. -Patient states he was taken off of coumadin, however he is unsure why or who told him to stop medication. -Currently a.fib RVR, on amiodarone. Average HR previous 12 hours noted to be 109, improved from yesterday. -[id number] score 3 (HTN, vascular disease, CHF). Currently on heparin drip. Recommend termite helper anticoagulation, however will determine pending clinical course. -On BB. -BB increased today. Continue amiodarone. -WIll continue to monitor. (3) Elevated troponin Current Visit: Yes Status: Acute Per cardiology: -Troponin 0.11, 0.17 in the setting of a.fib RVR, ESRD, CHF. -Denies chest pain. -ECG with a.fib RVR, HR 182. -Appears to have chronically elevated troponins. -Of note, during last admission was recommended for outpatient LHC due to newly reduced LVEF, however patient did not follow up outpatient. -On asa, statin, BB, heparin drip. Currently on nitro drip for HTN. -Do not suspect NSTEMI, suspect demand ischemia related to above. No cardiac rehab consult warranted at this time. -Again, was recommended for outpatient LHC during last visit. (4) Heart valve replaced Current Visit: No Status: Chronic Per cardiology: -Known bioprosthetic AV replacement. -Per TTE 08/2017 valve function normal. Discussion w patient/family: The assessment and plan as outlined above was discussed with the patient and family memebers who expressed understanding and agreement. All questions were answered. Thank you for involving us in the care of your patient. Please call with any questions. Discussed and reviewed with . Subjective Principal diagnosis: CHF, a.fib Interval history: Patient reports feeling much better today. Objective Vital Signs, Last 4 Hours Temp Pulse Resp BP Pulse Ox 11/01/17 09:20 105 107/79 11/01/17 09:05 110 107/92 11/01/17 08:57 97 106/82 11/01/17 08:50 118 84/74 11/01/17 08:35 111 141/112 11/01/17 08:20 132 144/99 11/01/17 08:05 114 141/130 11/01/17 08:00 132 11/01/17 07:50 118 151/108 11/01/17 07:35 115 128/102 11/01/17 07:20 129 135/109 11/01/17 07:05 130 145/110 11/01/17 07:00 96 11/01/17 06:52 98.9 F 131 16 131/117 General: Conversant, No Apparent Distress HEENT: Atraumatic, Normocephaly, Mucus Membranes Moist Neck: No JVD, Normal carotid pulses Cardiac: Normal S1 and S2, No Murmur, Other (Irregularlry irregular) Lungs: Normal Breath Sounds, No Wheeze, Rales, Rhonchi Neuro: Alert and responsive, No focal deficits noted Abdomen: Soft, Non-Tender Skin: No rashes noted on visualized skin Musculoskeletal: No Chest Wall Tenderness Extremities: No Clubbing, No Cyanosis, No Edema, Normal Pulses Results 11/01/17 04:37 11/01/17 04:37 Lab Results Active Medications Acetaminophen (Tylenol) 650 mg PO Q6HR PRN PRN Reason: Mild Pain/Fever Stop: 05/02/18 11:44 Last Admin: 11/01/17 05:44 Dose: 650 mg Albuterol Sulfate (Albuterol Inhaler) 2 puff IH Q4H PRN PRN Reason: Shortness Of Breath Stop: 05/02/18 13:57 Aspirin (Aspirin Ec) 162 mg PO DAILY [facility] Stop: 05/03/18 09:01 Last Admin: 11/01/17 07:43 Dose: 162 mg Atorvastatin Calcium (Lipitor) 40 mg PO HS [facility] Stop: 05/02/18 21:01 Last Admin: 10/31/17 19:52 Dose: 40 mg Calcium Acetate (Phos-Lo) 1,334 mg PO TIDWM [facility] Stop: 05/02/18 17:01 Last Admin: 11/01/17 07:44 Dose: 1,334 mg Carvedilol (Coreg) 12.5 mg PO BIDWM JAN PRN Reason: Protocol Stop: 05/03/18 08:01 Last Admin: 11/01/17 08:08 Dose: 12.5 mg Clonidine HCl (Clonidine Hcl) 0.2 mg PO TID [facility] Stop: 05/02/18 15:01 Last Admin: 11/01/17 07:43 Dose: 0.2 mg Furosemide (Lasix) 40 mg PO DAILY [facility] Stop: 05/03/18 09:01 Last Admin: 11/01/17 07:44 Dose: 40 mg Heparin Sodium (Porcine) (Heparin) 4,000 unit IVP Q6HR PRN PRN Reason: SEE COMMENTS Stop: 05/02/18 08:07 Heparin Sodium (Porcine) (Heparin) 2,000 unit IVP Q6H PRN PRN Reason: SEE COMMENTS Stop: 05/02/18 08:07 Last Admin: 10/31/17 22:36 Dose: 2,000 unit Hydralazine HCl (Hydralazine) 10 mg IVP Q6HR PRN PRN Reason: Hypertension Stop: 05/03/18 05:39 Last Admin: 11/01/17 06:49 Dose: 10 mg Heparin Sodium/Dextrose (Heparin 25,000 Unit/500 Ml D5w) 25,000 unit in 500 mls @ 20.865 mls/hr IVC .[id number] JAN; 10 UNIT/KG/HR PRN Reason: Protocol Stop: 05/02/18 08:16 Last Admin: 11/01/17 05:26 Dose: 13.99 unit/kg/hr, 29.2 mls/hr Nitroglycerin (Nitroglycerin Premix 25 Mg/250 Ml) 25 mg in 250 mls @ 9 mls/hr IVC .Q24H JAN; 15 MCG/MIN PRN Reason: Protocol Stop: 05/02/18 09:01 Last Titration: 11/01/17 08:57 Dose: Infused Sodium Chloride (0.9 % Sodium Chloride) 250 mls @ 937.5 mls/hr IVC .Q16M PRN PRN Reason: Hypotension Stop: 05/02/18 11:48 Sodium Chloride (0.9 % Sodium Chloride) 1,000 mls @ 0 mls/hr PRIME .Q0M JAN PRN Reason: As Directed Stop: 05/02/18 12:01 Amiodarone HCl/Dextrose (Amiodarone Drip Premix 360mg/200ml) 360 mg in 200 mls @ 16.667 mls/hr IVC CONT JAN PRN Reason: 0.5 MG/MIN Stop: 05/02/18 16:46 Last Admin: 11/01/17 00:32 Dose: 0.5 mg/min, 16.667 mls/hr Losartan Potassium (Cozaar) 25 mg PO DAILY JAN PRN Reason: Protocol Stop: 05/03/18 09:01 Last Admin: 11/01/17 07:43 Dose: 25 mg Multivitamins/Calcium (Thera M Plus) 1 tab PO DAILY JAN Stop: 05/03/18 09:01 Last Admin: 11/01/17 07:44 Dose: 1 tab Naloxone HCl (Narcan) 0.4 mg IVP Q2MIN PRN PRN Reason: SEE COMMENTS Stop: 05/02/18 11:44 Nitroglycerin (Nitroglycerin) 0.4 mg SL Q5MIN PRN PRN Reason: Chest Pain Stop: 05/02/18 08:39 Last Admin: 10/31/17 08:53 Dose: 0.4 mg Laboratory Tests 10/31/17 11/01/17 11/01/17 07:08 04:37 08:26 Hgb 7.7 L Troponin I 0.11 H* 0.17 H* - Imaging and Cardiology Chest Xray: report reviewed Echo: report reviewed - EKG Interpretation EKG results cardiology: other (Telemetry reviewed with average HR previous 12 hours noted to be 109, a.fib. PVCs noted.) Consult Discharge Plan - Plan Referrals: NONE,PCP [Primary Care Provider] -
[2017-11-01] MEDS: *HR* Heparin 5,000 UNIT/ML VIAL IVP PRN ×2 (11:26→18:38)
--- NOTE | 2017-11-01 11:41 | Nephrology Progress Note ---
Date of Encounter: 11/01/17 Time of Encounter: 11:41 - Assessment and Plan (1) ESRD (end stage renal disease) on dialysis Current Visit: Yes Status: Chronic HD MWF. Renal vitamins. Renal dose medications. Renal diet. Additional dialysis and ultrafiltration as needed. left forearm fistula (2) HTN (hypertension) Current Visit: Yes Status: Chronic Accelerated hypertension secondary respiratory status and he has not had his antihypertensive medications. Improved after respiratory status improved and patient received medications and dialysis. Titrate medications as needed. Qualifiers: Hypertension type: essential hypertension Qualified Code(s): I10 - Essential (primary) hypertension (3) Atrial fibrillation with RVR Current Visit: Yes Status: Acute Patient on cardizem for rate control. titration per primary team. (4) CHF exacerbation Current Visit: Yes Status: Acute Per cardiology. Qualifiers: Heart failure type: combined systolic and diastolic Qualified Code(s): I50.43 - Acute on chronic combined systolic (congestive) and diastolic ( congestive) heart failure (5) Anemia Current Visit: Yes Status: Chronic Monitor. No active bleeding. Qualifiers: Anemia type: due to chronic kidney disease Chronic kidney disease stage: on chronic dialysis Qualified Code(s): N18.6 - End stage renal disease; D63.1 - Anemia in chronic kidney disease; Z99.2 - Dependence on renal dialysis Subjective Principal diagnosis: CHF, a.fib Interval history: Alicia is a 52-year-old gentleman with end-stage renal disease. He dialyzes Friday. He has no complaint. He states his breathing is better than it was yesterday. Objective - Vital Signs Vital signs: Vital Signs Temp Pulse Resp BP Pulse Ox 11/01/17 09:20 105 107/79 11/01/17 09:05 110 107/92 11/01/17 08:57 97 106/82 11/01/17 08:50 118 84/74 11/01/17 08:35 111 141/112 11/01/17 08:20 132 144/99 11/01/17 08:05 114 141/130 11/01/17 08:00 132 11/01/17 07:50 118 151/108 11/01/17 07:35 115 128/102 11/01/17 07:20 129 135/109 11/01/17 07:05 130 145/110 11/01/17 07:00 96 11/01/17 06:52 98.9 F 131 16 131/117 11/01/17 06:15 119 155/127 11/01/17 06:10 122 102/82 11/01/17 06:05 99 139/111 11/01/17 06:00 111 150/123 11/01/17 05:50 102 147/116 11/01/17 05:34 110 157/131 11/01/17 04:45 102 158/117 11/01/17 04:15 116 154/127 11/01/17 03:45 112 156/129 11/01/17 03:36 98.2 F 101 18 152/122 99 11/01/17 02:30 102 145/106 11/01/17 02:00 103 146/108 11/01/17 01:45 103 152/103 11/01/17 01:00 100 133/108 11/01/17 00:00 99 152/114 10/31/17 23:29 97.8 F 106 23 139/99 100 10/31/17 23:00 97 141/127 10/31/17 22:42 109 129/107 10/31/17 21:55 126/106 10/31/17 21:50 99 130/104 10/31/17 21:40 96 152/126 10/31/17 21:35 101 136/109 10/31/17 21:15 104 134/121 98 10/31/17 21:05 114 143/120 10/31/17 21:00 98.2 F 111 24 136/111 97 10/31/17 20:00 131/108 10/31/17 19:49 97.9 F 114 24 127/102 98 10/31/17 19:36 107 135/108 10/31/17 19:33 132/110 10/31/17 19:32 133/113 10/31/17 19:15 149/116 10/31/17 19:00 159/116 10/31/17 18:36 120 24 149/127 96 10/31/17 18:14 97.8 F 132 22 143/116 95 10/31/17 17:51 97.4 F L 24 142/98 10/31/17 17:30 134/98 10/31/17 17:15 133/88 10/31/17 17:00 124/89 10/31/17 16:45 136/89 10/31/17 16:30 129/98 10/31/17 16:15 140/101 10/31/17 16:00 147/106 10/31/17 15:45 139/101 10/31/17 15:30 151/101 10/31/17 15:15 144/101 10/31/17 15:00 155/101 10/31/17 14:45 153/109 10/31/17 14:30 147/110 10/31/17 14:15 157/104 10/31/17 14:00 98.3 F 22 155/104 10/31/17 12:05 119 26 151/129 95 10/31/17 11:53 97.8 F 119 28 160/133 95 10/31/17 11:49 120 Intake and Output 10/31/17 11/01/17 11/01/17 23:59 07:59 15:59 Intake Total 758.6 / 758.6 563.0 / 563.0 596.0 / 596.0 Output Total 4600 / 4600 Balance -3841.4 / -3841.4 563.0 / 563.0 596.0 / 596.0 Intake: IV Fluids 758.6 / 758.6 563.0 / 563.0 236.0 / 236.0 Cardizem 50 MG In 0.9 % Sodium 99.0 / 99.0 Chloride 40 ML @ 10 MG/HR 10 mls/hr IVC .Q5H [facility] Rx#: [id number] Heparin 25,000 UNIT/500 ML D5W 299 / 299 197 / 197 187 / 187 25,000 unit In 500 ml @ 10 UNIT /KG/HR 20.865 mls/hr IVC . [id number] [facility] Rx#:[id number] Nitroglycerin Premix 25 MG/250 260.6 / 260.6 366.0 / 366.0 49.0 / 49.0 ML 25 mg In 250 ml @ 15 MCG/MIN 9 mls/hr IVC .Q24H [facility] Rx#: [id number] Amiodarone Premix 150mg/100mL 100 / 100 150 mg In 100 ml @ 300 mls/hr IVPB ONCE ONE Rx#:[id number] Oral 0 / 0 360 / 360 Output: Urine 0 / 0 Total Dialysis (HD) Output 4600 / 4600 Other: Meal Breakfast Percent of Meal Consumed 100% # Voids 1 Weight 99.4 kg Blood Glucose* 121 111 Hemodialysis Net Fluid Removed 4000 (mL) Patient Weight 11/01/17 23:59 Weight 99.4 kg - General Appearance General appearance: Present: well-developed, well-nourished EENT: Present: ATNC Neck: Present: supple Cardiology: Present: regular rate Neurologic: Present: alert and oriented x3 Psychiatric: Present: mood/affect appropriate - Lab 11/01/17 04:37 11/01/17 04:37 Most recent lab results Calcium 8.8 mg/dL (8.6-10.3) 11/01/17 04:37 Magnesium 2.0 mg/dL (1.6-2.6) 11/01/17 04:37 Consult Discharge Plan - Plan Referrals: NONE,PCP [Primary Care Provider] -
--- NOTE | 2017-11-01 12:03 | Internal Med Progress Note ---
Hospitalist Progress Note - Encounter Date of Encounter: 11/01/17 Time of Encounter: 11:00 - Subjective Interval History: states that his SOB significantly improved, had headache early on which resolved once nitro was weaned off. No chest pain, palpitation, cough. - Exam Vitals: Temp Pulse Resp BP Pulse Ox 97.8 F 98 18 133/100 93 11/01/17 11:44 11/01/17 11:44 11/01/17 11:44 11/01/17 11:44 11/01/17 11:44 Exam: General appearance: Present: cooperative, A&O X 3, not in distress, answers questions appropriately - Neck Neck exam general surgery: Present: supple, trachea midline. - Respiratory Respiratory exam: clear to auscultation, minimal, occasional crackles at the bases - Cardiovascular Cardiovascular exam: Present: irregular rhythm, +S1, +S2, normal rate. Absent: diastolic murmur, gallop, rubs, systolic murmur - GI/Abdominal GI/Abdominal exam: Present: normal bowel sounds, soft, no peritoneal signs. Absent: distended, tenderness - Extremities Exam Extremities exam: Present: improving pedal edema, warm, radial pulses palpable and symmetrical. - Neurological Exam Neurological exam: Present: alert, oriented X3, no focal deficits. - Assessment and Plan (1) Acute respiratory failure with hypoxia Current Visit: Yes Status: Acute Assessment and Plan: Due to decompensated diastolic heart failure 2/2 ?uncontrolled HTN ?triggered by afib with RVR significantly improved after HD and rate control, currently off O2 and saturating >94% troponin mildly elevated 0.11, 0.17. Known to be chronically elevated in the setting of ESRD and patient is asymptomatic Low suspicion for ACS to be the cause, Recent Echo 08/2017 showed EF40% ad global LV systolic dysfunction. Discussed with cardiology and agreeable to monitor without further intervention/work up. (2) CHF exacerbation Current Visit: Yes Status: Acute Assessment and Plan: Patient with history of cardiomyopathy with EF of 40% with acute CHF exacerbation. Improved after HD yesterday, nephro following Nitro weaned off and BP normalized coreg uptitrated, continue ARB previously was recommended to follow up outpatient for [facility] which he defaulted strict I/O, daily weight (3) Atrial fibrillation with RVR Current Visit: Yes Status: Acute Assessment and Plan: Patient is in A. fib with RVR. Started on Cardizem drip which was switched to amiodarone gtt in view of cardiomyopathy states that he was on Coumadin before which the family believes was discontinued by cardiothoracic surgeon. There is also a concern of non- compliance as well. Currently on amiodarone and heparin gtt. Coreg also uptitrated. monitor on the current meds today -> july d/c or transition to PO agents tomorrow He has an outpatient followup with landscape crew leader at [facility] on Friday, would probably defer further anticoagulation to them (4) ESRD (end stage renal disease) on dialysis Current Visit: Yes Status: Chronic Assessment and Plan: Nephrology consult. Significant improvement after HD (5) Elevated troponin Current Visit: Yes Status: Acute Assessment and Plan: Troponin elevated but unlikely due to type I event in the absence of symptoms and the chronicity of elevated troponin heparin gtt as above asa, bb, statin (6) HTN (hypertension) Current Visit: Yes Status: Chronic Assessment and Plan: IV nitroglycerin weaned off resume home meds, uptitrated coreg PRN hydralazine (7) Anemia Current Visit: Yes Status: Chronic Assessment and Plan: Hemoglobin 9.1 -> 7.7 which is around his baseline, unlikely to be acute bleed. EPO per nephro during HD monitor Hb - Time Spent with Patient Total time spent is greater than 50% in coordination of care (as documented) at patient's floor/unit and/or counseling patient: Plan of Care Discussed with: nurse (Also discussed with cardiology) Internal Medicine: Result - Labs CBC & Chem 7: 11/01/17 04:37 11/01/17 04:37 Labs: Short CBC 11/01/17 Range/Units 04:37 WBC 7.1 (4.3-11.1) K/mcL Hgb 7.7 L (12.9-16.9) g/dL Hct 23.5 L (37.5-50.1) % Plt Count 145 (140-400) K/mcL Neutrophils # 5.2 (1.6-8.9) K/mcL BMP 11/01/17 04:37 Sodium 134 L Potassium 4.5 Chloride 94 L Carbon Dioxide 29 BUN 26 H Creatinine 6.55 H Glucose 203 H Calcium 8.8 Cardiac Enzymes 11/01/17 Range/Units 08:26 Troponin I 0.17 H* (< 0.04) ng/mL - ABG Interpretation ABG results: PT/INR, D-dimer PT 13.1 Seconds (9.4-12.1) H 10/31/17 07:08 Consult Discharge Plan - Plan Referrals: NONE,PCP [Primary Care Provider] - (2) CHF exacerbation Qualifiers: Heart failure type: combined systolic and diastolic Qualified Code(s): I50.43 - Acute on chronic combined systolic (congestive) and diastolic ( congestive) heart failure (6) HTN (hypertension) Qualifiers: Hypertension type: essential hypertension Qualified Code(s): I10 - Essential (primary) hypertension (7) Anemia Qualifiers: Anemia type: due to chronic kidney disease Chronic kidney disease stage: on chronic dialysis Qualified Code(s): N18.6 - End stage renal disease; D63.1 - Anemia in chronic kidney disease; Z99.2 - Dependence on renal dialysis
[2017-11-02 00:52] LABS: Basophils % 0.4 %; Eosinophils # 0.2 K/mcL (0.0-0.6); Eosinophils % 3.1 %; Hematocrit 23.7 % (37.5-50.1); Hemoglobin 7.9 g/dL (12.9-16.9); Immature Granulocytes % 0.3 % (0-4); Lymphocytes # 1.1 K/mcL (0.6-4.6); Mean Corpuscular HGB Conc 33.3 g/dL (31.6-35.5); Mean Corpuscular Hemoglobin 32.8 pg (28.0-33.3); Mean Corpuscular Volume 98.3 fL (83.0-100.0); Monocytes # 0.5 K/mcL (0.0-1.3); Monocytes % 7.6 %; Neutrophils # 5.2 K/mcL (1.6-8.9); Platelet Count 140 K/mcL (140-400); Red Blood Count 2.41 M/mcL (4.19-5.50); Segmented Neutrophils % 72.6 %
[2017-11-02 01:10] LABS: Calcium 8.6 mg/dL (8.6-10.3); Potassium 4.2 mEq/L (3.5-5.1)
[2017-11-02] MEDS: *HR* Heparin 5,000 UNIT/ML VIAL IVP PRN (01:11)
[2017-11-02] MEDS: Multivit/Ca/Min/Fe/FA 1 TAB TABLET PO SCH (07:51)
[2017-11-02] MEDS: Calcium Acetate 667 MG CAPSULE PO SCH ×2 (07:51→11:45)
[2017-11-02] MEDS: Aspirin Enteric Coated 81 MG Tablet PO SCH (07:51)
[2017-11-02] MEDS: Furosemide 40 MG TABLET PO SCH (07:51)
[2017-11-02] MEDS: cloNIDine HCl 0.1 MG TABLET PO SCH (07:51)
--- NOTE | 2017-11-02 09:17 | Nephrology Progress Note ---
Date of Encounter: 11/02/17 Time of Encounter: 09:16 - Assessment and Plan (1) ESRD (end stage renal disease) on dialysis Status: Chronic HD MWF. Renal vitamins. Renal dose medications. Renal diet. Additional dialysis and ultrafiltration as needed. left forearm fistula (2) HTN (hypertension) Status: Chronic Accelerated hypertension secondary respiratory status and he has not had his antihypertensive medications. Improved after respiratory status improved and patient received medications and dialysis. Titrate medications as needed. Qualifiers: Hypertension type: essential hypertension Qualified Code(s): I10 - Essential (primary) hypertension (3) Atrial fibrillation with RVR Status: Chronic Patient on cardizem for rate control. titration per primary team. (4) CHF exacerbation Status: Acute Per cardiology. Qualifiers: Heart failure type: combined systolic and diastolic Qualified Code(s): I50.43 - Acute on chronic combined systolic (congestive) and diastolic ( congestive) heart failure (5) Anemia Status: Chronic Monitor. No active bleeding. Qualifiers: Anemia type: due to chronic kidney disease Chronic kidney disease stage: on chronic dialysis Qualified Code(s): N18.6 - End stage renal disease; D63.1 - Anemia in chronic kidney disease; Z99.2 - Dependence on renal dialysis Subjective Principal diagnosis: CHF, a.fib Interval history: Alicia is a 52-year-old gentleman with end-stage renal disease. He dialyzes Friday. He has no complaint. He states his breathing is better than it was yesterday. Objective - Vital Signs Vital signs: Vital Signs Temp Pulse Resp BP Pulse Ox 11/02/17 06:00 110 145/106 11/02/17 05:00 114 132/105 11/02/17 04:35 130/100 11/02/17 04:00 106 153/120 11/02/17 03:48 97.8 F 111 18 135/119 100 11/02/17 03:00 105 159/122 11/02/17 02:00 105 144/109 11/02/17 01:00 101 131/110 11/02/17 00:00 99 137/111 11/01/17 23:41 97.7 F 100 18 137/117 97 11/01/17 23:00 93 142/113 11/01/17 22:00 90 142/117 08/25/18 20:55 93 122/102 11/01/17 20:00 94 132/103 11/01/17 19:22 97.6 F 83 22 128/99 98 11/01/17 18:05 85 22 111/86 99 11/01/17 17:35 91 124/92 11/01/17 17:05 98 131/96 11/01/17 16:57 90 131/91 11/01/17 16:35 106 126/100 11/01/17 16:20 99 134/106 11/01/17 16:05 98 131/105 11/01/17 16:00 22 90 11/01/17 15:05 97 127/106 11/01/17 14:35 95 111/85 11/01/17 14:20 113 142/111 11/01/17 14:05 89 120/81 11/01/17 14:00 98.0 F 102 16 142/111 98 11/01/17 13:50 100 135/95 11/01/17 13:35 101 128/89 11/01/17 13:20 94 132/100 11/01/17 13:05 110 137/97 11/01/17 12:50 103 134/107 11/01/17 12:46 96 134/105 11/01/17 12:35 97 156/120 11/01/17 12:20 93 138/116 11/01/17 12:05 103 137/96 11/01/17 12:00 94 11/01/17 11:44 97.8 F 98 18 133/100 93 11/01/17 11:35 99 130/102 11/01/17 11:20 108 132/106 11/01/17 11:05 105 123/101 11/01/17 10:50 96 105/74 11/01/17 10:35 104 127/98 11/01/17 10:20 97 131/110 11/01/17 10:05 93 128/98 11/01/17 09:50 92 121/86 11/01/17 09:20 105 107/79 Intake and Output 11/01/17 11/02/17 11/02/17 23:59 07:59 15:59 Intake Total 993 / 993 125 / 125 452 / 452 Output Total 800 / 800 150 / 150 200 / 200 Balance 193 / 193 -25 / -25 252 / 252 Intake: IV Fluids 513 / 513 125 / 125 452 / 452 Amiodarone Drip Premix 360mg/ 200 / 200 160 / 160 200mL 360 mg In 200 ml @ 0.5 MG /MIN 16.667 mls/hr IVC [facility] Rx#:[id number] Heparin 25,000 UNIT/500 ML D5W 313 / 313 125 / 125 292 / 292 25,000 unit In 500 ml @ 10 UNIT /KG/HR 20.865 mls/hr IVC . [id number] [facility] Rx#:[id number] Oral 480 / 480 Output: Urine 800 / 800 150 / 150 200 / 200 Other: Meal Dinner Percent of Meal Consumed 100% Weight 100.7 kg Patient Weight 11/02/17 23:59 Weight 100.7 kg - General Appearance General appearance: Present: well-developed, well-nourished - Lab 11/02/17 00:26 11/02/17 00:26 Most recent lab results Calcium 8.6 mg/dL (8.6-10.3) 11/02/17 00:26 Magnesium 2.0 mg/dL (1.6-2.6) 11/01/17 04:37 Consult Discharge Plan - Plan Instructions: Heart Failure (DC), Atrial Fibrillation (DC), Acute Respiratory Distress Syndrome (DC), Chronic Hypertension (DC), Anemia (GEN) Additional Instructions: Follow-up on 11/03 for dialysis, follow-up with his own chummer on 11/04 Referrals: NONE,PCP [Primary Care Provider] -
--- NOTE | 2017-11-02 11:26 | Cardiology Progress Note ---
Date of Encounter: 11/02/17 Time of Encounter: 10:15 Assessment and Plan (1) CHF (congestive heart failure) Current Visit: No Status: Acute Per cardiology: -Admitted with worsening shortness of breath, states much improved today. -Chest x-ray consistent with CHF findings. -BNP >5000. - Known ESRD on HD. -Most recent TTE 09/01/17 with LVEF 40%, previously normal. Patient was recommended for outpatient LHC at that, however he did not follow with cardiology after discharge. had LHC 06/2017 prior to AV replacement without intervention and no bypass was done during surgery. -ON BB and ARB. -Euvolemic on exam today. -Strict i/os, fluid restriction, daily weights. -Currently being dialized, appreciate nephrology assistance with volume status. -Discussed with patient and family regarding possible need for LHC due to recently reduced LVEF, no urgent need for LHC. Recommend patient discuss with primary name plate stamping machine operator. States he follow with cardiology at [place]. Qualifiers: Heart failure type: combined systolic and diastolic Heart failure chronicity: acute on chronic Qualified Code(s): I50.43 - Acute on chronic combined systolic (congestive) and diastolic (congestive) heart failure (2) Atrial fibrillation with RVR Current Visit: Yes Status: Acute Per cardiology: -Known history of a.fib. Had previously been on amio post valve replacement and coumadin. -Patient states he was taken off of coumadin, Patient states his CT surgeon had him stop medication. Question compliance, patient states he only had lab work checked once while on coumadin. -Currently a.fib, HR controlled. -[id number] score 3 (HTN, vascular disease, CHF). Currently on heparin drip. Recommend terminal worker anticoagulation. -On BB, was increased yesterday. -Will discontiue amiodarone drip. Will no start oral amiodarone. -Recommend terminal worker anticoagulation. Discussed with patient and regarding coumadin. Patient states he would consider taking coumadin again, however seems hesitant. States would like to discuss with primary name plate stamping machine operator. Patient educated on increased risk of CVA/embolic event if not on anticoagulation, states understanding. -Cardiology will sign off, recommend patient follow with primary name plate stamping machine operator. Patient states he has an appointment with primary name plate stamping machine operator on Friday. (3) Elevated troponin Current Visit: Yes Status: Acute Per cardiology: -Troponin 0.11, 0.17 in the setting of a.fib RVR, ESRD, CHF. -Denies chest pain. -ECG with a.fib RVR, HR 182. -Appears to have chronically elevated troponins. -Of note, during last admission was recommended for outpatient [facility] due to newly reduced LVEF, however patient did not follow up outpatient. -On asa, statin, BB, heparin drip. Currently on nitro drip for HTN. -Do not suspect NSTEMI, suspect demand ischemia related to above. No cardiac rehab consult warranted at this time. (4) Heart valve replaced Current Visit: No Status: Chronic Per cardiology: -Known bioprosthetic AV replacement. -Per TTE 08/2017 valve function normal. Discussion w patient/family: The assessment and plan as outlined above was discussed with the patient and family memebers who expressed understanding and agreement. All questions were answered. Thank you for involving us in the care of your patient. Please call with any questions. Discussed and reviewed with . Subjective Principal diagnosis: CHF, a.fib Interval history: Patient reports feeling much better today, denies complaints. Objective Vital Signs, Last 4 Hours Vital Signs Temperature 97.9 F 11/02/17 07:00 Pulse Rate 130 11/02/17 08:00 Respiratory Rate 21 11/02/17 07:00 Blood Pressure 136/110 11/02/17 07:00 O2 Sat by Pulse Oximetry 96 11/02/17 07:00 Oxygen Delivery Oxygen Delivery Bipap General: Conversant, No Apparent Distress HEENT: Atraumatic, Normocephaly, Mucus Membranes Moist Neck: No JVD, Normal carotid pulses Cardiac: Normal S1 and S2, No Murmur, Other (Irregularly irregular ) Lungs: Normal Breath Sounds, No Wheeze, Rales, Rhonchi Neuro: Alert and responsive, No focal deficits noted Abdomen: Soft, Non-Tender Skin: No rashes noted on visualized skin Musculoskeletal: No Chest Wall Tenderness Extremities: No Clubbing, No Cyanosis, No Edema, Normal Pulses Results 11/02/17 00:26 11/02/17 00:26 Lab Results Active Medications Acetaminophen (Tylenol) 650 mg PO Q6HR PRN PRN Reason: Mild Pain/Fever Stop: 05/02/18 11:44 Last Admin: 11/01/17 11:26 Dose: 650 mg Albuterol Sulfate (Albuterol Inhaler) 2 puff IH Q4H PRN PRN Reason: Shortness Of Breath Stop: 05/02/18 13:57 Aspirin (Aspirin Ec) 162 mg PO DAILY [facility] Stop: 05/03/18 09:01 Last Admin: 11/02/17 07:51 Dose: 162 mg Atorvastatin Calcium (Lipitor) 40 mg PO HS JAN Stop: 05/02/18 21:01 Last Admin: 11/01/17 20:17 Dose: 40 mg Calcium Acetate (Phos-Lo) 1,334 mg PO TIDWM JAN Stop: 05/02/18 17:01 Last Admin: 11/02/17 07:51 Dose: 1,334 mg Carvedilol (Coreg) 12.5 mg PO BIDWM JAN PRN Reason: Protocol Stop: 05/04/18 17:01 Clonidine HCl (Clonidine Hcl) 0.2 mg PO TID [facility] Stop: 05/02/18 15:01 Last Admin: 11/02/17 07:51 Dose: 0.2 mg Furosemide (Lasix) 40 mg PO DAILY [facility] Stop: 05/03/18 09:01 Last Admin: 11/02/17 07:51 Dose: 40 mg Sodium Chloride (0.9 % Sodium Chloride) 250 mls @ 937.5 mls/hr IVC .Q16M PRN PRN Reason: Hypotension Stop: 05/02/18 11:48 Sodium Chloride (0.9 % Sodium Chloride) 1,000 mls @ 0 mls/hr PRIME .Q0M JAN PRN Reason: As Directed Stop: 05/02/18 12:01 Losartan Potassium (Cozaar) 25 mg PO DAILY JAN PRN Reason: Protocol Stop: 05/03/18 09:01 Last Admin: 11/02/17 07:51 Dose: 25 mg Multivitamins/Calcium (Thera M Plus) 1 tab PO DAILY [facility] Stop: 05/03/18 09:01 Last Admin: 11/02/17 07:51 Dose: 1 tab Naloxone HCl (Narcan) 0.4 mg IVP Q2MIN PRN PRN Reason: SEE COMMENTS Stop: 05/02/18 11:44 Laboratory Tests 11/01/17 11/02/17 04:37 00:26 Hgb 7.7 L 7.9 L - Imaging and Cardiology Chest Xray: report reviewed Echo: report reviewed - EKG Interpretation EKG results cardiology: other (Telemetry reviewed with average HR previous 12 hours noted to be 100,a.fib. Currently HR 80s at bedside. PVCs noted.) Consult Discharge Plan - Plan Referrals: NONE,PCP [Primary Care Provider] -
--- NOTE | 2017-11-02 13:15 | Discharge Summary ---
- NOTES TO OUTPATIENT PROVIDER Notes to Outpatient Provider: Patient was admitted for hypoxic respiratory failure secondary to decompensated heart failure in the setting of ESRD, uncontrolled HTN, and Afib with RVR. Co-managed with cardiology and nephrology for rate control/anticoagulation and dialysis support respectively. Initially required BiPAP and nitro drip which were quickly weaned off. He was also on amiodarone drip which was later discontinued and instead, his dosage of Coreg was up titrated to 12.5 mg twice a day. He is discharged in stable condition with dialysis tomorrow and cardiology follow-up the day after. Orders not resulted at time of discharge: Pending orders 11/03/17 04:00 CBC [Complete Blood Count] [HEME] AM 0400 Ferritin AM 0400 Folate AM 0400 Iron Profile AM 0400 Renal Function Panel AM 0400 Vitamin B12 AM 0400 Date of Encounter: 11/02/17 Time of Encounter: 13:00 - Discharge Diagnosis (1) Acute respiratory failure with hypoxia Priority: Primary Status: Acute (2) CHF exacerbation Priority: Secondary Status: Acute Qualifiers: Heart failure type: combined systolic and diastolic Qualified Code(s): I50.43 - Acute on chronic combined systolic (congestive) and diastolic ( congestive) heart failure (3) Atrial fibrillation with RVR Priority: Secondary Status: Acute (4) ESRD (end stage renal disease) on dialysis Priority: Secondary Status: Chronic (5) Elevated troponin Priority: Secondary Status: Acute (6) HTN (hypertension) Priority: Secondary Status: Chronic Qualifiers: Hypertension type: essential hypertension Qualified Code(s): I10 - Essential (primary) hypertension (7) Anemia Priority: Secondary Status: Chronic Qualifiers: Anemia type: due to chronic kidney disease Chronic kidney disease stage: on chronic dialysis Qualified Code(s): N18.6 - End stage renal disease; D63.1 - Anemia in chronic kidney disease; Z99.2 - Dependence on renal dialysis Hospital course: Mr. Vargas is a 52 year old male with past history of atrial fibrillation, ESRD on dialysis Friday, hypertension, congestive heart failure and aortic valve replacement, was admitted for soreness of breath. He was diagnosed with hypoxic respiratory failure secondary to decompensated heart failure and was placed on BiPAP briefly. Etiology of decompensated heart failure was attributed to uncontrolled hypertension and A. fib with RVR. His volume status was managed by nephrology with dialysis and his Afib as well as HTN were co-managed with cardiology. He was initially placed on diltiazem drip which was later switched to amiodarone drip in view of cardiomyopathy. He was also on heparin drip throughout his stay for anticoagulation. He quickly improved with both his blood pressure and heart rate being normalized. Instead of transitioning amiodarone drip to oral agent, we decided to increase his Coreg to 12.5 mg twice a day. He claims that his Coumadin was previously taken off by his cardiothoracic surgeon. We discussed long-term anticoagulation as an outpatient with him again and he appeared to be a little hesitant about it since he has an upcoming appointment with his social insurance administrator at [place] on . Patient will discuss the anticoagulation option with him during that appointment. Of note, during his last hospitalization in August 2017, his EF was noted to be decreased at 40% (used to be normal) and was recommended to get [facility] as an outpatient which he didn't. Importance of outpatient cardiology follow up was again emphasized to the patient. Discharge discussed with: patient - Time Spent with Patient Total time spent providing and/or coordinating discharge services: Greater than 30 minutes - Discharge Medications Prescriptions: Carvedilol [Coreg] 12.5 mg PO BIDWM #60 tablet Home Medications: cloNIDine HCl [Clonidine HCl] 0.2 mg PO TID PRN 04/12/16 [History] Acetaminophen [Tylenol] 1,000 mg PO Q6HR PRN 07/30/16 [History] Albuterol Sulfate [Ventolin Hfa] 2 puff IH Q4H PRN 08/18/17 [History] Aspirin Enteric Coated [Aspirin EC] 162 mg PO DAILY 08/18/17 [History] Atorvastatin [Lipitor] 40 mg PO HS 08/18/17 [History] Calcium Acetate 1,334 mg PO TIDWM 08/18/17 [History] Losartan [Cozaar] 25 mg PO DAILY 08/18/17 [History] Multivitamin [One Daily Multivitamin] 1 tab PO DAILY 08/18/17 [History] Furosemide [Lasix] 40 mg PO DAILY 10/31/17 [History] Carvedilol [Coreg] 12.5 mg PO BIDWM #60 tablet 11/02/17 [Rx] Allergies/Adverse Reactions: 3 Allergy/AdvReac Type Severity Reaction Status Date / Time No Known Allergies Allergy Verified 10/31/17 08:50 Date of admission: 10/31/17 10:30 Primary care physician: PCP NONE Consults: 10/31/17 12:00 Consult to Dialysis [CONS] ONCE - Constitutional Vitals: Temp Pulse Resp BP Pulse Ox 98.3 F 90 22 127/101 98 11/02/17 11:00 11/02/17 11:00 11/02/17 11:00 11/02/17 11:00 11/02/17 11:00 General appearance: Present: cooperative, A&O X 3, severe distress, answers questions appropriately Exam: General appearance: Present: cooperative, A&O X 3, not in distress, answers questions appropriately - Neck Neck exam general surgery: Present: supple, trachea midline. - Respiratory Respiratory exam: clear to auscultation, minimal, occasional crackles at the bases - Cardiovascular Cardiovascular exam: Present: irregular rhythm, +S1, +S2, normal rate. Absent: diastolic murmur, gallop, rubs, systolic murmur - GI/Abdominal GI/Abdominal exam: Present: normal bowel sounds, soft, no peritoneal signs. Absent: distended, tenderness - Extremities Exam Extremities exam: Present: improving pedal edema, warm, radial pulses palpable and symmetrical. - Neurological Exam Neurological exam: Present: alert, oriented X3, no focal deficits. - Patient Status Disposition: Home, Self-Care Condition: Fair Functional capacity at discharge: independent ambulation Overall status at discharge: patient is progressing back to baseline - Discharge Instructions Instructions: Acute Respiratory Distress Syndrome (DC), Atrial Fibrillation (DC ), Heart Failure (DC) Follow Up With: NONE,PCP [Primary Care Provider] - Additional Instructions: Follow-up on 11/03 for dialysis, follow-up with his own social insurance administrator on 11/04 - Diet and Activity Activity: resume usual activities as tolerated Diet: low salt diet
[2017-11-02 13:56] VITALS: BP 105/73
== END 2017-11-02 14:15 | disposition home or self-care (01) | DRG 291 ==
LOC: EMEROOARM 07:02 → 2NNU 10:30 → SUATTDRO 10:30 → 2NNU 11:29
PROVIDERS: ADMIT Internal Medicine; ATTEND Internal Medicine

== ENCOUNTER 2017-11-19 09:09 | Inpatient (IN) ==
--- NOTE | 2017-11-19 09:32 | Emergency Department Note ---
Disposition Clinical Impression: ESRD (end stage renal disease) on dialysis Acute CHF Qualifiers: Heart failure type: unspecified Qualified Code(s): I50.9 - Heart failure, unspecified Disposition: Admitted As Inpatient Condition: Fair Time of Disposition: 13:30 General Adult HPI - General Chief complaint: ED Shortness of Breath/Dyspnea Stated complaint: SOB Time Seen by Provider: 11/19/17 09:15 Source: patient Mode of arrival: ambulatory Limitations: no limitations Nursing Notes Reviewed: Yes Vital Signs Reviewed: Yes - History of Present Illness HPI Narrative: The history, physical exam, and medical decision making was performed by the medical student either while I was physically present and actively involved or I personally re-performed the exam and medical decision making. I have verified the accuracy of the medical student's documentation with regards to the history, physical exam findings, and medical decision making. Pain Scale: 0 - Related Data Home Medications Medication Instructions Recorded Confirmed cloNIDine HCl [Clonidine HCl] 0.2 mg PO TID PRN 04/12/16 11/19/17 Acetaminophen [Tylenol] 1,000 mg PO Q6HR PRN 07/30/16 11/19/17 Albuterol Sulfate [Ventolin Hfa] 2 puff IH Q4H PRN 08/18/17 11/19/17 Aspirin Enteric Coated [Aspirin EC] 162 mg PO DAILY 08/18/17 11/19/17 Atorvastatin [Lipitor] 40 mg PO HS 08/18/17 11/19/17 Calcium Acetate 1,334 mg PO TIDWM 08/18/17 11/19/17 Multivitamin [One Daily 1 tab PO DAILY 08/18/17 11/19/17 Multivitamin] Furosemide [Lasix] 40 mg PO DAILY 10/31/17 11/19/17 Losartan Potassium [Cozaar] 50 mg PO DAILY 11/19/17 11/19/17 Previous Rx's Medication Instructions Recorded Carvedilol [Coreg] 12.5 mg PO BIDWM #60 tablet 11/02/17 Allergies Allergy/AdvReac Type Severity Reaction Status Date / Time No Known Allergies Allergy Verified 10/31/17 08:50 All systems ED: reviewed and negative except as stated. Review of Systems: As Per HPI Constitutional: Denies: fever, chills, weakness ENT ED: Denies: congestion Cardiovascular: Reports: dyspnea on exertion, orthopnea, edema, paroxysmal nocturnal dyspnea. Denies: chest pain, palpitations, syncope Respiratory: Reports: cough (chronic and unchanged), dyspnea. Denies: wheezes, hemoptysis, sputum production Gastrointestinal: Denies: abdominal pain, nausea, vomiting, diarrhea, constipation, hematemesis, melena, hematochezia Genitourinary: Denies: urgency, dysuria, frequency Musculoskeletal: Denies: back pain Integumentary: Denies: rash Neurological: Denies: headache, weakness, numbness, paresthesias, confusion Endocrine: Denies: fatigue Hematological/Lymphatic: Reports: easy bleeding (on Coumadin) Past Medical History - Past Medical History Medical history: Reports: atrial fibrillation, cardiomyopathy, CHF, dialysis, hyperlipidemia, hypertension, myocardial infarction, renal disease Surgical history: Reports: appendectomy, orthopedic, other Psychiatric history: Reports: no psych history - Social History Smoking Status: Former smoker Smokeless Tobacco Status: No Alcohol use: Reports: none Drug use: Reports: none Physical Exam - General Limitations: no limitations General appearance: alert, in no apparent distress - Head Head exam: atraumatic, normocephalic - Eye Eye exam: Present: normal appearance, PERRL, EOMI. Absent: scleral icterus - ENT ENT exam: normal exam, mucous membranes moist - Neck Neck exam: Present: normal inspection - Chest Chest inspection: Present: normal inspection, symmetric chest wall rise - Respiratory Respiratory exam: Present: normal lung sounds bilaterally (althought diminished throughout out). Absent: respiratory distress, wheezes - Cardiovascular Cardiovascular exam: Present: tachycardia (rate of 124 in the room ), irregular rhythm - Abdominal Exam Abdominal exam: Present: soft, Non-Tender, normal bowel sounds. Absent: tenderness, distention, guarding, rebound, rigidity - Extremities Exam Extremities exam: Present: normal inspection, normal capillary refill, pedal edema (1+ BL LE). Absent: tenderness, calf tenderness - Expanded Lower Extremity Exam Neurovascular/Tendon exam: Present: normal capillary refill. Absent: pulse deficit, motor deficit, sensory deficit - Back Exam Back exam: Present: normal inspection - Neurological Exam Neurological exam: Present: alert, oriented X3 - Psychiatric Psychiatric exam: Present: normal affect, normal mood - Skin Skin exam: Present: warm, dry, intact Course Course Narrative: Will get ECG, CXR, CBC, BNP, BMP, INR. Will start cardizem drip and bolus as patient on initial presentation atrial fibrillation with RVR. Vital Signs Temperature 97.9 F 11/19/17 09:13 Pulse Rate 51 11/19/17 09:13 Respiratory Rate 18 11/19/17 09:13 Blood Pressure 144/104 11/19/17 09:13 O2 Sat by Pulse Oximetry 98 11/19/17 09:13 Temperature 98.4 F 11/19/17 14:40 Pulse Rate 108 11/19/17 14:40 Respiratory Rate 18 11/19/17 14:40 Blood Pressure 130/107 11/19/17 15:41 O2 Sat by Pulse Oximetry 95 11/19/17 14:40 Oxygen Delivery Oxygen Delivery Nasal Cannula Medical Decision Making - MDM Narrative Medical decision making narrative: Patient is a 52-year-old male presented with increasing shortness of breath and difficulty breathing. Past patient has past history significant for CHF, end- stage renal disease currently on dialysis schedule of Friday, [place], CAD, aortic valve replacement. Patient was brought from dialysis due to increasing shortness of breath as well as being in atrial fibrillation with a rapid ventricular rate. Patient was initially seen and evaluated, continues to deny chest pain. Was given aspirin. Patient on exam was wearing 2 L nasal cannula, denies oxygen use at home. Currently satting at 98%. Shortness of breath has been progressing for the past few days. Heart rate is 126, noted to be in atrial fibrillation with rapid ventricular rate. Blood pressure is stable , pulse ox without nasal cannula is 98% on room air. Exam without crackles however decreased and diminished breath sounds throughout. Denies recent fever or chills. Workup in the emergency department included a BNP which is elevated to around 2900, however during this admission had been greater than 3000. Kidney function shows creatinine of 6.81, however improved since last admission. GFR currently 9, improved from 7 during last admission. Overall CBC appears unchanged from baseline, TSH is within normal limits. EKG shows no acute ischemic changes however does show the patient to be in atrial fibrillation with RVR. Troponin is elevated 0.08, appears to be decreased from last admission, most likely due to demand ischemia. Chest x-ray shows continued pulmonary edema however improved since last image during last admission 2 weeks ago. While in the ED, patient was not tolerant to IV, requested they that they be taken out multiple times. Was only able to draw blood initially, midline was ordered for placement to give Cardizem for rate control. Patient was started on 5 mg Cardizem titration, continued to be in the 110s, titrated up to 10 patient currently with ventricular rate around 105 continues to be in atrial fibrillation. Upon review of INR is appears to be subtherapeutic at this point at 1.3, supposed to be on Coumadin, we will start low-dose heparin. Did give dose of Lasix. Overall clinically patient MARIA INES due to acute CHF vs ESRD with fluid overload, Spoke with hospitalist at 1327, accepts patient this point in time. - Medical Records Medical records reviewed: Yes I reviewed the patient's medical records. - Lab Data Lab results reviewed: Yes I reviewed the patient's lab results. Result diagrams: 11/19/17 13:15 11/19/17 10:40 Lab Results 11/19/17 11/19/17 11/19/17 Range/Units 10:40 10:40 10:40 WBC 6.1 (4.3-11.1) K/mcL RBC 2.93 L (4.19-5.50) M/mcL Hgb 9.6 L (12.9-16.9) g/dL Hct 29.6 L (37.5-50.1) % MCV 101.0 H (83.0-100.0) fL MCH 32.8 (28.0-33.3) pg MCHC 32.4 (31.6-35.5) g/dL RDW 15.0 H (11.5-14.5) % Plt Count 149 (140-400) K/mcL MPV 10.8 (9.4-12.4) fL Immature Gran % 0.3 (0-4) % Seg Neutrophils % 72.9 % Lymphocytes % 17.5 % Monocytes % 7.8 % Eosinophils % 0.7 % Basophils % 0.8 % Neutrophils # 4.4 (1.6-8.9) K/mcL Lymphocytes # 1.1 (0.6-4.6) K/mcL Monocytes # 0.5 (0.0-1.3) K/mcL Eosinophils # 0.0 (0.0-0.6) K/mcL Basophils # 0.1 (0.0-0.2) K/mcL PT 14.1 H (9.4-12.1) Seconds INR 1.3 APTT 31.3 (26.0-36.0) Seconds Heparin Anti-Xa, Unfract (0.30-0.70) IU/mL Sodium 136 (136-145) mEq/L Potassium 4.1 (3.5-5.1) mEq/L Chloride 98 (98-107) mEq/L Carbon Dioxide 28 (23-29) mEq/L BUN 24 H (6-20) mg/dL Creatinine 6.81 H (0.70-1.30) mg/dL Est GFR ( Amer) 10 L (> 60) Est GFR (Non-Af Amer) 9 L (> 60) BUN/Creatinine Ratio 4 L (6-26) Glucose 93 (70-105) mg/dL Calculated Osmolality 286 (280-300) Lactic Acid (0.5-2.2) mmol/L Calcium 8.4 L (8.6-10.3) mg/dL Troponin I 0.08 H* (< 0.04) ng/mL B-Natriuretic Peptide (Less than 100) pg/mL TSH 3.033 (0.340-5.600) mcIU/mL 11/19/17 11/19/17 11/19/17 Range/Units 10:40 10:40 13:15 WBC 5.4 (4.3-11.1) K/mcL RBC 3.01 L (4.19-5.50) M/mcL Hgb 10.0 L (12.9-16.9) g/dL Hct 30.6 L (37.5-50.1) % MCV 101.7 H (83.0-100.0) fL MCH 33.2 (28.0-33.3) pg MCHC 32.7 (31.6-35.5) g/dL RDW 15.0 H (11.5-14.5) % Plt Count 127 L (140-400) K/mcL MPV 10.6 (9.4-12.4) fL Immature Gran % (0-4) % Seg Neutrophils % % Lymphocytes % % Monocytes % % Eosinophils % % Basophils % % Neutrophils # (1.6-8.9) K/mcL Lymphocytes # (0.6-4.6) K/mcL Monocytes # (0.0-1.3) K/mcL Eosinophils # (0.0-0.6) K/mcL Basophils # (0.0-0.2) K/mcL PT (9.4-12.1) Seconds INR APTT (26.0-36.0) Seconds Heparin Anti-Xa, Unfract (0.30-0.70) IU/mL Sodium (136-145) mEq/L Potassium (3.5-5.1) mEq/L Chloride (98-107) mEq/L Carbon Dioxide (23-29) mEq/L BUN (6-20) mg/dL Creatinine (0.70-1.30) mg/dL Est GFR ( Amer) (> 60) Est GFR (Non-Af Amer) (> 60) BUN/Creatinine Ratio (6-26) Glucose (70-105) mg/dL Calculated Osmolality (280-300) Lactic Acid 1.0 (0.5-2.2) mmol/L Calcium (8.6-10.3) mg/dL Troponin I (< 0.04) ng/mL B-Natriuretic Peptide 2887 H (Less than 100) pg/mL TSH (0.340-5.600) mcIU/mL 11/19/17 Range/Units 13:15 WBC (4.3-11.1) K/mcL RBC (4.19-5.50) M/mcL Hgb (12.9-16.9) g/dL Hct (37.5-50.1) % MCV (83.0-100.0) fL MCH (28.0-33.3) pg MCHC (31.6-35.5) g/dL RDW (11.5-14.5) % Plt Count (140-400) K/mcL MPV (9.4-12.4) fL Immature Gran % (0-4) % Seg Neutrophils % % Lymphocytes % % Monocytes % % Eosinophils % % Basophils % % Neutrophils # (1.6-8.9) K/mcL Lymphocytes # (0.6-4.6) K/mcL Monocytes # (0.0-1.3) K/mcL Eosinophils # (0.0-0.6) K/mcL Basophils # (0.0-0.2) K/mcL PT 14.1 H (9.4-12.1) Seconds INR 1.3 APTT (26.0-36.0) Seconds Heparin Anti-Xa, Unfract 0.04 L (0.30-0.70) IU/mL Sodium (136-145) mEq/L Potassium (3.5-5.1) mEq/L Chloride (98-107) mEq/L Carbon Dioxide (23-29) mEq/L BUN (6-20) mg/dL Creatinine (0.70-1.30) mg/dL Est GFR ( Amer) (> 60) Est GFR (Non-Af Amer) (> 60) BUN/Creatinine Ratio (6-26) Glucose (70-105) mg/dL Calculated Osmolality (280-300) Lactic Acid (0.5-2.2) mmol/L Calcium (8.6-10.3) mg/dL Troponin I (< 0.04) ng/mL B-Natriuretic Peptide (Less than 100) pg/mL TSH (0.340-5.600) mcIU/mL - Radiology Data Radiology results reviewed: Yes I reviewed the patient's radiology results. Chest X-Ray 11/19/17 09:20 IMPRESSION: 1. Persistent enlargement of the cardiac silhouette with trace bilateral pleural effusions. 2. Interval improvement in the pulmonary vascular enlargement with patchy bilateral opacities seen on the prior exam, which likely represented pulmonary edema. D/ / Rodo Wilburn MD / Rodo Wilburn MD Interpreting Provider: Rodo Wilburn MD - EKG Data EKG #1 EKG attestation: Yes I reviewed and interpreted this EKG. EKG results narrative: ECG performed at 11/19/17 with ventricular rate of 119 irregular rhythm, normal axis, LVH, ST depression noted in V6. Overall no acute ischemic changes. Overall impression atrial fibrillation with rapid ventricular rate. Interpretation: no acute changes Critical Care Time Critical Care Time: Yes Total Critical Care Time: 35 Attestation: The high probability of a clinically significant, sudden or life threatening deterioration of the [CV] system(s) required my full and direct attention, intervention and personal management. The aggregate critical care time was [35] minutes. This time is in addition to time spent performing reported procedures but includes the following: [x] Data Review and interpretation [x] Patient assessment and monitoring of vital signs [x] Documentation [x] Medication orders and management Rich - Rich Situation: Demographics, MOA Background: Presenting Complaint Assessment: Vital Signs, Course and respsone to treatment, Exam Concerns, Patient/Family Expectation, Pertinant Lab Results, Outstanding Labs SDesiree Report Given to: Dr. Jeet Villanueva Repor Time: 13:29 (accepted) Attestation Statement - Attestation Attestation: I examined this patient and my medical decision-making was reviewed with the Resident Physician, Dr. Gao.. I agree with the documented findings, disposition and treatment plan as described except to the extent set forth below. Patient is 52-year-old white male with moderate multiple medical problems including CHF, A. fib with RVR, status post valve replacement surgery, end-stage renal disease on hemodialysis who is sent from dialysis prior to completion of his treatment today for worsening shortness of breath and tachycardia. Patient arrives awake alert and oriented stating that he just began to get gradually more short of breath and is in an irregularly irregular rhythm, tachycardic but with a stable blood pressure. Patient was placed on 2 L nasal cannula for hypoxia at rest placed on cardiac monitoring. Patient denies any chest pain tightness or pressure sensation and denies appreciating any palpitations. I agree with patient's physical exam findings as documented. Patient tachycardic. Patient's EKG shows A. fib with RVR at a rate in the 120s with some ST depression seen and V6 which was seen on prior EKG. No significant change from prior EKGs. Patient had full lab evaluation was delayed due to difficulty obtaining peripheral IV. PICC team was consult and an midline place. Patient was started on a Cardizem drip for rate control. Patient has remained hemodynamically stable throughout his ED course. Patient's lab evaluation shows his chronic renal insufficiency, elevated troponin which she chronically has and is improved today from his recent hospitalization 2 weeks ago. Patient's BNP is elevated although not as significantly as his prior BNP from his recent hospitalization. Chest x-ray shows pulmonary edema. Patient with improved rate control following Cardizem drip. Patient will be heparinized as he is a clean noncompliant with his Coumadin with an INR of 1.3. Patient was received aspirin on arrival and Lasix IV. Patient remains hemodynamically stable at this time and will be admitted to the hospitalist service for A. fib with RVR, acute exacerbation of CHF.
--- NOTE | 2017-11-19 09:37 | Emergency Department Note ---
Disposition Clinical Impression: Acute CHF, ESRD (end stage renal disease) on dialysis Disposition: Admitted As Inpatient Condition: Fair SOB HPI - General Chief Complaint: ED Shortness of Breath/Dyspnea Stated Complaint: SOB Time Seen by Provider: 11/19/17 09:15 Source: patient Mode of arrival: EMS Limitations: no limitations Nursing Notes Reviewed: Yes Vital Signs Reviewed: Yes - History of Present Illness Corey Vargas is a 52-yo male patient with PMHx of HTN, HLD, ESRD on dialysis , AR, afib with cardioversion for which he takes coumadin, CHF, aortic valve replacement, recent aneurysm repair, appendectomy, and past smoking history presents from dialysis with a chief complaint of intermittent shortness of breath since Friday that is worse this morning. He states that this is worsened upon lying down and with exertion, is sometimes improved by sitting, and is worse than his baseline shortness of breath due to his CHF. He denies any chest pain or pressure, nausea, vomiting, headaches, lightheadedness, or other symptoms. Pt Subjective Complaint: shortness of breath Onset (ago): day(s) (2) Severity: moderate Consistency/Duration: intermittent - Related Data Home Medications Medication Instructions Recorded Confirmed cloNIDine HCl [Clonidine HCl] 0.2 mg PO TID PRN 04/12/16 11/19/17 Acetaminophen [Tylenol] 1,000 mg PO Q6HR PRN 07/30/16 11/19/17 Albuterol Sulfate [Ventolin Hfa] 2 puff IH Q4H PRN 08/18/17 11/19/17 Aspirin Enteric Coated [Aspirin EC] 162 mg PO DAILY 08/18/17 11/19/17 Atorvastatin [Lipitor] 40 mg PO HS 08/18/17 11/19/17 Calcium Acetate 1,334 mg PO TIDWM 08/18/17 11/19/17 Multivitamin [One Daily 1 tab PO DAILY 08/18/17 11/19/17 Multivitamin] Furosemide [Lasix] 40 mg PO DAILY 10/31/17 11/19/17 Losartan Potassium [Cozaar] 50 mg PO DAILY 11/19/17 11/19/17 Previous Rx's Medication Instructions Recorded Carvedilol [Coreg] 12.5 mg PO BIDWM #60 tablet 11/02/17 Allergies Allergy/AdvReac Type Severity Reaction Status Date / Time No Known Allergies Allergy Verified 10/31/17 08:50 Constitutional: Denies: fever, chills, weakness Cardiovascular: Reports: dyspnea on exertion, orthopnea, edema. Denies: chest pain Respiratory: Reports: dyspnea. Denies: cough, wheezes, hemoptysis, stridor Gastrointestinal: Denies: abdominal pain, nausea, vomiting, hematemesis Neurological: Denies: headache Endocrine: Reports: fatigue Past Medical History - Past Medical History Medical history: Reports: atrial fibrillation, cardiomyopathy, CHF, dialysis, hyperlipidemia, hypertension, myocardial infarction, renal disease Surgical history: Reports: appendectomy, heart valve replacement, orthopedic, other Psychiatric history: Reports: no psych history - Social History Smoking Status: Former smoker Smokeless Tobacco Status: No Alcohol use: Reports: none Drug use: Reports: none Physical Exam On exam, patient is alert and oriented and does not appear to be in any acute distress. He is chronically ill-appearing with some pallor. Heart is tachycardic with irregularly irregular rhythm, but no murmurs, gallops, or rubs. Lungs are CTAB. Abdomen is soft, nondistended, and nontender. His lower extremities have +1 pitting edema bilaterally, but no JVD is noted. No calf tenderness. No other pertinent findings. - General General appearance: alert, in no apparent distress - Head Head exam: atraumatic, normocephalic - Eye Eye exam: Present: normal appearance - Neck Neck exam: Present: normal inspection - Chest Chest inspection: Present: normal inspection, symmetric chest wall rise - Respiratory Respiratory exam: Present: normal lung sounds bilaterally. Absent: wheezes, stridor, accessory muscle use, prolonged expiratory phase - Cardiovascular Cardiovascular exam: Present: tachycardia, irregular rhythm, +S1, +S2. Absent: regular rate, normal rhythm, rubs, gallop, JVD, +S3, +S4 - Abdominal Exam Abdominal exam: Present: soft, Non-Tender. Absent: tenderness, distention, guarding, rebound - Extremities Exam Extremities exam: Present: pedal edema. Absent: calf tenderness - Neurological Exam Neurological exam: Present: alert, oriented X3 - Psychiatric Psychiatric exam: Present: normal affect, normal mood - Skin Skin exam: Present: warm, dry Course Vital Signs Temperature 97.9 F 11/19/17 09:13 Pulse Rate 51 11/19/17 09:13 Respiratory Rate 18 11/19/17 09:13 Blood Pressure 144/104 11/19/17 09:13 O2 Sat by Pulse Oximetry 98 11/19/17 09:13 Temperature 98.0 F 11/19/17 18:40 Pulse Rate 82 11/19/17 18:40 Respiratory Rate 18 11/19/17 18:40 Blood Pressure 145/90 11/19/17 18:40 O2 Sat by Pulse Oximetry 95 11/19/17 18:40 Oxygen Delivery Oxygen Delivery Nasal Cannula Shortness of Breath/Dyspnea - Lab Data Result diagrams: 11/19/17 13:15 11/19/17 10:40
[2017-11-19] MEDS ORDERED: Aspirin 325 MG TABLET PO ONE (09:59)
--- NOTE | 2017-11-19 10:19 | Electrocardiograph Report ---
[facility] Test Date: 2017-11-19 Pat Name: Corey Vargas Department: EXAM5 Room: Gender: M Hand Picker: : [id number] Requested By: Hadley Gao Order Number: [id number] Reading MD: Kalyan Kaiser Measurements Intervals [place] Rate: 119 P: HI: QRS: 64 QRSD: 122 T: 156 QT: 346 QTc: 487 Interpretive Statements Atrial fibrillation with rapid ventricular response LVH with IVCD and secondary repol abnrm Borderline prolonged QT interval Artifact in lead(s) I III aVR aVL aVF Electronically Signed On 11-19-2017 10:18:11 EDT by Kalyan Kaiser
[2017-11-19 10:52] LABS: Basophils # 0.1 K/mcL (0.0-0.2); Basophils % 0.8 %; Eosinophils % 0.7 %; Hematocrit 29.6 % (37.5-50.1); Hemoglobin 9.6 g/dL (12.9-16.9); Immature Granulocytes % 0.3 % (0-4); Lymphocytes # 1.1 K/mcL (0.6-4.6); Lymphocytes % 17.5 %; Mean Corpuscular HGB Conc 32.4 g/dL (31.6-35.5); Mean Corpuscular Hemoglobin 32.8 pg (28.0-33.3); Mean Platelet Volume 10.8 fL (9.4-12.4); Monocytes # 0.5 K/mcL (0.0-1.3); Monocytes % 7.8 %; Neutrophils # 4.4 K/mcL (1.6-8.9); Platelet Count 149 K/mcL (140-400); Red Blood Count 2.93 M/mcL (4.19-5.50); Segmented Neutrophils % 72.9 %
[2017-11-19 11:06] LABS: INR 1.3; Prothrombin Time 14.1 Seconds (9.4-12.1)
[2017-11-19 11:09] LABS: Activated Partial Thrombo Time 31.3 Seconds (26.0-36.0)
[2017-11-19 11:17] LABS: Calcium 8.4 mg/dL (8.6-10.3); Potassium 4.1 mEq/L (3.5-5.1)
[2017-11-19 11:30] LABS: Thyroid Stimulating Hormone 3.033 mcIU/mL (0.340-5.600)
[2017-11-19] MEDS ORDERED: Lidocaine -MPF 1% 5 ML AMPUL INFILT ONE (11:30)
[2017-11-19 11:44] LABS: Troponin I 0.08 ng/mL (< 0.04)
[2017-11-19] MEDS ORDERED: *HR* Heparin 5,000 UNIT/ML VIAL IVP PRN ×2 (13:04)
[2017-11-19] MEDS ORDERED: *HR* Heparin 5,000 UNIT/ML VIAL IVP ONE (13:04)
[2017-11-19] MEDS ORDERED: Furosemide 40 MG/4 ML VIAL IVP ONE (13:24)
[2017-11-19 13:27] LABS: Hematocrit 30.6 % (37.5-50.1); Mean Corpuscular HGB Conc 32.7 g/dL (31.6-35.5); Mean Corpuscular Hemoglobin 33.2 pg (28.0-33.3); Mean Corpuscular Volume 101.7 fL (83.0-100.0); Mean Platelet Volume 10.6 fL (9.4-12.4); Platelet Count 127 K/mcL (140-400); Red Blood Count 3.01 M/mcL (4.19-5.50)
[2017-11-19 13:34] LABS: Heparin anti-factor XA UFH 0.04 IU/mL (0.30-0.70)
[2017-11-19 13:35] LABS: INR 1.3; Prothrombin Time 14.1 Seconds (9.4-12.1)
--- NOTE | 2017-11-19 13:38 | Nephrology Consult Note ---
Date of Encounter: 11/19/17 Time of Encounter: 13:33 Assessment and Plan (1) ESRD (end stage renal disease) on dialysis Current Visit: Yes Status: Acute Current regimen is Friday at [facility]. Did have treatment today, when symptoms started. We will plan for HD on Friday. Will order additional UF for HD as needed. Avoid nephrotoxins and renal dose all medications. Renal diet if able to eat. Continue renal vitamins. (2) Shortness of breath Current Visit: Yes Status: Acute Per chest xray today: 1. Persistent enlargement of the cardiac silhouette with trace bilateral pleural effusions. 2. Interval improvement in the pulmonary vascular enlargement with patchy bilateral opacities seen on the prior exam, which likely represented pulmonary edema. Wound suggest continuing home dose of Lasix, as he still makes urine. Per primary. (3) Elevated troponin Current Visit: Yes Status: Acute Trop is 0.08 now. Per primary. History of Present Illness - Reason for Consult Consult date: 11/19/17 end stage renal disease - Chief Complaint shortness of breath - History of Present Illness Mr. Vargas is a 52-year-old male with ESRD. Current regimen is Friday at [facility]. PMH:HTN, HLD, AR, afib with cardioversion for which he takes coumadin, CHF, aortic valve replacement. He presents today to the ER for shortness of breath that actually started on Friday. He states that he was hoping hemodialysis would help today. He reports that in the last 30 minutes of his hemodialysis treatment he was "gasping" and was placed on oxygen at the hemodialysis unit. He does not wear home oxygen. He is on room air at this time. Denies chest pain. Denies nausea , vomiting, diarrhea. Denies fever and admits to chills all the time. He tells me that his Coumadin dose was increased 7 days ago. Denies hematuria, grace red blood or melena. He did receive the majority of his hemodialysis treatment today. No need for hemodialysis at this time. Will order additional UF for HD as needed. Will plan for HD on Friday. He lives at home with spouse. Pt is a former smoker, unsure of when he quit. He denies etoh or illegal drug use. Past Med Surg Social Fam HX - Past Medical History Medical history: atrial fibrillation, cardiomyopathy, CHF, dialysis, hyperlipidemia, hypertension, myocardial infarction, renal disease Additional medical history: ESRD. [id number] Psychiatric history: no psych history - Past Surgical History Surgical History: appendectomy, orthopedic, other Additional surgical history: cardioversion for afib, valve repair, aneurysm repair - Social History Smoking Status: Former smoker Smokeless Tobacco Status: No Alcohol use: none Drug use: none - Family History Mother Family Member Ethnicity: Non- Living Status: Hx Family Cardiac Disorders: Yes Hx Family Respiratory Disorders: No Hx Family Cancer: No Hx Family GI Disorders: No Hx Family Endocrine Disorder: Yes (diabetes) Hx Family Neuromuscular Disorders: No Hx Family Neurologic Disorders: No Hx Family HEENT Disorders: No Hx Family Autoimmune Disorders: No Father Family Member Ethnicity: Non- Living Status: Still Living Hx Family Cardiac Disorders: Yes Hx Family Endocrine Disorder: Yes Hx Family Neuromuscular Disorders: No Hx Family Neurologic Disorders: No Hx Family HEENT Disorders: No Hx Family Autoimmune Disorders: No Brother Family Member Ethnicity: Non- Living Status: Hx Family Cardiac Disorders: Yes Hx Family Cancer: Yes Hx Family Endocrine Disorder: Yes (diabetes) Hx Family Neuromuscular Disorders: No Hx Family Neurologic Disorders: No Hx Family HEENT Disorders: No Hx Family Autoimmune Disorders: No Medications and Allergies cloNIDine HCl [Clonidine HCl] 0.2 mg PO TID PRN 04/12/16 [History] Acetaminophen [Tylenol] 1,000 mg PO Q6HR PRN 07/30/16 [History] Albuterol Sulfate [Ventolin Hfa] 2 puff IH Q4H PRN 08/18/17 [History] Aspirin Enteric Coated [Aspirin EC] 162 mg PO DAILY 08/18/17 [History] Atorvastatin [Lipitor] 40 mg PO HS 08/18/17 [History] Calcium Acetate 1,334 mg PO TIDWM 08/18/17 [History] Multivitamin [One Daily Multivitamin] 1 tab PO DAILY 08/18/17 [History] Furosemide [Lasix] 40 mg PO DAILY 10/31/17 [History] Carvedilol [Coreg] 12.5 mg PO BIDWM #60 tablet 11/02/17 [Rx] Losartan Potassium [Cozaar] 50 mg PO DAILY 11/19/17 [History] 3 Allergy/AdvReac Type Severity Reaction Status Date / Time No Known Allergies Allergy Verified 10/31/17 08:50 Review of Systems Constitutional: chills, no fatigue, no fever(s) Cardiovascular: dyspnea, no chest pain, no edema Respiratory: dyspnea, no cough, no wheezing Gastrointestinal: no change in bowel habits, no diarrhea, no melena, no nausea, no vomiting Genitourinary Male: no hematuria, no urinary frequency, no urinary hesitancy Exam - Vital Signs Vital signs: Initial Vital Signs Temp Pulse Resp BP Pulse Ox 97.9 F 51 18 144/104 98 11/19/17 09:13 11/19/17 09:13 11/19/17 09:13 11/19/17 09:13 11/19/17 09:13 Vital Signs - Last 8 Hours Temp Pulse Resp BP Pulse Ox 11/19/17 12:55 108 18 158/108 98 11/19/17 12:11 121 18 171/136 99 11/19/17 09:33 98 11/19/17 09:13 97.9 F 51 18 144/104 98 Intake and Output 11/18/17 11/19/17 11/19/17 23:59 07:59 15:59 Intake Total 45 / 45 Balance 45 / 45 Intake: IV Fluids 45 / 45 Cardizem 50 MG In 0.9 % Sodium 45 / 45 Chloride 40 ML @ 5 MG/HR 5 mls/ hr IVC .Q10H [facility] Rx#:[id number] Other: Weight 106 kg Patient Weight 11/19/17 23:59 Weight 106 kg - General Appearance General appearance: well-developed, well-nourished EENT: ATNC Neck: supple Respiratory: clear Cardiology: edema (Trace bilat lower extremity edema. ), normal S1, normal S2 - Dialysis Access Dialysis Vascular Access: Arteriovenous Fistula thrill: Yes bruit: Yes Gastrointestinal: normoactive bowel sounds, no tenderness, no guarding Integumentary: no rash, warm and dry Neurologic: alert and oriented x3 Psychiatric: mood/affect appropriate, cooperative Results - Lab Results 11/19/17 13:15 11/19/17 10:40 Most recent lab results Calcium 8.4 mg/dL (8.6-10.3) L 11/19/17 10:40 Consult Discharge Plan - Plan Referrals: NONE,PCP [Primary Care Provider] -
--- NOTE | 2017-11-19 14:23 | Internal Med History&Physical ---
<Abhinav Melo Latisha - Last Filed: 11/19/17 14:13> Date of Encounter: 11/19/17 Time of Encounter: 14:13 Internal Medicine - H&P: HPI Chief complaint: shortness of breath Admitted From: Home Plans for Post Hospital Care: Home History of present illness: Mr. Vargas is a 52 year old male who presented to the [facility] emergency department with the chief complaint of shortness of breath. He was sent from his dialysis clinic after he they determined him to be tachycardic and hypoxic. He has a past medical history of systolic heart failure EF 40%, ESRD dialysis M,W,F, hypertension, NV, atrial fibrillation. He was recently hospitalized for hypoxic respiratory failure secondary to heart failure exacerbation and was discharged on 11/02/17. During that admission he was also treated for atrial fibrillation with rapid ventricular rate. On presentation today he was found to be hypoxic, tachycardic, short of breath. Electrocardiogram revealed atrial fibrillation with rapid ventricular rate. Troponin was elevated to 0.8 which is less than his previous admission. BNP was elevated to approximately 3000. He was started on 2 L of oxygen via nasal cannula, Cardizem drip, heparin drip in the emergency department. Upon my interview and examination the patient was still slightly tachycardic, however he did not complain of shortness of breath or chest pain. He stated that he has been feeling short of breath since Friday however it was worse today and had to stop his dialysis an hour early and send him to the emergency department due to tachycardia and shortness of breath. I asked him if he has been taking his Coumadin that he was recently started on after his last admission and he stated that he had been to one Coumadin clinic appointment. I also asked him if he had been following his low salt diet and he said that he tries. He denied drug or alcohol or tobacco use. He also denied any recent change in medication, recent illness, recent travel or changes at home. He states that he does have a family history of heart disease in that his younger brother and mother from it. Past Med Surg Social Fam HX - Past Medical History Medical history: atrial fibrillation, cardiomyopathy, CHF, dialysis, hyperlipidemia, hypertension, myocardial infarction, renal disease Additional medical history: ESRD. [id number] Psychiatric history: no psych history - Past Surgical History Surgical History: appendectomy, orthopedic, other Additional surgical history: cardioversion for afib, valve repair, aneurysm repair - Social History Smoking Status: Former smoker Smokeless Tobacco Status: No Alcohol use: none Drug use: none - Family History Mother Family Member Ethnicity: Non- Living Status: Hx Family Cardiac Disorders: Yes Hx Family Respiratory Disorders: No Hx Family Cancer: No Hx Family GI Disorders: No Hx Family Endocrine Disorder: Yes (diabetes) Hx Family Neuromuscular Disorders: No Hx Family Neurologic Disorders: No Hx Family HEENT Disorders: No Hx Family Autoimmune Disorders: No Father Family Member Ethnicity: Non- Living Status: Still Living Hx Family Cardiac Disorders: Yes Hx Family Endocrine Disorder: Yes Hx Family Neuromuscular Disorders: No Hx Family Neurologic Disorders: No Hx Family HEENT Disorders: No Hx Family Autoimmune Disorders: No Brother Family Member Ethnicity: Non- Living Status: Hx Family Cardiac Disorders: Yes Hx Family Cancer: Yes Hx Family Endocrine Disorder: Yes (diabetes) Hx Family Neuromuscular Disorders: No Hx Family Neurologic Disorders: No Hx Family HEENT Disorders: No Hx Family Autoimmune Disorders: No Internal Medicine - H&P: Meds cloNIDine HCl [Clonidine HCl] 0.2 mg PO TID PRN 04/12/16 [History] Acetaminophen [Tylenol] 1,000 mg PO Q6HR PRN 07/30/16 [History] Albuterol Sulfate [Ventolin Hfa] 2 puff IH Q4H PRN 08/18/17 [History] Aspirin Enteric Coated [Aspirin EC] 162 mg PO DAILY 08/18/17 [History] Atorvastatin [Lipitor] 40 mg PO HS 08/18/17 [History] Calcium Acetate 1,334 mg PO TIDWM 08/18/17 [History] Multivitamin [One Daily Multivitamin] 1 tab PO DAILY 08/18/17 [History] Furosemide [Lasix] 40 mg PO DAILY 10/31/17 [History] Carvedilol [Coreg] 12.5 mg PO BIDWM #60 tablet 11/02/17 [Rx] Losartan Potassium [Cozaar] 50 mg PO DAILY 11/19/17 [History] 3 Allergy/AdvReac Type Severity Reaction Status Date / Time No Known Allergies Allergy Verified 10/31/17 08:50 All Systems PM: A 10-system review of systems was performed and is negative for pertinent findings except as documented above in the HPI. - Constitutional Constitutional: no chills, no fever(s), no malaise, no weakness - EENT Eyes: no change in vision - Cardiovascular Cardiovascular ROS IM: dyspnea, dyspnea on exertion, no chest pain, no diaphoresis, no palpitations, no syncope - Respiratory Respiratory: no cough, no wheezing - Gastrointestinal Gastrointestinal: no abdominal pain, no diarrhea, no vomiting - Integumentary Integumentary IM: no jaundice - Neurological Neurological ROS: no behavioral changes, no dizziness, no numbness - Constitutional Vitals: Temp Pulse Resp BP Pulse Ox 97.9 F 108 18 158/108 98 11/19/17 09:13 11/19/17 12:55 11/19/17 12:55 11/19/17 12:55 11/19/17 12:55 Exam: Patient in no acute distress, alert and oriented 3 Cranial nerves II through XII intact No focal neuro deficits in sensation or motor Heart in tachycardic rate and irregular rhythm, no murmur or gallop Lung exam exhibited diffuse scattered rales, no wheeze or rhonchi Abdomen soft and nontender without organomegaly, bowel sounds normal Bilateral lower extremities nonedematous Skin warm and dry Internal Med - H&P Results - Labs CBC & Chem 7: 11/19/17 13:15 11/19/17 10:40 - Assessment and plan (1) Acute respiratory failure with hypoxia Current Visit: Yes Status: Acute Assessment and plan: Patient presented with chief complaint of shortness of breath He was found to be hypoxic on presentation, quickly resolved with 2 L nasal cannula, now saturating in the 90s on room air This is likely secondary to acute decompensated heart failure and atrial fibrillation with rapid ventricular rate Patient has a recent admission for same diagnosis Plan Treat underlying heart failure and tachyarrhythmia Patient currently on continuous cardiac monitoring, Cardizem drip, heparin drip , strict I&O, fluid restricted diet Nephrology consulted, recommended continuing patient's home by mouth Lasix 40 mg daily, patient does still make urine Cardiology consulted, recommended continued Cardizem and heparin drip, they will see the patient and reevaluate (2) Atrial fibrillation with RVR Current Visit: Yes Status: Acute Assessment and plan: Patient has history of A. fib RVR, was treated last admission and sent home on 12.5 mg twice a day Coreg and Coumadin Patient apparently has only had 1 Coumadin clinic appointment since last admission Patiently currently in A. fib RVR, rate moderately controlled at around 100 on Cardizem drip Patient asymptomatic, denies palpitations or chest pain, hemodynamically stable Plan Cardiology consulted and will reevaluate Rest of plan as seen above (3) Acute decompensated heart failure Current Visit: Yes Status: Acute Assessment and plan: Patient has history of systolic heart failure, echocardiogram in August 2017 showed EF of 40% Patient was recently admitted for heart failure exacerbation leading to respiratory failure BNP this admission [id number] Plan Cardiology consultation Lasix 40 mg daily by mouth, fluid restricted diet, strict I&O's This patient will require further education on proper diet and lifestyle changes however it appears there have been issues with compliance in the past Rest of plan as seen above (4) Elevated troponin Current Visit: Yes Status: Acute Assessment and plan: Troponin elevated to 0.8 this admission, recent admission demonstrated troponin of 0.17 I believe this elevated troponin is due to demand ischemia from acute heart failure and renal failure Patient currently without chest pain, hemodynamically stable Plan Serial troponins every 6 hours 3 Continuous cardiac monitoring (5) ESRD (end stage renal disease) on dialysis Current Visit: Yes Status: Chronic Assessment and plan: Patient has history of end-stage renal disease on M,W,F dialysis Patient was receiving dialysis today when he was sent to ED for shortness of breath Plan Nephrology consulted, patient does make urine, continue Lasix 40 mg by mouth daily Avoid nephrotoxic agents and renally dose medications (6) Hypertension Current Visit: Yes Status: Acute Assessment and plan: Patient has history of hypertension Currently stable here We will continue home medication of losartan Continue to monitor Qualifiers: Hypertension type: unspecified Qualified Code(s): I10 - Essential (primary ) hypertension - Time Spent With Patient Total time spent is greater than 50% in coordination of care (as documented) at patient's floor/unit and/or counseling patient: <Alis Fuller - Last Filed: 11/19/17 18:16> Date of Encounter: 11/19/17 Internal Medicine - H&P: HPI History of present illness: Mr. Vargas is a 52 year old male All Systems PM: A 10-system review of systems was performed and is negative for pertinent findings except as documented above in the HPI. - Constitutional Vitals: Temp Pulse Resp BP Pulse Ox 98.4 F 108 18 130/107 95 11/19/17 14:40 11/19/17 14:40 11/19/17 14:40 11/19/17 15:41 11/19/17 14:40 Internal Med - H&P Results - Labs CBC & Chem 7: 11/19/17 13:15 11/19/17 10:40 Labs: Cardiac Enzymes 11/19/17 Range/Units 15:59 Troponin I 0.08 H* (< 0.04) ng/mL - Assessment and plan (1) Elevated troponin Current Visit: Yes Status: Acute (2) Acute decompensated heart failure Current Visit: Yes Status: Acute (3) ESRD (end stage renal disease) on dialysis Current Visit: Yes Status: Chronic (4) Atrial fibrillation with RVR Current Visit: Yes Status: Acute (5) Acute respiratory failure with hypoxia Current Visit: Yes Status: Acute (6) Hypertension Current Visit: Yes Status: Acute Qualifiers: Hypertension type: unspecified Qualified Code(s): I10 - Essential (primary ) hypertension - Time Spent With Patient Total time spent is greater than 50% in coordination of care (as documented) at patient's floor/unit and/or counseling patient: - Attending Attestation I examined this patient and my medical decision-making was reviewed with the Resident Physician. I agree with the documented findings, disposition and treatment plan as described except to the extent set forth below.
[2017-11-19] MEDS ORDERED: Naloxone 0.4 MG/ML INJ IVP PRN (14:43)
[2017-11-19] MEDS ORDERED: Acetaminophen 325 MG TABLET PO PRN (14:43)
[2017-11-19] MEDS: Heparin 25,000 UNIT/500 ML D5W 25,000 UNIT/500 ML BAG IVC SCH (15:40)
[2017-11-19] MEDS: Calcium Acetate 667 MG CAPSULE PO SCH (18:02)
[2017-11-20 04:00] LABS: Basophils % 0.4 %; Eosinophils # 0.1 K/mcL (0.0-0.6); Eosinophils % 1.4 %; Hematocrit 28.8 % (37.5-50.1); Hemoglobin 9.3 g/dL (12.9-16.9); Immature Granulocytes % 0.2 % (0-4); Lymphocytes # 1.3 K/mcL (0.6-4.6); Lymphocytes % 22.2 %; Mean Corpuscular HGB Conc 32.3 g/dL (31.6-35.5); Mean Corpuscular Hemoglobin 32.5 pg (28.0-33.3); Mean Corpuscular Volume 100.7 fL (83.0-100.0); Mean Platelet Volume 10.8 fL (9.4-12.4); Monocytes # 0.4 K/mcL (0.0-1.3); Monocytes % 6.5 %; Platelet Count 127 K/mcL (140-400); Red Blood Count 2.86 M/mcL (4.19-5.50); Segmented Neutrophils % 69.3 %
[2017-11-20 04:15] LABS: INR 1.3; Prothrombin Time 14.8 Seconds (9.4-12.1)
[2017-11-20 04:18] LABS: Calcium 8.4 mg/dL (8.6-10.3); Potassium 4.1 mEq/L (3.5-5.1)
[2017-11-20] MEDS: Aspirin Enteric Coated 81 MG Tablet PO SCH (07:58)
[2017-11-20] MEDS: Furosemide 40 MG TABLET PO SCH (07:58)
[2017-11-20] MEDS: Multivit/Ca/Min/Fe/FA 1 TAB TABLET PO SCH (07:58)
[2017-11-20] MEDS: Calcium Acetate 667 MG CAPSULE PO SCH ×3 (07:59→17:51)
--- NOTE | 2017-11-20 09:20 | Nephrology Progress Note ---
Date of Encounter: 11/20/17 Time of Encounter: 09:17 - Assessment and Plan (1) ESRD (end stage renal disease) on dialysis Current Visit: Yes Status: Acute Current regimen is Friday at [facility]. Plan for HD on Friday. Will order additional UF for HD as needed. Avoid nephrotoxins and renal dose all medications. Renal diet if able to eat. Continue renal vitamins. (2) Shortness of breath Current Visit: Yes Status: Acute Per primary. Chest xray from today does show pulmonary congestion. (3) Elevated troponin Current Visit: Yes Status: Acute Per primary. Subjective Principal diagnosis: shortness of breath Interval history: Pt seen and examined, was ambulating in room. Denies chest pain. Admits to still feeling short of breath. Objective - Vital Signs Vital signs: Vital Signs Temp Pulse Resp BP Pulse Ox 11/20/17 07:46 98.2 F 108 19 173/128 98 11/20/17 04:58 97.9 F 108 17 171/128 96 11/20/17 04:44 98.4 F 114 17 110/68 94 11/20/17 00:57 98.2 F 92 15 174/97 97 11/19/17 20:11 96 11/19/17 18:40 98.0 F 82 18 145/90 95 11/19/17 18:00 158/111 11/19/17 15:41 130/107 11/19/17 14:40 98.4 F 108 18 160/117 95 11/19/17 14:18 18 171/128 Intake and Output 11/19/17 11/20/17 11/20/17 23:59 07:59 15:59 Intake Total 195 / 195 316 / 316 Output Total 400 / 400 Balance 195 / 195 -84 / -84 Intake: IV Fluids 195 / 195 316 / 316 Cardizem 50 MG In 0.9 % Sodium 55 / 55 50 / 50 Chloride 40 ML @ 5 MG/HR 5 mls/ hr IVC .Q10H JAN Rx#:[id number] Heparin 25,000 UNIT/500 ML D5W 140 / 140 266 / 266 25,000 unit In 500 ml @ 9.434 UNIT/KG/HR 20 mls/hr IVC .Q24H JAN Rx#:[id number] Output: Urine 400 / 400 - General Appearance General appearance: Present: well-developed, well-nourished EENT: Present: ATNC, hearing intact, vision intact Neck: Present: supple Cardiology: Present: no edema, normal S1, normal S2 Dialysis Vascular Access: Arteriovenous Fistula thrill: Yes bruit: Yes Gastrointestinal: Present: normoactive bowel sounds, no tenderness, no guarding Integumentary: Present: no rash, warm and dry Neurologic: Present: alert and oriented x3 Psychiatric: Present: mood/affect appropriate, cooperative - Lab 11/20/17 03:40 11/20/17 03:40 Most recent lab results Calcium 8.4 mg/dL (8.6-10.3) L 11/20/17 03:40 Consult Discharge Plan - Plan Referrals: NONE,PCP [Primary Care Provider] -
[2017-11-20] MEDS: cloNIDine HCl 0.1 MG TABLET PO SCH ×3 (10:31→20:40)
--- NOTE | 2017-11-20 10:42 | Internal Med Progress Note ---
<Abhinav Melo - Last Filed: 11/20/17 14:15> Hospitalist Progress Note - Encounter Date of Encounter: 11/20/17 Time of Encounter: 10:36 - Subjective Interval History: Patient seen and examined this morning, no acute events overnight Patient complains of continued shortness of breath but denies chest pain or palpitations - Exam Vitals: Temp Pulse Resp BP Pulse Ox 98.1 F 84 20 136/94 92 11/20/17 10:00 11/20/17 10:00 11/20/17 10:00 11/20/17 10:00 11/20/17 10:00 Exam: Patient in no acute distress, alert and oriented 3 Cranial nerves II through XII intact No focal neuro deficits in sensation or motor Heart in tachycardic rate and irregular rhythm, no murmur or gallop Lung exam exhibited diffuse scattered rales, no wheeze or rhonchi Abdomen soft and nontender without organomegaly, bowel sounds normal Bilateral lower extremities nonedematous Skin warm and dry - Assessment and Plan (1) Acute respiratory failure with hypoxia Current Visit: Yes Status: Acute Assessment and Plan: Patient presented with chief complaint of shortness of breath He was found to be hypoxic on presentation, quickly resolved with 2 L nasal cannula, now saturating in the 90s on room air This is likely secondary to acute decompensated heart failure and atrial fibrillation with rapid ventricular rate Patient has a recent admission for same diagnosis Currently rate controlled at around 100 Urine output not recorded yesterday, currently +86ml fluid balance today Plan Treat underlying heart failure and tachyarrhythmia Patient currently on continuous cardiac monitoring, Cardizem drip, heparin drip , strict I&O, fluid restricted diet Nephrology consulted, recommended continuing patient's home by mouth Lasix 40 mg daily, patient does still make urine Cardiology consulted, recommended weaning off cardizem and increasing beta max, maintain heparin drip for now (2) Atrial fibrillation with RVR Current Visit: Yes Status: Acute Assessment and Plan: Patient has history of A. fib RVR, was treated last admission and sent home on 12.5 mg twice a day Coreg and Coumadin Patient apparently has only had 1 Coumadin clinic appointment since last admission Patiently currently in A. fib RVR, rate moderately controlled at around 100 on Cardizem drip Patient asymptomatic, denies palpitations or chest pain, hemodynamically stable Plan Cardiology consulted, recommends transitioning from cardizem to beta max Rest of plan as seen above (3) Acute decompensated heart failure Current Visit: Yes Status: Acute Assessment and Plan: Patient has history of systolic heart failure, echocardiogram in August 2017 showed EF of 40% Patient was recently admitted for heart failure exacerbation leading to respiratory failure BNP this admission 2887, currently positive 86ml fluid balance Plan Cardiology consultation Lasix 40 mg daily by mouth, fluid restricted diet, strict I&O's One dose IV Lasix 40mg given This patient will require further education on proper diet and lifestyle changes however it appears there have been issues with compliance in the past Rest of plan as seen above (4) Elevated troponin Current Visit: Yes Status: Acute Assessment and Plan: Troponin elevated to 0.08 this admission, recent admission demonstrated troponin of 0.17 I believe this elevated troponin is due to demand ischemia from acute heart failure and renal failure Patient currently without chest pain, hemodynamically stable Cycled troponins revealed o.08, 0.06, 0.07 I believe this is secondary to demand ischemia from heart failure and AFib RVR Plan Continuous cardiac monitoring Cardiology consultation Continue Heparin drip (5) ESRD (end stage renal disease) on dialysis Current Visit: Yes Status: Chronic Assessment and Plan: Patient has history of end-stage renal disease on M,W,F dialysis Patient was receiving dialysis yesterday when he was sent to ED for shortness of breath Plan Nephrology consulted, patient does make urine, continue Lasix 40 mg by mouth daily Avoid nephrotoxic agents and renally dose medications (6) Hypertension Current Visit: Yes Status: Chronic Assessment and Plan: Patient has history of hypertension Currently stable here We will continue home medication of losartan, with prn hydralazine Continue to monitor DVT Prophylaxis: Patient on heparin drip - Time Spent with Patient Total time spent is greater than 50% in coordination of care (as documented) at patient's floor/unit and/or counseling patient: Internal Medicine: Result - Labs CBC & Chem 7: 11/20/17 03:40 11/20/17 03:40 Labs: Short CBC 11/20/17 Range/Units 03:40 WBC 5.7 (4.3-11.1) K/mcL Hgb 9.3 L (12.9-16.9) g/dL Hct 28.8 L (37.5-50.1) % Plt Count 127 L (140-400) K/mcL Neutrophils # 4.0 (1.6-8.9) K/mcL BMP 11/20/17 03:40 Sodium 137 Potassium 4.1 Chloride 100 Carbon Dioxide 25 BUN 31 H Creatinine 8.23 H Glucose 95 Calcium 8.4 L Cardiac Enzymes 11/19/17 11/19/17 11/20/17 Range/Units 15:59 21:00 03:40 Troponin I 0.08 H* 0.06 H* 0.07 H* (< 0.04) ng/mL - ABG Interpretation ABG results: PT/INR, D-dimer PT 14.8 Seconds (9.4-12.1) H 11/20/17 03:40 - Impressions Impressions Chest X-Ray 11/20/17 06:36 IMPRESSION: Stable severe cardiomegaly, small bilateral pleural effusions and pulmonary vascular congestion. D/ / 11/20/2017 07:51:37 Nam Coleman MD / [email or web address] Interpreting Provider: Nam Coleman MD Consult Discharge Plan - Plan Referrals: NONE,PCP [Primary Care Provider] - <Alis Fuller - Last Filed: 11/20/17 17:20> Hospitalist Progress Note - Encounter Date of Encounter: 11/20/17 - Exam Vitals: Temp Pulse Resp BP Pulse Ox 97.9 F 96 18 142/92 94 11/20/17 15:59 11/20/17 15:59 11/20/17 15:59 11/20/17 15:59 11/20/17 15:59 - Assessment and Plan (1) Elevated troponin Current Visit: Yes Status: Acute (2) Acute decompensated heart failure Current Visit: Yes Status: Acute (3) ESRD (end stage renal disease) on dialysis Current Visit: Yes Status: Chronic (4) Atrial fibrillation with RVR Current Visit: Yes Status: Acute (5) Acute respiratory failure with hypoxia Current Visit: Yes Status: Acute (6) Hypertension Current Visit: Yes Status: Chronic - Time Spent with Patient Total time spent is greater than 50% in coordination of care (as documented) at patient's floor/unit and/or counseling patient: Internal Medicine: Result - Labs CBC & Chem 7: 11/20/17 03:40 11/20/17 03:40 Labs: Short CBC 11/20/17 Range/Units 03:40 WBC 5.7 (4.3-11.1) K/mcL Hgb 9.3 L (12.9-16.9) g/dL Hct 28.8 L (37.5-50.1) % Plt Count 127 L (140-400) K/mcL Neutrophils # 4.0 (1.6-8.9) K/mcL BMP 11/20/17 03:40 Sodium 137 Potassium 4.1 Chloride 100 Carbon Dioxide 25 BUN 31 H Creatinine 8.23 H Glucose 95 Calcium 8.4 L Cardiac Enzymes 11/19/17 11/20/17 11/20/17 Range/Units 21:00 03:40 10:44 Troponin I 0.06 H* 0.07 H* 0.07 H* (< 0.04) ng/mL - ABG Interpretation ABG results: PT/INR, D-dimer PT 14.8 Seconds (9.4-12.1) H 11/20/17 03:40 - Impressions Impressions Chest X-Ray 11/20/17 06:36 IMPRESSION: Stable severe cardiomegaly, small bilateral pleural effusions and pulmonary vascular congestion. D/ / 11/20/2017 07:51:37 Nam Coleman MD / lg Interpreting Provider: Nam Coleman MD - Attending Attestation I examined this patient and my medical decision-making was reviewed with the Resident Physician. I agree with the documented findings, disposition and treatment plan as described except to the extent set forth below. <Abhinav Melo - Last Filed: 11/20/17 14:15> (6) Hypertension Qualifiers: Hypertension type: unspecified Qualified Code(s): I10 - Essential (primary) hypertension <Alis Fuller - Last Filed: 11/20/17 17:20> (6) Hypertension Qualifiers: Hypertension type: unspecified Qualified Code(s): I10 - Essential (primary) hypertension
--- NOTE | 2017-11-20 11:25 | Cardiology Consult Note ---
<Amy Nguyen - Last Filed: 11/20/17 11:22> Date of Encounter: 11/20/17 Time of Encounter: 08:45 Assessment and Plan (1) CHF (congestive heart failure) Current Visit: No Status: Acute Per cardiology: -Admitted with shortness of breath. -Last TTE 08/2017 with LVEF 40%, previous TTE with moderate diastolic dysfunction. -Chest x-ray with small bilateral pleural effusions, pulmonary vascular congestion. -BNP 2887. -ESRD on HD, does make urine. -Currently with net positive fluid balance. -On po lasix -On BB, ARB. -Strict i/os, fluid restrictions, daily weights. -Consider increasing lasix, if ok with nephrology. -Of note, had previously been recommended for LHC due to recenlty reduced LVEF. TTE 08/19/17 with LVEF 50-55%, TTE 09/01/17 with LVEF 40%. Patient states he followed up with his primary software database architect after last admission and he did not recommend repeat LHC. Patient had LHC as outside facility 06/2017 prior to valve replacement. LHC was without intervention and no bypass grafts done during open heart surgery for valve replacement. Qualifiers: Heart failure type: combined systolic and diastolic Heart failure chronicity: acute on chronic Qualified Code(s): I50.43 - Acute on chronic combined systolic (congestive) and diastolic (congestive) heart failure (2) Atrial fibrillation with RVR Current Visit: Yes Status: Acute Per cardiology: -Known a.fib, admitted a.fib RVR. -Started on cardizem drip in ER. -Average HR previous 12 hours noted to be 98, a.fib -States was started on coumadin per primary software database architect previously, however INR subtherapeutic on admission. -Currently on heparin drip. -ON coreg 12.5mg BID at home, previously on amio for a short time after open heart surgery. -Do not recommend cardizem with cardiomyopathy. -Will increase BB, wean cardizem drip to off. (3) Elevated troponin Current Visit: Yes Status: Acute Per cardiology: -Troponins 0.08, 0.08, 0.06, 0.07 in the setting of CHF, a.fib RVR, ESRD. -Of note, has chronically elevated troponins. -Denies chest pain. -ECG with no acute ischemic changes. -Again, as above, previously recommended for [facility]. -ON asa, statin, BB, heparin drip. -Demand ischemia, chronically elevated troponins. No cardiac rehab consult warranted. (4) ESRD (end stage renal disease) Current Visit: No Status: Chronic Per cardiology: -Known ESRD on HD. -Management per primary and nephrology services. (5) Heart valve replaced Current Visit: No Status: Chronic Per cardiology: -Known bioprosthetic AV replacement 07/2017. -TTE 08/2017 with aortic valve function normal. (6) Hypertension Current Visit: Yes Status: Chronic Per cardiology: -Known HTN. -ON BB, clonidine, ARB. -BPs 170s systolic. -BB increased. -Continue to monitor. Qualifiers: Hypertension type: unspecified Qualified Code(s): I10 - Essential (primary ) hypertension Discussion w patient/family: The assessment and plan as outlined above was discussed with the patient who expressed understanding and agreement. All questions were answered. Thank you for involving us in the care of your patient. Please call with any questions. Discussed and reviewed with . History of Present Illness Consult date: 11/19/17 Requesting physician: Abhinav Melo Consult reason: a.fib RVR Chief complaint: shortness of breath History of present illness: Mr. 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 Patient reports symptoms started on Friday after dialysis and became progressively worse. Patient states he was unable to complete HD treatment Friday due to shortness of breath. Today patient states shortness of breath is somewhat improved. Denies chest pain. Patient denies palpitations or fluttering. Patient denies missing doses of any of his medications. Denies missed HD treatments. Past Med Surg Social Fam HX - Past Medical History Attestation: Yes The following information was validated with the patient. Source: patient, old records reviewed Medical history: atrial fibrillation, cardiomyopathy, CHF, dialysis, hyperlipidemia, hypertension, myocardial infarction, renal disease Additional medical history: ESRD. [id number] Psychiatric history: no psych history - Past Surgical History Surgical History: appendectomy, heart valve replacement, orthopedic, other Additional surgical history: cardioversion for afib, valve repair, aneurysm repair - Social History Smoking Status: Former smoker Smokeless Tobacco Status: No Alcohol use: none Drug use: none - Family History Mother Family Member Ethnicity: Non- Living Status: Hx Family Cardiac Disorders: Yes Hx Family Respiratory Disorders: No Hx Family Cancer: No Hx Family GI Disorders: No Hx Family Endocrine Disorder: Yes (diabetes) Hx Family Neuromuscular Disorders: No Hx Family Neurologic Disorders: No Hx Family HEENT Disorders: No Hx Family Autoimmune Disorders: No Father Family Member Ethnicity: Non- Living Status: Still Living Hx Family Cardiac Disorders: Yes Hx Family Endocrine Disorder: Yes Hx Family Neuromuscular Disorders: No Hx Family Neurologic Disorders: No Hx Family HEENT Disorders: No Hx Family Autoimmune Disorders: No Brother Family Member Ethnicity: Non- Living Status: Hx Family Cardiac Disorders: Yes Hx Family Cancer: Yes Hx Family Endocrine Disorder: Yes (diabetes) Hx Family Neuromuscular Disorders: No Hx Family Neurologic Disorders: No Hx Family HEENT Disorders: No Hx Family Autoimmune Disorders: No Medications and Allergies cloNIDine HCl [Clonidine HCl] 0.2 mg PO TID PRN 04/12/16 [History] Acetaminophen [Tylenol] 1,000 mg PO Q6HR PRN 07/30/16 [History] Albuterol Sulfate [Ventolin Hfa] 2 puff IH Q4H PRN 08/18/17 [History] Aspirin Enteric Coated [Aspirin EC] 162 mg PO DAILY 08/18/17 [History] Atorvastatin [Lipitor] 40 mg PO HS 08/18/17 [History] Calcium Acetate 1,334 mg PO TIDWM 08/18/17 [History] Multivitamin [One Daily Multivitamin] 1 tab PO DAILY 08/18/17 [History] Furosemide [Lasix] 40 mg PO DAILY 10/31/17 [History] Carvedilol [Coreg] 12.5 mg PO BIDWM #60 tablet 11/02/17 [Rx] Losartan Potassium [Cozaar] 50 mg PO DAILY 11/19/17 [History] Warfarin [Coumadin] 5 mg PO SUMOTUWETHSA@1800 11/20/17 [History] Warfarin [Coumadin] 7.5 mg PO FR@1800 11/20/17 [History] 3 Allergy/AdvReac Type Severity Reaction Status Date / Time No Known Allergies Allergy Verified 10/31/17 08:50 All Systems Review: The remainder of the systems were reviewed and are negative - Cardiovascular Cardiovascular: as per HPI, dyspnea at rest, dyspnea on exertion Physical Examination Vital Signs, Last 4 Hours Temp Pulse Resp BP Pulse Ox 11/20/17 10:59 97.8 F 99 19 160/105 98 11/20/17 10:00 98.1 F 84 20 136/94 92 11/20/17 07:46 98.2 F 108 19 173/128 98 General: Conversant, Other (Conversational dyspnea noted. ) HEENT: Atraumatic, Normocephaly, Mucus Membranes Moist Neck: No JVD, Normal carotid pulses Cardiac: Normal S1 and S2, No Murmur, Other (Irregularly irregular ) Lungs: Other (Lung sounds diminished throughout. ) Neuro: Alert and responsive, No focal deficits noted Abdomen: Soft, Non-Tender Skin: No rashes noted on visualized skin Musculoskeletal: No Chest Wall Tenderness Extremities: No Clubbing, No Cyanosis, No Edema, Normal Pulses Results 11/20/17 03:40 11/20/17 03:40 Lab Results Impressions Chest X-Ray 11/20/17 06:36 IMPRESSION: Stable severe cardiomegaly, small bilateral pleural effusions and pulmonary vascular congestion. D/ / 11/20/2017 07:51:37 Nam Coleman MD / [email or web address] Interpreting Provider: Nam Coleman MD Active Medications Acetaminophen (Tylenol) 650 mg PO Q6HR PRN PRN Reason: Mild Pain/Fever Stop: 05/21/18 14:44 Albuterol Sulfate (Albuterol Inhaler) 2 puff IH [id number] PRN PRN Reason: Shortness Of Breath Stop: 05/21/18 16:01 Aspirin (Aspirin Ec) 162 mg PO DAILY JAN Stop: 05/22/18 09:01 Last Admin: 11/20/17 07:58 Dose: 162 mg Atorvastatin Calcium (Lipitor) 40 mg PO HS JAN Stop: 05/21/18 21:01 Last Admin: 11/19/17 20:04 Dose: 40 mg Calcium Acetate (Phos-Lo) 1,334 mg PO TIDWM JAN Stop: 05/21/18 17:01 Last Admin: 11/20/17 07:59 Dose: 1,334 mg Carvedilol (Coreg) 25 mg PO BIDWM JAN PRN Reason: Protocol Stop: 05/22/18 17:01 Clonidine HCl (Clonidine Hcl) 0.2 mg PO TID JAN Stop: 05/22/18 09:01 Last Admin: 11/20/17 10:31 Dose: 0.2 mg Furosemide (Lasix) 40 mg PO DAILY JAN Stop: 05/22/18 09:01 Last Admin: 11/20/17 07:58 Dose: 40 mg Heparin Sodium (Porcine) (Heparin) 4,000 unit IVP Q6HR PRN PRN Reason: SEE COMMENTS Stop: 05/21/18 13:05 Last Admin: 11/20/17 05:23 Dose: 4,000 unit Heparin Sodium (Porcine) (Heparin) 2,000 unit IVP Q6H PRN PRN Reason: SEE COMMENTS Stop: 05/21/18 13:05 Last Admin: 11/20/17 11:19 Dose: 2,000 unit Diltiazem HCl 50 mg/ Sodium (Chloride) 50 mls @ 5 mls/hr IVC .Q10H JAN PRN Reason: 5 MG/HR Stop: 05/21/18 09:46 Last Admin: 11/20/17 10:33 Dose: 5 mg/hr, 5 mls/hr Heparin Sodium/Dextrose (Heparin 25,000 Unit/500 Ml D5w) 25,000 unit in 500 mls @ 20 mls/hr IVC .Q24H JAN; 9.434 UNIT/KG/HR PRN Reason: Protocol Stop: 05/21/18 13:16 Last Titration: 11/20/17 11:20 Dose: 15.43 unit/kg/hr, 32.712 mls/hr Labetalol HCl (Labetalol) 10 mg IVP Q6H PRN PRN Reason: See Comments Stop: 05/22/18 08:09 Losartan Potassium (Cozaar) 50 mg PO DAILY JAN Stop: 05/21/18 15:05 Last Admin: 11/20/17 07:58 Dose: 50 mg Multivitamins/Calcium (Thera M Plus) 1 tab PO DAILY [facility] Stop: 05/22/18 09:01 Last Admin: 11/20/17 07:58 Dose: 1 tab Naloxone HCl (Narcan) 0.4 mg IVP Q2MIN PRN PRN Reason: SEE COMMENTS Stop: 05/21/18 14:44 Laboratory Tests 11/19/17 11/19/17 11/19/17 10:40 10:40 15:59 Hgb Plt Count INR Potassium Creatinine Troponin I 0.08 H* 0.08 H* B-Natriuretic Peptide 2887 H TSH 3.033 11/19/17 11/20/17 11/20/17 21:00 03:40 03:40 Hgb 9.3 L Plt Count 127 L INR Potassium Creatinine Troponin I 0.06 H* 0.07 H* B-Natriuretic Peptide TSH 11/20/17 11/20/17 03:40 03:40 Hgb Plt Count INR 1.3 Potassium 4.1 Creatinine 8.23 H Troponin I B-Natriuretic Peptide TSH - Imaging and Cardiology Chest Xray: report reviewed Echo: report reviewed - EKG Interpretation EKG results cardiology: personally reviewed (ECG with a.fib RVR, HR 119.), other (Telemetry reviewed with average HR previous 12 hours noted to be 98, a.fib. PVCs noted.) Consult Discharge Plan - Plan Referrals: NONE,PCP [Primary Care Provider] - <Qamar Branch - Last Filed: 11/20/17 14:10> Date of Encounter: 11/20/17 - Attending Attestation Patient was seen and evaluated independently by me. Findings, assessment and plan were discussed at length with patient, questions answered. Agree with nurse practitioner's documentation. Addition as follows, 52 yo CM ho bioprothetic AVR/root repair, AAA, Afib, ESRD on HD question of compliance with HD and meds. P/w Afib RVR, fluid overload, minimal trop elevation flat. Rate ctr overnight on dilt drip, now off, more U/O after lasix. Feels better. BP fluctuating. CTA, IIR, 3/6 SM ULSB, no LE edema. A: Afib RVR, ESRD on HD P: avoid termite renewal inspector dilt use given low EF, up on coreg for rate ctr c/w warfarin emphasized med, HD and followup compliance and daily weight at home lasix titration per wt f/u nephrology for dry weight assessment (now 106kg, 3 wks ago 100kg Qamar Branch MD, PhD Assessment and Plan Discussion w patient/family: The assessment and plan as outlined above was discussed with the patient and/or family members who expressed understanding and agreement. All questions were answered. Thank you for involving us in the care of your patient. Please call with any questions. History of Present Illness History of present illness: Mr. Vargas is a 52 year old male All Systems Review: The remainder of the systems were reviewed and are negative Physical Examination Vital Signs, Last 4 Hours Temp Pulse Resp BP Pulse Ox 11/20/17 10:59 97.8 F 99 19 160/105 98 11/20/17 10:00 98.1 F 84 20 136/94 92 Results 11/20/17 03:40 11/20/17 03:40 Lab Results 11/19/17 11/19/17 11/20/17 15:59 21:00 03:40 WBC Hgb Hct Plt Count INR Sodium Potassium Chloride Carbon Dioxide BUN Creatinine Glucose Calcium Troponin I 0.08 H* 0.06 H* 0.07 H* 11/20/17 11/20/17 11/20/17 03:40 03:40 03:40 WBC 5.7 Hgb 9.3 L Hct 28.8 L Plt Count 127 L INR 1.3 Sodium 137 Potassium 4.1 Chloride 100 Carbon Dioxide 25 BUN 31 H Creatinine 8.23 H Glucose 95 Calcium 8.4 L Troponin I 11/20/17 10:44 WBC Hgb Hct Plt Count INR Sodium Potassium Chloride Carbon Dioxide BUN Creatinine Glucose Calcium Troponin I 0.07 H*
[2017-11-20] MEDS: *HR* Labetalol 20 MG/4 ML SYRINGE IVP PRN (12:42)
[2017-11-20] MEDS ORDERED: Furosemide 40 MG/4 ML VIAL IVP ONE (13:14)
[2017-11-20] MEDS: Heparin 25,000 UNIT/500 ML D5W 25,000 UNIT/500 ML BAG IVC SCH (13:44)
[2017-11-20] MEDS: *HR* Heparin 5,000 UNIT/ML VIAL SQ SCH ×2 (14:53→20:40)
--- NOTE | 2017-11-20 16:54 | Event Note ---
Date of Encounter: 11/20/17 Time of Encounter: 16:53 - Cardiology Event Note Patient remains rate controlled with increased dose of BB. Wean cardizem to off. Continue coumadin for anticoagulation. Consider increasing lasix dose at home. Cardiology will sign off. Recommend close outpatient follow up with primary rotary drier.
[2017-11-20] MEDS ORDERED: *HR* Warfarin 5 MG TABLET PO ONE (18:00)
[2017-11-20] MEDS ORDERED: Warfarin perPT PO PRN (18:00)
[2017-11-21] MEDS: *HR* Heparin 5,000 UNIT/ML VIAL SQ SCH ×3 (06:09→21:34)
[2017-11-21 06:34] LABS: Basophils % 0.6 %; Eosinophils # 0.1 K/mcL (0.0-0.6); Eosinophils % 1.5 %; Hematocrit 27.5 % (37.5-50.1); Immature Granulocytes % 0.4 % (0-4); Lymphocytes # 1.2 K/mcL (0.6-4.6); Lymphocytes % 22.7 %; Mean Corpuscular HGB Conc 32.7 g/dL (31.6-35.5); Mean Corpuscular Hemoglobin 32.8 pg (28.0-33.3); Mean Corpuscular Volume 100.4 fL (83.0-100.0); Mean Platelet Volume 10.7 fL (9.4-12.4); Monocytes # 0.4 K/mcL (0.0-1.3); Neutrophils # 3.7 K/mcL (1.6-8.9); Platelet Count 132 K/mcL (140-400); Red Blood Count 2.74 M/mcL (4.19-5.50); Segmented Neutrophils % 67.8 %
[2017-11-21 06:44] LABS: INR 1.3; Prothrombin Time 14.2 Seconds (9.4-12.1)
[2017-11-21 07:11] LABS: Albumin 3.6 g/dL (3.5-5.7); Albumin/Globulin Ratio 1.5 (1.1-2.2); Bilirubin,Total 0.4 mg/dL (0.3-1.0); Calcium 8.7 mg/dL (8.6-10.3); Globulin 2.4 g/dL (2.4-3.5); Potassium 4.4 mEq/L (3.5-5.1)
[2017-11-21] MEDS: Calcium Acetate 667 MG CAPSULE PO SCH ×3 (08:10→17:07)
[2017-11-21] MEDS: Multivit/Ca/Min/Fe/FA 1 TAB TABLET PO SCH (08:11)
[2017-11-21] MEDS: Aspirin Enteric Coated 81 MG Tablet PO SCH (08:11)
[2017-11-21] MEDS: Furosemide 40 MG TABLET PO SCH (08:11)
[2017-11-21] MEDS: cloNIDine HCl 0.1 MG TABLET PO SCH ×3 (08:11→20:01)
[2017-11-21] MEDS ORDERED: 0.9 % Sodium Chloride 2,000 ML ONE (08:13)
[2017-11-21] MEDS ORDERED: 0.9 % Sodium Chloride 250 ML IVC PRN (08:59)
[2017-11-21] MEDS ORDERED: 0.9 % Sodium Chloride 1,000 ML PRIME SCH (09:00)
[2017-11-21] MEDS ORDERED: Furosemide 40 MG/4 ML VIAL IVP ONE (11:21)
--- NOTE | 2017-11-21 13:28 | Internal Med Progress Note ---
<Abhinav Melo - Last Filed: 11/21/17 13:22> Hospitalist Progress Note - Encounter Date of Encounter: 11/21/17 Time of Encounter: 13:22 - Subjective Interval History: Patient seen and examined this morning, no acute events overnight Patient denies chest pain, shortness of breath, or palpitations - Exam Vitals: Temp Pulse Resp BP Pulse Ox 97.3 F L 96 20 196/112 93 11/21/17 10:45 11/21/17 07:50 11/21/17 10:45 11/21/17 12:15 11/21/17 07:50 Exam: Patient in no acute distress, alert and oriented 3 Cranial nerves II through XII intact No focal neuro deficits in sensation or motor Heart in tachycardic rate and irregular rhythm, no murmur or gallop Lung exam exhibited diffuse scattered rales, no wheeze or rhonchi Abdomen soft and nontender without organomegaly, bowel sounds normal Bilateral lower extremities nonedematous Skin warm and dry - Assessment and Plan (1) Acute respiratory failure with hypoxia Current Visit: Yes Status: Acute Assessment and Plan: Patient presented with chief complaint of shortness of breath He was found to be hypoxic on presentation, quickly resolved with 2 L nasal cannula, now saturating in the 90s on room air This is likely secondary to acute decompensated heart failure and atrial fibrillation with rapid ventricular rate Patient has a recent admission for same diagnosis Currently rate controlled at around 100 Ins and outs not appropriately recorded Plan Treat underlying heart failure and tachyarrhythmia Patient currently on continuous cardiac monitoring, Cardizem drip, heparin drip , strict I&O, fluid restricted diet Nephrology consulted, recommended continuing patient's home by mouth Lasix 40 mg daily, patient does still make urine Cardiology consulted, recommended stopping cardizem and maintaining beta max , coumadin for anticoagulation (2) Atrial fibrillation with RVR Current Visit: Yes Status: Chronic Assessment and Plan: Patient has history of A. fib RVR, was treated last admission and sent home on 12.5 mg twice a day Coreg and Coumadin Patient apparently has only had 1 Coumadin clinic appointment since last admission Patiently currently in A. fib RVR, rate moderately controlled at around 100 on carvedilol and labetalol Patient asymptomatic, denies palpitations or chest pain, hemodynamically stable Plan Cardiology consulted, recommends continuing beta max and coumadin with outpatient follow up Rest of plan as seen above (3) Acute decompensated heart failure Current Visit: Yes Status: Acute Assessment and Plan: Patient has history of systolic heart failure, echocardiogram in August 2017 showed EF of 40% Patient was recently admitted for heart failure exacerbation leading to respiratory failure BNP this admission 2887 Crackles on exam, no longer short of breath Plan Cardiology consulted, will follow outpatient Lasix 40 mg daily by mouth, fluid restricted diet, strict I&O's One dose IV Lasix 40mg given today, dialysis today This patient will require further education on proper diet and lifestyle changes however it appears there have been issues with compliance in the past Rest of plan as seen above (4) Elevated troponin Current Visit: Yes Status: Resolved Assessment and Plan: Troponin elevated to 0.08 this admission, recent admission demonstrated troponin of 0.17 I believe this elevated troponin is due to demand ischemia from acute heart failure and renal failure Patient currently without chest pain, hemodynamically stable Cycled troponins revealed o.08, 0.06, 0.07 I believe this is secondary to demand ischemia from heart failure and AFib RVR Plan Continuous cardiac monitoring Cardiology consulted and recommendations given Coumadin for anticoagulation (5) ESRD (end stage renal disease) on dialysis Current Visit: Yes Status: Chronic Assessment and Plan: Patient has history of end-stage renal disease on M,W,F dialysis Patient was receiving dialysis when he was sent to ED for shortness of breath Plan Nephrology consulted, patient does make urine, continue Lasix 40 mg by mouth daily Avoid nephrotoxic agents and renally dose medications Received dialysis today (6) Hypertension Current Visit: Yes Status: Chronic Assessment and Plan: Patient has history of hypertension Currently stable here We will continue home medication of losartan, with prn labetalol Continue to monitor DVT Prophylaxis: subq heparin - Time Spent with Patient Total time spent is greater than 50% in coordination of care (as documented) at patient's floor/unit and/or counseling patient: Internal Medicine: Result - Labs CBC & Chem 7: 11/21/17 06:00 11/21/17 04:00 Labs: Short CBC 11/21/17 Range/Units 06:00 WBC 5.4 (4.3-11.1) K/mcL Hgb 9.0 L (12.9-16.9) g/dL Hct 27.5 L (37.5-50.1) % Plt Count 132 L (140-400) K/mcL Neutrophils # 3.7 (1.6-8.9) K/mcL BMP 11/21/17 04:00 Sodium 137 Potassium 4.4 Chloride 102 Carbon Dioxide 24 BUN 42 H Creatinine 10.52 H Glucose 95 Calcium 8.7 Liver Function 11/21/17 Range/Units 04:00 Total Bilirubin 0.4 (0.3-1.0) mg/dL AST 9 L (13-39) Units/L ALT 10 (7-52) Units/L Alkaline Phosphatase 64 (34-104) Units/L Albumin 3.6 (3.5-5.7) g/dL - ABG Interpretation ABG results: PT/INR, D-dimer PT 14.2 Seconds (9.4-12.1) H 11/21/17 06:00 Consult Discharge Plan - Plan Referrals: NONE,PCP [Primary Care Provider] - <Alis Fuller - Last Filed: 11/21/17 14:20> Hospitalist Progress Note - Encounter Date of Encounter: 11/21/17 - Exam Vitals: Temp Pulse Resp BP Pulse Ox 97.3 F L 96 20 142/101 93 11/21/17 10:45 11/21/17 07:50 11/21/17 10:45 11/21/17 14:15 11/21/17 07:50 - Assessment and Plan (1) Elevated troponin Current Visit: Yes Status: Resolved (2) Acute decompensated heart failure Current Visit: Yes Status: Acute (3) ESRD (end stage renal disease) on dialysis Current Visit: Yes Status: Chronic (4) Atrial fibrillation with RVR Current Visit: Yes Status: Chronic (5) Acute respiratory failure with hypoxia Current Visit: Yes Status: Acute (6) Hypertension Current Visit: Yes Status: Chronic - Time Spent with Patient Total time spent is greater than 50% in coordination of care (as documented) at patient's floor/unit and/or counseling patient: Internal Medicine: Result - Labs CBC & Chem 7: 11/21/17 06:00 11/21/17 04:00 Labs: Short CBC 11/21/17 Range/Units 06:00 WBC 5.4 (4.3-11.1) K/mcL Hgb 9.0 L (12.9-16.9) g/dL Hct 27.5 L (37.5-50.1) % Plt Count 132 L (140-400) K/mcL Neutrophils # 3.7 (1.6-8.9) K/mcL BMP 11/21/17 04:00 Sodium 137 Potassium 4.4 Chloride 102 Carbon Dioxide 24 BUN 42 H Creatinine 10.52 H Glucose 95 Calcium 8.7 Liver Function 11/21/17 Range/Units 04:00 Total Bilirubin 0.4 (0.3-1.0) mg/dL AST 9 L (13-39) Units/L ALT 10 (7-52) Units/L Alkaline Phosphatase 64 (34-104) Units/L Albumin 3.6 (3.5-5.7) g/dL - ABG Interpretation ABG results: PT/INR, D-dimer PT 14.2 Seconds (9.4-12.1) H 11/21/17 06:00 - Attending Attestation I examined this patient and my medical decision-making was reviewed with the Resident Physician. I agree with the documented findings, disposition and treatment plan as described except to the extent set forth below. Patient breathing stable, still short of breath however. Lung sounds on auscultation show course rales in all lung [place]. Acute respiratory failure Acute decompensated heart failure Atrial fibrillation with RVR ESRD on dialysis Needs about 1-2 more days of fluid removal. Will give IV Lasix one dose today and he is also scheduled for dialysis today. - On discharge will need slight increase in Lasix dose but will discuss that with Nephrology prior to discharge, when he is more stable. <Abhinav Melo - Last Filed: 11/21/17 13:22> (6) Hypertension Qualifiers: Hypertension type: unspecified Qualified Code(s): I10 - Essential (primary) hypertension <Alis Fuller - Last Filed: 11/21/17 14:20> (6) Hypertension Qualifiers: Hypertension type: unspecified Qualified Code(s): I10 - Essential (primary) hypertension
[2017-11-21] MEDS ORDERED: *HR* Metoprolol 5 MG/5 ML VIAL IVP ONE ×2 (14:59→15:33)
[2017-11-21] MEDS ORDERED: *HR* Warfarin 7.5 MG TABLET PO ONE (18:00)
[2017-11-22] MEDS: *HR* Labetalol 20 MG/4 ML SYRINGE IVP PRN ×2 (00:09→05:39)
[2017-11-22] MEDS: *HR* Heparin 5,000 UNIT/ML VIAL SQ SCH ×2 (05:43→12:52)
[2017-11-22 05:58] LABS: Basophils % 0.7 %; Eosinophils # 0.1 K/mcL (0.0-0.6); Eosinophils % 1.6 %; Hematocrit 28.9 % (37.5-50.1); Hemoglobin 9.4 g/dL (12.9-16.9); Immature Granulocytes % 0.3 % (0-4); Lymphocytes # 1.4 K/mcL (0.6-4.6); Lymphocytes % 24.3 %; Mean Corpuscular HGB Conc 32.5 g/dL (31.6-35.5); Mean Corpuscular Hemoglobin 33.1 pg (28.0-33.3); Mean Corpuscular Volume 101.8 fL (83.0-100.0); Monocytes # 0.5 K/mcL (0.0-1.3); Monocytes % 9.1 %; Neutrophils # 3.7 K/mcL (1.6-8.9); Platelet Count 146 K/mcL (140-400); Red Blood Count 2.84 M/mcL (4.19-5.50); Red Cell Distribution Width 14.6 % (11.5-14.5)
[2017-11-22 06:03] LABS: INR 1.3; Prothrombin Time 14.4 Seconds (9.4-12.1)
[2017-11-22 06:17] LABS: Calcium 8.8 mg/dL (8.6-10.3); Potassium 4.5 mEq/L (3.5-5.1)
[2017-11-22] MEDS: cloNIDine HCl 0.1 MG TABLET PO SCH (07:13)
[2017-11-22] MEDS: Furosemide 40 MG TABLET PO SCH (07:14)
[2017-11-22] MEDS: Aspirin Enteric Coated 81 MG Tablet PO SCH (07:14)
[2017-11-22] MEDS: Multivit/Ca/Min/Fe/FA 1 TAB TABLET PO SCH (07:14)
[2017-11-22] MEDS: Calcium Acetate 667 MG CAPSULE PO SCH ×2 (07:14→12:52)
[2017-11-22] MEDS ORDERED: *HR* Labetalol 20 MG/4 ML SYRINGE IVP PRN (07:58)
[2017-11-22] MEDS ORDERED: *HR* Labetalol 20 MG/4 ML SYRINGE IVP ONE (08:05)
--- NOTE | 2017-11-22 08:30 | Electrocardiograph Report ---
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
[2017-11-22] MEDS ORDERED: amLODIPine 5 MG TABLET PO SCH (09:00)
--- NOTE | 2017-11-22 09:07 | Internal Med Progress Note ---
<Abhinav Melo - Last Filed: 11/22/17 10:42> Hospitalist Progress Note - Encounter Date of Encounter: 11/22/17 Time of Encounter: 09:01 - Subjective Interval History: Patient seen and examined this morning, no acute events overnight Patient denies chest pain, shortness of breath, or palpitations Patient was having elevated blood pressures this morning which have resolved - Exam Vitals: Temp Pulse Resp BP Pulse Ox 99.1 F 112 16 148/81 95 11/22/17 07:09 11/22/17 07:09 11/22/17 07:09 11/22/17 08:51 11/22/17 07:09 Exam: Patient in no acute distress, alert and oriented 3 Cranial nerves II through XII intact No focal neuro deficits in sensation or motor Heart in tachycardic rate and irregular rhythm, no murmur or gallop Lung exam exhibited diffuse scattered rales, no wheeze or rhonchi Abdomen soft and nontender without organomegaly, bowel sounds normal Bilateral lower extremities nonedematous Skin warm and dry - Assessment and Plan (1) Acute respiratory failure with hypoxia Status: Acute Assessment and Plan: Patient presented with chief complaint of shortness of breath, resolved He was found to be hypoxic on presentation, quickly resolved with 2 L nasal cannula, now saturating in the 90s on room air This is likely secondary to acute decompensated heart failure and atrial fibrillation with rapid ventricular rate Patient has a recent admission for same diagnosis Currently rate controlled at around 100 Plan Treat underlying heart failure and tachyarrhythmia Patient currently on continuous cardiac monitoring, oral carvedilol, oral coumadin, strict I&O, fluid restricted diet Nephrology consulted, recommended continuing patient's home by mouth Lasix 40 mg daily, patient does still make urine Cardiology consulted, recommended stopping cardizem and maintaining beta max , coumadin for anticoagulation (2) Atrial fibrillation with RVR Status: Chronic Assessment and Plan: Patient has history of A. fib RVR, was treated last admission and sent home on 12.5 mg twice a day Coreg and Coumadin Patient apparently has only had 1 Coumadin clinic appointment since last admission Patiently currently in A. fib RVR, rate moderately controlled at around 100 on carvedilol and labetalol Patient asymptomatic, denies palpitations or chest pain, hemodynamically stable Plan Cardiology consulted, recommends continuing beta max and coumadin with outpatient follow up Rest of plan as seen above (3) Acute decompensated heart failure Status: Acute Assessment and Plan: Patient has history of systolic heart failure, echocardiogram in August 2017 showed EF of 40% Patient was recently admitted for heart failure exacerbation leading to respiratory failure Crackles on exam, no longer short of breath Plan Cardiology consulted, will follow outpatient Lasix 40 mg daily by mouth, fluid restricted diet, strict I&O's One dose IV Lasix 40mg given yesterday, dialysis yesterday This patient will require further education on proper diet and lifestyle changes however it appears there have been issues with compliance in the past Rest of plan as seen above (4) Elevated troponin Status: Resolved Assessment and Plan: Troponin elevated to 0.08 this admission, recent admission demonstrated troponin of 0.17 I believe this elevated troponin is due to demand ischemia from acute heart failure and renal failure Patient currently without chest pain, hemodynamically stable Cycled troponins revealed o.08, 0.06, 0.07 I believe this is secondary to demand ischemia from heart failure and AFib RVR Plan Continuous cardiac monitoring Cardiology consulted and recommendations given Coumadin for anticoagulation (5) ESRD (end stage renal disease) on dialysis Status: Chronic Assessment and Plan: Patient has history of end-stage renal disease on M,W,F dialysis Patient was receiving dialysis when he was sent to ED for shortness of breath Plan Nephrology consulted, patient does make urine, continue Lasix 40 mg by mouth daily Avoid nephrotoxic agents and renally dose medications Received dialysis yesterday (6) Hypertension Status: Chronic Assessment and Plan: Patient has history of hypertension Blood pressure has been continuously elevated Plan Patient has been receiving carvedilol, clonidine, furosemide, hydralazine, labetalol, losartan hydralazine discontinued and norvasc initiated blood pressure currently controlled at 148/81 Continue to monitor - Time Spent with Patient Total time spent is greater than 50% in coordination of care (as documented) at patient's floor/unit and/or counseling patient: Internal Medicine: Result - Labs CBC & Chem 7: 11/22/17 05:40 11/22/17 05:40 Labs: Short CBC 11/22/17 Range/Units 05:40 WBC 5.7 (4.3-11.1) K/mcL Hgb 9.4 L (12.9-16.9) g/dL Hct 28.9 L (37.5-50.1) % Plt Count 146 (140-400) K/mcL Neutrophils # 3.7 (1.6-8.9) K/mcL [facility] 11/22/17 05:40 Sodium 135 L Potassium 4.5 Chloride 99 Carbon Dioxide 27 BUN 30 H Creatinine 8.00 H Glucose 93 Calcium 8.8 - ABG Interpretation ABG results: PT/INR, D-dimer PT 14.4 Seconds (9.4-12.1) H 11/22/17 05:40 Consult Discharge Plan - Plan Referrals: NONE,PCP [Primary Care Provider] - Prescriptions: amLODIPine [Norvasc] 5 mg PO DAILY #30 tablet Carvedilol [Coreg] 25 mg PO BIDWM #60 tablet <Alis Fuller - Last Filed: 11/22/17 15:06> Hospitalist Progress Note - Encounter Date of Encounter: 11/22/17 - Exam Vitals: Temp Pulse Resp BP Pulse Ox 98.3 F 103 16 163/99 92 11/22/17 11:10 11/22/17 11:10 11/22/17 11:10 11/22/17 11:10 11/22/17 11:10 - Assessment and Plan (1) Acute decompensated heart failure Status: Acute (2) Elevated troponin Status: Resolved (3) ESRD (end stage renal disease) on dialysis Status: Chronic (4) Atrial fibrillation with RVR Status: Chronic (5) Acute respiratory failure with hypoxia Status: Acute (6) Hypertension Status: Chronic - Time Spent with Patient Total time spent is greater than 50% in coordination of care (as documented) at patient's floor/unit and/or counseling patient: Internal Medicine: Result - Labs CBC & Chem 7: 11/22/17 05:40 11/22/17 05:40 Labs: Short CBC 11/22/17 Range/Units 05:40 WBC 5.7 (4.3-11.1) K/mcL Hgb 9.4 L (12.9-16.9) g/dL Hct 28.9 L (37.5-50.1) % Plt Count 146 (140-400) K/mcL Neutrophils # 3.7 (1.6-8.9) K/mcL [facility] 11/22/17 05:40 Sodium 135 L Potassium 4.5 Chloride 99 Carbon Dioxide 27 BUN 30 H Creatinine 8.00 H Glucose 93 Calcium 8.8 - ABG Interpretation ABG results: PT/INR, D-dimer PT 14.4 Seconds (9.4-12.1) H 11/22/17 05:40 - Attending Attestation I examined this patient and my medical decision-making was reviewed with the Resident Physician. I agree with the documented findings, disposition and treatment plan as described except to the extent set forth below. Patient decided to leave AMA. Please see discharge summary. <Abhinav Melo - Last Filed: 11/22/17 10:42> (6) Hypertension Qualifiers: Hypertension type: unspecified Qualified Code(s): I10 - Essential (primary) hypertension <Alis Fuller - Last Filed: 11/22/17 15:06> (6) Hypertension Qualifiers: Hypertension type: unspecified Qualified Code(s): I10 - Essential (primary) hypertension
--- NOTE | 2017-11-22 09:44 | Nephrology Progress Note ---
Date of Encounter: 11/22/17 Time of Encounter: 09:44 - Assessment and Plan (1) ESRD (end stage renal disease) on dialysis Current Visit: Yes Status: Acute Current regimen is Friday at [facility]. Plan for HD on Friday. Will order additional UF for HD as needed. Avoid nephrotoxins and renal dose all medications. Renal diet if able to eat. Continue renal vitamins. (2) Shortness of breath Current Visit: Yes Status: Acute (3) Elevated troponin Current Visit: Yes Status: Acute Subjective Principal diagnosis: shortness of breath Objective - Vital Signs Vital signs: Vital Signs Temp Pulse Resp BP Pulse Ox 11/22/17 08:51 148/81 11/22/17 07:09 99.1 F 112 16 172/150 95 11/22/17 04:01 97.3 F L 119 18 174/126 94 11/22/17 00:59 129/87 11/21/17 23:43 98.8 F 115 16 160/110 96 11/21/17 21:21 97 16 143/87 97 11/21/17 19:35 98.3 F 89 16 140/109 93 11/21/17 16:14 98.4 F 113 17 139/78 93 11/21/17 14:25 97.3 F L 18 156/92 11/21/17 14:15 142/101 11/21/17 14:00 160/89 11/21/17 13:45 180/91 11/21/17 13:30 164/87 11/21/17 13:15 153/79 11/21/17 13:00 177/88 11/21/17 12:45 186/98 11/21/17 12:30 190/104 11/21/17 12:15 196/112 11/21/17 12:00 187/108 11/21/17 11:45 169/102 11/21/17 11:30 183/97 11/21/17 11:15 155/96 11/21/17 11:00 159/94 11/21/17 10:45 97.3 F L 20 171/104 Intake and Output 11/21/17 11/22/17 11/22/17 23:59 07:59 15:59 Intake Total 150 / 150 0 / 0 240 / 240 Output Total 0 / 0 Balance 150 / 150 0 / 0 240 / 240 Intake: Oral 150 / 150 0 / 0 240 / 240 Output: Urine 0 / 0 Other: Meal Dinner Breakfast Percent of Meal Consumed 100% 100% # Voids 1 1 Weight 102.058 kg - Lab 11/22/17 05:40 11/22/17 05:40 Most recent lab results Calcium 8.8 mg/dL (8.6-10.3) 11/22/17 05:40 Consult Discharge Plan - Plan Referrals: NONE,PCP [Primary Care Provider] -
[2017-11-22 11:11] VITALS: BP 163/99
[2017-11-22] MEDS ORDERED: Furosemide 20 MG/2 ML VIAL IVP ONE (12:04)
--- NOTE | 2017-11-22 13:42 | Discharge Summary ---
- NOTES TO OUTPATIENT PROVIDER Notes to Outpatient Provider: - Follow-up hypertension and tachycardia, left AMA. Orders not resulted at time of discharge: Pending orders 11/23/17 04:00 BMP [Basic Metabolic Panel] AM 0400 Complete Blood Count [HEME] AM 0400 Date of Encounter: 11/22/17 Time of Encounter: 13:37 - Discharge Diagnosis (1) Acute decompensated heart failure Priority: Primary Status: Acute (2) Elevated troponin Priority: Secondary Status: Resolved (3) ESRD (end stage renal disease) on dialysis Priority: Secondary Status: Chronic (4) Atrial fibrillation with RVR Priority: Secondary Status: Chronic (5) Acute respiratory failure with hypoxia Priority: Secondary Status: Acute (6) Hypertension Priority: Secondary Status: Chronic Qualifiers: Hypertension type: unspecified Qualified Code(s): I10 - Essential (primary ) hypertension Hospital course: Mr. Vargas is a 52 year old male who presented to the [facility] emergency department with the chief complaint of shortness of breath. He was sent from his dialysis clinic after he they determined him to be tachycardic and hypoxic. He has a past medical history of systolic heart failure EF 40%, ESRD dialysis M,W,F, hypertension, [place], atrial fibrillation. Of note, he was recently hospitalized on 11/02/17 for resp failure and afib with RVR. On presentation today he was found to be hypoxic, tachycardic, short of breath. Electrocardiogram revealed atrial fibrillation with rapid ventricular rate. Troponin was elevated to 0.8 which is less than his previous admission. He was admitted and started on a Cardizem drip. Nephrology consulted and he was also given IV Lasix since he does make urine. Cardiology was consulted and he was transitioned off of a Cardizem drip because of cardiomyopathy, and his home Coreg was increased to 25 mg PO BID. Initially his HR and BP improved and so Cardiology signed off. Patient underwent dialysis and had reported 3.6 L out. His respiratory status did improve but he was still significantly fluid overloaded, tachycardic, and hypertensive. Patient insisted on leaving AMA despite his instability and fluid overload. We discussed the consequences of leaving AMA, he verbalized understanding of this. We have added Norvasc to his prescriptions on discharge. - Time Spent with Patient Total time spent providing and/or coordinating discharge services: - Discharge Medications Prescriptions: amLODIPine [Norvasc] 5 mg PO DAILY #30 tablet Carvedilol [Coreg] 25 mg PO BIDWM #60 tablet Home Medications: cloNIDine HCl [Clonidine HCl] 0.2 mg PO TID 04/12/16 [History] Acetaminophen [Tylenol] 1,000 mg PO Q6HR PRN 07/30/16 [History] Albuterol Sulfate [Ventolin Hfa] 2 puff IH Q4H PRN 08/18/17 [History] Aspirin Enteric Coated [Aspirin EC] 162 mg PO DAILY 08/18/17 [History] Atorvastatin [Lipitor] 40 mg PO HS 08/18/17 [History] Calcium Acetate 1,334 mg PO TIDWM 08/18/17 [History] Multivitamin [One Daily Multivitamin] 1 tab PO DAILY 08/18/17 [History] Furosemide [Lasix] 40 mg PO DAILY 10/31/17 [History] Losartan Potassium [Cozaar] 50 mg PO DAILY 11/19/17 [History] Warfarin [Coumadin] 5 mg PO SUMOTUWETHSA@1800 11/20/17 [History] Warfarin [Coumadin] 7.5 mg PO FR@1800 11/20/17 [History] Carvedilol [Coreg] 25 mg PO BIDWM #60 tablet 11/22/17 [Rx] amLODIPine [Norvasc] 5 mg PO DAILY tablet 11/22/17 [Rx] amLODIPine [Norvasc] 5 mg PO DAILY #30 tablet 11/22/17 [Rx] Allergies/Adverse Reactions: 3 Allergy/AdvReac Type Severity Reaction Status Date / Time No Known Allergies Allergy Verified 10/31/17 08:50 Date of admission: 11/19/17 13:47 Primary care physician: PCP NONE Consults: 11/19/17 14:42 Consult to Cardiology [CONS] Routine Comment: Consulting Provider: Cardiology Bita Reason for Consult: AFib RVR in the setting of systolic heart failure last known EF 40% Call Completed: Yes 11/20/17 08:41 Consult to Nephrology [CONS] Routine Consulting Provider: [facility] Bita/ABIMAEL/ELIGIO/DARCIE Reason for Consult: dialysis pt Call Completed: Yes 11/21/17 10:00 Consult to Dialysis [CONS] ONCE Discharging clinician: Alis Fuller - Constitutional Vitals: Temp Pulse Resp BP Pulse Ox 98.3 F 103 16 163/99 92 11/22/17 11:10 11/22/17 11:10 11/22/17 11:10 11/22/17 11:10 11/22/17 11:10 General appearance: Present: A&O X 3 Exam: NAD - Head Head exam: Present: atraumatic, normocephalic - Eye Eye exam: Present: PERRL, conjuntiva pink, sclera anicteric Pupils: Present: PERRL - Neck Neck exam general surgery: Present: supple, trachea midline. Absent: lymphadenopathy - Respiratory Respiratory exam: Present: decreased breath sounds, rales. Absent: accessory muscle use, rhonchi, wheezes - Cardiovascular Cardiovascular exam: Present: RRR, +S1, +S2. Absent: diastolic murmur, gallop, rubs, systolic murmur - GI/Abdominal GI/Abdominal exam: Present: normal bowel sounds, soft, no peritoneal signs. Absent: distended, tenderness - Extremities Exam Extremities exam: Present: warm, radial pulses palpable and symmetrical. Absent : calf tenderness, cyanotic, pedal edema - Neurological Exam Neurological exam: Present: CN II-XII intact, oriented X3, no focal deficits. Absent: pronater drift, facial droop, speech deficit - Skin Skin exam: Present: dry, intact - Patient Status Disposition: Left Against Medical Advice Condition: Fair Functional capacity at discharge: independent ambulation Overall status at discharge: patient is not back to baseline - Discharge Instructions Follow Up With: NONE,PCP [Primary Care Provider] - - Diet and Activity Activity: increase activity as tolerated Diet: other (Renal, cardiac)
--- NOTE | 2017-11-22 16:58 | Electrocardiograph Report ---
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
== END 2017-11-22 13:59 | disposition left against medical advice (07) | DRG 291 ==
LOC: EMEROOARM 09:09 → 2ANU 13:47
PROVIDERS: ADMIT Student in an Organized Health Care Education/Training Program; ATTEND Student in an Organized Health Care Education/Training Program

== ENCOUNTER 2019-07-12 06:11 | Inpatient (IN) ==
[2019-07-12] MEDS ORDERED: Isovue-370 500 ML BOTTLE IVP ONE (06:18)
[2019-07-12] MEDS ORDERED: *HR* HYDROmorphone (PF) 1 MG/ML SYRINGE IVP ONE (06:19)
[2019-07-12 06:37] LABS: Basophils % 0.4 %; Eosinophils % 0.5 %; Hematocrit 33.1 % (37.5-50.1); Hemoglobin 11.1 g/dL (12.9-16.9); Immature Granulocytes % 0.8 % (0-4); Lymphocytes # 1.2 K/mcL (0.6-4.6); Lymphocytes % 16.2 %; Mean Corpuscular HGB Conc 33.5 g/dL (31.6-35.5); Mean Corpuscular Hemoglobin 32.9 pg (28.0-33.3); Mean Corpuscular Volume 98.2 fL (83.0-100.0); Mean Platelet Volume 9.8 fL (9.4-12.4); Monocytes # 0.6 K/mcL (0.0-1.3); Monocytes % 7.6 %; Neutrophils # 5.6 K/mcL (1.6-8.9); Platelet Count 176 K/mcL (140-400); Red Blood Count 3.37 M/mcL (4.19-5.50); Red Cell Distribution Width 13.5 % (11.5-14.5); Segmented Neutrophils % 74.5 %; White Blood Count 7.5 K/mcL (4.3-11.1)
[2019-07-12 06:41] LABS: INR 2.5; Prothrombin Time 28.2 Seconds (9.4-12.1)
[2019-07-12 06:43] LABS: Activated Partial Thrombo Time 42.8 Seconds (26.0-36.0)
[2019-07-12 07:02] LABS: Albumin 4.4 g/dL (3.5-5.7); Albumin/Globulin Ratio 1.6 (1.1-2.2); Bilirubin,Direct 0.1 mg/dL (0.0-0.2); Bilirubin,Indirect 0.3 mg/dL (0.0-1.0); Bilirubin,Total 0.4 mg/dL (0.3-1.0); Calcium 7.8 mg/dL (8.6-10.3); Globulin 2.8 g/dL (2.4-3.5); Potassium 4.7 mEq/L (3.5-5.1); Total Protein 7.2 g/dL (6.4-8.9); Troponin I 0.11 ng/mL (< 0.04)
[2019-07-12] MEDS ORDERED: Naloxone 0.4 MG/ML INJ IVP PRN ×2 (07:57→11:50)
[2019-07-12] MEDS ORDERED: Ondansetron 4 MG/2 ML VIAL IVP PRN ×2 (07:57→11:50)
[2019-07-12] MEDS ORDERED: Dextrose Gel 15 GM/37.5 ML TUBE PO PRN ×4 (07:58→11:50)
[2019-07-12] MEDS ORDERED: D5% in Water 1,000 ML IVC PRN ×2 (07:58→11:50)
[2019-07-12] MEDS ORDERED: *HR* Dextrose 50 % in Water (Syg) 50 ML SYRINGE IVP PRN ×2 (07:58→11:50)
[2019-07-12] MEDS ORDERED: *HR* Metoprolol 5 MG/5 ML VIAL IVP PRN ×2 (08:01→11:50)
[2019-07-12] MEDS ORDERED: Dexamethasone 4 MG/ML VIAL ONE (08:07)
[2019-07-12] MEDS ORDERED: *HR* Midazolam HCl 2 MG/2 ML VIAL ONE ×2 (08:07→10:34)
[2019-07-12] MEDS ORDERED: *HR* FentaNYL (PF) 100 MCG/2 ML VIAL ONE (08:07)
[2019-07-12] MEDS ORDERED: Lidocaine -MPF 2% 2 ML VIAL ONE ×2 (08:07→10:07)
[2019-07-12] MEDS ORDERED: *HR* Propofol 200 MG/20 ML VIAL IVP ONE (08:07)
[2019-07-12] MEDS ORDERED: *HR* Rocuronium Bromide 50 MG/5 ML VIAL ONE (08:07)
[2019-07-12] MEDS ORDERED: *HR* Succinylcholine 200 MG/10 ML VIAL IVP ONE (08:07)
[2019-07-12] MEDS ORDERED: Ondansetron 4 MG/2 ML VIAL ONE (08:07)
[2019-07-12] MEDS ORDERED: CefOXitin 1,000 MG VIAL ONE (08:13)
[2019-07-12] MEDS ORDERED: *HR* Norepinephrine 4 MG/4 ML VIAL IVC ONE (08:26)
[2019-07-12] MEDS ORDERED: Acetaminophen IV 1,000 MG/100 ML INFUS..BTL ONE (08:26)
[2019-07-12] MEDS ORDERED: *HR* Etomidate 40 MG/20 ML VIAL IVP ONE (08:28)
[2019-07-12] MEDS ORDERED: EPHEDrine 50 MG/ML VIAL ONE (08:28)
[2019-07-12] MEDS ORDERED: CloNIDine Patch 0.2 MG PATCH (WEEKLY) TD SCH ×2 (08:30→11:50)
[2019-07-12] MEDS ORDERED: cefOXitin 2,000 MG in Water for inj. (sterile) 20 ML IVP ONE (08:55)
[2019-07-12] MEDS ORDERED: Furosemide 40 MG/4 ML VIAL IVP SCH (09:00)
[2019-07-12] MEDS ORDERED: Pantoprazole 40 MG VIAL IVP SCH (09:00)
[2019-07-12] MEDS ORDERED: CefOXitin 2,000 MG VIAL ONE (09:17)
[2019-07-12 09:30] LABS: Hepatitis B Surface Antibody 29.09 mIU/mL
[2019-07-12 09:41] LABS: Hepatitis B Surface Antigen Nonreactive (Nonreactive)
[2019-07-12] MEDS ORDERED: *HR* PHENYLEPHRINE 1,000 MCG/10 ML SYRINGE IVP ONE (09:53)
[2019-07-12] MEDS ORDERED: Neostigmine Methylsulfate 3 MG/3 ML SYRINGE ONE (10:00)
[2019-07-12] MEDS ORDERED: 0.9 % Sodium Chloride 250 ML IVC PRN (10:02)
[2019-07-12] MEDS ORDERED: 0.9 % Sodium Chloride 1,000 ML PRIME SCH (10:15)
[2019-07-12] MEDS ORDERED: *HR* HYDROMORPHONE 2 MG/ML VIAL ONE (10:16)
[2019-07-12] MEDS ORDERED: *HR* HYDROmorphone 2 MG/ML SYRINGE IVP PRN (10:26)
[2019-07-12] MEDS ORDERED: cloNIDine HCL 0.1 MG TABLET ONE (10:35)
[2019-07-12] MEDS ORDERED: *HR* Midazolam HCl 2 MG/2 ML VIAL IVP ONE (10:59)
[2019-07-12] MEDS ORDERED: *HR* OxyCODONE/APAP 5/325 TABLET PO PRN (11:50)
[2019-07-12] MEDS ORDERED: Insulin LISPRO 300 UNITS/3 ML VIAL SQ SCH (12:00)
[2019-07-12] MEDS: Insulin LISPRO 300 UNITS/3 ML VIAL SQ SCH ×2 (12:30→17:05)
[2019-07-12] MEDS ORDERED: carvediloL 25 MG TABLET PO SCH (17:00)
[2019-07-12] MEDS: carvediloL 25 MG TABLET PO SCH (17:04)
[2019-07-13] MEDS: Insulin LISPRO 300 UNITS/3 ML VIAL SQ SCH ×4 (00:38→16:41)
[2019-07-13 03:23] LABS: Basophils % 0.2 %; Hematocrit 36.3 % (37.5-50.1); Hemoglobin 12.2 g/dL (12.9-16.9); Immature Granulocytes % 0.6 % (0-4); Lymphocytes # 0.8 K/mcL (0.6-4.6); Lymphocytes % 6.6 %; Mean Corpuscular HGB Conc 33.6 g/dL (31.6-35.5); Mean Corpuscular Hemoglobin 32.8 pg (28.0-33.3); Mean Corpuscular Volume 97.6 fL (83.0-100.0); Mean Platelet Volume 9.9 fL (9.4-12.4); Monocytes # 0.7 K/mcL (0.0-1.3); Monocytes % 5.5 %; Platelet Count 246 K/mcL (140-400); Red Blood Count 3.72 M/mcL (4.19-5.50); Red Cell Distribution Width 13.5 % (11.5-14.5); Segmented Neutrophils % 87.1 %
[2019-07-13 03:27] LABS: White Blood Count 12.6 K/mcL (4.3-11.1)
[2019-07-13 03:38] LABS: INR 2.6; Prothrombin Time 29.4 Seconds (9.4-12.1)
[2019-07-13 03:41] LABS: Activated Partial Thrombo Time 47.4 Seconds (26.0-36.0)
[2019-07-13 04:01] LABS: Calcium 7.7 mg/dL (8.6-10.3); Magnesium 2.4 mg/dL (1.6-2.6); Potassium 7.6 mEq/L (3.5-5.1)
[2019-07-13] MEDS ORDERED: 0.9 % Sodium Chloride 2,000 ML ONE (07:03)
[2019-07-13] MEDS ORDERED: 0.9 % Sodium Chloride 250 ML IVC PRN (07:25)
[2019-07-13] MEDS: carvediloL 25 MG TABLET PO SCH ×2 (08:10→16:41)
[2019-07-13] MEDS: Furosemide 40 MG/4 ML VIAL IVP SCH (08:14)
[2019-07-13] MEDS: Pantoprazole 40 MG VIAL IVP SCH (08:14)
[2019-07-13] MEDS ORDERED: 0.9 % Sodium Chloride 1,000 ML ONE (10:39)
[2019-07-13] MEDS ORDERED: *HR* Warfarin 10 MG TABLET PO ONE (18:00)
[2019-07-13] MEDS ORDERED: Warfarin perPT PO PRN (18:00)
[2019-07-13] MEDS ORDERED: Insulin LISPRO 300 UNITS/3 ML VIAL SQ SCH (21:00)
[2019-07-14] MEDS ORDERED: 0.9 % Sodium Chloride 250 ML IVC PRN (07:33)
[2019-07-14 07:41] LABS: Basophils % 0.5 %; Eosinophils # 0.1 K/mcL (0.0-0.6); Eosinophils % 1.2 %; Hematocrit 37.4 % (37.5-50.1); Hemoglobin 12.3 g/dL (12.9-16.9); Immature Granulocytes % 0.7 % (0-4); Lymphocytes # 1.5 K/mcL (0.6-4.6); Mean Corpuscular HGB Conc 32.9 g/dL (31.6-35.5); Mean Corpuscular Hemoglobin 33.1 pg (28.0-33.3); Mean Corpuscular Volume 100.5 fL (83.0-100.0); Mean Platelet Volume 10.5 fL (9.4-12.4); Monocytes # 0.8 K/mcL (0.0-1.3); Monocytes % 10.5 %; Neutrophils # 5.2 K/mcL (1.6-8.9); Platelet Count 187 K/mcL (140-400); Red Blood Count 3.72 M/mcL (4.19-5.50); Red Cell Distribution Width 13.9 % (11.5-14.5); Segmented Neutrophils % 68.1 %; White Blood Count 7.7 K/mcL (4.3-11.1)
[2019-07-14 07:44] LABS: INR 1.9; Prothrombin Time 21.1 Seconds (9.4-12.1)
[2019-07-14] MEDS ORDERED: 0.9 % Sodium Chloride 1,000 ML PRIME SCH (07:45)
[2019-07-14] MEDS: Insulin LISPRO 300 UNITS/3 ML VIAL SQ SCH (07:53)
[2019-07-14 07:56] LABS: Potassium 5.4 mEq/L (3.5-5.1)
[2019-07-14] MEDS ORDERED: Acetaminophen 325 MG TABLET PO PRN (08:08)
[2019-07-14] MEDS ORDERED: Naloxone 0.4 MG/ML INJ IVP PRN ×2 (08:08→08:16)
[2019-07-14] MEDS ORDERED: *HR* OxyCODONE/APAP 5/325 TABLET PO PRN (08:12)
[2019-07-14] MEDS: carvediloL 25 MG TABLET PO SCH (08:31)
[2019-07-14] MEDS: Furosemide 40 MG/4 ML VIAL IVP SCH (08:32)
[2019-07-14] MEDS: Pantoprazole 40 MG VIAL IVP SCH (08:32)
[2019-07-14] MEDS ORDERED: Multivit/Ca/Min/Fe/FA 1 TAB TABLET PO SCH (09:00)
[2019-07-14] MEDS ORDERED: amLODIPine 5 MG TABLET PO SCH (09:00)
[2019-07-14] MEDS ORDERED: polyethylene glycoL 3350 17 GM POWD.PACK PO SCH (10:45)
[2019-07-14] MEDS ORDERED: Sennosides/Docusate Sodium TABLET PO SCH (10:45)
[2019-07-14 11:07] VITALS: BP 128/82
[2019-07-14] MEDS ORDERED: *HR* Warfarin 10 MG TABLET PO ONE (18:00)
[2019-07-18] MEDS ORDERED: Ergocalciferol (VIT D2) 50,000 UNIT (1.25MG) CAP PO SCH (15:33)
== END 2019-07-14 13:30 | disposition home health service (06) | DRG 353 ==
LOC: EMEROOARM 06:11 → 2ANU 06:11
PROVIDERS: ADMIT Internal Medicine; ATTEND Internal Medicine

== ENCOUNTER 2021-03-09 05:51 | Inpatient (IN) ==
[2021-03-09] MEDS ORDERED: Furosemide 40 MG/4 ML VIAL IVP ONE (06:07)
[2021-03-09 06:33] LABS: Basophils # 0.1 K/mcL (0.0-0.2); Basophils % 0.5 %; Eosinophils # 0.1 K/mcL (0.0-0.6); Eosinophils % 1.1 %; Hematocrit 25.1 % (37.5-50.1); Immature Granulocytes % 0.7 % (0-4); Lymphocytes # 1.2 K/mcL (0.6-4.6); Lymphocytes % 9.4 %; Mean Corpuscular HGB Conc 31.9 g/dL (31.6-35.5); Mean Corpuscular Volume 97.3 fL (83.0-100.0); Mean Platelet Volume 9.5 fL (9.4-12.4); Monocytes # 0.7 K/mcL (0.0-1.3); Monocytes % 5.1 %; Neutrophils # 10.7 K/mcL (1.6-8.9); Platelet Count 350 K/mcL (140-400); Red Blood Count 2.58 M/mcL (4.19-5.50); Red Cell Distribution Width 14.2 % (11.5-14.5); Segmented Neutrophils % 83.2 %; White Blood Count 12.8 K/mcL (4.3-11.1)
[2021-03-09 06:52] LABS: INR 2.9; Prothrombin Time 31.9 Seconds (9.4-12.1)
[2021-03-09 06:54] LABS: Activated Partial Thrombo Time 43.3 Seconds (26.0-36.0)
[2021-03-09 06:57] LABS: Calcium 8.8 mg/dL (8.6-10.3); Potassium 4.5 mEq/L (3.5-5.1); Troponin I 0.1 ng/mL (< 0.04)
[2021-03-09 07:08] LABS: ABG Base Excess -1 mEq/L (-2 to 3); ABG HCO3 23 mEq/L (21-27); ABG Oxygen Saturation 96 % (95-98); ABG PCO2 33 mmHg (35-45); ABG PH 7.45 pH Units (7.32-7.45); ABG PO2 78 mmHg (85-104); ABG TCO2 24 mEq/L (20-26)
[2021-03-09 07:11] LABS: Influenza A PCR Negative (Negative); Influenza B PCR Negative (Negative); Resp. Syncytial Virus PCR Negative (Negative)
[2021-03-09 07:12] LABS: SARS-CoV-2 by PCR (In House) Negative (Negative)
[2021-03-09] MEDS ORDERED: 0.9 % Sodium Chloride 250 ML IVC PRN (07:47)
[2021-03-09] MEDS ORDERED: 0.9 % Sodium Chloride 1,000 ML PRIME SCH (08:00)
[2021-03-09] MEDS ORDERED: Ondansetron 4 MG/2 ML VIAL IVP PRN (08:25)
[2021-03-09] MEDS ORDERED: Naloxone 0.4 MG/ML INJ IVP PRN (08:25)
[2021-03-09] MEDS ORDERED: Perflutren Lipid Microsphere 1.3 ML in 0.9 % Sodium Chloride 8.7 ML IVP PRN (08:39)
[2021-03-09] MEDS ORDERED: Calcium Acetate 667 MG CAPSULE PO SCH ×2 (08:45→17:00)
[2021-03-09] MEDS ORDERED: Calcium Acetate 667 MG CAPSULE PO PRN (08:48)
[2021-03-09 09:13] LABS: Hepatitis B Surface Antibody 20.46 mIU/mL
[2021-03-09 09:24] LABS: Hepatitis B Surface Antigen Nonreactive (Nonreactive)
[2021-03-09 09:25] LABS: INR 2.9; Prothrombin Time 31.7 Seconds (9.4-12.1)
[2021-03-09] MEDS: Furosemide 40 MG/4 ML VIAL IVP SCH ×2 (17:42→20:44)
[2021-03-09] MEDS: amLODIPine 5 MG TABLET PO SCH (17:43)
[2021-03-09] MEDS: carvediloL 25 MG TABLET PO SCH (17:43)
[2021-03-09] MEDS ORDERED: *HR* Warfarin 7.5 MG TABLET PO ONE (18:00)
[2021-03-09] MEDS ORDERED: Warfarin perPT PO PRN (18:00)
[2021-03-09] MEDS: Acetaminophen 325 MG TABLET PO PRN (18:22)
[2021-03-10] MEDS: Acetaminophen 325 MG TABLET PO PRN ×2 (00:21→20:23)
[2021-03-10] MEDS: niCARdipine 20 MG/200 ML MLS IVC SCH ×3 (04:45→19:39)
[2021-03-10 06:15] LABS: Basophils # 0.1 K/mcL (0.0-0.2); Basophils % 0.4 %; Eosinophils # 0.1 K/mcL (0.0-0.6); Hematocrit 21.7 % (37.5-50.1); Hemoglobin 6.9 g/dL (12.9-16.9); Immature Granulocytes % 0.9 % (0-4); Lymphocytes # 0.8 K/mcL (0.6-4.6); Lymphocytes % 6.7 %; Mean Corpuscular HGB Conc 31.8 g/dL (31.6-35.5); Mean Corpuscular Hemoglobin 31.4 pg (28.0-33.3); Mean Corpuscular Volume 98.6 fL (83.0-100.0); Mean Platelet Volume 9.4 fL (9.4-12.4); Monocytes # 0.8 K/mcL (0.0-1.3); Monocytes % 6.2 %; Neutrophils # 10.3 K/mcL (1.6-8.9); Platelet Count 299 K/mcL (140-400); Red Cell Distribution Width 14.3 % (11.5-14.5); Segmented Neutrophils % 84.8 %; White Blood Count 12.2 K/mcL (4.3-11.1)
[2021-03-10 06:24] LABS: INR 2.6; Prothrombin Time 29.3 Seconds (9.4-12.1)
[2021-03-10 06:33] LABS: Calcium 8.5 mg/dL (8.6-10.3); Iron 28 mcg/dL (65-175); Phosphorous 5.1 mg/dL (2.7-4.5); Potassium 4.3 mEq/L (3.5-5.1)
[2021-03-10] MEDS ORDERED: 0.9 % Sodium Chloride 250 ML IVC PRN (07:41)
[2021-03-10] MEDS ORDERED: Iron Sucrose Complex 400 MG in 0.9 % Sodium Chloride 250 ML IVPB ONE (11:29)
[2021-03-10] MEDS: carvediloL 25 MG TABLET PO SCH ×2 (13:39→18:19)
[2021-03-10] MEDS: hydrALAZINE 25 MG TABLET PO SCH ×3 (13:39→23:42)
[2021-03-10] MEDS: Renal Vitamin 1 CAP CAPSULE PO SCH (13:39)
[2021-03-10] MEDS: Furosemide 40 MG/4 ML VIAL IVP SCH ×2 (13:40→21:05)
[2021-03-10] MEDS: amLODIPine 5 MG TABLET PO SCH (13:41)
[2021-03-10] MEDS ORDERED: 0.9 % Sodium Chloride 250 ML ONE (16:43)
[2021-03-10] MEDS ORDERED: *HR* Warfarin 7.5 MG TABLET PO ONE (18:00)
[2021-03-10] MEDS: Piperacillin/Tazobactam 3.375 GM in 0.9 % Sodium Chloride Mini Bag 100 ML IVPB SCH (23:42)
[2021-03-11] MEDS: niCARdipine 20 MG/200 ML MLS IVC SCH ×2 (03:18→10:25)
[2021-03-11 03:58] LABS: Basophils % 0.4 %; Eosinophils # 0.1 K/mcL (0.0-0.6); Eosinophils % 1.1 %; Hematocrit 26.2 % (37.5-50.1); Hemoglobin 8.3 g/dL (12.9-16.9); Immature Granulocytes % 0.7 % (0-4); Lymphocytes # 1.1 K/mcL (0.6-4.6); Lymphocytes % 10.7 %; Mean Corpuscular HGB Conc 31.7 g/dL (31.6-35.5); Mean Corpuscular Hemoglobin 31.9 pg (28.0-33.3); Mean Corpuscular Volume 100.8 fL (83.0-100.0); Mean Platelet Volume 9.7 fL (9.4-12.4); Monocytes # 0.7 K/mcL (0.0-1.3); Monocytes % 6.9 %; Neutrophils # 7.9 K/mcL (1.6-8.9); Platelet Count 313 K/mcL (140-400); Segmented Neutrophils % 80.2 %; White Blood Count 9.9 K/mcL (4.3-11.1)
[2021-03-11 04:07] LABS: INR 2.7; Prothrombin Time 29.9 Seconds (9.4-12.1)
[2021-03-11 04:19] LABS: Albumin 3.4 g/dL (3.5-5.7); Albumin/Globulin Ratio 0.9 (1.1-2.2); Bilirubin,Total 0.6 mg/dL (0.3-1.0); Calcium 8.6 mg/dL (8.6-10.3); Globulin 3.8 g/dL (2.4-3.5); Potassium 4.1 mEq/L (3.5-5.1); Total Protein 7.2 g/dL (6.4-8.9)
[2021-03-11 04:36] LABS: Folate 14.1 ng/mL (3.0-16.0)
[2021-03-11] MEDS ORDERED: hydrALAZINE 25 MG TABLET PO SCH (08:00)
[2021-03-11] MEDS: Piperacillin/Tazobactam 3.375 GM in 0.9 % Sodium Chloride Mini Bag 100 ML IVPB SCH (08:13)
[2021-03-11] MEDS: carvediloL 25 MG TABLET PO SCH (08:13)
[2021-03-11] MEDS: Renal Vitamin 1 CAP CAPSULE PO SCH (08:13)
[2021-03-11] MEDS: Furosemide 40 MG/4 ML VIAL IVP SCH (08:13)
[2021-03-11] MEDS ORDERED: amLODIPine 5 MG TABLET PO SCH (09:00)
[2021-03-11] MEDS ORDERED: cloNIDine HCL 0.1 MG TABLET PO SCH ×2 (09:00→21:00)
[2021-03-11 11:01] VITALS: BP 154/95; PULSE 79; TEMP 97.9; O2SAT 92
[2021-03-11 12:45] LABS: Magnesium 2.1 mg/dL (1.6-2.6)
[2021-03-14 09:46] LABS: % Iron Saturation 14 % (20-55); Transferrin 140 mg/dL (200-400)
== END 2021-03-11 14:15 | disposition left against medical advice (07) | DRG 280 ==
LOC: EMEROOARM 05:51 → 2NNU 10:26 → SUATTDRO 10:26 → 2NNU 15:02
PROVIDERS: ADMIT Family Medicine; ATTEND Internal Medicine

== ENCOUNTER 2021-03-19 03:14 | Inpatient (IN) ==
[2021-03-19] MEDS ORDERED: Ipratropium/Albuterol Neb 3 ML IH ONE (03:18)
[2021-03-19] MEDS ORDERED: Albuterol 2.5 MG/3 ML NEBULIZER IH ONE (03:18)
[2021-03-19 03:35] LABS: Basophils # 0.1 K/mcL (0.0-0.2); Basophils % 0.6 %; Eosinophils # 0.1 K/mcL (0.0-0.6); Eosinophils % 1.1 %; Hematocrit 23.1 % (37.5-50.1); Hemoglobin 7.4 g/dL (12.9-16.9); Immature Granulocytes % 0.4 % (0-4); Lymphocytes # 1.2 K/mcL (0.6-4.6); Lymphocytes % 12.5 %; Mean Corpuscular Hemoglobin 31.2 pg (28.0-33.3); Mean Corpuscular Volume 97.5 fL (83.0-100.0); Monocytes # 0.6 K/mcL (0.0-1.3); Monocytes % 6.2 %; Neutrophils # 7.7 K/mcL (1.6-8.9); Platelet Count 259 K/mcL (140-400); Red Blood Count 2.37 M/mcL (4.19-5.50); Red Cell Distribution Width 15.2 % (11.5-14.5); Segmented Neutrophils % 79.2 %; White Blood Count 9.8 K/mcL (4.3-11.1)
[2021-03-19 03:54] LABS: Albumin 3.8 g/dL (3.5-5.7); Albumin/Globulin Ratio 1.1 (1.1-2.2); Bilirubin,Direct 0.1 mg/dL (0.0-0.2); Bilirubin,Indirect 0.4 mg/dL (0.0-1.0); Bilirubin,Total 0.5 mg/dL (0.3-1.0); Calcium 8.9 mg/dL (8.6-10.3); Globulin 3.6 g/dL (2.4-3.5); Potassium 4.8 mEq/L (3.5-5.1); Total Protein 7.4 g/dL (6.4-8.9); Troponin I 0.1 ng/mL (< 0.04)
[2021-03-19 05:37] LABS: Influenza A PCR Negative (Negative); Influenza B PCR Negative (Negative); Resp. Syncytial Virus PCR Negative (Negative)
[2021-03-19 05:47] LABS: SARS-CoV-2 by PCR (In House) Negative (Negative)
[2021-03-19] MEDS ORDERED: Nitroglycerin 0.4 MG TAB.SUBL SL STA (06:03)
[2021-03-19] MEDS ORDERED: amLODIPine 5 MG TABLET PO STA (06:04)
[2021-03-19] MEDS ORDERED: carvediloL 25 MG TABLET PO STA (06:04)
[2021-03-19] MEDS ORDERED: Furosemide 80 MG in 0.9 % Sodium Chloride 50 ML IVPB ONE (06:04)
[2021-03-19] MEDS ORDERED: cloNIDine HCL 0.1 MG TABLET PO ONE (06:04)
[2021-03-19] MEDS ORDERED: Ondansetron 4 MG/2 ML VIAL IVP PRN (06:40)
[2021-03-19] MEDS ORDERED: Naloxone 0.4 MG/ML INJ IVP PRN (06:40)
[2021-03-19] MEDS ORDERED: Melatonin 3 MG TABLET PO PRN (06:40)
[2021-03-19] MEDS ORDERED: Acetaminophen 325 MG TABLET PO PRN (06:40)
[2021-03-19] MEDS ORDERED: Albuterol 2.5 MG/3 ML NEBULIZER IH PRN (06:45)
[2021-03-19] MEDS: niCARdipine 20 MG/200 ML MLS IVC SCH ×2 (07:14→14:31)
[2021-03-19] MEDS ORDERED: Albumin 25% 25gram/100mL 25 GM/100 ML IV.SOLN IVPB PRN (07:58)
[2021-03-19] MEDS ORDERED: 0.9 % Sodium Chloride 250 ML IVC PRN (07:58)
[2021-03-19] MEDS ORDERED: 0.9 % Sodium Chloride 1,000 ML PRIME SCH (08:00)
[2021-03-19 09:47] LABS: Hematocrit 20.8 % (37.5-50.1); Hemoglobin 6.6 g/dL (12.9-16.9); Mean Corpuscular HGB Conc 31.7 g/dL (31.6-35.5); Mean Corpuscular Volume 97.7 fL (83.0-100.0); Mean Platelet Volume 9.8 fL (9.4-12.4); Platelet Count 240 K/mcL (140-400); Red Blood Count 2.13 M/mcL (4.19-5.50); Red Cell Distribution Width 15.1 % (11.5-14.5); White Blood Count 8.3 K/mcL (4.3-11.1)
[2021-03-19 09:57] LABS: INR 2.3; Prothrombin Time 25.5 Seconds (9.4-12.1)
[2021-03-19] MEDS: Ipratropium/Albuterol Neb 3 ML IH SCH ×3 (10:55→23:59)
[2021-03-19 11:56] LABS: Iron 33 mcg/dL (65-175)
[2021-03-19 12:22] LABS: Folate 12.4 ng/mL (3.0-16.0)
[2021-03-19] MEDS ORDERED: *HR* Labetalol 20 MG/4 ML SYRINGE IVP PRN (15:02)
[2021-03-19] MEDS: hydrALAZINE 25 MG TABLET PO SCH ×2 (15:20→23:42)
[2021-03-19] MEDS: carvediloL 25 MG TABLET PO SCH (16:46)
[2021-03-19] MEDS: Furosemide 40 MG TABLET PO SCH (16:46)
[2021-03-19] MEDS ORDERED: Warfarin perPT PO PRN (18:00)
[2021-03-19 19:25] LABS: Hematocrit 20.4 % (37.5-50.1); Hemoglobin 6.7 g/dL (12.9-16.9)
[2021-03-19] MEDS: cloNIDine HCL 0.1 MG TABLET PO SCH (21:29)
[2021-03-20 00:46] LABS: Hematocrit 21.5 % (37.5-50.1); Hemoglobin 6.8 g/dL (12.9-16.9)
[2021-03-20 00:58] LABS: Prothrombin Time 21.8 Seconds (9.4-12.1)
[2021-03-20] MEDS: Ipratropium/Albuterol Neb 3 ML IH SCH ×4 (04:05→21:08)
[2021-03-20] MEDS ORDERED: 0.9 % Sodium Chloride 250 ML IVC PRN (08:01)
[2021-03-20] MEDS: carvediloL 25 MG TABLET PO SCH ×2 (09:12→18:06)
[2021-03-20] MEDS: hydrALAZINE 25 MG TABLET PO SCH ×2 (09:12→18:06)
[2021-03-20] MEDS: Furosemide 40 MG TABLET PO SCH ×2 (09:12→18:06)
[2021-03-20] MEDS: cloNIDine HCL 0.1 MG TABLET PO SCH ×2 (09:13→22:02)
[2021-03-20] MEDS: amLODIPine 5 MG TABLET PO SCH (09:13)
[2021-03-20 19:22] LABS: Basophils % 0.6 %; Eosinophils # 0.2 K/mcL (0.0-0.6); Eosinophils % 2.6 %; Hematocrit 23.1 % (37.5-50.1); Hemoglobin 7.6 g/dL (12.9-16.9); Immature Granulocytes % 0.8 % (0-4); Lymphocytes # 1.2 K/mcL (0.6-4.6); Lymphocytes % 18.4 %; Mean Corpuscular HGB Conc 32.9 g/dL (31.6-35.5); Mean Corpuscular Hemoglobin 31.1 pg (28.0-33.3); Mean Corpuscular Volume 94.7 fL (83.0-100.0); Mean Platelet Volume 9.7 fL (9.4-12.4); Monocytes # 0.7 K/mcL (0.0-1.3); Monocytes % 10.2 %; Neutrophils # 4.4 K/mcL (1.6-8.9); Platelet Count 266 K/mcL (140-400); Red Blood Count 2.44 M/mcL (4.19-5.50); Red Cell Distribution Width 16.1 % (11.5-14.5); Segmented Neutrophils % 67.4 %; White Blood Count 6.6 K/mcL (4.3-11.1)
[2021-03-21] MEDS: hydrALAZINE 25 MG TABLET PO SCH ×3 (00:27→17:17)
[2021-03-21] MEDS: Ipratropium/Albuterol Neb 3 ML IH SCH ×4 (04:00→21:43)
[2021-03-21 06:12] LABS: INR 1.3; Prothrombin Time 14.7 Seconds (9.4-12.1)
[2021-03-21] MEDS ORDERED: 0.9 % Sodium Chloride 250 ML IVC PRN (07:15)
[2021-03-21] MEDS: Furosemide 40 MG TABLET PO SCH ×2 (08:05→17:17)
[2021-03-21] MEDS: amLODIPine 5 MG TABLET PO SCH (08:05)
[2021-03-21] MEDS: carvediloL 25 MG TABLET PO SCH ×2 (08:05→17:18)
[2021-03-21] MEDS: cloNIDine HCL 0.1 MG TABLET PO SCH ×2 (08:06→21:25)
[2021-03-21 09:21] LABS: Calcium 8.4 mg/dL (8.6-10.3); Potassium 4.3 mEq/L (3.5-5.1)
[2021-03-21 10:39] LABS: Basophils % 0.7 %; Eosinophils # 0.1 K/mcL (0.0-0.6); Eosinophils % 2.6 %; Hematocrit 19.5 % (37.5-50.1); Hemoglobin 6.6 g/dL (12.9-16.9); Immature Granulocytes % 0.5 % (0-4); Lymphocytes # 0.9 K/mcL (0.6-4.6); Lymphocytes % 16.6 %; Mean Corpuscular HGB Conc 33.8 g/dL (31.6-35.5); Mean Corpuscular Hemoglobin 31.1 pg (28.0-33.3); Mean Platelet Volume 9.4 fL (9.4-12.4); Monocytes # 0.4 K/mcL (0.0-1.3); Monocytes % 7.5 %; Platelet Count 194 K/mcL (140-400); Red Blood Count 2.12 M/mcL (4.19-5.50); Red Cell Distribution Width 15.9 % (11.5-14.5); Segmented Neutrophils % 72.1 %; White Blood Count 5.5 K/mcL (4.3-11.1)
[2021-03-21 17:17] LABS: Hematocrit 24.2 % (37.5-50.1); Hemoglobin 7.7 g/dL (12.9-16.9)
[2021-03-21 21:05] LABS: Hematocrit 22.4 % (37.5-50.1); Hemoglobin 7.3 g/dL (12.9-16.9)
[2021-03-22] MEDS: hydrALAZINE 25 MG TABLET PO SCH ×3 (00:38→17:02)
[2021-03-22 00:58] LABS: INR 1.2; Prothrombin Time 13.4 Seconds (9.4-12.1)
[2021-03-22 01:12] LABS: % Iron Saturation 44 % (20-55); Iron 93 mcg/dL (65-175); Transferrin 152 mg/dL (203-362)
[2021-03-22 01:29] LABS: Ferritin 1043 ng/mL (20-250)
[2021-03-22] MEDS: Ipratropium/Albuterol Neb 3 ML IH SCH ×4 (04:41→20:46)
[2021-03-22] MEDS: Furosemide 40 MG TABLET PO SCH ×2 (09:14→17:02)
[2021-03-22] MEDS: carvediloL 25 MG TABLET PO SCH ×2 (09:14→17:02)
[2021-03-22] MEDS: cloNIDine HCL 0.1 MG TABLET PO SCH ×2 (09:14→20:57)
[2021-03-22] MEDS: amLODIPine 5 MG TABLET PO SCH (09:14)
[2021-03-22 09:41] LABS: % Iron Saturation 15 % (20-55); Transferrin 159 mg/dL (200-400)
[2021-03-22 09:46] LABS: Basophils % 0.7 %; Eosinophils # 0.2 K/mcL (0.0-0.6); Eosinophils % 2.9 %; Hematocrit 22.2 % (37.5-50.1); Hemoglobin 7.1 g/dL (12.9-16.9); Immature Granulocytes % 0.7 % (0-4); Lymphocytes % 16.6 %; Mean Corpuscular Hemoglobin 30.9 pg (28.0-33.3); Mean Corpuscular Volume 96.5 fL (83.0-100.0); Mean Platelet Volume 9.7 fL (9.4-12.4); Monocytes # 0.6 K/mcL (0.0-1.3); Monocytes % 9.9 %; Neutrophils # 4.1 K/mcL (1.6-8.9); Platelet Count 187 K/mcL (140-400); Red Cell Distribution Width 15.9 % (11.5-14.5); Segmented Neutrophils % 69.2 %
[2021-03-22 10:02] LABS: Calcium 8.6 mg/dL (8.6-10.3); Potassium 4.2 mEq/L (3.5-5.1)
[2021-03-22] MEDS ORDERED: *HR* Warfarin 5 MG TABLET PO ONE (18:00)
[2021-03-22] MEDS ORDERED: *HR* Warfarin 7.5 MG TABLET PO ONE (18:00)
[2021-03-23] MEDS: hydrALAZINE 25 MG TABLET PO SCH (02:48)
[2021-03-23] MEDS: Ipratropium/Albuterol Neb 3 ML IH SCH ×3 (04:01→15:41)
[2021-03-23 05:19] LABS: INR 1.1; Prothrombin Time 12.1 Seconds (9.4-12.1)
[2021-03-23] MEDS ORDERED: 0.9 % Sodium Chloride 250 ML IVC PRN (07:01)
[2021-03-23 08:06] VITALS: PULSE 85
[2021-03-23 08:41] VITALS: O2SAT 93
[2021-03-23 09:25] LABS: Basophils % 0.4 %; Eosinophils # 0.2 K/mcL (0.0-0.6); Eosinophils % 2.6 %; Hematocrit 20.8 % (37.5-50.1); Immature Granulocytes % 0.4 % (0-4); Lymphocytes % 13.5 %; Mean Corpuscular HGB Conc 33.7 g/dL (31.6-35.5); Mean Corpuscular Hemoglobin 32.1 pg (28.0-33.3); Mean Corpuscular Volume 95.4 fL (83.0-100.0); Mean Platelet Volume 9.6 fL (9.4-12.4); Monocytes # 0.6 K/mcL (0.0-1.3); Monocytes % 8.9 %; Neutrophils # 5.4 K/mcL (1.6-8.9); Platelet Count 206 K/mcL (140-400); Red Blood Count 2.18 M/mcL (4.19-5.50); Segmented Neutrophils % 74.2 %; White Blood Count 7.2 K/mcL (4.3-11.1)
[2021-03-23 09:43] LABS: Calcium 8.7 mg/dL (8.6-10.3); Potassium 4.2 mEq/L (3.5-5.1)
[2021-03-23 14:14] VITALS: BP 191/123; TEMP 97.6
[2021-03-23] MEDS ORDERED: hydrALAZINE 25 MG TABLET PO SCH (16:00)
[2021-03-23] MEDS ORDERED: *HR* Warfarin 5 MG TABLET PO ONE (18:00)
[2021-03-24] MEDS ORDERED: amLODIPine 5 MG TABLET PO SCH (09:00)
== END 2021-03-23 16:08 | disposition home or self-care (01) | DRG 291 ==
LOC: EMEROOARM 03:14 → 2ANU 03:14 → SUATTDRO 06:05 → 2NENU 06:26
PROVIDERS: ADMIT Internal Medicine; ATTEND Internal Medicine

== ENCOUNTER 2021-04-04 18:29 | Inpatient (IN) ==
[2021-04-04] MEDS ORDERED: 0.9 % Sodium Chloride 1,000 ML IVC ONE (19:23)
[2021-04-04 19:57] LABS: Basophils % 0.2 %; Hematocrit 21.4 % (37.5-50.1); Hemoglobin 7.1 g/dL (12.9-16.9); Immature Granulocytes % 0.4 % (0-4); Lymphocytes # 0.5 K/mcL (0.6-4.6); Lymphocytes % 11.3 %; Mean Corpuscular HGB Conc 33.2 g/dL (31.6-35.5); Mean Corpuscular Hemoglobin 31.8 pg (28.0-33.3); Mean Platelet Volume 10.9 fL (9.4-12.4); Monocytes # 0.2 K/mcL (0.0-1.3); Neutrophils # 3.8 K/mcL (1.6-8.9); Platelet Count 155 K/mcL (140-400); Red Blood Count 2.23 M/mcL (4.19-5.50); Red Cell Distribution Width 15.2 % (11.5-14.5); Segmented Neutrophils % 84.1 %
[2021-04-04 20:08] LABS: White Blood Count 4.5 K/mcL (4.3-11.1)
[2021-04-04 21:37] LABS: Calcium 7.8 mg/dL (8.6-10.3); Potassium 6.6 mEq/L (3.5-5.1); Troponin I 0.25 ng/mL (< 0.04)
[2021-04-04] MEDS ORDERED: Calcium Gluconate 1gm/50mL 1 GM/50 ML BAG IVPB STA (21:47)
[2021-04-04] MEDS ORDERED: Insulin Human Regular 10 UNIT in 0.9 % Sodium Chloride 10 ML IV ONE (21:48)
[2021-04-04] MEDS ORDERED: SODIUM ZIRCONIUM CYCLOSILICATE 5 GM POWD.PACK PO ONE (22:00)
[2021-04-04] MEDS ORDERED: *HR* Dextrose 50 % in Water (Syg) 50 ML SYRINGE IVP ONE (22:00)
[2021-04-04] MEDS ORDERED: Naloxone 0.4 MG/ML INJ IVP PRN (22:17)
[2021-04-04] MEDS ORDERED: Ondansetron 4 MG/2 ML VIAL IVP PRN (22:17)
[2021-04-05 01:20] LABS: Hematocrit 21.5 % (37.5-50.1); Immature Granulocytes % 1.5 % (0-4); Lymphocytes # 0.3 K/mcL (0.6-4.6); Lymphocytes % 13.1 %; Mean Corpuscular HGB Conc 32.6 g/dL (31.6-35.5); Mean Corpuscular Hemoglobin 31.4 pg (28.0-33.3); Mean Corpuscular Volume 96.4 fL (83.0-100.0); Mean Platelet Volume 11.4 fL (9.4-12.4); Monocytes # 0.1 K/mcL (0.0-1.3); Monocytes % 2.7 %; Neutrophils # 2.1 K/mcL (1.6-8.9); Platelet Count 146 K/mcL (140-400); Red Blood Count 2.23 M/mcL (4.19-5.50); Red Cell Distribution Width 15.1 % (11.5-14.5); Segmented Neutrophils % 82.7 %; White Blood Count 2.6 K/mcL (4.3-11.1)
[2021-04-05 01:23] LABS: VBG HCO3 19 mEq/L (21-27); VBG PCO2 36 mmHg (41-51); VBG PH 7.34 pH Units (7.32-7.42); VBG PO2 77 mmHg (25-50)
[2021-04-05 01:29] LABS: INR 1.4; Prothrombin Time 16.1 Seconds (9.4-12.1)
[2021-04-05 01:34] LABS: Albumin 3.9 g/dL (3.5-5.7); Albumin/Globulin Ratio 1.2 (1.1-2.2); Bilirubin,Direct 0.1 mg/dL (0.0-0.2); Bilirubin,Indirect 0.3 mg/dL (0.0-1.0); Bilirubin,Total 0.4 mg/dL (0.3-1.0); Globulin 3.3 g/dL (2.4-3.5); Total Protein 7.2 g/dL (6.4-8.9)
[2021-04-05 01:36] LABS: Calcium 7.9 mg/dL (8.6-10.3); Magnesium 2.1 mg/dL (1.6-2.6); Phosphorous 6.4 mg/dL (2.7-4.5); Potassium 6.1 mEq/L (3.5-5.1)
[2021-04-05 01:50] LABS: Thyroid Stimulating Hormone 0.728 mcIU/mL (0.340-5.600)
[2021-04-05] MEDS ORDERED: Furosemide 40 MG/4 ML VIAL IVP ONE (01:54)
[2021-04-05] MEDS ORDERED: Calcium Gluconate 1gm/50mL 1 GM/50 ML BAG IVPB ONE (01:55)
[2021-04-05] MEDS ORDERED: Insulin Human Regular 10 UNIT in 0.9 % Sodium Chloride 10 ML IV ONE (01:56)
[2021-04-05] MEDS ORDERED: SODIUM ZIRCONIUM CYCLOSILICATE 5 GM POWD.PACK PO ONE (01:57)
[2021-04-05] MEDS ORDERED: Albuterol Neb 1.25 MG/3 ML VIAL IH ONE (02:00)
[2021-04-05] MEDS ORDERED: *HR* Heparin 5,000 UNIT/ML VIAL IVP ONE (02:04)
[2021-04-05] MEDS ORDERED: *HR* Heparin 5,000 UNIT/ML VIAL IVP PRN ×2 (02:04)
[2021-04-05] MEDS ORDERED: Heparin 25,000UNIT/250ML 1/2NS 25,000 UNIT/250 ML IV.SOLN IVC SCH (02:15)
[2021-04-05 02:34] LABS: Heparin anti-factor XA UFH < 0.04 IU/mL (0.30-0.70)
[2021-04-05] MEDS ORDERED: Warfarin perPT PO PRN (03:34)
[2021-04-05] MEDS: amLODIPine 5 MG TABLET PO SCH (09:16)
[2021-04-05] MEDS: carvediloL 25 MG TABLET PO SCH ×2 (09:16→16:37)
[2021-04-05] MEDS: hydrALAZINE 25 MG TABLET PO SCH ×3 (09:16→23:57)
[2021-04-05] MEDS: cloNIDine HCL 0.1 MG TABLET PO SCH ×2 (09:16→20:26)
[2021-04-05] MEDS: cefTRIAXone 1,000 MG in 0.9 % Sodium Chloride Mini Bag 100 ML IVPB SCH (09:17)
[2021-04-05] MEDS: Azithromycin 500 MG in 0.9 % Sodium Chloride 250 ML IVPB SCH (10:00)
[2021-04-05 11:24] LABS: Hemoglobin 6.2 g/dL (12.9-16.9); Immature Granulocytes % 1.7 % (0-4); Lymphocytes # 0.4 K/mcL (0.6-4.6); Lymphocytes % 17.2 %; Mean Corpuscular HGB Conc 32.6 g/dL (31.6-35.5); Mean Corpuscular Hemoglobin 31.8 pg (28.0-33.3); Mean Corpuscular Volume 97.4 fL (83.0-100.0); Mean Platelet Volume 11.4 fL (9.4-12.4); Monocytes # 0.1 K/mcL (0.0-1.3); Monocytes % 3.8 %; Neutrophils # 1.8 K/mcL (1.6-8.9); Platelet Count 121 K/mcL (140-400); Red Blood Count 1.95 M/mcL (4.19-5.50); Red Cell Distribution Width 14.8 % (11.5-14.5); Segmented Neutrophils % 77.3 %; White Blood Count 2.4 K/mcL (4.3-11.1)
[2021-04-05 11:39] LABS: Fibrinogen 240 mg/dL (169-393)
[2021-04-05 11:47] LABS: D-Dimer 3535 ng/mLFEU (0-500)
[2021-04-05 12:11] LABS: BUN/Creatinine Ratio 8 (6-26); Blood Urea Nitrogen 110 mg/dL (6-20); Calcium 7.5 mg/dL (8.6-10.3); Carbon Dioxide 16 mEq/L (23-29); Chloride 93 mEq/L (98-107); Creatine Kinase 69 Units/L (30-223); Ferritin > 1500 ng/mL (20-250); Glucose 128 mg/dL (70-105); Lactate Dehydrogenase 386 Units/L (140-271); Osmolality,Calculated 306 (280-300); Potassium 6.3 mEq/L (3.5-5.1); Sodium 130 mEq/L (136-145); Troponin I 0.18 ng/mL (< 0.04); eGFR For African Americans 4 (> 60); eGFR For Non-African Americans 4 (> 60)
[2021-04-05] MEDS ORDERED: 0.9 % Sodium Chloride 250 ML IVC PRN (12:27)
[2021-04-05] MEDS ORDERED: 0.9 % Sodium Chloride 1,000 ML PRIME SCH (12:30)
[2021-04-05 13:15] LABS: C-Reactive Protein 58 mg/L (Less than 10)
[2021-04-05] MEDS ORDERED: *HR* Warfarin 7.5 MG TABLET PO ONE (18:00)
[2021-04-06 02:19] LABS: INR 1.5; Prothrombin Time 16.5 Seconds (9.4-12.1)
[2021-04-06 06:31] LABS: Hematocrit 21.5 % (37.5-50.1); Hemoglobin 6.8 g/dL (12.9-16.9); Mean Corpuscular HGB Conc 31.6 g/dL (31.6-35.5); Mean Corpuscular Hemoglobin 31.1 pg (28.0-33.3); Mean Corpuscular Volume 98.2 fL (83.0-100.0); Mean Platelet Volume 11.7 fL (9.4-12.4); Platelet Count 158 K/mcL (140-400); Red Blood Count 2.19 M/mcL (4.19-5.50); Red Cell Distribution Width 14.8 % (11.5-14.5)
[2021-04-06 06:33] LABS: White Blood Count 7.7 K/mcL (4.3-11.1)
[2021-04-06 06:55] LABS: Calcium 7.7 mg/dL (8.6-10.3); Magnesium 2.1 mg/dL (1.6-2.6); Phosphorous 7.3 mg/dL (2.7-4.5); Potassium 5.1 mEq/L (3.5-5.1)
[2021-04-06] MEDS: hydrALAZINE 25 MG TABLET PO SCH ×2 (09:10→17:44)
[2021-04-06] MEDS: amLODIPine 5 MG TABLET PO SCH (09:10)
[2021-04-06] MEDS: carvediloL 25 MG TABLET PO SCH ×2 (09:10→17:39)
[2021-04-06] MEDS: cloNIDine HCL 0.1 MG TABLET PO SCH ×2 (09:10→20:10)
[2021-04-06] MEDS: cefTRIAXone 1,000 MG in 0.9 % Sodium Chloride Mini Bag 100 ML IVPB SCH (09:11)
[2021-04-06] MEDS: Azithromycin 500 MG in 0.9 % Sodium Chloride 250 ML IVPB SCH (09:58)
[2021-04-06] MEDS ORDERED: 0.9 % Sodium Chloride 250 ML ONE (12:12)
[2021-04-06] MEDS ORDERED: *HR* Warfarin 5 MG TABLET PO ONE (18:00)
[2021-04-07] MEDS: hydrALAZINE 25 MG TABLET PO SCH ×4 (00:35→23:26)
[2021-04-07 06:23] LABS: Hematocrit 22.8 % (37.5-50.1); Hemoglobin 7.5 g/dL (12.9-16.9); Immature Granulocytes % 0.5 % (0-4); Lymphocytes # 0.3 K/mcL (0.6-4.6); Lymphocytes % 2.8 %; Mean Corpuscular HGB Conc 32.9 g/dL (31.6-35.5); Mean Corpuscular Hemoglobin 31.3 pg (28.0-33.3); Mean Platelet Volume 11.2 fL (9.4-12.4); Monocytes # 0.5 K/mcL (0.0-1.3); Monocytes % 5.7 %; Neutrophils # 8.3 K/mcL (1.6-8.9); Platelet Count 161 K/mcL (140-400); White Blood Count 9.2 K/mcL (4.3-11.1)
[2021-04-07 06:38] LABS: Calcium 7.3 mg/dL (8.6-10.3); Potassium 5.5 mEq/L (3.5-5.1)
[2021-04-07 06:44] LABS: INR 1.5; Prothrombin Time 16.8 Seconds (9.4-12.1)
[2021-04-07] MEDS ORDERED: 0.9 % Sodium Chloride 250 ML IVC PRN (08:52)
[2021-04-07] MEDS: cefTRIAXone 1,000 MG in 0.9 % Sodium Chloride Mini Bag 100 ML IVP SCH (09:36)
[2021-04-07] MEDS: Azithromycin 250 MG TABLET PO SCH (09:36)
[2021-04-07] MEDS: amLODIPine 5 MG TABLET PO SCH (09:37)
[2021-04-07] MEDS: cloNIDine HCL 0.1 MG TABLET PO SCH ×2 (09:37→19:48)
[2021-04-07] MEDS: carvediloL 25 MG TABLET PO SCH ×2 (09:38→18:06)
[2021-04-07] MEDS ORDERED: *HR* Warfarin 5 MG TABLET PO ONE (18:00)
[2021-04-07] MEDS ORDERED: Water for inj. (sterile) 10 ML ONE (23:21)
[2021-04-08 07:47] VITALS: TEMP 97.6
[2021-04-08] MEDS: carvediloL 25 MG TABLET PO SCH (09:06)
[2021-04-08] MEDS: cloNIDine HCL 0.1 MG TABLET PO SCH (09:06)
[2021-04-08] MEDS: hydrALAZINE 25 MG TABLET PO SCH (09:06)
[2021-04-08] MEDS: amLODIPine 5 MG TABLET PO SCH (09:06)
[2021-04-08] MEDS: Azithromycin 250 MG TABLET PO SCH (09:07)
[2021-04-08] MEDS: cefTRIAXone 1,000 MG in 0.9 % Sodium Chloride Mini Bag 100 ML IVP SCH (09:07)
[2021-04-08 10:50] VITALS: BP 122/77; PULSE 78
[2021-04-08 11:45] VITALS: O2SAT 93
== END 2021-04-08 14:28 | disposition home health service (06) | DRG 177 ==
LOC: 2NENU 18:29 → EMEROOARM 18:29 → 2NENU 23:18
PROVIDERS: ADMIT Internal Medicine; ATTEND Internal Medicine

== ENCOUNTER 2021-07-30 06:22 | Inpatient (IN) ==
[2021-07-30 07:20] LABS: Calcium 7.9 mg/dL (8.6-10.3); Magnesium 2.1 mg/dL (1.6-2.6); Phosphorous 8.9 mg/dL (2.7-4.5); Potassium 6.1 mEq/L (3.5-5.1); Troponin I 0.15 ng/mL (< 0.04)
[2021-07-30 07:46] LABS: INR 6.4; Prothrombin Time 70.6 Seconds (9.4-12.1)
[2021-07-30 07:51] LABS: Influenza A PCR Negative (Negative); Influenza B PCR Negative (Negative); Resp. Syncytial Virus PCR Negative (Negative)
[2021-07-30 08:03] LABS: Hematocrit 32.6 % (37.5-50.1); Hemoglobin 10.7 g/dL (12.9-16.9); Mean Corpuscular HGB Conc 32.8 g/dL (31.6-35.5); Mean Corpuscular Hemoglobin 32.8 pg (28.0-33.3); Red Blood Count 3.26 M/mcL (4.19-5.50); Red Cell Distribution Width 16.8 % (11.5-14.5); White Blood Count 5.4 K/mcL (4.3-11.1)
[2021-07-30 08:21] LABS: SARS-CoV-2 by PCR (In House) Negative (Negative)
[2021-07-30 08:58] LABS: Platelet Count 54 K/mcL (140-400)
[2021-07-30 09:01] LABS: Monocytes # 0.4 K/mcL (0.0-1.3)
[2021-07-30 09:03] LABS: Anisocytosis 1+ (Not Present); Lymphocytes # 0.7 K/mcL (0.6-4.6); Neutrophils # 4.3 K/mcL (1.6-8.9); Platelet Estimate Decreased (Normal)
[2021-07-30 09:04] LABS: Poikilocytosis 1+ (Not Present)
[2021-07-30] MEDS ORDERED: *HR* OxyCODONE Immed Rel 5 MG TABLET PO PRN (09:36)
[2021-07-30] MEDS ORDERED: Ondansetron 4 MG/2 ML VIAL IVP PRN (09:36)
[2021-07-30] MEDS ORDERED: Acetaminophen 325 MG TABLET PO PRN (09:36)
[2021-07-30] MEDS ORDERED: Naloxone 0.4 MG/ML INJ IVP PRN (09:36)
[2021-07-30] MEDS ORDERED: Insulin Human Regular 10 UNIT in 0.9 % Sodium Chloride 10 ML IV ONE (09:42)
[2021-07-30] MEDS ORDERED: *HR* Dextrose 50 % in Water (Syg) 50 ML SYRINGE IVP ONE (09:42)
[2021-07-30] MEDS: Calcium Gluconate 1gm/50mL 1 GM/50 ML BAG IVPB SCH ×2 (09:57→11:01)
[2021-07-30] MEDS ORDERED: *HR* Phytonadione 10 MG/ML AMPUL SQ ONE (10:26)
[2021-07-30] MEDS ORDERED: Ethyl Chloride Spray Bottle (104 SPRAY/BOTTLE) TP PRN (11:05)
[2021-07-30] MEDS ORDERED: 0.9 % Sodium Chloride 250 ML IVC PRN (11:05)
[2021-07-30] MEDS ORDERED: 0.9 % Sodium Chloride 1,000 ML PRIME SCH (11:15)
[2021-07-30] MEDS ORDERED: Ipratropium/Albuterol Neb 3 ML IH PRN (11:33)
[2021-07-30] MEDS ORDERED: Perflutren Lipid Microsphere 1.3 ML in 0.9 % Sodium Chloride 8.7 ML IVP PRN (11:37)
[2021-07-30] MEDS: Aspirin 81 MG TAB.CHEW PO SCH (16:25)
[2021-07-30] MEDS: carvediloL 6.25 MG TABLET PO SCH (16:25)
[2021-07-30] MEDS: *HR* HYDROcodone/Acet 5/325 mg TABLET PO PRN (23:41)
[2021-07-31 03:21] LABS: Basophils % 0.1 %; Lymphocytes % 4.7 %
[2021-07-31 03:24] LABS: Hemoglobin 12.4 g/dL (12.9-16.9); Immature Granulocytes % 0.4 % (0-4); Lymphocytes # 0.6 K/mcL (0.6-4.6); Mean Corpuscular HGB Conc 33.5 g/dL (31.6-35.5); Mean Corpuscular Hemoglobin 32.8 pg (28.0-33.3); Mean Corpuscular Volume 97.9 fL (83.0-100.0); Mean Platelet Volume 12.2 fL (9.4-12.4); Monocytes # 0.4 K/mcL (0.0-1.3); Monocytes % 3.1 %; Neutrophils # 12.6 K/mcL (1.6-8.9); Platelet Count 94 K/mcL (140-400); Red Blood Count 3.78 M/mcL (4.19-5.50); Red Cell Distribution Width 16.3 % (11.5-14.5); Segmented Neutrophils % 91.7 %; White Blood Count 13.7 K/mcL (4.3-11.1)
[2021-07-31 03:30] LABS: INR 3.9; Prothrombin Time 43.2 Seconds (9.4-12.1)
[2021-07-31 03:40] LABS: Calcium 7.7 mg/dL (8.6-10.3); Phosphorous 7.6 mg/dL (2.7-4.5); Potassium 4.9 mEq/L (3.5-5.1)
[2021-07-31] MEDS ORDERED: 0.9 % Sodium Chloride 250 ML IVC PRN (07:09)
[2021-07-31] MEDS ORDERED: 0.9 % Sodium Chloride 1,000 ML PRIME SCH (07:15)
[2021-07-31] MEDS: Aspirin 81 MG TAB.CHEW PO SCH (07:24)
[2021-07-31] MEDS: carvediloL 6.25 MG TABLET PO SCH ×2 (07:24→16:41)
[2021-07-31] MEDS ORDERED: Furosemide 40 MG TABLET PO PRN (11:20)
[2021-07-31] MEDS: *HR* HYDROcodone/Acet 5/325 mg TABLET PO PRN (19:46)
[2021-08-01 02:07] LABS: Basophils % 0.1 %; Eosinophils % 0.1 %; Hematocrit 36.2 % (37.5-50.1); Hemoglobin 11.9 g/dL (12.9-16.9); Immature Granulocytes % 0.4 % (0-4); Lymphocytes % 8.9 %; Mean Corpuscular HGB Conc 32.9 g/dL (31.6-35.5); Mean Corpuscular Hemoglobin 32.6 pg (28.0-33.3); Mean Corpuscular Volume 99.2 fL (83.0-100.0); Mean Platelet Volume 12.5 fL (9.4-12.4); Monocytes # 0.7 K/mcL (0.0-1.3); Monocytes % 6.2 %; Neutrophils # 9.7 K/mcL (1.6-8.9); Platelet Count 122 K/mcL (140-400); Red Blood Count 3.65 M/mcL (4.19-5.50); Red Cell Distribution Width 16.4 % (11.5-14.5); Segmented Neutrophils % 84.3 %; White Blood Count 11.5 K/mcL (4.3-11.1)
[2021-08-01 02:26] LABS: Potassium 4.6 mEq/L (3.5-5.1)
[2021-08-01] MEDS ORDERED: 0.9 % Sodium Chloride 250 ML IVC PRN (07:29)
[2021-08-01] MEDS: carvediloL 6.25 MG TABLET PO SCH (07:45)
[2021-08-01] MEDS: *HR* HYDROcodone/Acet 5/325 mg TABLET PO PRN (07:45)
[2021-08-01] MEDS: Aspirin 81 MG TAB.CHEW PO SCH (07:45)
[2021-08-01] MEDS ORDERED: Perflutren Lipid Microsphere 1.3 ML in 0.9 % Sodium Chloride 8.7 ML IVP PRN (08:50)
[2021-08-01 09:23] LABS: INR 1.5; Prothrombin Time 16.8 Seconds (9.4-12.1)
[2021-08-01] MEDS ORDERED: *HR* Heparin 5,000 UNIT/ML VIAL IVP PRN ×2 (11:51)
[2021-08-01] MEDS ORDERED: *HR* Heparin 5,000 UNIT/ML VIAL IVP ONE (11:51)
[2021-08-01] MEDS ORDERED: Heparin 25,000UNIT/250ML 1/2NS 25,000 UNIT/250 ML IV.SOLN IVC SCH (12:00)
[2021-08-01 12:46] LABS: Hematocrit 35.9 % (37.5-50.1); Hemoglobin 11.8 g/dL (12.9-16.9); Mean Corpuscular HGB Conc 32.9 g/dL (31.6-35.5); Mean Corpuscular Hemoglobin 32.5 pg (28.0-33.3); Mean Corpuscular Volume 98.9 fL (83.0-100.0); Mean Platelet Volume 12.4 fL (9.4-12.4); Platelet Count 121 K/mcL (140-400); Red Blood Count 3.63 M/mcL (4.19-5.50); Red Cell Distribution Width 16.3 % (11.5-14.5)
[2021-08-01 12:50] LABS: Heparin anti-factor XA UFH < 0.04 IU/mL (0.30-0.70); INR 1.4; Prothrombin Time 15.4 Seconds (9.4-12.1)
[2021-08-01 15:49] VITALS: BP 135/94; PULSE 108; TEMP 97.5; O2SAT 91
[2021-08-01] MEDS ORDERED: Metoprolol XL (24 HR) Succ 25 MG TAB.ER.24H PO SCH (21:00)
== END 2021-08-01 19:38 | disposition left against medical advice (07) | DRG 280 ==
LOC: 2ANU 06:22 → EMEROOARM 06:22 → SUATTDRO 10:06 → 2ANU 10:37
PROVIDERS: ADMIT Pharmacist; ATTEND Internal Medicine

== ENCOUNTER 2021-10-11 20:57 | Inpatient (IN) ==
[2021-10-11 21:37] LABS: Basophils % 0.3 %; Eosinophils % 0.1 %; Hematocrit 36.4 % (37.5-50.1); Hemoglobin 11.7 g/dL (12.9-16.9); Immature Granulocytes % 0.3 % (0-4); Lymphocytes # 0.8 K/mcL (0.6-4.6); Lymphocytes % 8.8 %; Mean Corpuscular HGB Conc 32.1 g/dL (31.6-35.5); Mean Corpuscular Volume 102.5 fL (83.0-100.0); Mean Platelet Volume 11.8 fL (9.4-12.4); Monocytes # 0.8 K/mcL (0.0-1.3); Monocytes % 8.9 %; Neutrophils # 7.1 K/mcL (1.6-8.9); Platelet Count 133 K/mcL (140-400); Red Blood Count 3.55 M/mcL (4.19-5.50); Red Cell Distribution Width 17.6 % (11.5-14.5); Segmented Neutrophils % 81.6 %; White Blood Count 8.7 K/mcL (4.3-11.1)
[2021-10-11 21:41] LABS: ABG Base Excess -4 mEq/L (-2 to 3); ABG HCO3 20 mEq/L (21-27); ABG Oxygen Saturation 100 % (95-98); ABG PCO2 31 mmHg (35-45); ABG PH 7.42 pH Units (7.32-7.45); ABG PO2 290 mmHg (85-104); ABG TCO2 21 mEq/L (20-26); Blood Gas Pressure Support 6 cm H2O
[2021-10-11 21:54] LABS: Potassium 4.5 mEq/L (3.5-5.1)
[2021-10-11 21:58] LABS: Troponin I 0.13 ng/mL (< 0.04)
[2021-10-11 22:00] LABS: Reactive Lymphocytes Present (Not Present)
[2021-10-11 22:16] LABS: Magnesium 1.9 mg/dL (1.6-2.6); Phosphorous 5.3 mg/dL (2.7-4.5)
[2021-10-11] MEDS: *HR* Metoprolol 5 MG/5 ML VIAL IVP PRN (22:59)
[2021-10-11] MEDS ORDERED: Naloxone 0.4 MG/ML INJ IVP PRN (23:06)
[2021-10-11 23:11] LABS: Influenza A PCR Negative (Negative); Influenza B PCR Negative (Negative); Resp. Syncytial Virus PCR Negative (Negative)
[2021-10-11 23:14] LABS: SARS-CoV-2 by PCR (In House) Negative (Negative)
[2021-10-11] MEDS ORDERED: 0.9 % Sodium Chloride 250 ML IVC PRN (23:18)
[2021-10-11] MEDS ORDERED: 0.9 % Sodium Chloride 2,000 ML PRIME SCH (23:30)
[2021-10-11 23:44] LABS: ABG Base Excess -4 mEq/L (-2 to 3); ABG HCO3 18 mEq/L (21-27); ABG Oxygen Saturation 99 % (95-98); ABG PCO2 22 mmHg (35-45); ABG PO2 115 mmHg (85-104); ABG TCO2 18 mEq/L (20-26); Blood Gas Modality BiLevel; Blood Gas VT 400 cc
[2021-10-12] MEDS ORDERED: *HR* Heparin 10,000 UNIT/10 ML VIAL IV PRN ×2 (01:18→13:05)
[2021-10-12] MEDS ORDERED: 0.9 % Sodium Chloride 250 ML IVC PRN ×2 (01:18→12:35)
[2021-10-12 02:38] LABS: Eosinophils % 0.2 %; Hematocrit 34.6 % (37.5-50.1); Hemoglobin 11.1 g/dL (12.9-16.9); Immature Granulocytes % 0.7 % (0-4); Lymphocytes % 9.1 %; Mean Corpuscular HGB Conc 32.1 g/dL (31.6-35.5); Mean Corpuscular Hemoglobin 32.6 pg (28.0-33.3)
[2021-10-12 02:40] LABS: Basophils # 0.1 K/mcL (0.0-0.2); Basophils % 0.8 %; Immature Platelets 9.2 % (1.1-6.1); Lymphocytes # 0.8 K/mcL (0.6-4.6); Mean Corpuscular Volume 101.8 fL (83.0-100.0); Mean Platelet Volume 11.2 fL (9.4-12.4); Monocytes # 0.8 K/mcL (0.0-1.3); Monocytes % 9.6 %; Neutrophils # 6.7 K/mcL (1.6-8.9); Platelet Count 115 K/mcL (140-400); Red Cell Distribution Width 17.5 % (11.5-14.5); Segmented Neutrophils % 79.6 %; White Blood Count 8.4 K/mcL (4.3-11.1)
[2021-10-12 02:43] LABS: INR 1.4; Prothrombin Time 15.4 Seconds (9.4-12.1)
[2021-10-12 02:46] LABS: Activated Partial Thrombo Time 29.7 Seconds (26.0-36.0)
[2021-10-12] MEDS ORDERED: Acetaminophen 325 MG TABLET PO ONE (02:56)
[2021-10-12 03:03] LABS: Albumin 3.8 g/dL (3.5-5.7); Albumin/Globulin Ratio 1.3 (1.1-2.2); Bilirubin,Total 1.3 mg/dL (0.3-1.0); Calcium 8.6 mg/dL (8.6-10.3); Globulin 2.9 g/dL (2.4-3.5); Magnesium 1.8 mg/dL (1.6-2.6); Phosphorous 4.3 mg/dL (2.7-4.5); Total Protein 6.7 g/dL (6.4-8.9)
[2021-10-12] MEDS: *HR* Metoprolol 5 MG/5 ML VIAL IVP PRN ×2 (08:10→11:51)
[2021-10-12] MEDS ORDERED: carvediloL 6.25 MG TABLET PO SCH (11:33)
[2021-10-12] MEDS ORDERED: Acetaminophen IV 1,000 MG/100 ML BAG IVPB ONE (12:41)
[2021-10-12] MEDS ORDERED: *HR* Warfarin 7.5 MG TABLET PO ONE (18:00)
[2021-10-12] MEDS ORDERED: Warfarin perPT PO PRN (18:00)
[2021-10-12] MEDS: Sacubitril/Valsartan 24/26 MG 1 TABLET PO SCH (20:40)
[2021-10-13] MEDS ORDERED: carvediloL 25 MG TABLET PO SCH (08:00)
[2021-10-13] MEDS ORDERED: *HR* Heparin 10,000 UNIT/10 ML VIAL IV PRN ×2 (08:44)
[2021-10-13] MEDS ORDERED: 0.9 % Sodium Chloride 250 ML IVC PRN (08:44)
[2021-10-13] MEDS: Sacubitril/Valsartan 24/26 MG 1 TABLET PO SCH (09:06)
[2021-10-13 10:16] LABS: Lymphocytes % 6.6 %; Red Cell Distribution Width 17.2 % (11.5-14.5)
[2021-10-13 10:17] LABS: Basophils % 0.4 %; Eosinophils % 0.4 %; Hematocrit 39.2 % (37.5-50.1); Hemoglobin 12.5 g/dL (12.9-16.9); Immature Granulocytes % 0.6 % (0-4); Immature Platelets 9.3 % (1.1-6.1); Lymphocytes # 0.6 K/mcL (0.6-4.6); Mean Corpuscular HGB Conc 31.9 g/dL (31.6-35.5); Mean Corpuscular Hemoglobin 32.1 pg (28.0-33.3); Mean Corpuscular Volume 100.8 fL (83.0-100.0); Mean Platelet Volume 11.9 fL (9.4-12.4); Monocytes # 0.8 K/mcL (0.0-1.3); Monocytes % 8.6 %; Neutrophils # 7.5 K/mcL (1.6-8.9); Platelet Count 125 K/mcL (140-400); Red Blood Count 3.89 M/mcL (4.19-5.50); Segmented Neutrophils % 83.4 %
[2021-10-13 10:22] LABS: INR 1.3
[2021-10-13 10:23] LABS: Albumin 3.3 g/dL (3.5-5.7); Albumin/Globulin Ratio 1.4 (1.1-2.2); Bilirubin,Direct 0.4 mg/dL (0.0-0.2); Bilirubin,Indirect 0.7 mg/dL (0.0-1.0); Bilirubin,Total 1.1 mg/dL (0.3-1.0); Calcium 8.3 mg/dL (8.6-10.3); Globulin 2.3 g/dL (2.4-3.5); Magnesium 2.2 mg/dL (1.6-2.6); Phosphorous 5.8 mg/dL (2.7-4.5); Potassium 4.6 mEq/L (3.5-5.1); Total Protein 5.6 g/dL (6.4-8.9)
[2021-10-13] MEDS ORDERED: Albumin 25% 25gram/100mL 25 GM/100 ML IV.SOLN IVPB ONE (10:37)
[2021-10-13 10:55] LABS: Platelet Estimate Slight Decrease (Normal)
[2021-10-13] MEDS ORDERED: Metoprolol XL (24 HR) Succ 50 MG TAB.ER.24H PO SCH (13:00)
[2021-10-13] MEDS: Metoprolol XL (24 HR) Succ 50 MG TAB.ER.24H PO SCH ×2 (14:57→20:34)
[2021-10-13] MEDS: Acetaminophen 325 MG TABLET PO PRN (21:26)
[2021-10-14 04:08] LABS: Basophils % 0.3 %; Eosinophils % 0.4 %; Hematocrit 36.8 % (37.5-50.1); Hemoglobin 11.8 g/dL (12.9-16.9); Immature Granulocytes % 0.4 % (0-4); Lymphocytes # 0.6 K/mcL (0.6-4.6); Lymphocytes % 6.2 %; Mean Corpuscular HGB Conc 32.1 g/dL (31.6-35.5); Mean Corpuscular Hemoglobin 32.8 pg (28.0-33.3); Mean Corpuscular Volume 102.2 fL (83.0-100.0); Mean Platelet Volume 11.8 fL (9.4-12.4); Monocytes % 11.2 %; Neutrophils # 7.5 K/mcL (1.6-8.9); Platelet Count 141 K/mcL (140-400); Red Cell Distribution Width 17.3 % (11.5-14.5); Segmented Neutrophils % 81.5 %; White Blood Count 9.2 K/mcL (4.3-11.1)
[2021-10-14 04:18] LABS: INR 1.3; Prothrombin Time 14.3 Seconds (9.4-12.1)
[2021-10-14 04:25] LABS: Albumin/Globulin Ratio 1.3 (1.1-2.2); Bilirubin,Direct 0.3 mg/dL (0.0-0.2); Bilirubin,Indirect 0.5 mg/dL (0.0-1.0); Bilirubin,Total 0.8 mg/dL (0.3-1.0); Calcium 7.5 mg/dL (8.6-10.3); Globulin 2.4 g/dL (2.4-3.5); Phosphorous 4.2 mg/dL (2.7-4.5); Potassium 3.8 mEq/L (3.5-5.1); Total Protein 5.4 g/dL (6.4-8.9)
[2021-10-14] MEDS: Acetaminophen 325 MG TABLET PO PRN (05:32)
[2021-10-14] MEDS ORDERED: Sennosides/Docusate Sodium TABLET PO PRN (07:08)
[2021-10-14 07:29] LABS: Amylase 52 Units/L (29-103); Lipase 85 Units/L (11-82)
[2021-10-14] MEDS: Metoprolol XL (24 HR) Succ 50 MG TAB.ER.24H PO SCH ×3 (07:35→19:15)
[2021-10-14] MEDS ORDERED: Acetaminophen IV 1,000 MG/100 ML BAG IVPB ONE (07:52)
[2021-10-14] MEDS ORDERED: Pantoprazole 40 MG VIAL IVP ONE (07:55)
[2021-10-14] MEDS ORDERED: Albumin 25% 25gram/100mL 25 GM/100 ML IV.SOLN IVPB ONE ×2 (08:18→13:02)
[2021-10-14] MEDS ORDERED: cefTRIAXone 1,000 MG in 0.9 % Sodium Chloride 10 ML IVP SCH (09:00)
[2021-10-14] MEDS ORDERED: Sacubitril/Valsartan 24/26 MG 1 TABLET PO SCH (09:00)
[2021-10-14] MEDS ORDERED: Morphine Sulfate 2 MG/ML SYRINGE IVP ONE ×4 (09:14→13:01)
[2021-10-14] MEDS ORDERED: 0.9 % Sodium Chloride 1,000 ML PRIME ONE ×2 (09:41)
[2021-10-14] MEDS ORDERED: *HR* Alteplase (Cathflo) 2 MG VIAL IVP PRN (09:41)
[2021-10-14] MEDS ORDERED: *HR* Heparin 5,000 UNIT/ML VIAL IVP PRN (09:41)
[2021-10-14 09:42] LABS: ABG Base Excess 0 mEq/L (-2 to 3); ABG HCO3 25 mEq/L (21-27); ABG Oxygen Saturation 96 % (95-98); ABG PCO2 42 mmHg (35-45); ABG PH 7.38 pH Units (7.32-7.45); ABG PO2 81 mmHg (85-104); ABG TCO2 26 mEq/L (20-26)
[2021-10-14] MEDS: Sacubitril/Valsartan 24/26 MG 1 TABLET PO SCH ×2 (09:42→19:15)
[2021-10-14] MEDS ORDERED: 0.9 % Sodium Chloride 1,000 ML PRIME SCH (09:45)
[2021-10-14] MEDS ORDERED: Ondansetron 4 MG/2 ML VIAL IVP ONE ×2 (10:21→13:01)
[2021-10-14] MEDS ORDERED: 0.9 % Sodium Chloride 1,000 ML ONE (11:11)
[2021-10-14] MEDS: Norepinephrine 4 MG/254 ML IV.SOLN IVC SCH ×4 (11:19→23:04)
[2021-10-14] MEDS ORDERED: Ondansetron 4 MG/2 ML VIAL ONE (12:38)
[2021-10-14] MEDS ORDERED: Amiodarone Premix 150 MG/100 ML BAG IVPB ONE (13:56)
[2021-10-14] MEDS ORDERED: Amiodarone Premix 360 MG/200 ML BAG IVC ONE (13:56)
[2021-10-14] MEDS: PrismaSATE BGK 4/2.5 5,000 ML CRRT SCH ×4 (15:00→19:23)
[2021-10-14] MEDS: Piperacillin/Tazobactam 3.375 GM in 0.9 % Sodium Chloride Mini Bag 100 ML IVPB SCH (16:13)
[2021-10-14] MEDS: Pantoprazole 40 MG in 0.9 % Sodium Chloride Mini Bag 100 ML IVC SCH ×2 (16:14→20:11)
[2021-10-14 17:13] LABS: RBC,Peritoneal Fluid < 2000 RBC/mcL
[2021-10-14 17:48] LABS: Appearance of Peritoneal Fl HAZY (Clear); Basophils,Peritoneal Fluid 0 %; Eosinophils,Peritoneal Fluid 0 %
[2021-10-14] MEDS: Amiodarone Premix 360 MG/200 ML BAG IVC SCH (19:14)
[2021-10-14] MEDS: Albumin 25% 25gram/100mL 25 GM/100 ML IV.SOLN IVPB SCH (23:02)
[2021-10-15] MEDS: PrismaSATE BGK 4/2.5 5,000 ML CRRT SCH ×10 (00:13→22:47)
[2021-10-15] MEDS: Pantoprazole 40 MG in 0.9 % Sodium Chloride Mini Bag 100 ML IVC SCH ×3 (00:14→10:26)
[2021-10-15] MEDS: Piperacillin/Tazobactam 3.375 GM in 0.9 % Sodium Chloride Mini Bag 100 ML IVPB SCH ×2 (02:07→13:54)
[2021-10-15 03:29] LABS: Basophils % 0.1 %; Hemoglobin 12.9 g/dL (12.9-16.9); Immature Granulocytes % 0.3 % (0-4); Immature Platelets 9.3 % (1.1-6.1); Lymphocytes # 0.3 K/mcL (0.6-4.6); Lymphocytes % 2.6 %; Mean Corpuscular HGB Conc 32.3 g/dL (31.6-35.5); Mean Corpuscular Hemoglobin 32.7 pg (28.0-33.3); Mean Corpuscular Volume 101.5 fL (83.0-100.0); Mean Platelet Volume 11.5 fL (9.4-12.4); Monocytes # 0.9 K/mcL (0.0-1.3); Monocytes % 7.7 %; Neutrophils # 10.8 K/mcL (1.6-8.9); Red Blood Count 3.94 M/mcL (4.19-5.50); Segmented Neutrophils % 89.3 %; White Blood Count 12.1 K/mcL (4.3-11.1)
[2021-10-15 03:34] LABS: INR 1.5; Platelet Count 84 K/mcL (140-400); Prothrombin Time 16.9 Seconds (9.4-12.1)
[2021-10-15 03:43] LABS: Albumin 3.3 g/dL (3.5-5.7); Albumin/Globulin Ratio 1.6 (1.1-2.2); Bilirubin,Direct 0.4 mg/dL (0.0-0.2); Bilirubin,Indirect 0.4 mg/dL (0.0-1.0); Bilirubin,Total 0.8 mg/dL (0.3-1.0); Calcium 7.6 mg/dL (8.6-10.3); Globulin 2.1 g/dL (2.4-3.5); Phosphorous 5.6 mg/dL (2.7-4.5); Potassium 4.7 mEq/L (3.5-5.1); Total Protein 5.4 g/dL (6.4-8.9)
[2021-10-15] MEDS: Amiodarone Premix 360 MG/200 ML BAG IVC SCH (05:36)
[2021-10-15] MEDS ORDERED: *HR* Heparin 5,000 UNIT/ML VIAL ONE (07:10)
[2021-10-15] MEDS: Sacubitril/Valsartan 24/26 MG 1 TABLET PO SCH (07:15)
[2021-10-15] MEDS: Metoprolol XL (24 HR) Succ 50 MG TAB.ER.24H PO SCH ×2 (07:15→20:11)
[2021-10-15] MEDS ORDERED: 0.9 % Sodium Chloride 1,000 ML PRIME PRN (08:00)
[2021-10-15] MEDS: Albumin 25% 25gram/100mL 25 GM/100 ML IV.SOLN IVPB SCH ×2 (08:06→15:59)
[2021-10-15] MEDS: Norepinephrine 4 MG/254 ML IV.SOLN IVC SCH ×2 (09:13→16:35)
[2021-10-15] MEDS ORDERED: Dextrose Gel 15 GM/37.5 ML TUBE PO PRN ×2 (10:59)
[2021-10-15] MEDS ORDERED: *HR* Amiodarone 200 MG TABLET PO SCH (11:15)
[2021-10-15] MEDS: *HR* Dextrose 50 % in Water (Syg) 50 ML SYRINGE IVP PRN ×4 (11:20→17:42)
[2021-10-15] MEDS: D5% in Water 1,000 ML IVC PRN (17:32)
[2021-10-15] MEDS ORDERED: Pantoprazole 40 MG VIAL IVP SCH (18:00)
[2021-10-15] MEDS ORDERED: *HR* Metoprolol 5 MG/5 ML VIAL IVP PRN (20:11)
[2021-10-16] MEDS: Piperacillin/Tazobactam 3.375 GM in 0.9 % Sodium Chloride Mini Bag 100 ML IVPB SCH ×3 (02:03→18:37)
[2021-10-16 03:36] LABS: Basophils % 0.1 %; Hemoglobin 11.5 g/dL (12.9-16.9); Lymphocytes % 1.9 %; Mean Corpuscular HGB Conc 31.9 g/dL (31.6-35.5); Red Cell Distribution Width 17.2 % (11.5-14.5)
[2021-10-16 03:38] LABS: Eosinophils % 0.1 %; Hematocrit 36.1 % (37.5-50.1); Immature Granulocytes % 0.4 % (0-4); Immature Platelets 9.5 % (1.1-6.1); Lymphocytes # 0.2 K/mcL (0.6-4.6); Mean Corpuscular Volume 100.6 fL (83.0-100.0); Mean Platelet Volume 11.7 fL (9.4-12.4); Monocytes % 9.1 %; Red Blood Count 3.59 M/mcL (4.19-5.50); Segmented Neutrophils % 88.4 %; White Blood Count 10.8 K/mcL (4.3-11.1)
[2021-10-16 03:40] LABS: Neutrophils # 9.6 K/mcL (1.6-8.9); Platelet Count 57 K/mcL (140-400)
[2021-10-16 03:42] LABS: INR 1.5; Prothrombin Time 16.2 Seconds (9.4-12.1)
[2021-10-16] MEDS: PrismaSATE BGK 4/2.5 5,000 ML CRRT SCH ×9 (03:45→20:16)
[2021-10-16 03:57] LABS: Albumin 3.2 g/dL (3.5-5.7); Albumin/Globulin Ratio 1.7 (1.1-2.2); Bilirubin,Direct 0.4 mg/dL (0.0-0.2); Bilirubin,Indirect 0.4 mg/dL (0.0-1.0); Bilirubin,Total 0.8 mg/dL (0.3-1.0); Calcium 7.9 mg/dL (8.6-10.3); Globulin 1.9 g/dL (2.4-3.5); Magnesium 2.1 mg/dL (1.6-2.6); Phosphorous 3.6 mg/dL (2.7-4.5); Potassium 4.5 mEq/L (3.5-5.1); Total Protein 5.1 g/dL (6.4-8.9)
[2021-10-16] MEDS: Norepinephrine 4 MG/254 ML IV.SOLN IVC SCH ×2 (05:31→19:24)
[2021-10-16] MEDS ORDERED: *HR* Heparin 5,000 UNIT/ML VIAL ONE (08:48)
[2021-10-16] MEDS: D5% in Water 1,000 ML IVC PRN (10:24)
[2021-10-17] MEDS: PrismaSATE BGK 4/2.5 5,000 ML CRRT SCH ×4 (01:08→06:18)
[2021-10-17] MEDS: Piperacillin/Tazobactam 3.375 GM in 0.9 % Sodium Chloride Mini Bag 100 ML IVPB SCH ×2 (02:09→13:30)
[2021-10-17 03:47] LABS: Basophils % 0.1 %
[2021-10-17 03:49] LABS: Eosinophils % 0.2 %; Hematocrit 35.1 % (37.5-50.1); Immature Granulocytes % 0.7 % (0-4); Immature Platelets 9.2 % (1.1-6.1); Lymphocytes # 0.3 K/mcL (0.6-4.6); Lymphocytes % 3.5 %; Mean Corpuscular HGB Conc 31.3 g/dL (31.6-35.5); Mean Platelet Volume 13.1 fL (9.4-12.4); Monocytes # 0.8 K/mcL (0.0-1.3); Monocytes % 8.7 %; Red Blood Count 3.44 M/mcL (4.19-5.50); Red Cell Distribution Width 17.4 % (11.5-14.5); Segmented Neutrophils % 86.8 %; White Blood Count 9.5 K/mcL (4.3-11.1)
[2021-10-17 03:52] LABS: Neutrophils # 8.3 K/mcL (1.6-8.9); Platelet Count 51 K/mcL (140-400)
[2021-10-17 04:00] LABS: INR 1.2; Prothrombin Time 13.7 Seconds (9.4-12.1)
[2021-10-17 05:07] LABS: Albumin 2.9 g/dL (3.5-5.7); Albumin/Globulin Ratio 1.3 (1.1-2.2); Bilirubin,Direct 0.4 mg/dL (0.0-0.2); Bilirubin,Indirect 0.5 mg/dL (0.0-1.0); Bilirubin,Total 0.9 mg/dL (0.3-1.0); Calcium 7.6 mg/dL (8.6-10.3); Globulin 2.2 g/dL (2.4-3.5); Magnesium 2.2 mg/dL (1.6-2.6); Phosphorous 2.9 mg/dL (2.7-4.5); Potassium 4.4 mEq/L (3.5-5.1); Total Protein 5.1 g/dL (6.4-8.9)
[2021-10-17] MEDS: Norepinephrine 4 MG/254 ML IV.SOLN IVC SCH (08:53)
[2021-10-17] MEDS: D5% in Water 1,000 ML IVC PRN (08:55)
[2021-10-17] MEDS: Acetaminophen 325 MG TABLET PO PRN (09:23)
[2021-10-17] MEDS ORDERED: *HR* Heparin 5,000 UNIT/ML VIAL ONE (10:56)
[2021-10-17] MEDS: Sucralfate 1 GM TABLET PO SCH ×3 (11:33→20:05)
[2021-10-17] MEDS ORDERED: Ondansetron 4 MG/2 ML VIAL IVP PRN (16:46)
[2021-10-17] MEDS ORDERED: Ondansetron 4 MG/2 ML VIAL ONE (16:47)
[2021-10-17] MEDS ORDERED: D5% in 0.9% NACL 1,000 ML IVC SCH (17:00)
[2021-10-17] MEDS: Amiodarone Premix 360 MG/200 ML BAG IVC SCH (17:48)
[2021-10-17] MEDS ORDERED: Amiodarone Premix 360 MG/200 ML BAG IVC SCH (23:39)
[2021-10-18] MEDS ORDERED: QUEtiapine Fumarate 25 MG TABLET PO SCH (00:45)
[2021-10-18] MEDS: Piperacillin/Tazobactam 3.375 GM in 0.9 % Sodium Chloride Mini Bag 100 ML IVPB SCH ×2 (01:25→13:49)
[2021-10-18] MEDS: Amiodarone Premix 360 MG/200 ML BAG IVC SCH ×2 (04:08→16:41)
[2021-10-18] MEDS: D5% in Water 1,000 ML IVC PRN (04:08)
[2021-10-18 04:24] LABS: Basophils % 0.1 %; Hematocrit 35.6 % (37.5-50.1); Hemoglobin 11.2 g/dL (12.9-16.9); Mean Corpuscular HGB Conc 31.5 g/dL (31.6-35.5); Monocytes % 7.6 %
[2021-10-18 04:25] LABS: Eosinophils % 0.3 %; Immature Granulocytes % 0.9 % (0-4); Immature Platelets 7.2 % (1.1-6.1); Lymphocytes # 0.3 K/mcL (0.6-4.6); Lymphocytes % 3.1 %; Mean Corpuscular Hemoglobin 32.4 pg (28.0-33.3); Mean Corpuscular Volume 102.9 fL (83.0-100.0); Mean Platelet Volume 11.6 fL (9.4-12.4); Monocytes # 0.8 K/mcL (0.0-1.3); Neutrophils # 9.1 K/mcL (1.6-8.9); Red Blood Count 3.46 M/mcL (4.19-5.50); Red Cell Distribution Width 17.7 % (11.5-14.5); White Blood Count 10.3 K/mcL (4.3-11.1)
[2021-10-18 04:29] LABS: Platelet Count 63 K/mcL (140-400)
[2021-10-18 04:33] LABS: Calcium 7.8 mg/dL (8.6-10.3); Magnesium 2.4 mg/dL (1.6-2.6); Phosphorous 4.2 mg/dL (2.7-4.5); Potassium 4.3 mEq/L (3.5-5.1)
[2021-10-18] MEDS: Sucralfate 1 GM TABLET PO SCH ×4 (07:13→21:24)
[2021-10-18] MEDS ORDERED: D10% in Water 500 ML IVC PRN (11:27)
[2021-10-18] MEDS: Acetaminophen 325 MG TABLET PO PRN (13:42)
[2021-10-18] MEDS: Fat Emulsion 250 ML IVPB SCH (16:29)
[2021-10-18] MEDS ORDERED: Clinimix E 5%-15% SOLUTION 2,000 ML with MVI, adult with vitamin K 10 ML IVC SCH (17:00)
[2021-10-18] MEDS: Insulin LISPRO 300 UNITS/3 ML VIAL SUBQ SCH ×2 (19:22→23:32)
[2021-10-18] MEDS: Norepinephrine 4 MG/254 ML IV.SOLN IVC SCH (23:33)
[2021-10-19] MEDS: Piperacillin/Tazobactam 3.375 GM in 0.9 % Sodium Chloride Mini Bag 100 ML IVPB SCH ×2 (01:16→13:28)
[2021-10-19] MEDS: Insulin LISPRO 300 UNITS/3 ML VIAL SUBQ SCH ×5 (03:21→20:32)
[2021-10-19 03:28] LABS: Basophils % 0.2 %; Eosinophils % 0.7 %; Hemoglobin 10.7 g/dL (12.9-16.9); Mean Corpuscular Hemoglobin 31.8 pg (28.0-33.3); Red Cell Distribution Width 17.5 % (11.5-14.5)
[2021-10-19 03:30] LABS: Eosinophils # 0.1 K/mcL (0.0-0.6); Hematocrit 33.2 % (37.5-50.1); Immature Granulocytes % 0.5 % (0-4); Immature Platelets 6.9 % (1.1-6.1); Lymphocytes # 0.4 K/mcL (0.6-4.6); Mean Corpuscular HGB Conc 32.2 g/dL (31.6-35.5); Mean Corpuscular Volume 98.8 fL (83.0-100.0); Mean Platelet Volume 11.3 fL (9.4-12.4); Monocytes # 1.1 K/mcL (0.0-1.3); Monocytes % 11.4 %; Red Blood Count 3.36 M/mcL (4.19-5.50); Segmented Neutrophils % 83.2 %; White Blood Count 9.8 K/mcL (4.3-11.1)
[2021-10-19 03:41] LABS: Neutrophils # 8.2 K/mcL (1.6-8.9); Platelet Count 81 K/mcL (140-400)
[2021-10-19] MEDS: Amiodarone Premix 360 MG/200 ML BAG IVC SCH (03:47)
[2021-10-19 03:51] LABS: Albumin 2.9 g/dL (3.5-5.7); Albumin/Globulin Ratio 1.3 (1.1-2.2); Bilirubin,Total 0.7 mg/dL (0.3-1.0); Calcium 7.8 mg/dL (8.6-10.3); Globulin 2.2 g/dL (2.4-3.5); Magnesium 2.5 mg/dL (1.6-2.6); Phosphorous 5.2 mg/dL (2.7-4.5); Potassium 4.6 mEq/L (3.5-5.1); Total Protein 5.1 g/dL (6.4-8.9)
[2021-10-19] MEDS ORDERED: 0.9 % Sodium Chloride 250 ML IVC PRN (07:59)
[2021-10-19] MEDS ORDERED: *HR* Heparin 10,000 UNIT/10 ML VIAL IV PRN ×2 (07:59)
[2021-10-19] MEDS ORDERED: 0.9 % Sodium Chloride 2,000 ML PRIME SCH (08:00)
[2021-10-19] MEDS: Sucralfate 1 GM TABLET PO SCH ×4 (08:51→20:33)
[2021-10-19] MEDS ORDERED: Albumin 25% 25gram/100mL 25 GM/100 ML IV.SOLN IVPB ONE ×2 (09:00→16:30)
[2021-10-19] MEDS: *HR* Amiodarone 200 MG TABLET PO SCH ×2 (13:20→20:34)
[2021-10-19] MEDS: Fat Emulsion 250 ML IVPB SCH (16:05)
[2021-10-19] MEDS: Norepinephrine 4 MG/254 ML IV.SOLN IVC SCH (16:20)
[2021-10-19] MEDS ORDERED: Clinimix 5%-20% SOLUTION 2,000 ML with MVI, adult with vitamin K 10 ML, Sodium Phosph... IVC SCH (17:00)
[2021-10-19 17:24] LABS: Total Protein,Peritoneal Fluid 2.9 g/dL
[2021-10-19 18:45] LABS: Appearance of Peritoneal Fl HAZY (Clear); Volume of Peritoneal Fluid 18.5 mL
[2021-10-19 19:01] LABS: RBC,Peritoneal Fluid < 2000 RBC/mcL
[2021-10-19 20:50] LABS: Basophils,Peritoneal Fluid 0 %; Eosinophils,Peritoneal Fluid 0 %
[2021-10-20] MEDS: Norepinephrine 4 MG/254 ML IV.SOLN IVC SCH ×2 (00:05→02:18)
[2021-10-20] MEDS: Insulin LISPRO 300 UNITS/3 ML VIAL SUBQ SCH ×6 (00:05→20:03)
[2021-10-20] MEDS: Piperacillin/Tazobactam 3.375 GM in 0.9 % Sodium Chloride Mini Bag 100 ML IVPB SCH ×2 (02:20→13:18)
[2021-10-20 03:45] LABS: Basophils % 0.1 %; Mean Platelet Volume 12.2 fL (9.4-12.4); White Blood Count 7.7 K/mcL (4.3-11.1)
[2021-10-20 03:46] LABS: Eosinophils # 0.1 K/mcL (0.0-0.6); Eosinophils % 1.2 %; Hematocrit 32.1 % (37.5-50.1); Hemoglobin 10.4 g/dL (12.9-16.9); Immature Platelets 7.6 % (1.1-6.1); Lymphocytes # 0.2 K/mcL (0.6-4.6); Lymphocytes % 2.9 %; Mean Corpuscular HGB Conc 32.4 g/dL (31.6-35.5); Mean Corpuscular Hemoglobin 32.4 pg (28.0-33.3); Monocytes # 0.8 K/mcL (0.0-1.3); Monocytes % 10.8 %; Neutrophils # 6.5 K/mcL (1.6-8.9); Red Blood Count 3.21 M/mcL (4.19-5.50); Red Cell Distribution Width 17.6 % (11.5-14.5)
[2021-10-20 03:48] LABS: Platelet Count 71 K/mcL (140-400)
[2021-10-20 04:02] LABS: Albumin 2.7 g/dL (3.5-5.7); Albumin/Globulin Ratio 1.2 (1.1-2.2); Bilirubin,Total 0.6 mg/dL (0.3-1.0); Calcium 7.5 mg/dL (8.6-10.3); Globulin 2.2 g/dL (2.4-3.5); Magnesium 2.2 mg/dL (1.6-2.6); Potassium 4.4 mEq/L (3.5-5.1); Total Protein 4.9 g/dL (6.4-8.9)
[2021-10-20] MEDS ORDERED: *HR* Heparin 5,000 UNIT/ML VIAL IVP PRN ×2 (08:25)
[2021-10-20] MEDS ORDERED: *HR* Heparin 5,000 UNIT/ML VIAL IVP ONE (08:25)
[2021-10-20] MEDS ORDERED: Heparin 25,000UNIT/250ML 1/2NS 25,000 UNIT/250 ML IV.SOLN IVC SCH (08:30)
[2021-10-20] MEDS: *HR* Amiodarone 200 MG TABLET PO SCH ×2 (08:35→20:02)
[2021-10-20] MEDS: Sucralfate 1 GM TABLET PO SCH ×4 (08:35→20:02)
[2021-10-20 09:38] LABS: Red Cell Distribution Width 17.4 % (11.5-14.5)
[2021-10-20 09:40] LABS: Hemoglobin 10.9 g/dL (12.9-16.9); Immature Platelets 7.1 % (1.1-6.1); Mean Corpuscular HGB Conc 32.1 g/dL (31.6-35.5); Mean Corpuscular Hemoglobin 31.8 pg (28.0-33.3); Mean Corpuscular Volume 99.1 fL (83.0-100.0); Mean Platelet Volume 11.9 fL (9.4-12.4); Red Blood Count 3.43 M/mcL (4.19-5.50); White Blood Count 8.9 K/mcL (4.3-11.1)
[2021-10-20 09:47] LABS: Heparin anti-factor XA UFH < 0.04 IU/mL (0.30-0.70); INR 1.3; Prothrombin Time 14.3 Seconds (9.4-12.1)
[2021-10-20] MEDS: Fat Emulsion 250 ML IVPB SCH (16:21)
[2021-10-20] MEDS ORDERED: Clinimix 5%-20% SOLUTION 2,000 ML with MVI, adult with vitamin K 10 ML, Sodium Phosph... IVC SCH (17:00)
[2021-10-21] MEDS: Insulin LISPRO 300 UNITS/3 ML VIAL SUBQ SCH ×6 (00:09→20:46)
[2021-10-21 04:48] LABS: Basophils # 0.1 K/mcL (0.0-0.2); Basophils % 0.5 %; Eosinophils # 0.1 K/mcL (0.0-0.6); Hematocrit 34.6 % (37.5-50.1); Hemoglobin 11.3 g/dL (12.9-16.9); Immature Granulocytes % 1.7 % (0-4); Immature Platelets 6.3 % (1.1-6.1); Lymphocytes # 0.3 K/mcL (0.6-4.6); Lymphocytes % 2.7 %; Mean Corpuscular HGB Conc 32.7 g/dL (31.6-35.5); Mean Corpuscular Hemoglobin 31.8 pg (28.0-33.3); Mean Corpuscular Volume 97.5 fL (83.0-100.0); Mean Platelet Volume 11.3 fL (9.4-12.4); Monocytes # 1.3 K/mcL (0.0-1.3); Monocytes % 12.1 %; Neutrophils # 8.6 K/mcL (1.6-8.9); Platelet Count 108 K/mcL (140-400); Red Blood Count 3.55 M/mcL (4.19-5.50); Red Cell Distribution Width 17.3 % (11.5-14.5); White Blood Count 10.5 K/mcL (4.3-11.1)
[2021-10-21 05:07] LABS: Albumin 2.8 g/dL (3.5-5.7); Albumin/Globulin Ratio 1.2 (1.1-2.2); Bilirubin,Total 0.8 mg/dL (0.3-1.0); Calcium 7.5 mg/dL (8.6-10.3); Globulin 2.3 g/dL (2.4-3.5); Magnesium 2.3 mg/dL (1.6-2.6); Phosphorous 4.2 mg/dL (2.7-4.5); Total Protein 5.1 g/dL (6.4-8.9)
[2021-10-21] MEDS: Sucralfate 1 GM TABLET PO SCH ×4 (07:47→20:48)
[2021-10-21] MEDS: *HR* Amiodarone 200 MG TABLET PO SCH ×2 (07:48→20:48)
[2021-10-21] MEDS: Norepinephrine 4 MG/254 ML IV.SOLN IVC SCH (11:01)
[2021-10-21] MEDS ORDERED: D10% in Water 500 ML IVC PRN (13:24)
[2021-10-21] MEDS ORDERED: *HR* Metoprolol 5 MG/5 ML VIAL IVP PRN (13:24)
[2021-10-21] MEDS ORDERED: Dextrose Gel 15 GM/37.5 ML TUBE PO PRN ×2 (13:24)
[2021-10-21] MEDS ORDERED: Naloxone 0.4 MG/ML INJ IVP PRN (13:24)
[2021-10-21] MEDS ORDERED: Ondansetron 4 MG/2 ML VIAL IVP PRN (13:24)
[2021-10-21] MEDS ORDERED: D5% in Water 1,000 ML IVC PRN (13:24)
[2021-10-21] MEDS ORDERED: Sennosides/Docusate Sodium TABLET PO PRN (13:24)
[2021-10-21] MEDS ORDERED: *HR* Dextrose 50 % in Water (Syg) 50 ML SYRINGE IVP PRN (13:24)
[2021-10-21] MEDS: carvediloL 6.25 MG TABLET PO SCH (16:01)
[2021-10-21] MEDS ORDERED: Fat Emulsion 250 ML IVPB SCH (17:00)
[2021-10-21] MEDS ORDERED: carvediloL 6.25 MG TABLET PO SCH (17:00)
[2021-10-21] MEDS ORDERED: Clinimix 5%-20% SOLUTION 2,000 ML with MVI, adult with vitamin K 10 ML, Sodium Phosph... IVC SCH (17:00)
[2021-10-21] MEDS: Apixaban 5 MG TABLET PO SCH (20:48)
[2021-10-22] MEDS: Acetaminophen 325 MG TABLET PO PRN (00:34)
[2021-10-22] MEDS: Insulin LISPRO 300 UNITS/3 ML VIAL SUBQ SCH ×5 (00:47→16:52)
[2021-10-22 02:59] LABS: Basophils % 0.3 %; Eosinophils % 0.3 %; Hematocrit 32.8 % (37.5-50.1); Hemoglobin 10.8 g/dL (12.9-16.9); Immature Granulocytes % 1.5 % (0-4); Lymphocytes # 0.4 K/mcL (0.6-4.6); Lymphocytes % 4.2 %; Mean Corpuscular HGB Conc 32.9 g/dL (31.6-35.5); Mean Corpuscular Hemoglobin 30.9 pg (28.0-33.3); Mean Corpuscular Volume 93.7 fL (83.0-100.0); Mean Platelet Volume 11.2 fL (9.4-12.4); Monocytes # 1.2 K/mcL (0.0-1.3); Monocytes % 11.3 %; Neutrophils # 8.4 K/mcL (1.6-8.9); Platelet Count 141 K/mcL (140-400); Red Cell Distribution Width 17.2 % (11.5-14.5); Segmented Neutrophils % 82.4 %; White Blood Count 10.2 K/mcL (4.3-11.1)
[2021-10-22 03:19] LABS: Albumin 2.7 g/dL (3.5-5.7); Albumin/Globulin Ratio 1.3 (1.1-2.2); Bilirubin,Total 0.8 mg/dL (0.3-1.0); Calcium 7.7 mg/dL (8.6-10.3); Globulin 2.1 g/dL (2.4-3.5); Magnesium 2.3 mg/dL (1.6-2.6); Phosphorous 5.7 mg/dL (2.7-4.5); Total Protein 4.8 g/dL (6.4-8.9)
[2021-10-22] MEDS ORDERED: *HR* Heparin 10,000 UNIT/10 ML VIAL IV PRN ×2 (07:32→10:09)
[2021-10-22] MEDS ORDERED: 0.9 % Sodium Chloride 250 ML IVC PRN (07:32)
[2021-10-22] MEDS ORDERED: Albumin 25% 25gram/100mL 25 GM/100 ML IV.SOLN IVPB PRN (07:32)
[2021-10-22] MEDS ORDERED: 0.9 % Sodium Chloride 2,000 ML PRIME SCH (07:45)
[2021-10-22] MEDS: Apixaban 5 MG TABLET PO SCH ×2 (08:30→21:23)
[2021-10-22] MEDS: Sucralfate 1 GM TABLET PO SCH ×4 (08:30→21:23)
[2021-10-22] MEDS: *HR* Amiodarone 200 MG TABLET PO SCH ×2 (08:30→21:26)
[2021-10-22] MEDS ORDERED: Apixaban 5 MG TABLET PO SCH (09:00)
[2021-10-22] MEDS: carvediloL 6.25 MG TABLET PO SCH (09:07)
[2021-10-22] MEDS: Metoprolol XL (24 HR) Succ 25 MG TAB.ER.24H PO SCH (21:26)
[2021-10-23 02:20] LABS: Basophils % 0.4 %; Eosinophils % 0.4 %; Hematocrit 31.7 % (37.5-50.1); Hemoglobin 10.4 g/dL (12.9-16.9); Lymphocytes # 0.3 K/mcL (0.6-4.6); Mean Corpuscular HGB Conc 32.8 g/dL (31.6-35.5); Mean Corpuscular Hemoglobin 30.9 pg (28.0-33.3); Mean Corpuscular Volume 94.1 fL (83.0-100.0); Mean Platelet Volume 11.1 fL (9.4-12.4); Monocytes # 1.3 K/mcL (0.0-1.3); Monocytes % 13.7 %; Neutrophils # 7.8 K/mcL (1.6-8.9); Platelet Count 178 K/mcL (140-400); Red Blood Count 3.37 M/mcL (4.19-5.50); Red Cell Distribution Width 17.2 % (11.5-14.5); Segmented Neutrophils % 81.5 %; White Blood Count 9.6 K/mcL (4.3-11.1)
[2021-10-23 02:41] LABS: Calcium 7.5 mg/dL (8.6-10.3)
[2021-10-23] MEDS ORDERED: Acetaminophen IV 1,000 MG/100 ML BAG IVPB ONE (05:10)
[2021-10-23] MEDS: Sucralfate 1 GM TABLET PO SCH ×4 (05:46→21:14)
[2021-10-23] MEDS: Apixaban 5 MG TABLET PO SCH ×2 (10:09→21:13)
[2021-10-23] MEDS: Metoprolol XL (24 HR) Succ 25 MG TAB.ER.24H PO SCH ×2 (10:09→21:14)
[2021-10-23] MEDS: *HR* Amiodarone 200 MG TABLET PO SCH ×2 (10:09→21:14)
[2021-10-23] MEDS: Insulin LISPRO 300 UNITS/3 ML VIAL SUBQ SCH ×3 (10:14→17:05)
[2021-10-24 03:49] LABS: Basophils % 0.2 %; Eosinophils # 0.1 K/mcL (0.0-0.6); Eosinophils % 0.4 %; Hematocrit 32.9 % (37.5-50.1); Hemoglobin 10.9 g/dL (12.9-16.9); Immature Granulocytes % 1.3 % (0-4); Lymphocytes # 0.4 K/mcL (0.6-4.6); Lymphocytes % 2.6 %; Mean Corpuscular HGB Conc 33.1 g/dL (31.6-35.5); Mean Corpuscular Hemoglobin 31.7 pg (28.0-33.3); Mean Corpuscular Volume 95.6 fL (83.0-100.0); Monocytes # 1.6 K/mcL (0.0-1.3); Neutrophils # 11.4 K/mcL (1.6-8.9); Platelet Count 232 K/mcL (140-400); Red Blood Count 3.44 M/mcL (4.19-5.50); Red Cell Distribution Width 17.4 % (11.5-14.5); Segmented Neutrophils % 83.5 %; White Blood Count 13.6 K/mcL (4.3-11.1)
[2021-10-24 04:15] LABS: Calcium 7.6 mg/dL (8.6-10.3); Potassium 5.6 mEq/L (3.5-5.1)
[2021-10-24] MEDS ORDERED: 0.9 % Sodium Chloride 250 ML IVC PRN (07:30)
[2021-10-24] MEDS ORDERED: Albumin 25% 25gram/100mL 25 GM/100 ML IV.SOLN IVPB PRN (07:30)
[2021-10-24] MEDS ORDERED: *HR* Heparin 10,000 UNIT/10 ML VIAL IV PRN ×2 (07:30)
[2021-10-24] MEDS: *HR* Amiodarone 200 MG TABLET PO SCH ×2 (07:53→20:19)
[2021-10-24] MEDS: Apixaban 5 MG TABLET PO SCH ×2 (07:54→20:20)
[2021-10-24] MEDS: Metoprolol XL (24 HR) Succ 25 MG TAB.ER.24H PO SCH ×2 (07:54→20:20)
[2021-10-24] MEDS: Insulin LISPRO 300 UNITS/3 ML VIAL SUBQ SCH ×3 (07:54→17:29)
[2021-10-24] MEDS: Sucralfate 1 GM TABLET PO SCH ×4 (07:54→20:20)
[2021-10-24] MEDS ORDERED: Ringers Solution, Lactated 1,000 ML IVC ONE ×2 (17:20→17:26)
[2021-10-24] MEDS: Acetaminophen 325 MG TABLET PO PRN (21:18)
[2021-10-25 02:47] LABS: Fluid Source for Albumin PERITONEAL FL
[2021-10-25 04:07] LABS: Basophils % 0.3 %; Eosinophils % 0.3 %; Hematocrit 32.4 % (37.5-50.1); Hemoglobin 10.5 g/dL (12.9-16.9); Lymphocytes # 0.4 K/mcL (0.6-4.6); Lymphocytes % 2.6 %; Mean Corpuscular HGB Conc 32.4 g/dL (31.6-35.5); Mean Corpuscular Hemoglobin 31.5 pg (28.0-33.3); Mean Corpuscular Volume 97.3 fL (83.0-100.0); Mean Platelet Volume 10.8 fL (9.4-12.4); Monocytes # 1.6 K/mcL (0.0-1.3); Monocytes % 11.8 %; Neutrophils # 11.5 K/mcL (1.6-8.9); Platelet Count 213 K/mcL (140-400); Red Blood Count 3.33 M/mcL (4.19-5.50); Red Cell Distribution Width 17.3 % (11.5-14.5); White Blood Count 13.7 K/mcL (4.3-11.1)
[2021-10-25 04:23] LABS: Calcium 7.2 mg/dL (8.6-10.3); Phosphorous 4.6 mg/dL (2.7-4.5); Potassium 4.6 mEq/L (3.5-5.1)
[2021-10-25] MEDS: Sucralfate 1 GM TABLET PO SCH ×4 (05:45→22:08)
[2021-10-25] MEDS: Insulin LISPRO 300 UNITS/3 ML VIAL SUBQ SCH ×3 (07:20→16:44)
[2021-10-25] MEDS: Metoprolol XL (24 HR) Succ 25 MG TAB.ER.24H PO SCH ×2 (08:13→22:08)
[2021-10-25] MEDS: *HR* Amiodarone 200 MG TABLET PO SCH ×2 (08:41→22:08)
[2021-10-25] MEDS: Apixaban 5 MG TABLET PO SCH ×2 (08:41→22:08)
[2021-10-25] MEDS: Acetaminophen 325 MG TABLET PO PRN (18:14)
[2021-10-26 02:59] LABS: Basophils # 0.1 K/mcL (0.0-0.2); Basophils % 0.3 %; Calcium 7.5 mg/dL (8.6-10.3); Eosinophils % 0.1 %; Hematocrit 32.2 % (37.5-50.1); Hemoglobin 10.5 g/dL (12.9-16.9); Immature Granulocytes % 0.8 % (0-4); Lymphocytes # 0.3 K/mcL (0.6-4.6); Lymphocytes % 2.1 %; Mean Corpuscular HGB Conc 32.6 g/dL (31.6-35.5); Mean Corpuscular Hemoglobin 31.1 pg (28.0-33.3); Mean Corpuscular Volume 95.3 fL (83.0-100.0); Mean Platelet Volume 10.7 fL (9.4-12.4); Monocytes # 1.4 K/mcL (0.0-1.3); Monocytes % 8.8 %; Neutrophils # 14.1 K/mcL (1.6-8.9); Platelet Count 268 K/mcL (140-400); Potassium 5.2 mEq/L (3.5-5.1); Red Blood Count 3.38 M/mcL (4.19-5.50); Red Cell Distribution Width 17.3 % (11.5-14.5); Segmented Neutrophils % 87.9 %; White Blood Count 16.1 K/mcL (4.3-11.1)
[2021-10-26] MEDS ORDERED: *HR* Heparin 10,000 UNIT/10 ML VIAL IV PRN (06:45)
[2021-10-26] MEDS ORDERED: Albumin 25% 25gram/100mL 25 GM/100 ML IV.SOLN IVPB PRN (06:45)
[2021-10-26] MEDS ORDERED: 0.9 % Sodium Chloride 250 ML IVC PRN (06:45)
[2021-10-26] MEDS ORDERED: 0.9 % Sodium Chloride 2,000 ML PRIME SCH (06:45)
[2021-10-26] MEDS: Insulin LISPRO 300 UNITS/3 ML VIAL SUBQ SCH ×3 (08:12→17:21)
[2021-10-26] MEDS: Sucralfate 1 GM TABLET PO SCH ×2 (08:54→14:33)
[2021-10-26] MEDS: Apixaban 5 MG TABLET PO SCH (08:55)
[2021-10-26] MEDS: Metoprolol XL (24 HR) Succ 25 MG TAB.ER.24H PO SCH (08:55)
[2021-10-26] MEDS: *HR* Amiodarone 200 MG TABLET PO SCH (08:55)
[2021-10-26 14:44] VITALS: BP 114/82; PULSE 103; TEMP 97.6; O2SAT 97
== END 2021-10-26 18:12 | disposition left against medical advice (07) | DRG 280 ==
LOC: EMEROOARM 20:57 → ICNU 20:57 → SUATTDRO 23:13 → ICNU 10-12 00:35 → 2ANU 10-12 04:01 → SUATTDRO 10-12 11:14 → 2NNU 10-12 14:27 → ICNU 10-14 09:27 → 2ANU 10-21 13:23
PROVIDERS: ADMIT Internal Medicine; ATTEND Pharmacist

== ENCOUNTER 2021-10-29 10:38 | Inpatient (IN) ==
[2021-10-29] MEDS ORDERED: *HR* Metoprolol 5 MG/5 ML VIAL IVP ONE (12:29)
[2021-10-29 13:36] LABS: Basophils % 0.3 %; Eosinophils % 0.3 %; Hematocrit 34.9 % (37.5-50.1); Hemoglobin 11.3 g/dL (12.9-16.9); Lymphocytes # 0.3 K/mcL (0.6-4.6); Lymphocytes % 2.7 %; Mean Corpuscular HGB Conc 32.4 g/dL (31.6-35.5); Mean Corpuscular Hemoglobin 31.3 pg (28.0-33.3); Mean Corpuscular Volume 96.7 fL (83.0-100.0); Mean Platelet Volume 9.9 fL (9.4-12.4); Monocytes # 0.8 K/mcL (0.0-1.3); Neutrophils # 10.3 K/mcL (1.6-8.9); Platelet Count 251 K/mcL (140-400); Red Blood Count 3.61 M/mcL (4.19-5.50); Red Cell Distribution Width 17.2 % (11.5-14.5); Segmented Neutrophils % 88.7 %; White Blood Count 11.6 K/mcL (4.3-11.1)
[2021-10-29 13:36] LABS: VBG HCO3 25 mEq/L (21-27); VBG PCO2 57 mmHg (41-51); VBG PH 7.25 pH Units (7.32-7.42); VBG PO2 44 mmHg (25-50)
[2021-10-29 13:55] LABS: Calcium 8.1 mg/dL (8.6-10.3)
[2021-10-29 14:06] LABS: Troponin I 0.05 ng/mL (< 0.04)
[2021-10-29] MEDS ORDERED: Ipratropium/Albuterol Neb 3 ML IH ONE (14:16)
[2021-10-29] MEDS ORDERED: methylPREDNISolone 125 MG/2 ML VIAL IVP ONE (14:16)
[2021-10-29 14:40] LABS: Influenza A PCR Negative (Negative); Influenza B PCR Negative (Negative); Resp. Syncytial Virus PCR Negative (Negative)
[2021-10-29 14:41] LABS: SARS-CoV-2 by PCR (In House) Negative (Negative)
[2021-10-29] MEDS ORDERED: Ondansetron 4 MG/2 ML VIAL IVP PRN (14:56)
[2021-10-29] MEDS ORDERED: Naloxone 0.4 MG/ML INJ IVP PRN (14:56)
[2021-10-29] MEDS ORDERED: Ipratropium/Albuterol Neb 3 ML IH PRN (14:58)
[2021-10-29] MEDS ORDERED: SODIUM ZIRCONIUM CYCLOSILICATE 5 GM POWD.PACK PO ONE (15:00)
[2021-10-29] MEDS: *HR* OxyCODONE Immed Rel 5 MG TABLET PO PRN (15:40)
[2021-10-29] MEDS: *HR* HYDROcodone/Acet 5/325 mg TABLET PO PRN (18:34)
[2021-10-29] MEDS: Apixaban 2.5 MG TABLET PO SCH (19:37)
[2021-10-30] MEDS: *HR* OxyCODONE Immed Rel 5 MG TABLET PO PRN (00:46)
[2021-10-30 01:56] LABS: White Blood Count 9.5 K/mcL (4.3-11.1)
[2021-10-30 01:57] LABS: Basophils % 0.1 %; Hematocrit 31.7 % (37.5-50.1); Hemoglobin 10.4 g/dL (12.9-16.9); Immature Granulocytes % 1.1 % (0-4); Lymphocytes # 0.1 K/mcL (0.6-4.6); Lymphocytes % 1.2 %; Mean Corpuscular HGB Conc 32.8 g/dL (31.6-35.5); Mean Corpuscular Volume 94.6 fL (83.0-100.0); Mean Platelet Volume 10.2 fL (9.4-12.4); Monocytes # 0.1 K/mcL (0.0-1.3); Monocytes % 1.3 %; Platelet Count 260 K/mcL (140-400); Red Blood Count 3.35 M/mcL (4.19-5.50); Red Cell Distribution Width 17.2 % (11.5-14.5); Segmented Neutrophils % 96.3 %
[2021-10-30 02:15] LABS: Neutrophils # 9.2 K/mcL (1.6-8.9)
[2021-10-30 02:19] LABS: Calcium 7.6 mg/dL (8.6-10.3); Magnesium 2.1 mg/dL (1.6-2.6); Phosphorous 6.9 mg/dL (2.7-4.5); Potassium 6.7 mEq/L (3.5-5.1)
[2021-10-30] MEDS ORDERED: Insulin Human Regular 10 UNIT in 0.9 % Sodium Chloride 10 ML IV ONE (02:25)
[2021-10-30] MEDS ORDERED: *HR* Dextrose 50 % in Water (Syg) 50 ML SYRINGE IVP ONE (02:25)
[2021-10-30] MEDS: SODIUM ZIRCONIUM CYCLOSILICATE 5 GM POWD.PACK PO SCH ×2 (03:05→10:42)
[2021-10-30] MEDS: Albuterol 2.5 MG/3 ML NEBULIZER IH ONE ×2 (03:57→04:09)
[2021-10-30 05:43] LABS: Calcium 7.9 mg/dL (8.6-10.3); Potassium 6.6 mEq/L (3.5-5.1)
[2021-10-30] MEDS ORDERED: 0.9 % Sodium Chloride 250 ML IVC PRN (08:14)
[2021-10-30] MEDS ORDERED: 0.9 % Sodium Chloride 2,000 ML PRIME SCH (08:15)
[2021-10-30 08:29] LABS: Potassium 6.5 mEq/L (3.5-5.1)
[2021-10-30] MEDS ORDERED: levoFLOXacin 500 MG TABLET PO SCH (09:00)
[2021-10-30] MEDS: Apixaban 2.5 MG TABLET PO SCH ×2 (10:17→20:52)
[2021-10-30] MEDS: Sacubitril/Valsartan 24/26 MG 1 TABLET PO SCH ×2 (10:17→20:54)
[2021-10-30] MEDS: predniSONE 20 MG TABLET PO SCH (10:17)
[2021-10-30] MEDS: carvediloL 25 MG TABLET PO SCH ×2 (10:18→17:03)
[2021-10-30] MEDS: Albumin 25% 25gram/100mL 25 GM/100 ML IV.SOLN IVPB PRN (11:20)
[2021-10-30] MEDS ORDERED: levoFLOXacin 500 MG TABLET PO ONE (16:00)
[2021-10-30 19:26] LABS: Total Protein,Peritoneal Fluid 2.5 g/dL
[2021-10-30 19:29] LABS: Appearance of Peritoneal Fl CLEAR (Clear)
[2021-10-30 20:05] LABS: Basophils,Peritoneal Fluid 0 %; Eosinophils,Peritoneal Fluid 0 %
[2021-10-31 02:14] LABS: Basophils % 0.1 %; Hematocrit 25.3 % (37.5-50.1); Immature Granulocytes % 0.6 % (0-4); Lymphocytes # 0.2 K/mcL (0.6-4.6); Lymphocytes % 1.4 %; Mean Corpuscular HGB Conc 32.8 g/dL (31.6-35.5); Mean Corpuscular Hemoglobin 31.4 pg (28.0-33.3); Mean Corpuscular Volume 95.8 fL (83.0-100.0); Mean Platelet Volume 10.1 fL (9.4-12.4); Monocytes # 0.8 K/mcL (0.0-1.3); Monocytes % 6.5 %; Neutrophils # 11.5 K/mcL (1.6-8.9); Platelet Count 167 K/mcL (140-400); Red Blood Count 2.64 M/mcL (4.19-5.50); Red Cell Distribution Width 17.2 % (11.5-14.5); Segmented Neutrophils % 91.4 %; White Blood Count 12.6 K/mcL (4.3-11.1)
[2021-10-31 02:32] LABS: Potassium 5.4 mEq/L (3.5-5.1)
[2021-10-31 02:46] LABS: Hemoglobin 8.3 g/dL (12.9-16.9)
[2021-10-31] MEDS ORDERED: *HR* Heparin 10,000 UNIT/10 ML VIAL IV PRN (08:04)
[2021-10-31] MEDS ORDERED: 0.9 % Sodium Chloride 250 ML IVC PRN (08:04)
[2021-10-31 09:16] LABS: % Iron Saturation 45 % (20-55); Iron 57 mcg/dL (65-175); Transferrin 91 mg/dL (203-362)
[2021-10-31 09:34] LABS: Ferritin 742 ng/mL (20-250)
[2021-10-31 09:40] LABS: Folate 5.1 ng/mL (3.0-16.0)
[2021-10-31] MEDS: Apixaban 2.5 MG TABLET PO SCH ×2 (09:46→22:07)
[2021-10-31] MEDS: carvediloL 25 MG TABLET PO SCH ×2 (09:47→17:23)
[2021-10-31] MEDS: predniSONE 20 MG TABLET PO SCH (09:47)
[2021-10-31] MEDS: Sacubitril/Valsartan 24/26 MG 1 TABLET PO SCH ×2 (09:47→22:07)
[2021-10-31] MEDS ORDERED: Darbepoetin 100 MCG/0.5 ML SYRINGE SQ SCH (11:00)
[2021-10-31] MEDS ORDERED: Albumin 25% 25gram/100mL 25 GM/100 ML IV.SOLN IVPB ONE (11:14)
[2021-10-31] MEDS: *HR* OxyCODONE Immed Rel 5 MG TABLET PO PRN (17:27)
[2021-10-31] MEDS ORDERED: Doxycycline 100 MG CAPSULE PO SCH (18:00)
[2021-10-31] MEDS: *HR* HYDROcodone/Acet 5/325 mg TABLET PO PRN (18:51)
[2021-10-31 22:22] LABS: Fluid Source for Albumin PERTIONEAL FL
[2021-10-31] MEDS: cefTRIAXone 1,000 MG in 0.9 % Sodium Chloride 10 ML IVP SCH (22:32)
[2021-11-01 03:00] LABS: Basophils % 0.1 %; Hematocrit 26.6 % (37.5-50.1); Hemoglobin 8.6 g/dL (12.9-16.9); Immature Granulocytes % 0.8 % (0-4); Lymphocytes # 0.2 K/mcL (0.6-4.6); Lymphocytes % 1.2 %; Mean Corpuscular HGB Conc 32.3 g/dL (31.6-35.5); Mean Corpuscular Hemoglobin 31.6 pg (28.0-33.3); Mean Corpuscular Volume 97.8 fL (83.0-100.0); Mean Platelet Volume 10.2 fL (9.4-12.4); Monocytes # 0.8 K/mcL (0.0-1.3); Monocytes % 5.4 %; Platelet Count 191 K/mcL (140-400); Red Blood Count 2.72 M/mcL (4.19-5.50); Red Cell Distribution Width 17.2 % (11.5-14.5); Segmented Neutrophils % 92.5 %
[2021-11-01] MEDS: Albumin 25% 25gram/100mL 25 GM/100 ML IV.SOLN IVPB PRN (03:14)
[2021-11-01 03:19] LABS: Potassium 5.2 mEq/L (3.5-5.1)
[2021-11-01] MEDS: Apixaban 2.5 MG TABLET PO SCH ×2 (07:54→20:33)
[2021-11-01] MEDS: predniSONE 20 MG TABLET PO SCH (07:55)
[2021-11-01] MEDS: carvediloL 25 MG TABLET PO SCH ×2 (07:55→17:31)
[2021-11-01] MEDS: *HR* OxyCODONE Immed Rel 5 MG TABLET PO PRN ×2 (07:55→13:58)
[2021-11-01] MEDS: Sacubitril/Valsartan 24/26 MG 1 TABLET PO SCH ×2 (07:55→20:33)
[2021-11-01] MEDS ORDERED: Albumin 25% 25gram/100mL 25 GM/100 ML IV.SOLN IVPB PRN (08:26)
[2021-11-01] MEDS ORDERED: 0.9 % Sodium Chloride 250 ML IVC PRN (08:26)
[2021-11-01] MEDS ORDERED: *HR* Heparin 10,000 UNIT/10 ML VIAL IV PRN (08:26)
[2021-11-01] MEDS ORDERED: SODIUM ZIRCONIUM CYCLOSILICATE 5 GM POWD.PACK PO SCH (09:00)
[2021-11-01] MEDS ORDERED: Albumin 25% 25gram/100mL 25 GM/100 ML IV.SOLN IV PRN (10:19)
[2021-11-01] MEDS ORDERED: Albumin 25% 25gram/100mL 25 GM/100 ML IV.SOLN ONE (10:20)
[2021-11-01] MEDS ORDERED: levoFLOXacin 250 MG TABLET PO SCH (16:00)
[2021-11-01] MEDS: cefTRIAXone 1,000 MG in 0.9 % Sodium Chloride 10 ML IVP SCH (21:16)
[2021-11-02] MEDS: *HR* OxyCODONE Immed Rel 5 MG TABLET PO PRN ×2 (03:18→14:32)
[2021-11-02 06:39] LABS: Basophils % 0.1 %; Hematocrit 29.8 % (37.5-50.1); Hemoglobin 9.3 g/dL (12.9-16.9); Lymphocytes # 0.3 K/mcL (0.6-4.6); Lymphocytes % 2.1 %; Mean Corpuscular HGB Conc 31.2 g/dL (31.6-35.5); Mean Corpuscular Hemoglobin 31.2 pg (28.0-33.3); Mean Platelet Volume 10.4 fL (9.4-12.4); Monocytes # 1.1 K/mcL (0.0-1.3); Monocytes % 7.7 %; Neutrophils # 12.4 K/mcL (1.6-8.9); Platelet Count 221 K/mcL (140-400); Red Blood Count 2.98 M/mcL (4.19-5.50); Red Cell Distribution Width 17.1 % (11.5-14.5); Segmented Neutrophils % 89.1 %; White Blood Count 13.9 K/mcL (4.3-11.1)
[2021-11-02 06:57] LABS: Calcium 7.7 mg/dL (8.6-10.3); Potassium 4.6 mEq/L (3.5-5.1)
[2021-11-02] MEDS ORDERED: 0.9 % Sodium Chloride 250 ML IVC PRN (08:20)
[2021-11-02] MEDS ORDERED: *HR* Heparin 10,000 UNIT/10 ML VIAL IV PRN (08:28)
[2021-11-02] MEDS: Apixaban 2.5 MG TABLET PO SCH ×2 (08:37→22:13)
[2021-11-02] MEDS: Sacubitril/Valsartan 24/26 MG 1 TABLET PO SCH ×2 (08:37→22:13)
[2021-11-02] MEDS: predniSONE 20 MG TABLET PO SCH (08:37)
[2021-11-02] MEDS: carvediloL 25 MG TABLET PO SCH ×2 (08:37→16:24)
[2021-11-02] MEDS ORDERED: Sennosides/Docusate Sodium TABLET PO PRN (09:21)
[2021-11-02] MEDS: Albumin 25% 25gram/100mL 25 GM/100 ML IV.SOLN IVPB PRN (10:00)
[2021-11-02] MEDS ORDERED: *HR* LORazepam 0.5 MG TABLET PO PRN (15:12)
[2021-11-02] MEDS ORDERED: haloperidoL 1 MG TABLET PO PRN (15:13)
[2021-11-02] MEDS ORDERED: Hyoscyamine SL 0.125 MG TAB.SUBL SL PRN (15:14)
[2021-11-02] MEDS ORDERED: *HR* OxyCODONE Immed Rel 5 MG TABLET PO PRN (15:18)
[2021-11-02] MEDS: *HR* HYDROmorphone 2 MG/ML SYRINGE IVP PRN (18:49)
[2021-11-03 02:40] LABS: Hematocrit 28.8 % (37.5-50.1); Lymphocytes # 0.2 K/mcL (0.6-4.6); Mean Corpuscular HGB Conc 31.3 g/dL (31.6-35.5); Mean Corpuscular Hemoglobin 30.8 pg (28.0-33.3); Mean Corpuscular Volume 98.6 fL (83.0-100.0); Mean Platelet Volume 10.3 fL (9.4-12.4); Platelet Count 222 K/mcL (140-400); Red Blood Count 2.92 M/mcL (4.19-5.50); Red Cell Distribution Width 17.1 % (11.5-14.5); White Blood Count 11.7 K/mcL (4.3-11.1)
[2021-11-03] MEDS: *HR* HYDROmorphone 2 MG/ML SYRINGE IVP PRN ×2 (02:42→07:41)
[2021-11-03 03:04] LABS: Calcium 7.5 mg/dL (8.6-10.3); Potassium 4.9 mEq/L (3.5-5.1)
[2021-11-03 04:28] LABS: Neutrophils # 11.5 K/mcL (1.6-8.9)
[2021-11-03 04:29] LABS: Anisocytosis 1+ (Not Present); Platelet Estimate Normal (Normal)
[2021-11-03] MEDS: carvediloL 25 MG TABLET PO SCH ×2 (07:40→16:26)
[2021-11-03] MEDS: Sacubitril/Valsartan 24/26 MG 1 TABLET PO SCH ×2 (07:40→21:18)
[2021-11-03] MEDS: Apixaban 2.5 MG TABLET PO SCH ×2 (07:40→21:19)
[2021-11-03] MEDS: predniSONE 20 MG TABLET PO SCH (07:44)
[2021-11-03] MEDS ORDERED: 0.9 % Sodium Chloride 250 ML IVC PRN (10:04)
[2021-11-03] MEDS ORDERED: *HR* Heparin 10,000 UNIT/10 ML VIAL IV PRN (10:04)
[2021-11-03] MEDS: *HR* OxyCODONE Immed Rel 5 MG TABLET PO PRN (14:03)
[2021-11-03] MEDS ORDERED: Albumin 25% 25gram/100mL 25 GM/100 ML IV.SOLN ONE (17:04)
[2021-11-03] MEDS: Albumin 25% 25gram/100mL 25 GM/100 ML IV.SOLN IVPB PRN (17:40)
[2021-11-04] MEDS: *HR* OxyCODONE Immed Rel 5 MG TABLET PO PRN ×2 (03:31→08:36)
[2021-11-04 04:25] VITALS: O2SAT 97
[2021-11-04] MEDS: Apixaban 2.5 MG TABLET PO SCH (08:36)
[2021-11-04] MEDS: Sacubitril/Valsartan 24/26 MG 1 TABLET PO SCH (08:36)
[2021-11-04] MEDS: predniSONE 20 MG TABLET PO SCH (08:36)
[2021-11-04] MEDS: carvediloL 25 MG TABLET PO SCH (08:37)
[2021-11-04 10:54] VITALS: BP 108/72; PULSE 73; TEMP 97.9
== END 2021-11-04 13:26 | disposition hospice, home (50) | DRG 291 ==
LOC: 2ANU 10:38 → EMEROOARM 10:38 → SUATTDRO 15:17 → 2ANU 16:20 → SUATTDRO 10-30 15:29
PROVIDERS: ADMIT Internal Medicine; ATTEND General Practice

== ENCOUNTER 2021-11-06 12:09 | Inpatient (IN) ==
[2021-11-06 14:21] LABS: Basophils # 0.1 K/mcL (0.0-0.2); Basophils % 0.5 %; Eosinophils # 0.1 K/mcL (0.0-0.6); Eosinophils % 0.3 %; Hematocrit 28.7 % (37.5-50.1); Hemoglobin 8.7 g/dL (12.9-16.9); Immature Granulocytes % 4.9 % (0-4); Lymphocytes # 0.3 K/mcL (0.6-4.6); Lymphocytes % 1.6 %; Mean Corpuscular HGB Conc 30.3 g/dL (31.6-35.5); Mean Corpuscular Hemoglobin 30.2 pg (28.0-33.3); Mean Corpuscular Volume 99.7 fL (83.0-100.0); Mean Platelet Volume 9.6 fL (9.4-12.4); Monocytes # 1.7 K/mcL (0.0-1.3); Monocytes % 10.6 %; Neutrophils # 13.2 K/mcL (1.6-8.9); Nucleated Red Blood Cells 0.1 /100 WBC (0); Platelet Count 223 K/mcL (140-400); Red Blood Count 2.88 M/mcL (4.19-5.50); Red Cell Distribution Width 17.2 % (11.5-14.5); Segmented Neutrophils % 82.1 %; White Blood Count 16.1 K/mcL (4.3-11.1)
[2021-11-06 14:28] LABS: Calcium 7.6 mg/dL (8.6-10.3); Potassium 5.1 mEq/L (3.5-5.1)
[2021-11-06 14:34] LABS: Troponin I 0.05 ng/mL (< 0.04)
[2021-11-06 14:36] LABS: INR 1.2
[2021-11-06 14:39] LABS: Activated Partial Thrombo Time 30.4 Seconds (26.0-36.0)
[2021-11-06] MEDS ORDERED: *HR* Heparin 10,000 UNIT/10 ML VIAL IV PRN (15:35)
[2021-11-06] MEDS ORDERED: Albumin 25% 25gram/100mL 25 GM/100 ML IV.SOLN IVPB PRN (15:35)
[2021-11-06] MEDS ORDERED: 0.9 % Sodium Chloride 2,000 ML PRIME SCH (15:45)
[2021-11-06] MEDS ORDERED: Acetaminophen 325 MG TABLET PO PRN (16:45)
[2021-11-06] MEDS ORDERED: Ondansetron 4 MG/2 ML VIAL IVP PRN (16:45)
[2021-11-06] MEDS ORDERED: Naloxone 0.4 MG/ML INJ IVP PRN (16:45)
[2021-11-06] MEDS ORDERED: NORTHERA PO SCH (18:00)
[2021-11-06] MEDS ORDERED: Albumin 25% 25gram/100mL 25 GM/100 ML IV.SOLN ONE (19:41)
[2021-11-06] MEDS ORDERED: Apixaban 2.5 MG TABLET PO SCH (21:00)
[2021-11-06] MEDS ORDERED: *HR* Dextrose 50 % in Water (Syg) 50 ML SYRINGE IVP PRN (23:09)
[2021-11-06] MEDS ORDERED: Dextrose Gel 15 GM/37.5 ML TUBE PO PRN ×2 (23:09)
[2021-11-06] MEDS ORDERED: D5% in Water 1,000 ML IVC PRN (23:09)
[2021-11-07] MEDS ORDERED: Albumin 25% 25gram/100mL 25 GM/100 ML IV.SOLN ONE ×2 (00:41→12:14)
[2021-11-07] MEDS ORDERED: Albumin 25% 25gram/100mL 25 GM/100 ML IV.SOLN IVPB ONE ×2 (00:50→04:59)
[2021-11-07] MEDS ORDERED: 0.9 % Sodium Chloride 250 ML IVC ONE (01:35)
[2021-11-07] MEDS: 0.9 % Sodium Chloride 250 ML IVC PRN ×2 (01:43→02:48)
[2021-11-07] MEDS ORDERED: Norepinephrine 4 MG/254 ML IV.SOLN IVC SCH (02:45)
[2021-11-07] MEDS: Norepinephrine 4 MG/254 ML IV.SOLN IVC SCH ×2 (07:00→17:07)
[2021-11-07] MEDS ORDERED: Ondansetron 4 MG/2 ML VIAL IVP PRN ×2 (07:31→18:08)
[2021-11-07] MEDS ORDERED: Dextrose Gel 15 GM/37.5 ML TUBE PO PRN ×4 (07:31→18:08)
[2021-11-07] MEDS ORDERED: 0.9 % Sodium Chloride 250 ML IVC PRN ×3 (07:31→18:08)
[2021-11-07] MEDS ORDERED: *HR* Heparin 10,000 UNIT/10 ML VIAL IV PRN ×2 (07:31→09:11)
[2021-11-07] MEDS ORDERED: 0.9 % Sodium Chloride 2,000 ML PRIME SCH ×2 (07:31→18:08)
[2021-11-07] MEDS ORDERED: *HR* Dextrose 50 % in Water (Syg) 50 ML SYRINGE IVP PRN ×2 (07:31→18:08)
[2021-11-07] MEDS ORDERED: D5% in Water 1,000 ML IVC PRN ×2 (07:31→18:08)
[2021-11-07] MEDS ORDERED: Naloxone 0.4 MG/ML INJ IVP PRN ×2 (07:31→18:08)
[2021-11-07] MEDS ORDERED: Acetaminophen 325 MG TABLET PO PRN ×2 (07:31→18:08)
[2021-11-07] MEDS ORDERED: Piperacillin/Tazobactam 3.375 GM in 0.9 % Sodium Chloride Mini Bag 100 ML IVPB SCH ×3 (08:00→20:00)
[2021-11-07] MEDS: Patient Taking Own Medication 1 EACH PO SCH ×3 (08:42→13:13)
[2021-11-07] MEDS ORDERED: Apixaban 2.5 MG TABLET PO SCH (09:00)
[2021-11-07] MEDS ORDERED: Pantoprazole 40 MG VIAL IVP SCH ×2 (09:00)
[2021-11-07] MEDS ORDERED: Bisacodyl 10 MG RECTAL SUPPOSITORY RC PRN ×2 (09:03→18:08)
[2021-11-07] MEDS ORDERED: *HR* OxyCODONE Immed Rel 5 MG TABLET PO PRN (09:09)
[2021-11-07 09:50] LABS: Basophils % 0.3 %; Eosinophils # 0.1 K/mcL (0.0-0.6); Eosinophils % 0.4 %; Immature Granulocytes % 4.1 % (0-4); Lymphocytes # 0.3 K/mcL (0.6-4.6); Mean Corpuscular HGB Conc 30.8 g/dL (31.6-35.5); Mean Corpuscular Hemoglobin 30.4 pg (28.0-33.3); Mean Corpuscular Volume 98.9 fL (83.0-100.0); Mean Platelet Volume 9.9 fL (9.4-12.4); Monocytes # 1.7 K/mcL (0.0-1.3); Monocytes % 12.7 %; Neutrophils # 10.4 K/mcL (1.6-8.9); Platelet Count 197 K/mcL (140-400); Red Blood Count 2.63 M/mcL (4.19-5.50); Red Cell Distribution Width 17.2 % (11.5-14.5); Segmented Neutrophils % 80.5 %
[2021-11-07 10:09] LABS: Albumin 3.2 g/dL (3.5-5.7); Albumin/Globulin Ratio 1.6 (1.1-2.2); Bilirubin,Total 0.7 mg/dL (0.3-1.0); Calcium 7.7 mg/dL (8.6-10.3); Potassium 4.8 mEq/L (3.5-5.1); Total Protein 5.2 g/dL (6.4-8.9)
[2021-11-07 10:47] LABS: Ferritin 770 ng/mL (20-250); Iron < 10 mcg/dL (65-175); Phosphorous 3.3 mg/dL (2.7-4.5); Transferrin 105 mg/dL (203-362)
[2021-11-07] MEDS: Albumin 25% 25gram/100mL 25 GM/100 ML IV.SOLN IVPB PRN ×2 (12:15→14:09)
[2021-11-07] MEDS ORDERED: Albumin 25% 25gram/100mL 25 GM/100 ML IV.SOLN IVPB PRN (18:08)
[2021-11-07] MEDS: *HR* OxyCODONE Immed Rel 5 MG TABLET PO PRN (19:03)
[2021-11-07] MEDS: Apixaban 2.5 MG TABLET PO SCH (21:57)
[2021-11-07] MEDS: Piperacillin/Tazobactam 3.375 GM in 0.9 % Sodium Chloride Mini Bag 100 ML IVPB SCH (22:25)
[2021-11-08 08:37] LABS: Basophils % 0.2 %; Eosinophils # 0.1 K/mcL (0.0-0.6); Eosinophils % 0.5 %; Hemoglobin 8.5 g/dL (12.9-16.9); Immature Granulocytes % 4.3 % (0-4); Lymphocytes # 0.3 K/mcL (0.6-4.6); Lymphocytes % 2.1 %; Mean Corpuscular HGB Conc 30.4 g/dL (31.6-35.5); Mean Corpuscular Hemoglobin 30.4 pg (28.0-33.3); Mean Platelet Volume 9.8 fL (9.4-12.4); Monocytes # 1.4 K/mcL (0.0-1.3); Monocytes % 10.7 %; Neutrophils # 10.4 K/mcL (1.6-8.9); Platelet Count 190 K/mcL (140-400); Red Cell Distribution Width 16.9 % (11.5-14.5); Segmented Neutrophils % 82.2 %; White Blood Count 12.7 K/mcL (4.3-11.1)
[2021-11-08 08:50] LABS: Calcium 7.6 mg/dL (8.6-10.3); Potassium 4.6 mEq/L (3.5-5.1)
[2021-11-08] MEDS: Apixaban 2.5 MG TABLET PO SCH ×2 (09:05→21:53)
[2021-11-08] MEDS: Piperacillin/Tazobactam 3.375 GM in 0.9 % Sodium Chloride Mini Bag 100 ML IVPB SCH ×2 (09:07→21:58)
[2021-11-08] MEDS: Patient Taking Own Medication 1 EACH PO SCH ×3 (09:10→17:54)
[2021-11-08] MEDS ORDERED: 0.9 % Sodium Chloride 250 ML IVC PRN (09:54)
[2021-11-08] MEDS ORDERED: *HR* Heparin 10,000 UNIT/10 ML VIAL IV PRN (09:54)
[2021-11-08] MEDS: Nystatin Cream 15 GM TUBE TP SCH ×2 (11:09→23:06)
[2021-11-08] MEDS: *HR* OxyCODONE Immed Rel 5 MG TABLET PO PRN (21:53)
[2021-11-09 08:07] LABS: Basophils # 0.1 K/mcL (0.0-0.2); Basophils % 0.7 %; Eosinophils # 0.1 K/mcL (0.0-0.6); Eosinophils % 0.8 %; Hematocrit 26.5 % (37.5-50.1); Hemoglobin 8.1 g/dL (12.9-16.9); Immature Granulocytes % 4.9 % (0-4); Lymphocytes # 0.5 K/mcL (0.6-4.6); Lymphocytes % 3.5 %; Mean Corpuscular HGB Conc 30.6 g/dL (31.6-35.5); Mean Corpuscular Hemoglobin 30.5 pg (28.0-33.3); Mean Corpuscular Volume 99.6 fL (83.0-100.0); Mean Platelet Volume 9.3 fL (9.4-12.4); Monocytes # 2.1 K/mcL (0.0-1.3); Monocytes % 15.3 %; Neutrophils # 10.3 K/mcL (1.6-8.9); Nucleated Red Blood Cells 0.7 /100 WBC (0); Platelet Count 173 K/mcL (140-400); Red Blood Count 2.66 M/mcL (4.19-5.50); Segmented Neutrophils % 74.8 %; White Blood Count 13.8 K/mcL (4.3-11.1)
[2021-11-09 08:20] LABS: Calcium 7.5 mg/dL (8.6-10.3); Potassium 5.2 mEq/L (3.5-5.1)
[2021-11-09] MEDS: Piperacillin/Tazobactam 3.375 GM in 0.9 % Sodium Chloride Mini Bag 100 ML IVPB SCH (08:32)
[2021-11-09] MEDS: Apixaban 2.5 MG TABLET PO SCH (08:32)
[2021-11-09] MEDS: Patient Taking Own Medication 1 EACH PO SCH ×3 (08:33→14:39)
[2021-11-09] MEDS: Nystatin Cream 15 GM TUBE TP SCH ×2 (08:34→13:58)
[2021-11-09] MEDS: *HR* OxyCODONE Immed Rel 5 MG TABLET PO PRN (08:38)
[2021-11-09] MEDS ORDERED: 0.9 % Sodium Chloride 250 ML IVC PRN (09:45)
[2021-11-09] MEDS ORDERED: *HR* Heparin 10,000 UNIT/10 ML VIAL IV PRN (09:45)
[2021-11-09 11:29] VITALS: PULSE 83; O2SAT 96
[2021-11-09] MEDS ORDERED: *HR* LORazepam 0.5 MG TABLET PO PRN (13:20)
[2021-11-09] MEDS ORDERED: Furosemide 40 MG TABLET PO SCH (17:00)
[2021-11-09 19:09] VITALS: BP 116/79; TEMP 98
== END 2021-11-09 18:57 | disposition hospice, home (50) | DRG 291 ==
LOC: EMEROOARM 12:09 → 2ANU 12:09 → 2NNU 12:09 → ICNU 11-07 04:59 → SUATTDRO 11-07 15:53 → 2ANU 11-07 20:47
PROVIDERS: ADMIT Pharmacist; ATTEND Internal Medicine